=== PATIENT | female | born 1970 | race Caucasian/White ===

== ENCOUNTER → 2017-09-14 13:03 | Outpatient (CLI) | payer OTHER, SELFPAY ==
[2017-09-14 14:13] LABS: Absolute Lymphocyte Count 2.08 X10^3/ul (0.83-4.51); Basophil# 0.02 X10^3/uL; Basophil% 0.3 % (0-1); Eosinophil# 0.11 X10^3/uL; Eosinophils% 1.6 % (0-5); Hematocrit 40.6 % (37-47); Hemoglobin 13.4 g/dl (12.0-15.0); Lymphocyte # 2.08 X10^3/ul (4.0); Lymphocyte % 30.8 % (19-41); Mean Corpuscular Hgb 31.1 pg (27.0-32.0); Mean Corpuscular Volume 94.2 fL (81-99); Mean Platelet Vol. 9.9 fl (6.2-12.0); Monocyte# 0.53 X10^3/uL; Monocyte% 7.8 % (0-10); Neutrophil # 4.01 X10^3/uL (2.7-7.7); Neutrophil % 59.4 % (47-70); Platelet Count 331 K/mm3 (150-450); RBC Distribution Width CV 12.9 % (11.6-14.6); RBC Distribution Width SD 44.6 fl (35.1-43.9); Red Blood Count 4.31 M/mm3 (4.2-5.4); White Blood Count 6.8 K/mm3 (4.4-11.0)
[2017-09-14 14:15] LABS: POSITIVE COUNT NO; POSITIVE DIFFERENTIAL NO; POSITIVE MORPHOLOGY NO
[2017-09-14 14:52] LABS: Thyroid Stim Hormone (TSH) 1.09 uIU/mL (0.358-3.74)
[2017-09-20 08:40] LABS: HPV APTIMA, High Risk Negative (Negative)
== END ==
PROVIDERS: Family Provider Family Medicine; PCP Family Medicine; Visit Provider Obstetrics & Gynecology
DX: Z12.4 Encounter for screening for malignant neoplasm of cervix (principal); N93.9 Abnormal uterine and vaginal bleeding, unspecified
CPT/HCPCS: 36415; 84443; 85025; 88175; G0145

== ENCOUNTER 2019-02-23 11:45 | Emergency (ER) | payer OTHER, SELFPAY ==
[2019-02-23 11:46] VITALS: BP 143/87; PULSE 114; RESP 16; TEMP 36.8; O2SAT 99; BMI 25.7
--- NOTE | 2019-02-23 12:21 | RAD_ITS ---
STUDY: X-RAY - ABDOMEN/PELVIS REASON FOR EXAM: Female, 48 years old. Constipation. TECHNIQUE: Single AP view of the abdomen / pelvis. COMPARISON: None. FINDINGS: Normal visualized lung bases. There is a moderate amount of colonic fecal material. There are nonspecific gaseous bowel loops. There are calcified phleboliths in the pelvis. There is partial sacralization of the last lumbar vertebra on the left side. RAD/Abdomen Single View IMPRESSION: Moderate fecal retention. Electronically Signed: Michi Bowens MD at 12:42 EDT Tel , Service support ,
--- NOTE | 2019-02-23 12:56 | ED.VISSUMM ---
- ER Visit Summary Date of Service: 02/23/19 Chief Complaint: Abdominal discomfort and constipation History of Present Illness: The patient is a 48 F past medical history. Currently on no medications. Patient denies any nausea or vomiting. No diarrhea. No melena. No dysuria. She is never had a bowel obstruction she is never had abdominal surgeries of . Physical Examination: Middle-aged female no acute distress. Vital signs are stable and afebrile. HEENT exam unremarkable. Neck nontender no lymphadenopathy lungs bilateral. Heart regular rhythm no murmur. Abdomen soft. Nondistended normal bowel sounds no peritoneal signs. She says he feels full when I press on her abdomen. There is no localizing tenderness. There is no hernias or masses. No signs of obstruction. Patient is moving all 4 extremities. No edema. Neurologically she is awake and alert with no focal motor deficits. Test Results: KUB 2 view x-ray was obtained and shows increased stool throughout consistent with constipation. There is no signs of bowel obstruction. There are no air-fluid level. Read both by myself and radiologist. Emergency Department Course and Treatment: Cleanse enema was unsuccessful. Nurse had trouble passing it to get about half the enema into the patient. Repeat exam at 1425 patient is doing well. She wants to try magnesium citrate at home. She will be referred for outpatient colonoscopy as needed. Treatment Plan: Magnesium citrate. Follow-up for possible outpatient colonoscopy. Disposition: Discharge Impression: Acute constipation This note was generated with [employer]ango dictation software. It may contain incorrect words, spelling, and punctuation that were not noted in review of the chart prior to signing ED Disposition - Plan for ED Patient: Referrals: Jt Diana MD [Primary Care Provider] -
--- NOTE | 2019-02-23 14:32 | ED.DEP ---
ED Disposition - Plan for ED Patient: Disposition: Home or Assisted Living Instructions: CONSTIPATION (Adult) Referrals: Jt Diana MD [Primary Care Provider] - As Needed Adrienne Roblero MD [STAFF PHYSICIAN] - 1-2 Weeks Additional Instructions: May citrate drink the first bottle and if no bowel movement in 2 hours and drink the second bottle. Today she can plenty of fluids and taking plenty of fiber such as fruits, vegetables and apples with peels on them. Prune-juice also works well also. Call and follow-up with the general surgeon on-call Dr. Preeti Roblero for possible outpatient colonoscopy if needed.
[2019-02-23] MEDS: Magnesium Citrate 300 ML PO (14:49)
== END 2019-02-23 14:45 | disposition home or self-care (01) ==
PROVIDERS: Emergency Provider Emergency Medicine; Family Provider Family Medicine; PCP Family Medicine
DX: K59.00 Constipation, unspecified (principal); Z72.0 Tobacco use
CPT/HCPCS: 74018; 99284

== ENCOUNTER 2019-02-24 23:29 | Observation (INO) | payer OTHER, SELFPAY ==
[2019-02-23 11:46] VITALS: BMI 25.7
[2019-02-24 23:30] VITALS: BP 124/75; PULSE 102; RESP 18; TEMP 36.4; O2SAT 98; BMI 24.5
--- NOTE | 2019-02-25 00:14 | CT_ITS ---
STUDY: CT ABDOMEN AND PELVIS WITHOUT CONTRAST REASON FOR EXAM: Female, 48 years old. Abdominal pain RADIATION DOSAGE (If Supplied By Facility): CTDIvol = ( 7.18 ) mGy, DLP = ( 322.89 ) mGycm TECHNIQUE: Transaxial images were obtained from the dome of the diaphragm to the symphysis pubis without oral contrast, and without intravenous contrast. Sagittal and coronal images were reconstructed. Individualized dose optimization techniques were used for this CT. COMPARISON: None. FINDINGS: The lung bases are clear. The liver is normal. No dilated intrahepatic biliary radicles. The gallbladder is normal with no calcifications within it. There is no pericholecystic fluid collection or streakiness The spleen is normal. The pancreas is normal. Both adrenals are normal. The kidneys are normal with no masses, calculi or hydronephrosis The stomach is normal. There is no intestinal obstruction or acute appendicitis. There is mild sigmoid diverticulitis. Significant thickening of the sigmoid mesocolon No constricting lesions are seen in large bowel. The abdominal wall is intact with no hernias. There is no ascites or any free intraperitoneal air. No indication of epiploic appendagitis The vascular structures in the retroperitoneum are normal. There is no retrocrural, retroperitoneal or mesenteric adenopathy. The bones and joints are normal. The urinary bladder is normal.--The uterus is normal. There is no inguinal or pelvic adenopathy. There is no inguinal hernia. CT/Abdomen/Pel W ORAL Cont Only IMPRESSION: Mild acute sigmoid diverticulitis. No acute appendicitis Electronically Signed: Darwin Spear MD at 2:21 EDT Tel , Service support ,
[2019-02-25 00:41] LABS: Color, Urine Yellow (Yellow); Glucose, Dipstick Normal (Normal); Ketone-Dipstick 5 mg/dl (Negative); Leukocyte Esterase-Dipstick 25 /ul (Negative); Nitrite-Dipstick Negative (Negative); Occult Blood-Urine 250 /ul (Negative); Protein-Dipstick 30 mg/dl (Negative); Specific Gravity, Urine 1.025 (1.002-1.030); Urine Bilirubin Dipstick Negative (Negative); Urine Clarity Sl. Cloudy (Clear); Urine Urobilinogen 4 mg/dl (Normal)
[2019-02-25 00:42] LABS: Absolute Lymphocyte Count 2.05 X10^3/uL (0.83-4.51); Absolute Neutrophil Count 8.6 X10^3/uL (2.0-7.7); Basophil# 0.03 X10^3/uL; Basophil% 0.3 % (0-1); Eosinophil# 0.17 X10^3/uL; Eosinophils% 1.5 % (0-5); Hematocrit 36.5 % (37-47); Hemoglobin 12.5 g/dL (12.0-15.0); Lymphocyte # 2.05 X10^3/ul (4.0); Lymphocyte % 17.6 % (19-41); Mean Corp Hgb Conc 34.2 g/dL (32-36); Mean Corpuscular Hgb 33.6 pg (27.0-32.0); Mean Corpuscular Volume 98.1 fL (81-99); Mean Platelet Vol. 10.5 fl (6.2-12.0); Monocyte# 0.71 X10^3/uL; Monocyte% 6.1 % (0-10); NRBC Flagged by Analyzer 0 % (0-5); Neutrophil # 8.59 X10^3/uL (2.7-7.7); Neutrophil % 73.7 % (47-70); Platelet Count 475 K/mm3 (150-450); RBC Distribution Width CV 12.7 % (11.6-14.6); RBC Distribution Width SD 45.4 fl (35.1-43.9); Red Blood Count 3.72 M/mm3 (4.2-5.4); White Blood Count 11.6 K/mm3 (4.4-11.0)
[2019-02-25 00:47] LABS: Bacteria RARE /hpf (None Seen); Hyaline Cast 0-5 SEEN /lpf (0-5); Mucous, Urine 2+ /hpf (<or=2+); Squamous Epithelial Cells - UA 5-10 SEEN /hpf (5-10); White Blood Cells 0-5 SEEN /hpf (0-5)
[2019-02-25 00:48] LABS: Red Blood Cells-Urine 5-10 SEEN /hpf (0-5)
[2019-02-25 00:58] LABS: Internal QC Validated? YES +Cl - CLEAR BKGD; Pregnancy, Serum, hCG Quali. NEGATIVE Negative
[2019-02-25 01:30] VITALS: BP 121/75; PULSE 101; RESP 17; O2SAT 98
--- NOTE | 2019-02-25 02:22 | ED.RN ---
UNABLE TO DRAW LACTIC OR CHEM PANEL, CALLED LAB THEY TRIED TWICE AND ALSO COULD NOT GET ANYTHING. DR. KELLY AWARE NO FURTHER ORDERS AT THIS TIME.
[2019-02-25] MEDS: 0.9% Normal Saline 1,000 ML 125 ML IV (02:23)
--- NOTE | 2019-02-25 02:50 | ED.VISSUMM ---
- ER Visit Summary Date of Service: 02/25/19 Chief Complaint: [Abdominal pain and constipation] History of Present Illness: The patient is a 48 F [presents to the emergency department with complaint of abdominal pain and constipation. Patient states she has not had a good bowel movement in over a week. Patient was seen in the emergency department yesterday and had a abdominal x-ray and attempted soapsuds enemas x2. Patient was sent home with magnesium citrate and after taking it she passed some water but really does not like she got much relief. Her pain is now worse to the left lower quadrant. She denies any fevers. She is had some nausea. She denies urinary symptoms.] Physical Examination: [HEENT-PERRLA, EOMI. Cranial nerves II through XII grossly intact. TMs clear. Mucous membranes moist. No adenopathy. Cardiovascular-regular rate and rhythm without murmur or ectopy Lungs-clear to auscultation, chest wall stable without crepitus or subcu emphysema Abdomen-normoactive bowel sounds, soft. Patient has tenderness over left lower quadrant with some guarding. There is no rebound, rigidity, cranial signs. Extremities-intact ?4, normal range of motion, normal pulses, atraumatic] Test Results: [CBC with differential obtained from elevated white count of 11.6, hemoglobin 12, hematocrit 36, platelets 475. Chemistries pending. hCG was negative. Urinalysis was unremarkable. CT scan of the abdomen pelvis with IV and p.o. contrast showed acute diverticulitis of the sigmoid colon without any complications.] Emergency Department Course and Treatment: [Patient was started on Cipro and Flagyl IV. Patient was given morphine 4 mg IV.] Treatment Plan: [Patient will be admitted for pain control and IV antibiotics.] Disposition: [Admit] Impression: [Sigmoid diverticulitis Abdominal pain] This note was generated with [employer] dictation software. It may contain incorrect words, spelling, and punctuation that were not noted in review of the chart prior to signing ED Disposition - Plan for ED Patient: Referrals: Jt Diana MD [Primary Care Provider] -
[2019-02-25 03:00] VITALS: BP 122/78; PULSE 76; RESP 17; O2SAT 97
[2019-02-25 03:18] LABS: BUN 10 mg/dL (7-18); BUN/Creat Ratio 15.6 RATIO (10-20); Calcium,Total 8.7 mg/dL (8.5-10.1); Chloride 107 mmol/L (98-107); Creatinine, Serum 0.64 mg/dL (0.55-1.02); EST Glomerular Filtration Rate 105 mL/min (>60); Est Glom Filt Rate - Afr Amer 127 mL/min (>60); Estimated Creatinine Clearance 81.12 ml/min; Glucose 87 mg/dL (74-106); Potassium 3.7 mmol/L (3.5-5.1); Sodium Level 140 mmol/L (136-145)
[2019-02-25 03:19] LABS: Anion Gap 10 (5-15)
[2019-02-25] MEDS: metroNIDAZOLE 500 MG/100 ML BAG 100 MG IV (03:24)
[2019-02-25] MEDS: Morphine 4 MG/ML Syringe IV (03:26)
--- NOTE | 2019-02-25 03:38 | HP.PCM_ITS ---
Problem List (1) Abdominal pain Status: Acute (2) Depression Status: Chronic Qualifiers: Comment: start wellbutrin, encouraged therapy. lorazepam PRN (3) Mixed stress and urge urinary incontinence Status: Chronic Comment: declined medication, no treatment at this time. History of Present Illness Date of Admission: 02/25/19 Chief Complaint: LLQ abdominal Pain The patient is a 48 year old female with a past medical history of urge incontinence and depression presents to the emergency room with chief complaint of abdominal pain. The patient was seen in the emergency room yesterday and had a KUB which showed constipation she states she had not had a bowel movement in over a week. She was given soapsuds enemas and sent home with magnesium citrate which she took and had a watery stool but continued to have pain. Today she complains of more severe pain in the left lower quadrant as well as generalized discomfort throughout the abdomen. The patient denies nausea or vomiting and has a decreased appetite. No chest pain shortness of breath fevers or chills. CBC shows an elevated white count with a left shift. CT scan shows diverticulitis. Emergency room physician started the patient on morphine due to severity of her pain and also ciprofloxacin and Flagyl to treat her diverticular disease. She will be admitted to general medical floor for further treatment. Past Medical History Past Medical History (Chronic Problems): Chronic Problems (Last Reviewed 04/19/18 @ 08:09 by Lissa Ruiz) Depression (Chronic) start wellbutrin, encouraged therapy. 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 discussed hormonal treatment if needed for symptom managment but due to smoking this limits her eligibility. aygestin Mixed stress and urge urinary incontinence (Chronic) declined medication, no treatment at this time. Allergies No Known Allergies Allergy (Verified 02/23/19 11:49) Home Medications: Ambulatory Orders Medication Instructions Recorded lorazepam 0.5 mg tablet 0.5 mg PO QD-BID PRN #14 tab 04/19/18 citalopram 20 mg tablet 20 mg PO DAILY #90 tab 07/18/18 norethindrone acetate 5 mg tablet 5 mg PO .COMPLEX #30 tab 10/07/18 Surgical History: Surgical History (Last Reviewed 04/19/18 @ 08:09 by Lissa Ruiz) H/O section Z98.891 2 Smoking Status: Current every day smoker - *Family History Maternal History Items: No pertinent history Review of Systems Constitutional: Reports: Anorexia. Denies: Chills, Fever, Weight Change HEENT: Denies: Head Aches, Sinus Congestion, Sinus Drainage Cardiovascular: Denies: Chest Pain, Palpitations Respiratory: Denies: Cough, Shortness of breath at rest, Sputum production Gastrointestinal: Reports: Abdominal Pain, Constipation. Denies: Nausea, Vomiting Genitourinary: Denies: Dysuria Musculoskeletal: Denies: Joint Pain, Joint Tenderness Skin: Denies: Rash, Wounds Neurological: Denies: Numbness, Tingling, Focal weakness Psychiatric: Denies: Anxiety, Depression, Homicidal Ideations, Suicidal Ideations Hematologic/ Lymphatic: Denies: Easy Bruising, Easy Bleeding VTE Information - Inpt Only VTE Present on Admission: No VTE Mechan Device Prophylaxis: None VTE Pharm Prophylaxis ordered?: Yes Patient Problems: Active and Suspected Problems (Last Reviewed 04/19/18 @ 08:09 by Lissa Ruiz) Abdominal pain (Acute) - Physical Exam General: Alert, Oriented x3, Cooperative HEENT: Atraumatic, Normocephalic Neck: Supple Lungs: Clear to auscultation, Normal air movement, No rhonchi, No wheeze Cardiovascular: Regular rate, Regular Rhythm, Normal S1, Normal S2, No murmurs Abdomen: Bowel Sounds Present, Soft, Tender Extremities: No edema, Capillary Refill Less than 3 Seconds Skin: No rashes Musculoskeletal: No Tenderness to Palpation of Joints or Extremities Neurological: Neuro grossly intact Psych/Mental Status: Normal Affect, Appropriate Vital Signs Temp Pulse Resp BP Pulse Ox 97.6 F L 76 17 122/78 H 97 02/24/19 23:30 02/25/19 03:00 02/25/19 03:00 02/25/19 03:00 02/25/19 03:00 Oxygen Delivery Method Room Air Weight: 130 lb Body Mass Index (BMI) 24.5 Laboratory Tests Past 24 Hrs 02/25/19 02/25/19 02/25/19 00:27 00:27 00:37 WBC 11.6 H RBC 3.72 L Hgb 12.5 Hct 36.5 L MCV 98.1 MCH 33.6 H MCHC 34.2 RDW Std Deviation 45.4 H RDW Coeff of Miguel 12.7 Plt Count 475 H MPV 10.5 Immature Gran % (Auto) 0.800 Neut % (Auto) 73.7 H Lymph % (Auto) 17.6 L Mclennan % (Auto) 6.1 Eos % (Auto) 1.5 Baso % (Auto) 0.3 Absolute Neuts (auto) 8.6 H Absolute Lymphs (auto) 2.05 Nucleated RBC % 0 Sodium Potassium Chloride Carbon Dioxide Anion Gap BUN Creatinine Estim Creat Clear Calc Est GFR (MDRD) Af Amer Est GFR (MDRD) Non-Af BUN/Creatinine Ratio Glucose Calcium Serum , Qual NEGATIVE Urine Color Yellow Urine Clarity Sl. Cloudy Urine pH 6.0 Ur Specific [place] 1.025 Urine Protein 30 H Urine Glucose (UA) Normal Urine Ketones 5 H Urine Occult Blood 250 H Urine Nitrite Negative Urine Bilirubin Negative Urine Urobilinogen 4 H Ur Leukocyte Esterase 25 H Urine RBC 5-10 SEEN Urine WBC 0-5 SEEN Ur Squamous Epith Cells 5-10 SEEN Urine Bacteria RARE Hyaline Casts 0-5 SEEN Urine Mucus 2+ 02/25/19 03:02 WBC RBC Hgb Hct MCV MCH MCHC RDW Std Deviation RDW Coeff of Miguel Plt Count MPV Immature Gran % (Auto) Neut % (Auto) Lymph % (Auto) Mclennan % (Auto) Eos % (Auto) Baso % (Auto) Absolute Neuts (auto) Absolute Lymphs (auto) Nucleated RBC % Sodium 140 Potassium 3.7 Chloride 107 Carbon Dioxide 23.0 Anion Gap 10 BUN 10 Creatinine 0.64 Estim Creat Clear Calc 81.12 Est GFR (MDRD) Af Amer 127 Est GFR (MDRD) Non-Af 105 BUN/Creatinine Ratio 15.6 Glucose 87 Calcium 8.7 Serum , Qual Urine Color Urine Clarity Urine pH Ur Specific [place] Urine Protein Urine Glucose (UA) Urine Ketones Urine Occult Blood Urine Nitrite Urine Bilirubin Urine Urobilinogen Ur Leukocyte Esterase Urine RBC Urine WBC Ur Squamous Epith Cells Urine Bacteria Hyaline Casts Urine Mucus Assessment/Plan All Active Problems (Last Reviewed 04/19/18 @ 08:09 by Lissa Ruiz) Abdominal pain (Acute) Abnormal uterine bleeding (Acute) Chronic Problems (Last Reviewed 04/19/18 @ 08:09 by Lissa Ruiz) Depression (Chronic) start wellbutrin, encouraged therapy. 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 discussed hormonal treatment if needed for symptom managment but due to smoking this limits her eligibility. aygestin Mixed stress and urge urinary incontinence (Chronic) declined medication, no treatment at this time. Plan 1. Abdominal pain secondary to diverticulitis?we will order as needed morphine for severe pain, maintain patient n.p.o., order ciprofloxacin and Flagyl per routine, IV fluids of normal saline at 100 cc/h, repeat CBC CMP in the morning 2. Depression?stable hold medications for now while n.p.o. 3. DVT prophylaxis?low molecular weight heparin Code Visit Inpatient E&M: 59715 Init Hosp L3
[2019-02-25 03:56] VITALS: BP 144/89; PULSE 94; RESP 16; TEMP 36.8
[2019-02-25 04:01] VITALS: BP 126/78
[2019-02-25] MEDS: Ciprofloxacin 400 MG/200 ML BAG 200 MG IV ×2 (04:36→10:10)
[2019-02-25 04:46] VITALS: BMI 25.4
[2019-02-25 04:54] VITALS: BMI 25.5
[2019-02-25 05:30] LABS: Absolute Lymphocyte Count 2.02 X10^3/uL (0.83-4.51); Basophil# 0.03 X10^3/uL; Basophil% 0.3 % (0-1); Eosinophil# 0.17 X10^3/uL; Eosinophils% 1.7 % (0-5); Hematocrit 30.5 % (37-47); Hemoglobin 10.1 g/dL (12.0-15.0); Lymphocyte # 2.02 X10^3/ul (4.0); Lymphocyte % 20.1 % (19-41); Mean Corp Hgb Conc 33.1 g/dL (32-36); Mean Corpuscular Hgb 32.8 pg (27.0-32.0); Mean Platelet Vol. 9.7 fl (6.2-12.0); Monocyte# 0.79 X10^3/uL; Monocyte% 7.9 % (0-10); NRBC Flagged by Analyzer 0 % (0-5); Neutrophil # 6.97 X10^3/uL (2.7-7.7); Neutrophil % 69.2 % (47-70); Platelet Count 418 K/mm3 (150-450); RBC Distribution Width CV 12.8 % (11.6-14.6); RBC Distribution Width SD 46.5 fl (35.1-43.9); Red Blood Count 3.08 M/mm3 (4.2-5.4); White Blood Count 10.1 K/mm3 (4.4-11.0)
[2019-02-25 05:52] LABS: Lactic Acid 0.7 mmol/L (0.4-2.0)
[2019-02-25 05:54] LABS: ALB/GLOB Ratio 0.6 RATIO (0.9-2.4); AST(SGOT) 35 U/L (15-37); Alanine Aminotransfer ALT/SGPT 45 U/L (13-56); Albumin, Serum 2.6 g/dL (3.2-5.0); Alkaline Phosphatase 65 U/L (45-117); Anion Gap 9 (5-15); BUN 9 mg/dL (7-18); BUN/Creat Ratio 14.2 RATIO (10-20); Calcium,Total 8.2 mg/dL (8.5-10.1); Chloride 107 mmol/L (98-107); Creatinine, Serum 0.63 mg/dL (0.55-1.02); EST Glomerular Filtration Rate 106 mL/min (>60); Est Glom Filt Rate - Afr Amer 128 mL/min (>60); Estimated Creatinine Clearance 82.41 ml/min; Globulin 4.5 g/dL (2.2-4.2); Glucose 110 mg/dL (74-106); Potassium 3.5 mmol/L (3.5-5.1); Protein, Total 7.1 g/dL (6.4-8.2); Sodium Level 139 mmol/L (136-145)
[2019-02-25 08:00] VITALS: BP 112/75; PULSE 90; RESP 16; TEMP 36.6; O2SAT 96
--- NOTE | 2019-02-25 10:01 | DCINST_ITS ---
- Discharge Diagnoses Current Active Problems: Current Active and Chronic Problems (Last Reviewed 04/19/18 @ 08:09 by Lissa Ruiz) Abdominal pain (Acute) You will use the following diet at home:: No restrictions - Advance slowly back to normal diet, avoid spicy, greasy, or acidic foods Your food should be the consistency of: Regular Your liquids should be the consistency of: Regular/Thin Discharge Activity: Return to Normal Activity Allergies/Adverse Reactions: Allergies No Known Allergies Allergy (Verified 02/23/19 11:49) Medications to take at Discharge norethindrone acetate 5 mg tablet 5 mg PO .COMPLEX #30 tab 10/07/18 Ciprofloxacin [Cipro] 500 mg PO BID #13 tab 02/25/19 Metronidazole [Flagyl] 500 mg PO TID #20 tab 02/25/19 Ondansetron [Zofran Odt] 4 mg PO Q6H PRN PRN #20 tab 02/25/19 buPROPion XL [Wellbutrin Xl] 300 mg PO DAILY 02/25/19 The following prescriptions were given: Ciprofloxacin [Cipro] 500 mg PO BID #13 tab Transmission Status: Pending to [id number] Metronidazole [Flagyl] 500 mg PO TID #20 tab Transmission Status: Pending to [id number] Ondansetron [Zofran Odt] 4 mg PO Q6H PRN PRN #20 tab PRN Reason: Nausea Transmission Status: Pending to [id number] Primary Care Physician: Jt Diana MD [Primary Care Provider] - Please follow up with your Primary Care Physician in: 1-2 weeks Test Results: Test results from this visit will be discussed in further detail at your follow- up appointment, if applicable. Proposed Discharge Date: 02/25/19
[2019-02-25] MEDS: Ibuprofen 400 MG Tablet PO (10:11)
--- NOTE | 2019-02-25 10:40 | CASEMGMT ---
KARLI GAYTAN assessment: Face to Face with patient for initial transition planning/care coordination assessment. KARLI GAYTAN introduced self and role at [facility], pt voices understanding and consents to assessment at this time. Pt is sitting up in bed in no distress at this time. Pt is A/Ox4 at this time and answers all questions appropriately at this time. Care providers, pharmacy, and demographics verified at this time. PCP: Jt Diana Specialists: Pt states currently has no specialists. [facility]erred [facility]acy[facility] Insurance: [employer] Prescription Benefit: [employer] Living Will/HPOA: Pt states does not have LW/HPOA and would like info at this time. Advance directive info provided to pt at this time along with SW rack card. LNOK: Ezra Lewis, Living Arrangements: Pt states lives with and 2 children in 2 story home and states no concerns at home at this time. Pt states is independent with ADL's. Transportation: Pt states drives self and states no transportation concerns at this time. DME/HHC: Pt states no current DME or need for any at this time. Pt states no hx of HHC or SNF. Pt states no concerns with going home at time of discharge. 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 Pt states does smoke 6 cigarettes daily and drinks 'at least' a glass of wine daily. Pt states no further concerns/needs at this time. CM to follow for any further discharge planning/needs. Advised pt to ask for CM if any further questions/concerns/needs arise, voices understanding. Pt Goal: Home Plan: [place] KARLI GAYTAN
--- NOTE | 2019-02-25 10:43 | PHA.DC.MC ---
Pharmacy Service has performed discharge medication reconciliation and counseling for this patient. The patient's discharge medication list was reviewed for discrepancies and discrepancies were resolved. The patient was counseled on the following discharge medications and changes in medications for homegoing were reviewed. 1. CIPRO 500MT PO BID 2. FLAGYL: 500MG PO TID 3. ZOFRAN 4MT PO Q6H PRN The Reason for Use, instructions for use, and potential side effects were reviewed for all new medications. The patient's questions regarding all of their medications were answered. The patient was able to verbally demonstrate an understanding of their discharge medications. Home Medications norethindrone acetate 5 mg tablet 5 mg PO .COMPLEX #30 tab 10/07/18 Ciprofloxacin [Cipro] 500 mg PO BID #13 tab 02/25/19 Metronidazole [Flagyl] 500 mg PO TID #20 tab 02/25/19 Ondansetron [Zofran Odt] 4 mg PO Q6H PRN PRN #20 tab 02/25/19 buPROPion XL [Wellbutrin Xl] 300 mg PO DAILY 02/25/19
--- NOTE | 2019-02-25 13:13 | PCM.DC.SUM ---
<Inderjit Srinivasan - Last Filed: 02/25/19 13:13> Discharge Date and Diagnosis Date of Admission: 02/25/19 Date of Discharge: 02/25/19 - Primary Discharge Diagnosis Acute mild sigmoid diverticulitis History of depression - Secondary Discharge Diagnosis Chronic Problems (Last Reviewed 04/19/18 @ 08:09 by Lissa Ruiz) Depression (Chronic) start wellbutrin, encouraged therapy. 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 discussed hormonal treatment if needed for symptom managment but due to smoking this limits her eligibility. aygestin Mixed stress and urge urinary incontinence (Chronic) declined medication, no treatment at this time. Hospital Course and Treatment Imaging Results: Imaging: CT/Abdomen/Pel W ORAL Cont Only IMPRESSION: Mild acute sigmoid diverticulitis. No acute appendicitis Operations: None Procedures: None Summary of Care Provided: Hospital course: The patient is a 48 year old F with past medical history of depression, who presented to the emergency room with complaints of left lower quadrant abdominal pain. She had been to the ER the prior day, had a KUB which showed constipation and she had not had a bowel movement in over a week. She was given soapsuds enemas and sent home. Despite this she continued to have pain. On re-presentation she had an abdominal CT and this did show acute mild sigmoid diverticulitis. She was started on Cipro and Flagyl, and she was admitted to the PCU. She was given supportive care and did very well. She had minimal pain, nausea, vomiting and desired to go home. We are agreeable to changing her to oral Cipro and Flagyl to complete a 7-day course. I have also provided her with a prescription for Zofran and oxycodone for symptomatic control at home. She is otherwise young and healthy. She has no prior history of diverticulitis. I have advised her to follow-up with her PCP in 1 to 2 weeks. She was discharged home in stable condition. This patient was seen by Inderjit Srinivasan PA-C under the supervision of Doctor Chowdhury. [] - Physical Exam General: Alert, Oriented x3, Cooperative HEENT: Atraumatic, PERRLA, EOMI, Normocephalic Neck: Supple, No JVD, Negative Carotid Bruits Lungs: Clear to auscultation, Normal air movement Cardiovascular: Regular rate, No murmurs Abdomen: Bowel Sounds Present, Soft, Non-Distended, Tender - Left lower quadrant tenderness, no guarding or rigidity Extremities: No edema, Capillary Refill Less than 3 Seconds Skin: No rashes, No breakdown Musculoskeletal: No Tenderness to Palpation of Joints or Extremities Neurological: Cranial nerves II-XII grossly intact Psych/Mental Status: Normal Affect, Appropriate, Alert and oriented to time, place, person, mood and affect Vital Signs Temp Pulse Resp BP Pulse Ox 97.9 F 90 16 112/75 96 02/25/19 08:00 02/25/19 08:00 02/25/19 08:00 02/25/19 08:00 02/25/19 08:00 Oxygen Delivery Method Room Air Weight: 134 lb 14.766 oz Body Mass Index (BMI) 25.4 Laboratory Tests Past 24 Hrs 02/25/19 02/25/19 02/25/19 00:27 00:27 00:37 WBC 11.6 H RBC 3.72 L Hgb 12.5 Hct 36.5 L MCV 98.1 MCH 33.6 H MCHC 34.2 RDW Std Deviation 45.4 H RDW Coeff of Miguel 12.7 Plt Count 475 H MPV 10.5 Immature Gran % (Auto) 0.800 Neut % (Auto) 73.7 H Lymph % (Auto) 17.6 L Crosby % (Auto) 6.1 Eos % (Auto) 1.5 Baso % (Auto) 0.3 Absolute Neuts (auto) 8.6 H Absolute Lymphs (auto) 2.05 Nucleated RBC % 0 Sodium Potassium Chloride Carbon Dioxide Anion Gap BUN Creatinine Estim Creat Clear Calc Est GFR (MDRD) Af Amer Est GFR (MDRD) Non-Af BUN/Creatinine Ratio Glucose Lactic Acid Calcium Total Bilirubin AST ALT Alkaline Phosphatase Total Protein Albumin Globulin Albumin/Globulin Ratio Serum , Qual NEGATIVE Urine Color Yellow Urine Clarity Sl. Cloudy Urine pH 6.0 Ur Specific [place] 1.025 Urine Protein 30 H Urine Glucose (UA) Normal Urine Ketones 5 H Urine Occult Blood 250 H Urine Nitrite Negative Urine Bilirubin Negative Urine Urobilinogen 4 H Ur Leukocyte Esterase 25 H Urine RBC 5-10 SEEN Urine WBC 0-5 SEEN Ur Squamous Epith Cells 5-10 SEEN Urine Bacteria RARE Hyaline Casts 0-5 SEEN Urine Mucus 2+ 02/25/19 02/25/19 02/25/19 03:02 05:12 05:12 WBC 10.1 RBC 3.08 L Hgb 10.1 L Hct 30.5 L MCV 99.0 MCH 32.8 H MCHC 33.1 RDW Std Deviation 46.5 H RDW Coeff of Miguel 12.8 Plt Count 418 MPV 9.7 Immature Gran % (Auto) 0.800 Neut % (Auto) 69.2 Lymph % (Auto) 20.1 Crosby % (Auto) 7.9 Eos % (Auto) 1.7 Baso % (Auto) 0.3 Absolute Neuts (auto) 7.0 Absolute Lymphs (auto) 2.02 Nucleated RBC % 0 Sodium 140 Potassium 3.7 Chloride 107 Carbon Dioxide 23.0 Anion Gap 10 BUN 10 Creatinine 0.64 Estim Creat Clear Calc 81.12 Est GFR (MDRD) Af Amer 127 Est GFR (MDRD) Non-Af 105 BUN/Creatinine Ratio 15.6 Glucose 87 Lactic Acid 0.7 Calcium 8.7 Total Bilirubin AST ALT Alkaline Phosphatase Total Protein Albumin Globulin Albumin/Globulin Ratio Serum , Qual Urine Color Urine Clarity Urine pH Ur Specific [place] Urine Protein Urine Glucose (UA) Urine Ketones Urine Occult Blood Urine Nitrite Urine Bilirubin Urine Urobilinogen Ur Leukocyte Esterase Urine RBC Urine WBC Ur Squamous Epith Cells Urine Bacteria Hyaline Casts Urine Mucus 02/25/19 05:12 WBC RBC Hgb Hct MCV MCH MCHC RDW Std Deviation RDW Coeff of Miguel Plt Count MPV Immature Gran % (Auto) Neut % (Auto) Lymph % (Auto) Crosby % (Auto) Eos % (Auto) Baso % (Auto) Absolute Neuts (auto) Absolute Lymphs (auto) Nucleated RBC % Sodium 139 Potassium 3.5 Chloride 107 Carbon Dioxide 23.0 Anion Gap 9 BUN 9 Creatinine 0.63 Estim Creat Clear Calc 82.41 Est GFR (MDRD) Af Amer 128 Est GFR (MDRD) Non-Af 106 BUN/Creatinine Ratio 14.2 Glucose 110 H Lactic Acid Calcium 8.2 L Total Bilirubin 0.30 AST 35 ALT 45 Alkaline Phosphatase 65 Total Protein 7.1 Albumin 2.6 L Globulin 4.5 H Albumin/Globulin Ratio 0.6 L Serum , Qual Urine Color Urine Clarity Urine pH Ur Specific [place] Urine Protein Urine Glucose (UA) Urine Ketones Urine Occult Blood Urine Nitrite Urine Bilirubin Urine Urobilinogen Ur Leukocyte Esterase Urine RBC Urine WBC Ur Squamous Epith Cells Urine Bacteria Hyaline Casts Urine Mucus Discharge Diet: No Restrictions, - - Patient was advised to advance diet carefully as she recovers, I advised her to avoid acidic, spicy, greasy foods initially. Discharge Activity: Return to Normal Activity Home Medications: Medications to take at Discharge norethindrone acetate 5 mg tablet 5 mg PO .COMPLEX #30 tab 10/07/18 Ciprofloxacin [Cipro] 500 mg PO BID #13 tab 02/25/19 Metronidazole [Flagyl] 500 mg PO TID #20 tab 02/25/19 Ondansetron [Zofran Odt] 4 mg PO Q6H PRN PRN #20 tab 02/25/19 Oxycodone [Oxyir] 5 mg PO Q4H PRN PRN 3 Days #18 tab 02/25/19 buPROPion XL [Wellbutrin Xl] 300 mg PO DAILY 02/25/19 Following Prescrptions Were Given to Patient: Ciprofloxacin [Cipro] 500 mg PO BID #13 tab Transmission Status: Received by [id number] Metronidazole [Flagyl] 500 mg PO TID #20 tab Transmission Status: Received by [id number] Oxycodone [Oxyir] 5 mg PO Q4H PRN PRN 3 Days #18 tab PRN Reason: Mod-Severe Pain (4-10) Transmission Status: Received by [id number] Ondansetron [Zofran Odt] 4 mg PO Q6H PRN PRN #20 tab PRN Reason: Nausea Transmission Status: Received by [id number] Primary Care Physician: Jt Diana MD [Primary Care Provider] - Please follow up with your Primary Care Physician in: 1-2 weeks Disposition: Home Minutes spent on discharge:: 35 Patient Condition:: Stable Medical Necessity - Tobacco Use Smoking Status: Current every day smoker Tobacco Use: Cigarettes Meaningful Use Info Meaningful Use Diagnoses (Choose all that apply): None applicable <Yusuf Chowdhury - Last Filed: 02/25/19 15:16> Discharge Date and Diagnosis - Secondary Discharge Diagnosis Chronic Problems (Last Reviewed 04/19/18 @ 08:09 by Lissa Ruiz) Depression (Chronic) start wellbutrin, encouraged therapy. 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 discussed hormonal treatment if needed for symptom managment but due to smoking this limits her eligibility. aygestin Mixed stress and urge urinary incontinence (Chronic) declined medication, no treatment at this time. Hospital Course and Treatment Summary of Care Provided: This patient was seen in conjunction with Inderjit Srinivasan PA-C . I have independently interviewed and examined the patient and reviewed pertinent historical, laboratory, and other data. Please refer to Inderjit Srinivasan PA-C note for details of this patient's presentation, findings, and recommendations. I have reviewed Inderjit Srinivasan PA-C note and concur with documented findings. In brief, patient is a 48-year-old lady with past medical history significant for tobacco dependence, depression with anxiety who presented with abdominal pain CT of the abdomen obtained demonstrated acute sigmoid diverticulitis. Patient was started on ciprofloxacin and Flagyl admitted to regular nursing floor. Patient did experience rather unexpected improvement in her condition. She requested to be discharged home. She was discharged home on Cipro and Flagyl instructed to follow-up with her PCP for subsequent care. She was also instructed to present back to the ED if her symptoms worsen. Hospital course: As documented above by Inderjit Srinivasan PA-C. - Physical Exam Vital Signs Temp Pulse Resp BP Pulse Ox 97.9 F 90 16 112/75 96 02/25/19 08:00 02/25/19 08:00 02/25/19 08:00 02/25/19 08:00 02/25/19 08:00 Oxygen Delivery Method Room Air Weight: 61.2 kg Body Mass Index (BMI) 25.4 Laboratory Tests Past 24 Hrs 02/25/19 02/25/19 02/25/19 00:27 00:27 00:37 WBC 11.6 H RBC 3.72 L Hgb 12.5 Hct 36.5 L MCV 98.1 MCH 33.6 H MCHC 34.2 RDW Std Deviation 45.4 H RDW Coeff of Miguel 12.7 Plt Count 475 H MPV 10.5 Immature Gran % (Auto) 0.800 Neut % (Auto) 73.7 H Lymph % (Auto) 17.6 L Crosby % (Auto) 6.1 Eos % (Auto) 1.5 Baso % (Auto) 0.3 Absolute Neuts (auto) 8.6 H Absolute Lymphs (auto) 2.05 Nucleated RBC % 0 Sodium Potassium Chloride Carbon Dioxide Anion Gap BUN Creatinine Estim Creat Clear Calc Est GFR (MDRD) Af Amer Est GFR (MDRD) Non-Af BUN/Creatinine Ratio Glucose Lactic Acid Calcium Total Bilirubin AST ALT Alkaline Phosphatase Total Protein Albumin Globulin Albumin/Globulin Ratio Serum , Qual NEGATIVE Urine Color Yellow Urine Clarity Sl. Cloudy Urine pH 6.0 Ur Specific [place] 1.025 Urine Protein 30 H Urine Glucose (UA) Normal Urine Ketones 5 H Urine Occult Blood 250 H Urine Nitrite Negative Urine Bilirubin Negative Urine Urobilinogen 4 H Ur Leukocyte Esterase 25 H Urine RBC 5-10 SEEN Urine WBC 0-5 SEEN Ur Squamous Epith Cells 5-10 SEEN Urine Bacteria RARE Hyaline Casts 0-5 SEEN Urine Mucus 2+ 02/25/19 02/25/19 02/25/19 03:02 05:12 05:12 WBC 10.1 RBC 3.08 L Hgb 10.1 L Hct 30.5 L MCV 99.0 MCH 32.8 H MCHC 33.1 RDW Std Deviation 46.5 H RDW Coeff of Miguel 12.8 Plt Count 418 MPV 9.7 Immature Gran % (Auto) 0.800 Neut % (Auto) 69.2 Lymph % (Auto) 20.1 Crosby % (Auto) 7.9 Eos % (Auto) 1.7 Baso % (Auto) 0.3 Absolute Neuts (auto) 7.0 Absolute Lymphs (auto) 2.02 Nucleated RBC % 0 Sodium 140 Potassium 3.7 Chloride 107 Carbon Dioxide 23.0 Anion Gap 10 BUN 10 Creatinine 0.64 Estim Creat Clear Calc 81.12 Est GFR (MDRD) Af Amer 127 Est GFR (MDRD) Non-Af 105 BUN/Creatinine Ratio 15.6 Glucose 87 Lactic Acid 0.7 Calcium 8.7 Total Bilirubin AST ALT Alkaline Phosphatase Total Protein Albumin Globulin Albumin/Globulin Ratio Serum , Qual Urine Color Urine Clarity Urine pH Ur Specific [place] Urine Protein Urine Glucose (UA) Urine Ketones Urine Occult Blood Urine Nitrite Urine Bilirubin Urine Urobilinogen Ur Leukocyte Esterase Urine RBC Urine WBC Ur Squamous Epith Cells Urine Bacteria Hyaline Casts Urine Mucus 02/25/19 05:12 WBC RBC Hgb Hct MCV MCH MCHC RDW Std Deviation RDW Coeff of Miguel Plt Count MPV Immature Gran % (Auto) Neut % (Auto) Lymph % (Auto) Crosby % (Auto) Eos % (Auto) Baso % (Auto) Absolute Neuts (auto) Absolute Lymphs (auto) Nucleated RBC % Sodium 139 Potassium 3.5 Chloride 107 Carbon Dioxide 23.0 Anion Gap 9 BUN 9 Creatinine 0.63 Estim Creat Clear Calc 82.41 Est GFR (MDRD) Af Amer 128 Est GFR (MDRD) Non-Af 106 BUN/Creatinine Ratio 14.2 Glucose 110 H Lactic Acid Calcium 8.2 L Total Bilirubin 0.30 AST 35 ALT 45 Alkaline Phosphatase 65 Total Protein 7.1 Albumin 2.6 L Globulin 4.5 H Albumin/Globulin Ratio 0.6 L Serum , Qual Urine Color Urine Clarity Urine pH Ur Specific [place] Urine Protein Urine Glucose (UA) Urine Ketones Urine Occult Blood Urine Nitrite Urine Bilirubin Urine Urobilinogen Ur Leukocyte Esterase Urine RBC Urine WBC Ur Squamous Epith Cells Urine Bacteria Hyaline Casts Urine Mucus Code Visit OBSV E&M: [id number] Observ/hosp same date L3
== END 2019-02-25 11:46 | disposition home or self-care (01) ==
LOC: ED 02-25 02:24 → PCU 02-25 03:35
PROVIDERS: Admitting Provider Family Medicine; Emergency Provider Emergency Medicine; Family Provider Family Medicine; PCP Family Medicine; Visit Provider Internal Medicine
DX: K57.32 Diverticulitis of large intestine without perforation or abscess without bleeding (principal); F32.9 Major depressive disorder, single episode, unspecified; K59.00 Constipation, unspecified; N39.46 Mixed incontinence; Z79.899 Other long term (current) drug therapy; F17.210 Nicotine dependence, cigarettes, uncomplicated
CPT/HCPCS: 36415; 74176; 80048; 80053; 81001; 83605; 84703; 85025; 96361; 96365; 96366; 96367; 96375; 99218; 99284; J7030; J7050; A4216; G0378; J0744

== ENCOUNTER → 2019-03-04 | Outpatient (CLI) | payer OTHER, SELFPAY ==
[2019-02-25 04:46] VITALS: BMI 25.4
[2019-03-04 18:19] LABS: T4 Total, Thyroxin 11.9 ug/dL (4.8-13.9)
== END | disposition home or self-care (01) ==
LOC: MTLAB 16:42
PROVIDERS: Family Provider Family Medicine; PCP Family Medicine; Referring Provider Internal Medicine Gastroenterology; Visit Provider Internal Medicine Gastroenterology
DX: K59.00 Constipation, unspecified (principal)
CPT/HCPCS: 36415; 84436; 84443

== ENCOUNTER → 2019-03-10 | Outpatient (CLI) | payer OTHER, SELFPAY ==
[2019-02-25 04:46] VITALS: BMI 25.4
--- NOTE | 2019-03-10 12:45 | COLBX_PTH ---
PATIENT: NELIDA DELACRUZ LOC: [facility] U#:[id number] AGE/SX: 48/F ROOM: RE03/10/[address]: Dr. Rufino Bowen MD : [id number] BED: DIS: 03/10/2019 SPEC #: [id number] RECD: 03/10/19 15:19 STATUS: JORGE REJenny #: [id number] DOROTHY: 03/10/19 12:[address]: Rufino Bowen DEPT: SURGICAL PATHOLOGY RECD BY: Dino Pinto ENTERED: 03/11/19 14:17 SP TYPE: COLON BX ELISHA DR: Dr. Jt Diana MD [facility] Tissues: Sigmoid colon biopsy Procedures: Surgery Specimen Level IV HEADER OPERATION: Colonoscopy with biopsy PRE-OP DIAGNOSIS: Constipation and abdominal pain TISSUE SUBMITTED: Sigmoid biopsy, rule out colitis MICROSCOPIC DIAGNOSIS Sigmoid colon, biopsy: Acute colitis. See comment AM:dixie 03/12/19 COMMENT Sections show normal glandular architecture. Lamina propria is expanded focally by acute inflammatory cells. No ulcers, transmural lymphoid aggregates or crypt abscesses are seen. Acute inflammation is also noted in the submucosa. Clinical correlation is suggested. MICROSCOPIC DESCRIPTION Slides are reviewed. GROSS DESCRIPTION Received is one container labeled with the patient name and designated sigmoid biopsy. The specimen consists of two irregular fragments of light pop soft tissue that in aggregate measure 0.5 x 0.3 x 0.1 cm. The specimen is totally submitted in one cassette. /SJ:sp 03/11/19 TC: 2 CPT:69844
== END | disposition home or self-care (01) ==
LOC: LABSPEC 15:26
PROVIDERS: Family Provider Family Medicine; PCP Family Medicine; Referring Provider Internal Medicine Gastroenterology; Visit Provider Internal Medicine Gastroenterology
DX: K52.9 Noninfective gastroenteritis and colitis, unspecified (principal)
CPT/HCPCS: 88305

== ENCOUNTER → 2019-07-23 16:01 | Outpatient (CLI) | payer OTHER, SELFPAY ==
[2019-07-23 15:17] VITALS: BMI 25.4
[2019-07-23 16:17] LABS: Absolute Lymphocyte Count 1.87 X10^3/uL (0.83-4.51); Absolute Neutrophil Count 7.5 X10^3/uL (2.0-7.7); Basophil# 0.03 X10^3/uL; Basophil% 0.3 % (0-1); Eosinophil# 0.22 X10^3/uL; Eosinophils% 2.2 % (0-5); Hemoglobin 12.9 g/dL (12.0-15.0); Lymphocyte # 1.87 X10^3/ul (4.0); Lymphocyte % 18.3 % (19-41); Mean Corp Hgb Conc 32.3 g/dL (32-36); Mean Corpuscular Hgb 29.5 pg (27.0-32.0); Mean Corpuscular Volume 91.3 fL (81-99); Mean Platelet Vol. 9.1 fl (6.2-12.0); Monocyte# 0.55 X10^3/uL; Monocyte% 5.4 % (0-10); NRBC Flagged by Analyzer 0 % (0-5); Neutrophil # 7.51 X10^3/uL (2.7-7.7); Neutrophil % 73.4 % (47-70); Platelet Count 360 K/mm3 (150-450); RBC Distribution Width CV 14.7 % (11.6-14.6); RBC Distribution Width SD 49.5 fl (35.1-43.9); Red Blood Count 4.38 M/mm3 (4.2-5.4); White Blood Count 10.2 K/mm3 (4.4-11.0)
[2019-07-23 16:24] LABS: Erythrocyte Sedimentation Rate 11 mm/hr (0-20)
[2019-07-23 16:52] LABS: ALB/GLOB Ratio 0.9 RATIO (0.9-2.4); AST(SGOT) 23 U/L (15-37); Alanine Aminotransfer ALT/SGPT 32 U/L (13-56); Albumin, Serum 3.9 g/dL (3.2-5.0); Alkaline Phosphatase 127 U/L (45-117); Anion Gap 8 (5-15); BUN 12 mg/dL (7-18); BUN/Creat Ratio 13.5 RATIO (10-20); Calcium,Total 9.2 mg/dL (8.5-10.1); Chloride 103 mmol/L (98-107); Creatinine, Serum 0.89 mg/dL (0.55-1.02); EST Glomerular Filtration Rate 72 mL/min (>60); Est Glom Filt Rate - Afr Amer 87 mL/min (>60); Globulin 4.4 g/dL (2.2-4.2); Glucose 83 mg/dL (74-106); Potassium 3.8 mmol/L (3.5-5.1); Protein, Total 8.3 g/dL (6.4-8.2); Sodium Level 138 mmol/L (136-145)
== END ==
LOC: LAB 16:02
PROVIDERS: Family Provider Family Medicine; PCP Family Medicine; Referring Provider Surgery; Visit Provider Surgery
DX: R10.9 Unspecified abdominal pain (principal); D64.9 Anemia, unspecified
CPT/HCPCS: 36415; 80053; 85025; 85652; 86140

== ENCOUNTER → 2019-07-25 15:40 | Outpatient (CLI) | payer OTHER, SELFPAY ==
[2019-07-23 15:17] VITALS: BMI 25.4
[2019-07-23 16:41] VITALS: BMI 25.4
--- NOTE | 2019-07-25 15:41 | CT_ITS ---
STUDY: CT ABDOMEN AND PELVIS WITH CONTRAST REASON FOR EXAM: Female, 49 years old. ABDOMINAL PAIN-intermittent since 03/2019. Hx of rectal infections. Prior csection x 2 and tummy tuck. Pt had oral, IV and rectal contrast. RADIATION DOSAGE (If Supplied By Facility): CTDIvol = ( 13.12 ) mGy, DLP = ( 601.41 ) mGycm TECHNIQUE: Transaxial images were obtained from the dome of the diaphragm to the symphysis pubis without oral contrast. Oral and amp; IV Readi-CAT and amp; 100mL Isovue-300 was administered. Sagittal and coronal images were reconstructed. Individualized dose optimization techniques were used for this CT. COMPARISON: None. FINDINGS: The visualized lung bases are unremarkable. The visualized portions of the heart are within normal limits. Normal liver. Normal gallbladder and extrahepatic biliary system. Normal spleen. Normal pancreas. Normal bilateral adrenal glands. Normal right kidney. Normal left kidney. Incompletely distended stomach with possible minimal hiatal hernia. Multiple loops of small bowel is mild thickening of the wall, cannot exclude mild enteritis. There is contrast within the colon. There is diverticulosis of the sigmoid with thickening of the wall and surrounding inflammation consistent with diverticulitis. The appendix is visualized and appears normal. Normal abdominal aorta. Normal inferior vena cava. Normal retroperitoneum. Normal urinary bladder. The uterus is anteverted. Mild free fluid in the pelvis seen. Normal abdominal wall. Normal osseous structures. CT/Abdomen/Pelvis WITH Contrast IMPRESSION: Persistent sigmoid diverticulitis. No acute appendicitis or bowel obstruction. Normal abdominal viscera. Electronically Signed: Alysha Leal MD at 3:36 EST , Service support ,
== END ==
LOC: CT 15:41
PROVIDERS: Family Provider Internal Medicine; PCP Internal Medicine; Referring Provider Surgery; Visit Provider Surgery
DX: R10.9 Unspecified abdominal pain (principal)
CPT/HCPCS: 74177; Q9967

== ENCOUNTER 2019-08-20 05:13 | Inpatient (IN) | payer OTHER, SELFPAY ==
[2019-07-23 16:41] VITALS: BMI 25.4
--- NOTE | 2019-08-01 03:50 | HP_ITS ---
Intake Vital Signs 08/01/19 BMI 25.4 Intake Visit Reasons: CT and lab results Chief Complaint: ABD. PAIN FROM CONSTIPATION, ENEMAS AND MAG. CITRATE NOT HELP Allergies venom-honey bee Allergy (Unknown, Verified 07/23/19 15:18) Unknown [facility] Medical History Anemia (Acute) Diverticulitis (Acute) Surgical History H/O colonoscopy (Acute) H/O section (Resolved) Family History Unknown Asthma Social History (Updated 08/01/19 @ 15:55 by Ezra Victor MD) household members: family number of children: 4 current occupational status: employed Smoking Status: Current every day smoker second hand exposure: No alcohol intake: current details: Glass of wine 3x a weeks substance use type: does not use caffeine: Yes what type of physical activity do you participate in: none seatbelt use: always do you feel safe at home: Yes 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 Previously I had seen the patient on July 23, 2019 with my comments following below. In the interim however we also had laboratory obtained and a CT scan the abdomen pelvis. The laboratory CBC with differential and CMP were not remarkable. The CT scan was remarkable as noted. [facility] [address] [place] [address] Abdomen/Pelvis WITH Contrast MR#: [id number] Name: NELIDA DELACRUZ [facility] #:[id number] : 1970F 49 From: Alysha Leal MD PCP:Fatoumata Galeas MD Status:REG CLI Study:Abdomen/Pelvis WITH Contrast Date of Exam:07/25/19 Exam#[id number] Ordering Dr: Ezra Victor MD STUDY: CT ABDOMEN AND PELVIS WITH CONTRAST REASON FOR EXAM: Female, 49 years old. ABDOMINAL PAIN-intermittent since 03/2019. Hx of rectal infections. Prior csection x 2 and tummy tuck. Pt had oral, IV and rectal contrast. RADIATION DOSAGE (If Supplied By Facility): CTDIvol = ( 13.12 ) mGy, DLP = ( 601.41 ) mGycm TECHNIQUE: Transaxial images were obtained from the dome of the diaphragm to the symphysis pubis without oral contrast. Oral and amp; IV Readi-CAT and amp; 100mL Isovue-300 was administered. Sagittal and coronal images were reconstructed. Individualized dose optimization techniques were used for this CT. COMPARISON: None. FINDINGS: The visualized lung bases are unremarkable. The visualized portions of the heart are within normal limits. Normal liver. Normal gallbladder and extrahepatic biliary system. Normal spleen. Normal pancreas. Normal bilateral adrenal glands. Normal right kidney. Normal left kidney. Incompletely distended stomach with possible minimal hiatal hernia. Multiple loops of small bowel is mild thickening of the wall, cannot exclude mild enteritis. There is contrast within the colon. There is diverticulosis of the sigmoid with thickening of the wall and surrounding inflammation consistent with diverticulitis. The appendix is visualized and appears normal. Normal abdominal aorta. Normal inferior vena cava. Normal retroperitoneum. Normal urinary bladder. The uterus is anteverted. Mild free fluid in the pelvis seen. Normal abdominal wall. Normal osseous structures. CT/Abdomen/Pelvis WITH Contrast IMPRESSION: Persistent sigmoid diverticulitis. No acute appendicitis or bowel obstruction. Normal abdominal viscera. Electronically Signed: Alysha Leal MD at 3:36 EST , Service support , Intake Visit Reasons: diverticulitis CONSULT Allergies venom-honey bee Allergy (Unknown, Verified 07/23/19 15:18) Unknown Medications linaclotide 72 mcg capsule 72 mcg PO DAILY 07/23/19 [History Confirmed 07/23/19] [facility] Medical History (Updated 07/23/19 @ 16:35 by Ezra Victor MD) Anemia (Acute) Diverticulitis (Acute) Surgical History (Updated 07/23/19 @ 15:16 by Sandhya Galvin) H/O colonoscopy (Acute) H/O section (Resolved) Family History (Updated 07/23/19 @ 15:17 by Sandhya Galvin) Unknown Asthma Social History (Updated 07/23/19 @ 16:41 by Ezra Victor MD) household members: family number of children: 4 current occupational status: employed Smoking Status: Current every day smoker second hand exposure: No alcohol intake: current details: Glass of wine 3x a weeks substance use type: does not use caffeine: Yes what type of physical activity do you participate in: none seatbelt use: always do you feel safe at home: Yes 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 The patient is referred by family member Rin. March 2019 she had 2 trips to the emergency room with subsequent hospitalization for suspected sigmoid diverticulitis. February [address] scan with oral contrast only performed at the [facility] showed mild sigmoid diverticulitis. Significant thickening of the sigmoid mesocolon with no constricting lesions of the bowel identified. It is of note that on February 25, 2019 her white blood cell count was 10.1 with a hemoglobin of 10.1 hematocrit 30.5 platelet count 4 and 18,000 with a normal differential. The patient states that she was not instructed that she was anemic at that time nor has she ever been anemic. BUN was 9 and creatinine 0.63. Albumin was 2.6. Total protein 7.1. Liver function tests were normal. The patient states that Dr. Bowen performed a colonoscopy on March 10, 2019 because of abdominal pain and constipation. That demonstrated an area of abnormality of the sigmoid colon where biopsy showed acute colitis. There were no ulcers transmural lymphoid aggregates or crypt abscesses. Acute inflammation also noted in the submucosa. Clinical correlation was felt to be indicated. The patient states that she was instructed that the interpretation was made that she had acute diverticulitis. Lifelong the patient has had abdominal pain issues. She has had chronic constipation issues. She had to be placed on Linzess by Dr. Bowen because of her chronic constipation and pain issues. The patient states that her chronic constipation has progressed. She will not move her bowels for 3 or 4 or 5 days. She occasionally notes some blood. She has no fevers. She notes diffuse abdominal pain both the left and the right. She states it is painful to sit. Pertinent previous procedures includes C-sections x2 and a abdominal panniculectomy HPI HPI HPI: NELIDA DELACRUZ, is a 49 F who presents to the office today for ROS General General: Yes weight change and fatigue; no appetite, colon cancer or breast cancer HEENT HEENT: No difficulty swallowing, eye injury, eye surgery, swollen glands or hoarseness Endo Endocrine: No thyroid disease, diabetes mellitus, thyroid cancer, Hair loss, heat intolerance or cold intolerance Skin Skin: No rash or changing moles Breast Breast: No left breast lump, right breast lump, nipple discharge, breast pain, abnormal mammogram, abnormal US or breast enlargement Musc Musculoskeletal: No back problems, arthritis, rheumatoid arthritis, gout or joint pain Cardio Cardiovascular: No murmur, pacemaker, heart disease, atrial fibrillation, high blood pressure, heart attack, heart stent, palpitations, shortness of breat with exertion or chest pain Psych Psychiatric: No depression, anxiety or hearing voices Resp Respiratory: No shortness of breath, No sleep apnea, No cough, No COPD, No asthma, No emphysema, No wheezing Gastro Gastrointestinal: Yes abdominal pain, Yes nausea or vomiting, Yes diarrhea, Yes constipation, No blood in stool, No acid reflux, Yes hemorrhoids, No ulcers, No gallbladder problem, No black,tarry stools Efren Hematologic: No blood thinners, No blood disorders, No bleeding, No anemia, No blood clots Exam Const General: cooperative, healthy appearing, no acute distress Nutritional Appearance: average body habitus Orientation: alert, awake [facility] Head: normal to inspection Chest Breast Palpation: No nipple discharge Resp Effort & Inspection: normal respiratory effort Auscultation: clear to auscultation bilaterally Cardio Rate: regular rate Rhythm: regular rhythm Heart Sounds: no murmurs GI Palpation: soft, no hepatosplenomegaly Auscultation: normal bowel sounds Other: Well-healed panniculectomy incisions. Mild tenderness palpation left lower quadrant. Mild to have mild tenderness palpation right lower quadrant. No mass. Neuro Cognition: normal cognition Extrem General: no calf tenderness bilaterally Psych Affect: anxious affect Assessment & Plan Problems 1. Left lower quadrant abdominal pain R10.32 2. Diverticulitis K57.92 3. Anemia, unspecified type D64.9 Plan 49-year-old female who presents under the anticipation that I would recommend laparoscopic sigmoid colectomy for chronic diverticulitis with stricture and constipation. She was unaware that she was anemic at the time of her hospitalization February 2019. She has a lifelong history of abdominal pain complaints. She has a lifelong history of severe chronic constipation. It is not completely clear to me actually the etiology to her presentation as sigmoid diverticulitis should not cause anemia unless the patient has profuse rectal bleeding which she has not I recommend to her that we obtain repeat laboratory including inflammatory markers. This would include an ESR and CRP. I recommend that we recheck a CBC to assess whether her anemia persists. I recommend a fully contrasted abdominal pelvic CT scan for repeat current inspection. I will then have the patient return to my office to discuss potential treatment options. She might additionally be a candidate for a barium enema. What is not clear to me is whether she has diverticulitis or colitis of other origin CC: Dr Adal Victor M.D., F.A.C.S. ROS General General: Yes weight change and fatigue; no appetite, colon cancer or breast cancer HEENT HEENT: No difficulty swallowing, eye injury, eye surgery, swollen glands or hoarseness Endo Endocrine: No thyroid disease, diabetes mellitus, thyroid cancer, Hair loss, heat intolerance or cold intolerance Skin Skin: No rash or changing moles Breast Breast: No left breast lump, right breast lump, nipple discharge, breast pain, abnormal mammogram, abnormal US or breast enlargement Musc Musculoskeletal: No back problems, arthritis, rheumatoid arthritis, gout or joint pain Cardio Cardiovascular: No murmur, pacemaker, heart disease, atrial fibrillation, high blood pressure, heart attack, heart stent, palpitations, shortness of breat with exertion or chest pain Psych Psychiatric: No depression, anxiety or hearing voices Resp Respiratory: No shortness of breath, No sleep apnea, No cough, No COPD, No asthma, No emphysema, No wheezing Gastro Gastrointestinal: Yes abdominal pain, Yes nausea or vomiting, Yes diarrhea, Yes constipation, No blood in stool, No acid reflux, Yes hemorrhoids, No ulcers, No gallbladder problem, No black,tarry stools Efren Hematologic: No blood thinners, No blood disorders, No bleeding, No anemia, No blood clots Exam Chest Breast Palpation: No nipple discharge Cardio Heart Sounds: no murmurs Assessment & Plan Problems 1. Diverticulitis K57.92 Plan At the patient's initial visit July 23, 2019 there appeared to be an anemia with a hemoglobin of 10. On recheck however her hemoglobin is 12.9 no apparent anemia. The patient notes currently that she is on Linzess to assist with her bowel function. She has not felt well since March 2019. Occasionally she has a low-grade fever. I have personally reviewed the CT scan images with her and her . There appears to be a rather long segment of diseased sigmoid colon. There are diverticula in the area. The presumption is that this represents a chronic sigmoid diverticulitis. In great detail I discussed the planned attempt at a laparoscopic sigmoid colectomy with primary anastomosis. We discussed possible conversion to a hand- assisted or open procedure. We will try to have left ureteral catheter placed pre-intervention. I will initiate the patient on Augmentin 875 mg twice daily for 5 days prior to her bowel prep. We will try to proceed with the rest. She is aware that this is a significant length of bowel that is strictured and will require mobilization of the splenic flexure. She has had a abdominal plasty/tummy tuck. We will need be careful regarding her incision placement. She has had an opportunity to ask and have questions answered. She is very much aware that this will be an increased technically demanding procedure. She is aware that there is risk of complication including but not limited to bleeding and leak. Patient and her have had an opportunity to ask and have questions answered. We will proceed as noted. cc:Dr Adal Victor M.D., F.A.C.S. Coding Level of Care Code Off vis,est,level 3 Diagnoses Diverticulitis K57.92 08/01/19 1555 <Electronically signed by Ezra sandoval MD> Date _ Ezra Victor MD I have re-examined the patient. There are no clinical changes since date of exam.
[2019-08-01 14:52] VITALS: BMI 25.4
[2019-08-15 14:30] VITALS: BP 137/85; PULSE 81; RESP 16; TEMP 37.2; O2SAT 99; BMI 26.6
--- NOTE | 2019-08-15 14:37 | SDCEKG_ITS ---
Test Reason : Blood Pressure : / mmHG Vent. Rate : 069 BPM Atrial Rate : 069 BPM P-R Int : 128 ms QRS Dur : 082 ms QT Int : 402 ms P-R-T Axes : 056 051 030 degrees QTc Int : 430 ms Normal sinus rhythm Possible Left atrial enlargement Borderline ECG Confirmed by NICK OLVERA, JOHAN ([id number]), business editor MICHAEL LONDON ([id number]) on 08/19/2019 8:14:34 AM Referred By: Ezra Victor Confirmed By:JOHAN ROMERO MD
[2019-08-15 15:06] LABS: Hematocrit 38.1 % (37-47); Hemoglobin 12.5 g/dL (12.0-15.0); Mean Corp Hgb Conc 32.8 g/dL (32-36); Mean Corpuscular Hgb 29.8 pg (27.0-32.0); Mean Corpuscular Volume 90.7 fL (81-99); Mean Platelet Vol. 9.6 fl (6.2-12.0); Platelet Count 425 K/mm3 (150-450); RBC Distribution Width CV 14.1 % (11.6-14.6); RBC Distribution Width SD 46.9 fl (35.1-43.9); White Blood Count 9.8 K/mm3 (4.4-11.0)
[2019-08-15 15:29] LABS: Anion Gap 5 (5-15); BUN 10 mg/dL (7-18); BUN/Creat Ratio 15.5 RATIO (10-20); Calcium,Total 9.1 mg/dL (8.5-10.1); Chloride 107 mmol/L (98-107); Creatinine, Serum 0.65 mg/dL (0.55-1.02); EST Glomerular Filtration Rate 104 mL/min (>60); Est Glom Filt Rate - Afr Amer 125 mL/min (>60); Glucose 75 mg/dL (74-106); Potassium 3.8 mmol/L (3.5-5.1); Sodium Level 138 mmol/L (136-145)
[2019-08-20] VITALS (11 sets, daily range): BP systolic 84–143; BP diastolic 56–84; PULSE 59–92; RESP 16–20; TEMP 36.3–36.9; O2SAT 95–100; BMI 26.6
[2019-08-20] MEDS: Gabapentin 600 MG Tablet PO (05:55)
[2019-08-20] MEDS: Acetaminophen 500 MG Tablet 1000 MG PO ×2 (05:55→18:27)
[2019-08-20 05:56] LABS: Bedside Glucose 99 mg/dL (70-110)
[2019-08-20] MEDS: Lactated Ringers 1,000 ML 40 ML IV ×3 (06:02→14:40)
[2019-08-20] MEDS: Magnesium Sulfate 4gm/100mL 4 GM/100 ML IV.SOLN. IV (06:02)
[2019-08-20] MEDS: Lidocaine/D5W 2,000 MG/250 ML IV.SOLN 2000 MG (06:42)
[2019-08-20 06:53] LABS: Internal QC Validated? YES +Cl - CLEAR BKGD; Pregnancy, Urine Negative Negative
--- NOTE | 2019-08-20 07:15 | COL_PTH ---
PATIENT: NELIDA DELACRUZ LOC: MS3 U#:[id number] AGE/SX: 49/F ROOM: MS318 RE08/20/[address]: Dr. Ezra Victor MD : 1970 BED: 1 DIS: 09/02/2019 SPEC #: [id number] RECD: 08/20/19 14:55 STATUS: JORGE REJenny #: [id number] DOROTHY: 08/20/19 07:[address]: Ezra Victor DEPT: SURGICAL PATHOLOGY RECD BY: Dino Pinto ENTERED: 08/21/19 07:56 SP TYPE: COLON OTHR DR: Dr. Fatoumata Galeas MD Tissues: A - Colon, NOS B - Colon, NOS Procedures: Surgery Specimen Level V HEADER OPERATION: ERAS, laparoscopic lysis of adhesions, low anterior resection PRE-OP DIAGNOSIS: Diverticulitis K57.92 TISSUE SUBMITTED: A - Sigmoid colon with additional rectosigmoid segment, B - Mid small bowel associated with abscess MICROSCOPIC DIAGNOSIS A. Sigmoid colon and rectosigmoid colon, segmental colectomy: Diverticular disease. Focal subserosal microabscess. One benign lymph node. Margins of excision (donuts) with no pathologic change. B. Mid small bowel, segmental resection: Fibrosis and acute inflammation serosa. Focal subserosal microabscess. AM:eda 08/22/19 MICROSCOPIC DESCRIPTION Slides are reviewed. GROSS DESCRIPTION A - Received in fixative is one container labeled with the patient's name and designated sigmoid colon. The specimen consists of a larger segment of bowel measuring 25 cm, a smaller segment of bowel measuring 4.5 cm and two mucosal donuts each averaging 1.5 cm in diameter. No gross perforation is identified in any fragment. The larger fragment contains indurated fibrofatty tissue that displays focal fat wrapping. Serial sections reveal a number of diverticula. No mucosal mass lesions are identified. The attached fibrofatty tissue contains several nodules resembling lymph nodes. Physical Science Technician sections are submitted in six cassettes as follows: 1 - posterior margin (one inked in blue), 2 - smaller fragment of bowel free in container, 3-5 - larger segment of bowel, 6 - possible lymph nodes. B - Received in fixative is one container labeled with the patient's name and designated mid small bowel. The specimen consists of a segment of bowel measuring 5 cm in length and 2.5 cm in diameter. The serosal surface in the mid portion is irregular in an area measuring 1 cm. This area is inked in blue ink. Serial sections do not reveal obvious gross perforation. The mucosa is light pop and thrown into normal folds. The attached fibrofatty tissue is grossly unremarkable. Physical Science Technician sections are submitted in three cassettes. / AM:eda 08/21/19 TC:2 CPT: 75284 x2
--- NOTE | 2019-08-20 07:17 | PCM.DC.GS ---
Discharge Diet: Light diet - advance as tolerated - if you have questions about your diet instructions, please talk to you doctor., - - Daily nutritional supplement. You may resume utilizing your daily fiber supplement which may help solidify some of your stool Multiple vitamin daily encouraged Discharge Activity: May Not Drive - for 1-2 weeks May shower in (days): 0 - May shower now Lifting Restrictions: 10 pounds Call your doctor if your incision/area has: Continuous Slow Oozing, Sudden Increased Bleeding, Increased Pain/ Swelling, Increased Redness, Foul Smelling Discharge Call your doctor if you observe: Fever of 101 or Higher Suture Line Care: Avoid Pulling/Pushing, Avoid Pinching/Bending Additional Dressing/Incision Instructions:: You may remove your OpSite dressings now. Leave steri-strips in place for 1 week. Allergies/Adverse Reactions: Allergies venom-honey bee Allergy (Unknown, Verified 08/20/19 05:52) Unknown promethazine [From Phenergan] Allergy (Verified 08/23/19 18:05) Other strawberry Allergy (Verified 08/20/19 15:02) Swelling Medications to take at Discharge Amoxicillin 875 mg PO BID 08/15/19 Norethindrone [Aygestin] 5 mg PO DAILY PRN 08/15/19 ondansetron HCl 4 mg tablet 4 mg PO Q8H #10 tab 08/18/19 Hydrocodone Bitart/Apap 5-325 [[place] 5MG-325MG] 1 tab PO Q6H PRN PRN 3 Days #10 tab 08/22/19 The following prescriptions were given: Hydrocodone Bitart/Apap 5-325 [[place] 5MG-325MG] 1 tab PO Q6H PRN PRN 3 Days #10 tab PRN Reason: Pain Transmission Status: Received by [facility] Primary Care Physician: Fatoumata Galeas MD [Primary Care Provider] - Test Results: Test results from this visit will be discussed in further detail at your follow-up appointment, if applicable. Please Follow Up With: Ezra Victor MD - [phone] When: Call to make an appointment to be seen in about 10 days.
--- NOTE | 2019-08-20 07:40 | OP.PCM_ITS ---
Report of Operation Date of Procedure: 08/20/19 Pre-Operative Diagnosis: Sigmoid diverticulitis Post-Operative Diagnosis: Same Surgery/Procedure Performed:: Cystoscopy and left stent placement ureteral catheter. Description of Surgical Findings:: 49-year-old female's undergo a sigmoid resection for consistent recurrent diverticulitis the general surgeons have requested I place a stent to assist him with the location of the ureter and the procedure. 49-year-old female taken back to the operating room after smooth induction of general anesthesia the urethrovaginal area were prepped and draped in usual sterile fashion within the bladder with a 21 [place] rigid cystourethroscope the entire bladder was normal identified the trigone I then identified the left ureteral orifice and with a Glidewire and a Pollack catheter advanced a wire up into the kidney once the Pollick catheter was in the kidney pulled the wire but a catheter in the bladder irrigation and drainage and the Pollick catheter was left in place and secured with a tape to the glove. The patient was then handed back over to the general surgeon to continue with the procedure. Type of Anesthesia:: General Drains: left u cath
[2019-08-20] MEDS: Lubricating Jelly 60 GM Tube 30 GM TOPICAL ×2 (07:50→10:29)
[2019-08-20] MEDS: BUPIVACAINE LIPOSOME/PF 20 ML VIAL OPERA.SITE (11:20)
[2019-08-20] MEDS: Bupivacaine 0.25% 30 ML Vial (11:20)
[2019-08-20] MEDS: 0.9% Normal Saline (Pres. free 10 ML Vial (11:20)
[2019-08-20] MEDS: Sugammadex Sodium 200 MG/2 ML VIAL IV (12:20)
--- NOTE | 2019-08-20 12:20 | OP.PCM_ITS ---
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 Conversion to hand-assisted low anterior resection of the sigmoid colon. Enterectomy with primary anastomosis of the mid small bowel. Loop ileostomy right lower quadrant. Bilateral tap block Description of Surgical Findings:: Timeout and informed consent was obtained. 49-year-old female taken out from placement table underwent general endotracheal vision esthesia cefotetan 2 g given intravenous preoperatively she was placed in a plane back she was placed in a low lithotomy position. Dr. Franklin placed a left ureteral stent per his note. Then the abdomen and perineum were sterilely prepped draped Ioban draping was used as well I used a 5 mm Visiport technology slightly superior to the right of the umbilicus to gain access cleanly. No concern trocar injuries. 2 more 5 Diana ports were placed in the right lower quadrant. Inspection reveale d that there were 2 loops of small bowel densely adherent to the colon which was removed back on itself and adherent both to itself into the small bowel into the uterus. The left pelvic sidewall tube and ovary also involved. An hour of laparoscopic lysis of adhesions was performed. At the conclusion I was not able to completely free the loop of sigmoid colon. I did identify an interloop abscess between loops of sigmoid colon which was densely adherent to themselves and adherent to the 2 loops of small bowel. I drained this abscess by disrupting it. I did obtain specimen for Gram stain [facility]. So I then made a infraumbilical midline incision 6 cm placed a GelPort and used in hands assist technique to continue to free the sigmoid colon. I was able to achieve mobilization of the sigmoid colon but unfortunately transmural inflammation involved the pelvic sidewall and tissue surrounding the sigmoid and rectosigmoid. Transmural inflammation from that had involved the low sigmoid and there was induration inflammation at the pelvic reflection. I was able to transect the mesentery to the sigmoid colon using Enseal device hemostasis was intact I was able to free the distal sigmoid but there is induration there I did perform rigid sigmoidoscopy and used dilators to assure that I was going to be able to get the stapler to go from below but it was closed. I made sure that the vagina was not involved. Upon gauging at distance I then used a Chalmers to transect the rectosigmoid. Upon then advancing the stapler after I had the anvil in place proximally in the sigmoid with a running looped 2-0 Prolene it was apparent that the distal rectosigmoid tissue was difficult. There was a small serosal tear so I then re-resected more of that tissue using the Chalmers stapler again with a green load of 45 mm stapler. I was now down to the peritoneal reflection. I again inserted the circular anastomotic stapler transanally and was able to get access to the transected portion of recto sigmoid. Despite there is still being induration in the pelvis. I felt that it was critically important to get an anastomosis as it would be highly unlikely that she would be able to be reconnected if repeat surgery was required. Dr. Meadows actually stepped in for just a moment during this part of the procedure and he assisted with the hand assist and lining up of the trans-rectal stapler exiting the trocar seem to be good position connected to the anvil with the 2 were approximated the stapler was fired the donuts were inspected there appeared to be intact. I performed rigid sigmoidoscopy inflated air there did not appear to be any air leak. I inspected the sigmoid colon it appeared to have a nice positional line appeared to be viable. Is of note that when I transected the sigmoid colon there was good bleeding demonstrating viability prior to my putting the anvil in. [place] that that anastomosis was as solid as possible but I did appreciate that the tissue was thickened in that area inflamed from the chronic diverticular disease. So I then elected to do a diverting loop ileostomy to protect it. It is of note that upon dissecting all of the loops of small bowel and large bowel free from the pelvic area it became apparent that there was an abscess between loops of large bowel. That specimen was obtained for Gram stain [facility] and was copiously irrigated and aspirated free that part of the disease however was removed with the colon resection. There was no significant abscess remaining and so I elected not to leave a drain. The pelvis was irrigated and aspirated free. I inspected the small bowel and there was one area that was of questionable viability look like it had a small pinhole area due to the inflammatory changes related to its adjacent to the colon so I elected to resect it. I transected the mesentery in a very small area with the Enseal used a LYNDA stiffness 55 stapler to transect both ends of the small bowel I placed them in a functional end-to-end fashion succ-po-sowf made enterotomies used the LYNDA stapler to create the anastomosis and then to use a TA 60 stapler to close the enterotomies. I oversewed the staple line with a running Lembert style suture of 4-0 silk and closed the mesenteric trap with the clinic same. Widely patent anastomosis was achieved very nicely viable bowel. The second loop of bowel was actually much closer to the ileocecal valve. Although this was potentially can provide a somewhat short distal limb I felt it was pertinent to include this area also so I elevated the terminal ileum within about 8 cm of ileocecal valve used on the port sites and large that stressed the fascia somewhat from the loop bowel I secured it to the skin externally with interrupted 4-0 Vicryl excreted internally with several sutures of interrupted 4-0 silk. Then under laparoscopic incision, I performed bilateral tap block this was done with Exparel diluted with 0.25% Marcaine and saline. Laparoscopically controlled bilateral tap block was performed. Finally I closed the midline wound with a running 0 Prolene. The patient had had a previous abdominal plasty and there was evidence of permanent suture which fragments I removed. All incisions were then closed with interrupted a running septic or 4-0 Monocryl. I matured the loop ileostomy by making a enterotomy in the bowel and then folding the mucosa over and securing it to the dermis. This appeared to be viable. Specimens and submitted included the strictured sigmoid colon. There was an additional portion of the rectosigmoid as a had re-resected and re-stapled that area. There is a small segment of small bowel where the wall was compromised by his adherence to the abscess. Sponge and instrument and needle counts reported the surgeon be correct. Blood loss was 100 cc. She was taken to the recovery area in status condition without apparent complication. Because the patient had an interloop abscess I have elected to continue IV Zosyn in the initial postoperative period of time while I await culture and sensitivity from the purulence that was obtained. This change the case from a anticipated clean contaminated resection to a contaminated/infected resection with the abscess present. I will treat appropriately. The antibiotics will then be hopefully ceased pending the results of culture and sensitivity. I dissipate that the antibiotics will be continued longer than 24 hours as they no longer are prophylactic but therapeutic The left ureteral stent had been palpated throughout the procedure. The left ureter remained nicely intact. At the completion of the procedure the left ureteral stent was removed. The Broussard catheter was left in position overnight Ezra Victor M.D., F.A.C.S. Type of Anesthesia:: General Anesthesiologist: Carlos Daugherty
--- NOTE | 2019-08-20 13:30 | NURSING ---
Was called to PACU to place ostomy appliance. Pt is s/p loop ileostomy due to diverticular stricture. removed the sterile drape from the stoma in the right lower abdomen. stoma is pink and moist. well budded. measures approx 1 1/4. peristomal skin cleansed with warm water. pat dry. applied a 2 piece flat [place] appliance with and Adapt paste ring. Pt still groggy from surgery. will start ostomy teaching with patient tomorrow as this nurse will be out next week. will have script for ostomy supplies ready on the chart as well. will discuss home health care with case management also. home health can then continue ostomy teaching at home until patient and family are comfortable. will discuss all this with patient tomorrow.
[2019-08-20] MEDS: 0.9% Saline Lock 10 ML Syringe IV ×2 (16:38→18:25)
--- NOTE | 2019-08-20 18:13 | PCM.PN.BLA ---
Progress Note Patient presented to the hospital with vertigo which is a constant recurrent problem for her. With ketamine she currently is still somewhat dizzy postoperatively. She has not yet been able to get out of bed. She otherwise is comfortable. No particular nausea. The ileostomy in the right lower quadrant appears pink and healthy With family members present I have thoroughly discussed the technical aspects of the procedure and challenges. She has had an opportunity to ask and have questions answered. We will continue with care as outlined. Ezra Victor M.D., F.A.C.S. STROKE Vital Signs/Narrative: Vital Signs Temp Pulse Resp BP Pulse Ox 08/20/19 15:00 97.6 F L 72 16 143/84 H 100 08/20/19 14:15 98.4 F 66 16 130/82 H 100
[2019-08-20] MEDS: Ketorolac 15 MG/ML Vial IV (18:25)
[2019-08-20] MEDS: HYDROmorphone 0.5 MG/0.5 ML SYRINGE IV (19:47)
[2019-08-20] MEDS: Docusate Sodium 100 MG Capsule PO (22:50)
[2019-08-21] MEDS: Acetaminophen 500 MG Tablet 1000 MG PO ×4 (00:12→18:30)
[2019-08-21] MEDS: Ketorolac 15 MG/ML Vial IV ×4 (00:12→17:04)
[2019-08-21] MEDS: 0.9% Saline Lock 10 ML Syringe IV ×3 (00:13→07:04)
[2019-08-21 01:00] VITALS: BP 99/50; PULSE 79; RESP 16; TEMP 36.6; O2SAT 96
[2019-08-21] MEDS: HYDROmorphone 0.5 MG/0.5 ML SYRINGE IV ×2 (01:10→07:04)
--- NOTE | 2019-08-21 05:55 | PCM.PN.SRG ---
Patient Problems: Active and Suspected Problems (Last Reviewed 08/01/19 @ 14:52 by Fanta Henriquez) Abscess (Acute) Intra-abdominal adhesions (Acute) Subjective: She has been able to walk. Her dizziness improved to resolved. She is starting to have output per her ileostomy. She is quite sore particularly under the ribs. No current nausea. She is pleased with her progress. She is concerned about her ability to urinate when the catheter is out - Physical Exam Vitals/I&O's: Vital Signs Temp Pulse Resp BP Pulse Ox 97.8 F 79 16 99/50 L 96 08/21/19 01:00 08/21/19 01:00 08/21/19 01:00 08/21/19 01:00 08/21/19 01:00 Oxygen Flow Rate (L/min) 6 Oxygen Delivery Method Room Air Weight: 136 lb 10.986 oz Body Mass Index (BMI) 26.6 Intake and Output for Last 24 Hours 08/19/19 08/20/19 08/21/19 23:59 23:59 23:59 Intake Total 2551.60 / 2851.60 870.33 / 870.33 Output Total 1250 / 1375 125 / 125 Balance 1301.60 / 1476.60 745.33 / 745.33 General: Alert, Oriented x3, Cooperative Lungs: Clear to auscultation Abdomen: Bowel Sounds Present, Soft, Tender, - - Stoma is pink and healthy with a greenish liquidy output Microbiology Past 72 Hours 08/20/19 Unknown Aspirate - Abdominal Gram Stain - Final Laboratory Results 08/20/19 05:30: Urine Test Negative 08/20/19 05:48: POC Glucose 99 08/21/19 05:24: Sodium Pending, Potassium Pending, Chloride Pending, Carbon Dioxide Pending, Anion Gap Pending, BUN Pending, Creatinine Pending, Est GFR (MDRD) Af Amer Pending, Est GFR (MDRD) Non-Af Pending, BUN/Creatinine Ratio Pending, Glucose Pending, Calcium Pending 08/21/19 05:24: WBC Pending, RBC Pending, Hgb Pending, Hct Pending, MCV Pending, MCH Pending, MCHC Pending, RDW Std Deviation Pending, RDW Coeff of Miguel Pending, Plt Count Pending Current Medications Acetaminophen (Tylenol) 1,000 mg PO Q6 [facility] Last Admin: 08/21/19 05:35 Dose: 1,000 mg Documented by: Docusate Sodium (Colace) 100 mg PO BID [facility] Last Admin: 08/20/19 22:50 Dose: 100 mg Documented by: Enoxaparin Sodium (Lovenox) 40 mg SC DAILY [facility] Hydromorphone HCl (Dilaudid Inj) 0.5 mg IV Q3H PRN PRN PRN Reason: Pain Score 6-10/10 Last Admin: 08/21/19 01:10 Dose: 0.5 mg Documented by: Piperacillin Sod/Tazobactam (Sod 3.375 gm/ Sodium Chloride) 50 mls @ 12.5 mls/hr IV Q8 [facility] Last Admin: 08/21/19 05:34 Dose: 12.5 mls/hr Documented by: Potassium Chloride/Sodium Chloride () 1,000 mls @ 40 mls/hr IV .Q25H [facility] Last Infusion: 08/21/19 03:05 Dose: 40 mls/hr Documented by: Sodium Chloride () 250 mls @ 15 mls/hr IV .[id number] PRN PRN Reason: Saline Flush Last Infusion: 08/21/19 03:06 Dose: 15 mls/hr Documented by: Sodium Chloride () 250 mls @ 15 mls/hr IV .[id number] PRN PRN Reason: Additional IVPB Infusion Influenza Virus Vaccine Quadrival (Flucelvax /Fluzone ) 0.5 ml IM .ONCE ONE Stop: 08/21/19 10:01 Ketorolac Tromethamine (Toradol (Bkc)) 15 mg IV Q6 [facility] Stop: 08/22/19 00:01 Last Admin: 08/21/19 05:35 Dose: 15 mg Documented by: Magnesium Oxide (Mag-Ox 400) 400 mg PO DAILY PRN PRN PRN Reason: Constipation Nutritional Formula (Lactose Free) (Ensure Enlive) 120 ml PO 4X/DAY [facility] Last Admin: 08/20/19 22:58 Dose: Not Given Documented by: Ondansetron HCl (Zofran Odt) 4 mg PO Q6H PRN PRN PRN Reason: NAUSEA Oxycodone HCl (Oxyir) 5 - 10 mg PO Q4H PRN PRN PRN Reason: Pain Score 4-10/10 Sodium Chloride () 10 - 40 ml IV UD PRN PRN Reason: SALINE FLUSH Last Admin: 08/21/19 01:10 Dose: 10 ml Documented by: Medical Necessity - Tobacco Use Smoking Status: Former smoker Tobacco Use: Non-smoker Assessment/Plan All Active Problems (Last Reviewed 08/01/19 @ 14:52 by Fanta Henriquez) Abscess (Acute) Intra-abdominal adhesions (Acute) Anemia (Acute) Diverticulitis (Acute) Abdominal pain (Acute) Abnormal uterine bleeding (Acute) We will initiate clear liquids Remove Broussard catheter Initiate Flomax Will continue IV fluids at current rate Continue IV antibiotics pending culture and laboratory
[2019-08-21 06:07] LABS: Anion Gap 6 (5-15); BUN 13 mg/dL (7-18); BUN/Creat Ratio 18.3 RATIO (10-20); Calcium,Total 7.7 mg/dL (8.5-10.1); Chloride 111 mmol/L (98-107); Creatinine, Serum 0.71 mg/dL (0.55-1.02); EST Glomerular Filtration Rate 93 mL/min (>60); Est Glom Filt Rate - Afr Amer 113 mL/min (>60); Estimated Creatinine Clearance 68.85 ml/min; Glucose 106 mg/dL (74-106); Sodium Level 138 mmol/L (136-145)
[2019-08-21] MEDS: Tamsulosin HCl 0.4 MG Capsule PO (06:57)
[2019-08-21 07:07] LABS: Hematocrit 30.2 % (37-47); Hemoglobin 9.8 g/dL (12.0-15.0); Mean Corp Hgb Conc 32.5 g/dL (32-36); Mean Corpuscular Hgb 29.3 pg (27.0-32.0); Mean Corpuscular Volume 90.4 fL (81-99); Mean Platelet Vol. 9.8 fl (6.2-12.0); Platelet Count 348 K/mm3 (150-450); RBC Distribution Width CV 14.1 % (11.6-14.6); RBC Distribution Width SD 46.4 fl (35.1-43.9); Red Blood Count 3.34 M/mm3 (4.2-5.4); White Blood Count 13.4 K/mm3 (4.4-11.0)
[2019-08-21 07:25] VITALS: O2SAT 97
[2019-08-21] MEDS: Enoxaparin 40 MG/0.4 ML Syringe SC (09:32)
[2019-08-21] MEDS: Docusate Sodium 100 MG Capsule PO ×2 (09:32→22:38)
[2019-08-21] MEDS: oxyCODONE 5 MG Tablet PO ×3 (09:38→22:52)
[2019-08-21 09:45] VITALS: BP 96/56; PULSE 75; RESP 16; TEMP 36.7; O2SAT 97
--- NOTE | 2019-08-21 10:20 | CASEMGMT ---
RN CM Face to Face with patient for initial transition planning/care coordination assessment. RN CM introduced self and role at [facility]. Patient lying in bed, alert and oriented, at bedside. Patient willing to participate in assessment and is able to answer all questions appropriately. Care providers, pharmacy, and demographics verified. Patient wishes to discharge home, denies need for home health at this time. Patient states she has no further needs or concerns at this time. CM to follow for discharge planning needs that may arise. PCP: Adal Specialists: surgeon Kayleigh Preferred Pharmacy: [facility], want [facility] retail at discharge Insurance: [employer] Prescription Benefit: yes Living Will/HPOA: none LNOK: , daughter Living Arrangements: Patient lives with in 2 story home with bed and bath on first floor. Patient independent at home prior to surgery. Transportation: , self DME/HHC: Patient denies any DME. Patient denies need for HHC, daughter is nurse and can assist with ostomy care. Daughter to come in tomorrow to talk with wound/ostomy nurse. Disposition Plan: Patient to discharge home with family support and follow-up plans in place. Ale NELSON, RN, CM
--- NOTE | 2019-08-21 11:50 | NURSING ---
In to talk with patient and . pt feeling well today. has been up ambulating in the halls. pt does not feel she needs home health since their daughter is an LAST CLEANER and plans to assist patient at home. Have teaching session set up for tomorrow afternoon at 1 pm with patient, , and daughter. supplies will be ordered through [employer] mail order. will call supplies in today. will send appliances home with patient as well so patient will have some on hand. teaching booklet reviewed and a step by step appliance change list given to patient and . no further questions voiced at this time.
--- NOTE | 2019-08-21 14:01 | NURSING ---
Ileostomy supplies ordered through [facility]. [place] flange #[id number], pouch #[id number], and [employer] ring #[id number]. Emptied ostomy appliance with patient and . Pt was able to demonstrate how to clean the Lock n' Roll closure. Pt had approx 50cc's thin green/brown stool. Pt states she did have a small amount of stool from her rectum earlier this am. Assured patient that this was normal. Pt states that she also started her menses today as well. Assisted patient back to bed. pt is ambulating well and making great progress.
[2019-08-21] MEDS: Ensure Clear 120 ML Liquid PO (14:21)
[2019-08-21 14:30] VITALS: BP 99/55; PULSE 81; RESP 16; TEMP 36.6; O2SAT 98
[2019-08-21 22:20] VITALS: BP 99/56; PULSE 95; RESP 18; TEMP 36.9; O2SAT 95
[2019-08-22] MEDS: Acetaminophen 500 MG Tablet 1000 MG PO ×2 (00:37→05:39)
[2019-08-22] MEDS: Ketorolac 15 MG/ML Vial IV (00:37)
[2019-08-22 05:33] VITALS: BP 119/71; PULSE 88; RESP 18; TEMP 36.8; O2SAT 96
--- NOTE | 2019-08-22 06:17 | PN.SURG_ITS ---
Patient Problems: Active and Suspected Problems (Last Reviewed 08/01/19 @ 14:52 by Fanta Henriquez) Abscess (Acute) Intra-abdominal adhesions (Acute) Subjective: Patient is progressing well. She is anxious about possible discharge. No nausea or vomiting or fever. Stool and gas is per ileostomy. - Physical Exam Vitals/I&O's: Vital Signs Temp Pulse Resp BP Pulse Ox 98.3 F 88 18 119/71 96 08/22/19 05:33 08/22/19 05:33 08/22/19 05:33 08/22/19 05:33 08/22/19 05:33 Oxygen Flow Rate (L/min) 6 Oxygen Delivery Method Room Air Weight: 136 lb 10.986 oz Body Mass Index (BMI) 26.6 Intake and Output for Last 24 Hours 08/20/19 08/21/19 08/22/19 23:59 23:59 23:59 Intake Total 2551.60 / 2851.60 2349.75 / 2949.75 1150 / 1150 Output Total 1250 / 1375 225 / 325 250 / 250 Balance 1301.60 / 1476.60 2124.75 / 2624.75 900 / 900 Abdomen: Bowel Sounds Present, Soft, Tender, - - Wounds are very clean Microbiology Past 72 Hours 08/20/19 Unknown Aspirate - Abdominal Gram Stain - Final 08/20/19 Unknown Aspirate - Abdominal Wound Culture - Preliminary No growth-Final to follow Laboratory Results 08/21/19 05:24: WBC 13.4 H, RBC 3.34 L, Hgb 9.8 L, Hct 30.2 L, MCV 90.4, MCH 29.3, MCHC 32.5, RDW Std Deviation 46.4 H, RDW Coeff of Miguel 14.1, Plt Count 348, MPV 9.8 Current Medications Acetaminophen (Tylenol) 1,000 mg PO Q6 [facility] Last Admin: 08/22/19 05:39 Dose: 1,000 mg Documented by: Docusate Sodium (Colace) 100 mg PO BID [facility] Last Admin: 08/21/19 22:38 Dose: 100 mg Documented by: Enoxaparin Sodium (Lovenox) 40 mg SC DAILY [facility] Last Admin: 08/21/19 09:32 Dose: 40 mg Documented by: Hydromorphone HCl (Dilaudid Inj) 0.5 mg IV Q3H PRN PRN PRN Reason: Pain Score 6-10/10 Last Admin: 08/21/19 07:04 Dose: 0.5 mg Documented by: Piperacillin Sod/Tazobactam (Sod 3.375 gm/ Sodium Chloride) 50 mls @ 12.5 mls/hr IV Q8 [facility] Last Admin: 08/22/19 05:37 Dose: 12.5 mls/hr Documented by: Potassium Chloride/Sodium Chloride () 1,000 mls @ 40 mls/hr IV .Q25H [facility] Last Admin: 08/21/19 18:30 Dose: 40 mls/hr Documented by: Sodium Chloride () 250 mls @ 15 mls/hr IV .[id number] PRN PRN Reason: Saline Flush Last Infusion: 08/21/19 22:00 Dose: Infused Documented by: Sodium Chloride () 250 mls @ 15 mls/hr IV .[id number] PRN PRN Reason: Additional IVPB Infusion Magnesium Oxide (Mag-Ox 400) 400 mg PO DAILY PRN PRN PRN Reason: Constipation Norethindrone Acetate (Norethindrone Acetate) 5 mg PO DAILY PRN PRN Reason: BLEEDING Nutritional Formula (Lactose Free) (Ensure Clear) 120 ml PO 4X/DAY [facility] Last Admin: 08/21/19 22:39 Dose: Not Given Documented by: Ondansetron HCl (Zofran Odt) 4 mg PO Q6H PRN PRN PRN Reason: NAUSEA Oxycodone HCl (Oxyir) 5 - 10 mg PO Q4H PRN PRN PRN Reason: Pain Score 4-10/10 Last Admin: 08/21/19 22:52 Dose: 10 mg Documented by: Sodium Chloride () 10 - 40 ml IV UD PRN PRN Reason: SALINE FLUSH Last Admin: 08/21/19 07:04 Dose: 10 ml Documented by: Tamsulosin HCl (Flomax) 0.4 mg PO DAILY@1730 [facility] Last Admin: 08/21/19 06:57 Dose: 0.4 mg Documented by: Medical Necessity - Tobacco Use Smoking Status: Former smoker Tobacco Use: Non-smoker Assessment/Plan All Active Problems (Last Reviewed 08/01/19 @ 14:52 by Fanta Henriquez) Abscess (Acute) Intra-abdominal adhesions (Acute) Anemia (Acute) Diverticulitis (Acute) Abdominal pain (Acute) Abnormal uterine bleeding (Acute) Patient is currently on full liquids. We will continue IV fluids as she thinks she is not urinating fully yet. We will continue to observe. Possible discharge later today. Laboratory still pending. Ezra Victor M.D., F.A.C.S.
[2019-08-22 07:10] LABS: Absolute Lymphocyte Count 1.43 X10^3/uL (0.83-4.51); Absolute Neutrophil Count 8.9 X10^3/uL (2.0-7.7); Basophil# 0.03 X10^3/uL; Basophil% 0.3 % (0-1); Eosinophil# 0.14 X10^3/uL; Eosinophils% 1.3 % (0-5); Hemoglobin 9.7 g/dL (12.0-15.0); Lymphocyte # 1.43 X10^3/ul (4.0); Lymphocyte % 12.9 % (19-41); Mean Corp Hgb Conc 32.3 g/dL (32-36); Mean Corpuscular Hgb 29.8 pg (27.0-32.0); Mean Corpuscular Volume 92.3 fL (81-99); Mean Platelet Vol. 9.7 fl (6.2-12.0); Monocyte# 0.46 X10^3/uL; Monocyte% 4.1 % (0-10); NRBC Flagged by Analyzer 0 % (0-5); Neutrophil # 8.94 X10^3/uL (2.7-7.7); Neutrophil % 80.6 % (47-70); Platelet Count 349 K/mm3 (150-450); RBC Distribution Width CV 14.6 % (11.6-14.6); RBC Distribution Width SD 49.3 fl (35.1-43.9); Red Blood Count 3.25 M/mm3 (4.2-5.4); White Blood Count 11.1 K/mm3 (4.4-11.0)
[2019-08-22] MEDS: Ondansetron ODT 4 MG Tablet PO (08:02)
[2019-08-22 08:05] VITALS: BP 126/73; PULSE 85; RESP 16; TEMP 36.9; O2SAT 95
[2019-08-22] MEDS: Enoxaparin 40 MG/0.4 ML Syringe SC (11:10)
[2019-08-22] MEDS: Docusate Sodium 100 MG Capsule PO (11:10)
[2019-08-22] MEDS: NORETHINDRONE ACETATE 5 MG TABLET PO (11:21)
--- NOTE | 2019-08-22 13:15 | NURSING ---
Ostomy teaching completed with patient's daughter and . pt was tearful and states that she has been nauseated and tired today. Pt did not look at stoma. Daughter is an LOOM TUNER and has had experience with stomas. removed appliance. stoma is well budded. slightly edematous. measures approx 1 1/2. peristomal skin is intact. cleansed peristomal skin with warm water. pat dry. applied a new flat 2 piece [place] appliance with an [employer] ring. Educated family that the stoma size may change in the next 6-8 weeks so the size on the opening in the flange may change. measuring guide given to family. daughter and deny further questions. asked if they felt home health is needed and they both denied at this time. pt aware to call with needs or concerns. patient will be sent home with 3 appliances and supplies should arrive in 3 days from [facility].
[2019-08-22 14:43] VITALS: O2SAT 96
[2019-08-22 15:04] VITALS: BP 120/81; PULSE 82; RESP 16; TEMP 36.6; O2SAT 97
--- NOTE | 2019-08-22 16:02 | PCM.PN.BLA ---
Progress Note Stoma has produced very little today. The patient is taking short breaths because of abdominal distention. Cultures demonstrate rare gram-negative anant from her colonic abscess. Her pathology demonstrates diverticulitis of the sigmoid with multiple microabscesses within the wall of the sigmoid and microabscesses within the wall of the small bowel that was resected. All of this bespeaks to a more advanced bowel disease. The patient does not appear to be comfortable. I will change her to sips and chips and we will place an NG tube to decompress. I have continue to encourage ambulation. We will recheck laboratory in the morning as well. Clearly she has not met clear discharge criteria. Ezra Victor M.D., F.A.C.S. STROKE Vital Signs/Narrative: Vital Signs Temp Pulse Resp BP Pulse Ox 08/22/19 15:04 97.8 F 82 16 120/81 H 97 08/22/19 14:43 96
[2019-08-22 20:30] VITALS: BP 154/86; PULSE 99; RESP 18; TEMP 36.4; O2SAT 97
--- NOTE | 2019-08-22 20:34 | NURSING ---
pt had 300 ml of emesis. Pt states she feels a little better. Encouraged pt to walk in the halls. Pt stated she gets up often to use the bathroom. Encouraged pt to walk in the halls every time she gets up to go to the bathroom. Pt stated she over did it on the icechips. Offered pt green mouth swabs, but pt refused. Encouraged pt to moisten mouth only with swabs. Pt rates her pain 8 out of 10. Educated pt on the effects narcotics can have on the bowels. Pt refusing pain meds at this time. Pt states she knows everyone wants me to have an NG, but she was traumatized from the NG insertion attempt. Pt states she just can't do it again.
[2019-08-22 21:30] VITALS: RESP 20
--- NOTE | 2019-08-22 22:05 | NURSING ---
Pt just vomited 300 ML of dark green liquid. Pt states she feels better. Pt kept stating I can't have that tube put down my nose. Emotional support given.
[2019-08-23 02:09] VITALS: BP 144/86; PULSE 90; RESP 20; TEMP 36.8; O2SAT 100
[2019-08-23 06:48] LABS: Absolute Lymphocyte Count 1.24 X10^3/uL (0.83-4.51); Absolute Neutrophil Count 9.3 X10^3/uL (2.0-7.7); Basophil# 0.02 X10^3/uL; Basophil% 0.2 % (0-1); Eosinophil# 0.04 X10^3/uL; Eosinophils% 0.4 % (0-5); Hematocrit 32.9 % (37-47); Hemoglobin 10.5 g/dL (12.0-15.0); Lymphocyte # 1.24 X10^3/ul (4.0); Lymphocyte % 11.2 % (19-41); Mean Corp Hgb Conc 31.9 g/dL (32-36); Mean Corpuscular Hgb 29.5 pg (27.0-32.0); Mean Corpuscular Volume 92.4 fL (81-99); Mean Platelet Vol. 9.7 fl (6.2-12.0); Monocyte# 0.46 X10^3/uL; Monocyte% 4.1 % (0-10); NRBC Flagged by Analyzer 0 % (0-5); Neutrophil # 9.28 X10^3/uL (2.7-7.7); Neutrophil % 83.5 % (47-70); Platelet Count 384 K/mm3 (150-450); RBC Distribution Width CV 14.6 % (11.6-14.6); RBC Distribution Width SD 49.1 fl (35.1-43.9); Red Blood Count 3.56 M/mm3 (4.2-5.4); White Blood Count 11.1 K/mm3 (4.4-11.0)
--- NOTE | 2019-08-23 07:00 | NURSING ---
Pt walked in the [place] 5 times since midnight. Pt resting in bed. at bedside.
[2019-08-23 07:11] LABS: Anion Gap 8 (5-15); BUN 7 mg/dL (7-18); BUN/Creat Ratio 14.1 RATIO (10-20); Calcium,Total 8.8 mg/dL (8.5-10.1); Chloride 113 mmol/L (98-107); EST Glomerular Filtration Rate 140 mL/min (>60); Est Glom Filt Rate - Afr Amer 169 mL/min (>60); Estimated Creatinine Clearance 97.76 ml/min; Glucose 85 mg/dL (74-106); Potassium 4.2 mmol/L (3.5-5.1); Sodium Level 140 mmol/L (136-145)
--- NOTE | 2019-08-23 07:41 | PN.SURG_ITS ---
Patient Problems: Active and Suspected Problems (Last Reviewed 08/01/19 @ 14:52 by Fanta Henriquez) Abscess (Acute) Intra-abdominal adhesions (Acute) Subjective: Patient has had 3 episodes of emesis. NG tube placement last night failed because of significant discomfort. The patient has absolutely declined further attempts and continues to adamantly not wish to placement. She has been urinating better and her urine is clearing Her ileostomy has started functioning to a larger degree. Pain is not her current concern. She continues to have incessant nausea. - Physical Exam Vitals/I&O's: Vital Signs Temp Pulse Resp BP Pulse Ox 98.3 F 90 20 H 144/86 H 100 08/23/19 02:09 08/23/19 02:09 08/23/19 02:09 08/23/19 02:09 08/23/19 02:09 Oxygen Flow Rate (L/min) 6 Oxygen Delivery Method Room Air Weight: 136 lb 10.986 oz Body Mass Index (BMI) 26.6 Intake and Output for Last 24 Hours 08/21/19 08/22/19 08/23/19 23:59 23:59 23:59 Intake Total 2349.75 / 2949.75 2344.58 / 2344.58 1090.58 / 1090.58 Output Total 225 / 325 1700 / 1700 1200 / 1200 Balance 2124.75 / 2624.75 644.58 / 644.58 -109.42 / -109.42 General: Alert, Oriented x3, Cooperative, - - Very anxious and jittery Lungs: Clear to auscultation, Normal air movement, - - Abrasions have improved deeper in nature less tachypneic Abdomen: Soft, Hypoactive Bowel Sounds, - - Mild distended but not as tight as yesterday afternoon Stoma mildly edematous but copious bilious material within the bag Microbiology Past 72 Hours 08/20/19 Unknown Aspirate - Abdominal Gram Stain - Final 08/20/19 Unknown Aspirate - Abdominal Wound Culture - Final Escherichia coli 08/20/19 Unknown Aspirate - Abdominal Anaerobic Culture - Preliminary Laboratory Results 08/23/19 06:10: WBC 11.1 H, RBC 3.56 L, Hgb 10.5 L, Hct 32.9 L, MCV 92.4, MCH 2 9.5, MCHC 31.9 L, RDW Std Deviation 49.1 H, RDW Coeff of Miguel 14.6, Plt Count 384, MPV 9.7, Immature Gran % (Auto) 0.600, Neut % (Auto) 83.5 H, Lymph % (Auto) 11.2 L, [place] % (Auto) 4.1, Eos % (Auto) 0.4, Baso % (Auto) 0.2, Absolute Neuts (auto) 9.3 H, Absolute Lymphs (auto) 1.24, Nucleated RBC % 0 08/23/19 06:10: Sodium 140, Potassium 4.2, Chloride 113 H, Carbon Dioxide 19.0 L , Anion Gap 8, BUN 7, Creatinine 0.50 L, Estim Creat Clear Calc 97.76, Est GFR (MDRD) Af Amer 169, Est GFR (MDRD) Non-Af 140, BUN/Creatinine Ratio 14.1, Glucose 85, Calcium 8.8 Current Medications Acetaminophen (Tylenol) 1,000 mg PO Q6 [facility] Last Admin: 08/23/19 06:51 Dose: Not Given Documented by: Docusate Sodium (Colace) 100 mg PO BID [facility] Last Admin: 08/22/19 22:36 Dose: Not Given Documented by: Enoxaparin Sodium (Lovenox) 40 mg SC DAILY [facility] Last Admin: 08/22/19 11:10 Dose: 40 mg Documented by: Hydromorphone HCl (Dilaudid Inj) 0.5 mg IV Q3H PRN PRN PRN Reason: Pain Score 6-10/10 Last Admin: 08/21/19 07:04 Dose: 0.5 mg Documented by: Potassium Chloride/Sodium Chloride () 1,000 mls @ 70 mls/hr IV .[id number] [facility] Last Admin: 08/23/19 03:19 Dose: 100 mls/hr Documented by: Sodium Chloride () 250 mls @ 15 mls/hr IV .[id number] PRN PRN Reason: Saline Flush Last Infusion: 08/23/19 06:20 Dose: 0 mls/hr Documented by: Sodium Chloride () 250 mls @ 15 mls/hr IV .[id number] PRN PRN Reason: Additional IVPB Infusion Lorazepam (Ativan) 0.5 mg PO Q6H PRN PRN PRN Reason: ANXIETY Magnesium Oxide (Mag-Ox 400) 400 mg PO DAILY PRN PRN PRN Reason: Constipation Norethindrone Acetate (Norethindrone Acetate) 5 mg PO DAILY PRN PRN Reason: BLEEDING Last Admin: 08/22/19 11:21 Dose: 5 mg Documented by: Nutritional Formula (Lactose Free) (Ensure Clear) 120 ml PO 4X/DAY [facility] Last Admin: 08/22/19 22:36 Dose: Not Given Documented by: Ondansetron HCl (Zofran Odt) 4 mg PO Q6H PRN PRN PRN Reason: NAUSEA Last Admin: 08/22/19 08:02 Dose: 4 mg Documented by: Oxycodone HCl (Oxyir) 5 - 10 mg PO Q4H PRN PRN PRN Reason: Pain Score 4-10/10 Last Admin: 08/21/19 22:52 Dose: 10 mg Documented by: Promethazine HCl (Phenergan) 12.5 mg IV Q6H PRN PRN PRN Reason: NAUSEA/VOMITING Sodium Chloride () 10 - 40 ml IV UD PRN PRN Reason: SALINE FLUSH Last Admin: 08/21/19 07:04 Dose: 10 ml Documented by: Tamsulosin HCl (Flomax) 0.4 mg PO DAILY@1730 [facility] Last Admin: 08/22/19 18:07 Dose: Not Given Documented by: Medical Necessity - Tobacco Use Smoking Status: Former smoker Tobacco Use: Non-smoker Assessment/Plan All Active Problems (Last Reviewed 08/01/19 @ 14:52 by Fanta Henriquez) Abscess (Acute) Intra-abdominal adhesions (Acute) Anemia (Acute) Diverticulitis (Acute) Abdominal pain (Acute) Abnormal uterine bleeding (Acute) We will try Phenergan to assist with the feeling of nausea. We will continue to mobilize the patient and she is doing an excellent job. We will liberalize some of her sips and chips. If she continues to make progress will be able to resume clear liquids. Her cultures show E. coli pansensitive from her abscess. She has had 3 days of antibiotics. Not clear to me that the antibiotics may be contributing to her nausea. Her white blood cell count is stable at 11,000. At this point I will cease the IV antibiotics that she is not demonstrating signs of infections and all of the abscess material and infected large and small bowel was removed at the time of surgery. Ongoing hospitalization still indicated. Ezra Victor M.D., F.A.C.S.
[2019-08-23 07:50] VITALS: O2SAT 98
[2019-08-23] MEDS: proMETHazine 25 MG/ML Syringe 12.5 MG IV (08:09)
[2019-08-23] MEDS: 0.9% Saline Lock 10 ML Syringe IV ×4 (08:09→23:06)
[2019-08-23 08:10] VITALS: BP 125/73; PULSE 79; RESP 16; TEMP 36.6; O2SAT 99
[2019-08-23] MEDS: NORETHINDRONE ACETATE 5 MG TABLET PO (08:31)
--- NOTE | 2019-08-23 08:34 | NURSING ---
IVF decreased down to 70ml at this time.
[2019-08-23] MEDS: LORazepam 0.5 MG Tablet PO (08:37)
--- NOTE | 2019-08-23 09:30 | NURSING ---
Addendum entered by Magda Fitch 08/23/19 09:37: Dr. Victor aware of the below. orders to increase Ativan and d/c phenergan. Original Note: Several minutes after pt had Phenergan, pt started to appear sleepy. Had to get up to void. Got up to void with assistance from this nurse and and since then pt has been increasingly restless. I dont know why I am like this. Pt rates pain 7 out of 10 but will not take pain medication despite encouragement and offering. Pt is now stating that phenergan was not effective and is still is very nauseated but restless on top of it. Could it be the nausea medication that made me like this. ATivan was given po. This nurse will call Dr. Emily Victor to inform.
[2019-08-23] MEDS: Ondansetron ODT 4 MG Tablet PO ×2 (09:54→23:20)
[2019-08-23] MEDS: LORazepam 2 MG/ML Syringe IV ×2 (11:40→15:28)
--- NOTE | 2019-08-23 15:16 | NURSING ---
Pt was sleeping at 1400, pt now is walking in the brambila
[2019-08-23] MEDS: Enoxaparin 40 MG/0.4 ML Syringe SC (15:21)
[2019-08-23 15:32] VITALS: BP 138/78; PULSE 80; RESP 18; TEMP 37.2; O2SAT 98
--- NOTE | 2019-08-23 16:43 | NURSING ---
Dr. Victor called and given an update on pt. Pt and This nurse talked about possiably having a diet. Pt stated, Whatever Dr. Victor suggests I will do. Pt states she really did not want to put anything in her mouth right now as her nausea is tolerable. Dr. Victor gave this nurse an order for clear liquid diet.
[2019-08-23 23:00] VITALS: BP 127/71; PULSE 88; RESP 18; TEMP 36.7; O2SAT 96
[2019-08-23] MEDS: HYDROmorphone 0.5 MG/0.5 ML SYRINGE IV (23:06)
[2019-08-24] MEDS: 0.9% Saline Lock 10 ML Syringe IV ×2 (03:28→22:56)
[2019-08-24] MEDS: LORazepam 2 MG/ML Syringe IV ×3 (03:29→22:56)
[2019-08-24] MEDS: Ondansetron ODT 4 MG Tablet PO (05:41)
[2019-08-24 05:52] VITALS: BP 143/88; PULSE 69; RESP 18; TEMP 36.7; O2SAT 99
[2019-08-24 07:08] VITALS: O2SAT 98
[2019-08-24 08:02] VITALS: BP 145/79; PULSE 78; RESP 18; TEMP 38.2; O2SAT 99
--- NOTE | 2019-08-24 08:04 | NURSING ---
Dr. Meadows here to see pt. He is aware that pt has temp of 100.8.
[2019-08-24 08:28] LABS: Absolute Lymphocyte Count 1.14 X10^3/uL (0.83-4.51); Absolute Neutrophil Count 9.6 X10^3/uL (2.0-7.7); Basophil# 0.03 X10^3/uL; Basophil% 0.3 % (0-1); Eosinophil# 0.04 X10^3/uL; Eosinophils% 0.4 % (0-5); Hematocrit 30.7 % (37-47); Hemoglobin 9.8 g/dL (12.0-15.0); Lymphocyte # 1.14 X10^3/ul (4.0); Mean Corp Hgb Conc 31.9 g/dL (32-36); Mean Corpuscular Volume 90.8 fL (81-99); Mean Platelet Vol. 9.3 fl (6.2-12.0); Monocyte% 4.4 % (0-10); NRBC Flagged by Analyzer 0 % (0-5); Neutrophil % 84.3 % (47-70); Platelet Count 391 K/mm3 (150-450); RBC Distribution Width CV 14.5 % (11.6-14.6); RBC Distribution Width SD 48.7 fl (35.1-43.9); Red Blood Count 3.38 M/mm3 (4.2-5.4); White Blood Count 11.4 K/mm3 (4.4-11.0)
[2019-08-24 08:39] LABS: Anion Gap 12 (5-15); BUN 5 mg/dL (7-18); BUN/Creat Ratio 10.8 RATIO (10-20); Calcium,Total 8.9 mg/dL (8.5-10.1); Chloride 109 mmol/L (98-107); Creatinine, Serum 0.46 mg/dL (0.55-1.02); EST Glomerular Filtration Rate 153 mL/min (>60); Est Glom Filt Rate - Afr Amer 185 mL/min (>60); Estimated Creatinine Clearance 106.26 ml/min; Glucose 82 mg/dL (74-106); Potassium 3.9 mmol/L (3.5-5.1); Sodium Level 140 mmol/L (136-145)
--- NOTE | 2019-08-24 08:40 | RAD_ITS ---
STUDY: X-RAY - ABDOMEN/PELVIS REASON FOR EXAM: Female, 49 years old. NAUSEA, ABDOMINAL DISTENTION S/P SURGERY FOR INTRA-ABDOMINAL ADHESIONS 4 DAYS AGO TECHNIQUE: AP supine and upright views of the abdomen and pelvis. COMPARISON: None. FINDINGS: Normal visualized lung bases. Multiple loops of markedly dilated small bowel with air-fluid levels consistent with a small bowel obstruction. There is no demonstrated free abdominal air. The visualized liver, spleen and kidneys are grossly normal in size and morphology. Normal soft tissue structures. Normal visualized osseous structures. RAD/Abd Inc Decub and/or Erect IMPRESSION: Suspect small bowel obstruction. No pneumoperitoneum. Electronically Signed: Rogerio Glez MD at 9:03 EST Tel , Service support ,
[2019-08-24] MEDS: Tetracaine/Benzocaine/Butamben 1 APPLIC TOPICAL (09:18)
--- NOTE | 2019-08-24 09:25 | RAD_ITS ---
STUDY: X-RAY CHEST REASON FOR EXAM: Female, 49 years old. NG PLACEMENT TECHNIQUE: Single AP portable view of the chest. COMPARISON: None. FINDINGS: Nasogastric tube with the tip of below the diaphragm the left upper quadrant likely in the body the stomach. The lungs are clear and expanded. There is no demonstrated pleural abnormality. Normal size heart. Normal mediastinum and lucy. Normal visualized pulmonary arteries. Normal visualized aortic arch and descending thoracic aorta. Normal visualized thoracic spine. Normal visualized ribs, clavicles, and shoulders. There is no demonstrated abnormality of the visualized soft tissue structures of the upper abdomen. RAD/Abdomen Single View (Portable) IMPRESSION: 1. Nasogastric tube coiled in the left upper quadrant likely in the body the stomach. 2. No active disease. Electronically Signed: Rogerio Glez MD at 9:53 EST Tel , Service support ,
--- NOTE | 2019-08-24 10:15 | PN.SURG_ITS ---
Patient Problems: Active and Suspected Problems (Last Reviewed 08/01/19 @ 14:52 by Fanta Henriquez) Abscess (Acute) Intra-abdominal adhesions (Acute) Subjective: Patient had multiple episodes of vomiting overnight and feels very nauseous. - Physical Exam Vitals/I&O's: Vital Signs Temp Pulse Resp BP Pulse Ox 100.8 F H 78 18 145/79 H 99 08/24/19 08:02 08/24/19 08:02 08/24/19 08:02 08/24/19 08:02 08/24/19 08:02 Oxygen Flow Rate (L/min) 6 Oxygen Delivery Method Room Air Weight: 136 lb 10.986 oz Body Mass Index (BMI) 26.6 Intake and Output for Last 24 Hours 08/22/19 08/23/19 08/24/19 23:59 23:59 23:59 Intake Total 2344.58 / 2344.58 2559.41 / 2709.41 1450 / 1450 Output Total 1700 / 1700 2850 / 4045 1945 / 1945 Balance 644.58 / 644.58 -290.59 / -1335.59 -495 / -495 General: Alert, Oriented x3 Lungs: Normal air movement Abdomen: Soft, Hypoactive Bowel Sounds, Distended, Tender Microbiology Past 72 Hours 08/20/19 Unknown Aspirate - Abdominal Gram Stain - Final 08/20/19 Unknown Aspirate - Abdominal Wound Culture - Final Escherichia coli 08/20/19 Unknown Aspirate - Abdominal Anaerobic Culture - Final No anaerobic bacteria isolated. Laboratory Results 08/24/19 08:18: WBC 11.4 H, RBC 3.38 L, Hgb 9.8 L, Hct 30.7 L, MCV 90.8, MCH 29.0, MCHC 31.9 L, RDW Std Deviation 48.7 H, RDW Coeff of Miguel 14.5, Plt Count 391, MPV 9.3, Immature Gran % (Auto) 0.600, Neut % (Auto) 84.3 H, Lymph % (Auto) 10.0 L, [place] % (Auto) 4.4, Eos % (Auto) 0.4, Baso % (Auto) 0.3, Absolute Neuts (auto) 9.6 H, Absolute Lymphs (auto) 1.14, Nucleated RBC % 0 08/24/19 08:18: Sodium 140, Potassium 3.9, Chloride 109 H, Carbon Dioxide 19.0 L , Anion Gap 12, BUN 5 L, Creatinine 0.46 L, Estim Creat Clear Calc 106.26, Est GFR (MDRD) Af Amer 185, Est GFR (MDRD) Non-Af 153, BUN/Creatinine Ratio 10.8, Glucose 82, Calcium 8.9 Current Medications Acetaminophen (Tylenol) 1,000 mg PO Q6 [facility] Last Admin: 08/24/19 07:43 Dose: Not Given Documented by: Docusate Sodium (Colace) 100 mg PO BID [facility] Last Admin: 08/23/19 23:06 Dose: Not Given Documented by: Enoxaparin Sodium (Lovenox) 40 mg SC DAILY [facility] Last Admin: 08/23/19 15:21 Dose: 40 mg Documented by: Hydromorphone HCl (Dilaudid Inj) 0.5 mg IV Q3H PRN PRN PRN Reason: Pain Score 6-10/10 Last Admin: 08/23/19 23:06 Dose: 0.5 mg Documented by: Potassium Chloride/Sodium Chloride () 1,000 mls @ 70 mls/hr IV .[id number] [facility] Last Admin: 08/24/19 05:42 Dose: 100 mls/hr Documented by: Sodium Chloride () 250 mls @ 15 mls/hr IV .[id number] PRN PRN Reason: Saline Flush Last Infusion: 08/23/19 15:29 Dose: Infused Documented by: Sodium Chloride () 250 mls @ 15 mls/hr IV .[id number] PRN PRN Reason: Additional IVPB Infusion Piperacillin Sod/Tazobactam (Sod 3.375 gm/ Sodium Chloride) 50 mls @ 12.5 mls/hr IV Q8 [facility] Lorazepam (Ativan) 0.5 - 1 mg IV Q4H PRN PRN PRN Reason: ANXIETY Last Admin: 08/24/19 09:09 Dose: 1 mg Documented by: Magnesium Oxide (Mag-Ox 400) 400 mg PO DAILY PRN PRN PRN Reason: Constipation Norethindrone Acetate (Norethindrone Acetate) 5 mg PO DAILY PRN PRN Reason: BLEEDING Last Admin: 08/23/19 08:31 Dose: 5 mg Documented by: Nutritional Formula (Lactose Free) (Ensure Clear) 120 ml PO 4X/DAY [facility] Last Admin: 08/23/19 23:06 Dose: Not Given Documented by: Ondansetron HCl (Zofran Odt) 4 mg PO Q6H PRN PRN PRN Reason: NAUSEA Last Admin: 08/24/19 05:41 Dose: 4 mg Documented by: Oxycodone HCl (Oxyir) 5 - 10 mg PO Q4H PRN PRN PRN Reason: Pain Score 4-10/10 Last Admin: 08/21/19 22:52 Dose: 10 mg Documented by: Sodium Chloride () 10 - 40 ml IV UD PRN PRN Reason: SALINE FLUSH Last Admin: 08/24/19 03:28 Dose: 10 ml Documented by: Tamsulosin HCl (Flomax) 0.4 mg PO DAILY@1730 [facility] Last Admin: 08/23/19 18:40 Dose: Not Given Documented by: Medical Necessity - Tobacco Use Smoking Status: Former smoker Tobacco Use: Non-smoker Assessment/Plan All Active Problems (Last Reviewed 08/01/19 @ 14:52 by Fanta Henriquez) Abscess (Acute) Intra-abdominal adhesions (Acute) Anemia (Acute) Diverticulitis (Acute) Abdominal pain (Acute) Abnormal uterine bleeding (Acute) 49-year-old female status post sigmoid colectomy 1. The patient has had a lot of nausea and vomiting. I ordered a KUB this morning which showed dilated loops of small bowel as well as a dilated stomach. A 14 Latvian NG was placed by me at the bedside. The patient did vomit several times during the procedure but there was semi-bilious contents suctioned through the tubing. NG placement was confirmed with KUB and it shows that the NG is in place and coiled in the stomach. Patient is at low intermittent suction I did offer her ice chips and Cepacol lozenge. I discussed with Dr. Victor. Patient may need contrasted in the morning. Magdiel Meadows MD Pager: [facility] [address] [place] [address], [address] [place] [address] Office:
[2019-08-24] MEDS: Enoxaparin 40 MG/0.4 ML Syringe SC (10:32)
[2019-08-24] MEDS: BENZOCAINE/MENTHOL 1 LOZENGE MUCOUS MEM (11:12)
--- NOTE | 2019-08-24 15:24 | NURSING ---
Dr. Victor given an update. Pt has been very hesitant in getting OOB besides going to the bathroom. Pt does not like moving b/c then the NG moves. Pt has been instructed multiple times today to walk in the brambila. Pt has had to be really encouraged to do so. Pt has walked a total of three times today.
[2019-08-24 15:41] VITALS: BP 144/90; PULSE 72; RESP 18; TEMP 36.5; O2SAT 100
--- NOTE | 2019-08-24 17:25 | NURSING ---
Walking brambila at this time.
--- NOTE | 2019-08-24 19:26 | NURSING ---
Pt has walked a total of 6 times in the last 12 hrs that this nurse has been here. Pt is up walking at this time.
[2019-08-24 22:02] VITALS: BP 155/93; PULSE 90; RESP 16; TEMP 36.6; O2SAT 100
[2019-08-25] VITALS (11 sets, daily range): BP systolic 106–153; BP diastolic 73–97; PULSE 64–109; RESP 14–18; TEMP 36.4–37.7; O2SAT 97–99; BMI 26.6
[2019-08-25] MEDS: HYDROmorphone 0.5 MG/0.5 ML SYRINGE IV ×3 (01:47→16:42)
[2019-08-25] MEDS: 0.9% Saline Lock 10 ML Syringe IV ×4 (01:47→14:56)
--- NOTE | 2019-08-25 06:13 | RAD_ITS ---
STUDY: GASTROGRAFIN SMALL BOWEL EXAMINATION. REASON FOR EXAM: Female, 49 years old. Small bowel obstruction. Recent abdominal surgery. TECHNIQUE: A associate professor computer science film was obtained. Following this, Gastrografin was inserted through the indwelling nasogastric tube. The patient vomited during the examination. COMPARISON: None. FINDINGS: On the associate professor computer science film, a nasogastric tube is seen with the tip coiled in the fundal portion of the stomach. There is gaseous distention of the proximal small bowel loops. A colostomy is seen in the right lower quadrant. Gastrografin was instilled through the nasogastric tube. Contrast is seen in the proximal small bowel were a transition point is seen in the mid jejunum. On the delayed images, contrast is seen within small bowel loops distal to the mid jejunum. RAD/Small Bowel Series Only IMPRESSION: Findings suggestive of a partial small bowel obstruction in the mid jejunal level. Electronically Signed: Royal Ferrera, at 13:57 EST , Service support ,
--- NOTE | 2019-08-25 06:15 | PN.SURG_ITS ---
Patient Problems: Active and Suspected Problems (Last Reviewed 08/01/19 @ 14:52 by Fanta Henriquez) Abscess (Acute) Intra-abdominal adhesions (Acute) Subjective: Pt very sore with ngt, wants out - Physical Exam Vitals/I&O's: Vital Signs Temp Pulse Resp BP Pulse Ox 97.9 F 98 16 149/97 H 97 08/25/19 05:00 08/25/19 05:00 08/25/19 05:00 08/25/19 05:00 08/25/19 05:00 Oxygen Flow Rate (L/min) 6 Oxygen Delivery Method Room Air Weight: 136 lb 10.986 oz Body Mass Index (BMI) 26.6 Intake and Output for Last 24 Hours 08/23/19 08/24/19 08/25/19 23:59 23:59 23:59 Intake Total 2559.41 / 2709.41 3910 / 3910 470 / 470 Output Total 2850 / 4045 6295 / 6295 975 / 975 Balance -290.59 / -1335.59 -2385 / -2385 -505 / -505 Abdomen: Soft, Non Tender, Bowel Sounds Not Present Microbiology Past 72 Hours 08/20/19 Unknown Aspirate - Abdominal Gram Stain - Final 08/20/19 Unknown Aspirate - Abdominal Wound Culture - Final Escherichia coli 08/20/19 Unknown Aspirate - Abdominal Anaerobic Culture - Final No anaerobic bacteria isolated. Laboratory Results 08/24/19 08:18: WBC 11.4 H, RBC 3.38 L, Hgb 9.8 L, Hct 30.7 L, MCV 90.8, MCH 29.0, MCHC 31.9 L, RDW Std Deviation 48.7 H, RDW Coeff of Migule 14.5, Plt Count 391, MPV 9.3, Immature Gran % (Auto) 0.600, Neut % (Auto) 84.3 H, Lymph % (Auto) 10.0 L, [place] % (Auto) 4.4, Eos % (Auto) 0.4, Baso % (Auto) 0.3, Absolute Neuts (auto) 9.6 H, Absolute Lymphs (auto) 1.14, Nucleated RBC % 0 08/24/19 08:18: Sodium 140, Potassium 3.9, Chloride 109 H, Carbon Dioxide 19.0 L , Anion Gap 12, BUN 5 L, Creatinine 0.46 L, Estim Creat Clear Calc 106.26, Est GFR (MDRD) Af Amer 185, Est GFR (MDRD) Non-Af 153, BUN/Creatinine Ratio 10.8, Glucose 82, Calcium 8.9 Current Medications Acetaminophen (Tylenol) 1,000 mg PO Q6 [facility] Last Admin: 08/25/19 05:15 Dose: Not Given Documented by: Docusate Sodium (Colace) 100 mg PO BID [facility] Last Admin: 08/24/19 22:04 Dose: Not Given Documented by: Enoxaparin Sodium (Lovenox) 40 mg SC DAILY [facility] Last Admin: 08/24/19 10:32 Dose: 40 mg Documented by: Hydromorphone HCl (Dilaudid Inj) 0.5 mg IV Q3H PRN PRN PRN Reason: Pain Score 6-1010 Last Admin: 08/25/19 01:47 Dose: 0.5 mg Documented by: Potassium Chloride/Sodium Chloride () 1,000 mls @ 100 mls/hr IV .Q10H [facility] Last Admin: 08/24/19 19:24 Dose: 70 mls/hr Documented by: Sodium Chloride () 250 mls @ 15 mls/hr IV .[id number] PRN PRN Reason: Saline Flush Last Infusion: 08/23/19 15:29 Dose: Infused Documented by: Sodium Chloride () 250 mls @ 15 mls/hr IV .[id number] PRN PRN Reason: Additional IVPB Infusion Piperacillin Sod/Tazobactam (Sod 3.375 gm/ Sodium Chloride) 50 mls @ 12.5 mls/hr IV Q8 [facility] Last Admin: 08/25/19 05:10 Dose: 12.5 mls/hr Documented by: Lorazepam (Ativan) 0.5 - 1 mg IV Q4H PRN PRN PRN Reason: ANXIETY Last Admin: 08/24/19 22:56 Dose: 1 mg Documented by: Magnesium Oxide (Mag-Ox 400) 400 mg PO DAILY PRN PRN PRN Reason: Constipation Norethindrone Acetate (Norethindrone Acetate) 5 mg PO DAILY PRN PRN Reason: BLEEDING Last Admin: 08/23/19 08:31 Dose: 5 mg Documented by: Ondansetron HCl (Zofran Odt) 4 mg PO Q6H PRN PRN PRN Reason: NAUSEA Last Admin: 08/24/19 05:41 Dose: 4 mg Documented by: Oxycodone HCl (Oxyir) 5 - 10 mg PO Q4H PRN PRN PRN Reason: Pain Score 4-10/10 Last Admin: 08/21/19 22:52 Dose: 10 mg Documented by: Sodium Chloride () 10 - 40 ml IV UD PRN PRN Reason: SALINE FLUSH Last Admin: 08/25/19 01:47 Dose: 10 ml Documented by: Tamsulosin HCl (Flomax) 0.4 mg PO DAILY@1730 [facility] Last Admin: 08/24/19 18:06 Dose: Not Given Documented by: Throat Lozenges (Cepacol Sore Throat Lozenge) 1 lozenge MUCOUS MEM Q2H PRN PRN PRN Reason: SORE THROAT Last Admin: 08/24/19 11:12 Dose: 1 lozenge Documented by: Medical Necessity - Tobacco Use Smoking Status: Former smoker Tobacco Use: Non-smoker Assessment/Plan All Active Problems (Last Reviewed 08/01/19 @ 14:52 by Fanta Henriquez) Abscess (Acute) Intra-abdominal adhesions (Acute) Anemia (Acute) Diverticulitis (Acute) Abdominal pain (Acute) Abnormal uterine bleeding (Acute) Abdomen distended and quiet, nontender Will get gastrograffin SBFT May need laparoscopy
[2019-08-25 06:59] LABS: Absolute Lymphocyte Count 1.04 X10^3/uL (0.83-4.51); Absolute Neutrophil Count 8.3 X10^3/uL (2.0-7.7); Basophil# 0.02 X10^3/uL; Basophil% 0.2 % (0-1); Hematocrit 29.3 % (37-47); Hemoglobin 9.5 g/dL (12.0-15.0); Lymphocyte # 1.04 X10^3/ul (4.0); Lymphocyte % 10.2 % (19-41); Mean Corp Hgb Conc 32.4 g/dL (32-36); Mean Corpuscular Hgb 29.1 pg (27.0-32.0); Mean Corpuscular Volume 89.9 fL (81-99); Mean Platelet Vol. 9.1 fl (6.2-12.0); Monocyte# 0.69 X10^3/uL; Monocyte% 6.7 % (0-10); NRBC Flagged by Analyzer 0 % (0-5); Neutrophil # 8.32 X10^3/uL (2.7-7.7); Neutrophil % 81.2 % (47-70); Platelet Count 398 K/mm3 (150-450); RBC Distribution Width CV 14.3 % (11.6-14.6); RBC Distribution Width SD 46.7 fl (35.1-43.9); Red Blood Count 3.26 M/mm3 (4.2-5.4); White Blood Count 10.2 K/mm3 (4.4-11.0)
[2019-08-25 07:15] LABS: BUN 8 mg/dL (7-18); Creatinine, Serum 0.46 mg/dL (0.55-1.02); EST Glomerular Filtration Rate 155 mL/min (>60); Estimated Creatinine Clearance 106.26 ml/min; Glucose 86 mg/dL (74-106)
[2019-08-25 07:16] LABS: Anion Gap 8 (5-15); BUN/Creat Ratio 17.5 RATIO (10-20); Chloride 111 mmol/L (98-107); Est Glom Filt Rate - Afr Amer 187 mL/min (>60); Potassium 3.7 mmol/L (3.5-5.1); Sodium Level 140 mmol/L (136-145)
[2019-08-25] MEDS: LORazepam 2 MG/ML Syringe IV ×3 (07:28→23:24)
--- NOTE | 2019-08-25 13:46 | PCM.PN.BLA ---
Progress Note Patient' s small bowel follow-through is demonstrating little to no advancement of the contrast consistent with an obstruction. Patient will be scheduled for an exploratory laparoscopy with possible conversion to laparotomy later today. STROKE Vital Signs/Narrative: Vital Signs Temp Pulse Resp BP Pulse Ox 08/25/19 11:55 98.1 F 82 14 150/91 H 98
[2019-08-25] MEDS: Lactated Ringers 1,000 ML 100 ML IV ×3 (18:15→21:42)
[2019-08-25] MEDS: Bupivacaine Mpf 0.5% 30 ML VIAL (19:16)
--- NOTE | 2019-08-25 19:19 | OP.PCM_ITS ---
Problem List (1) Diverticulitis Status: Acute (2) Abscess Status: Acute (3) Intra-abdominal adhesions Status: Acute (4) Partial small bowel obstruction Status: Acute Report of Operation Date of Procedure: 08/25/19 Pre-Operative Diagnosis: Partial small bowel obstruction Post-Operative Diagnosis: Partial small bowel obstruction Surgery/Procedure Performed:: Exploratory laparoscopy with lysis of adhesions Description of Surgical Findings:: Timeout and informed consent was obtained. 49-year-old female was taken operating placed upon the table underwent general endotracheal intubation anesthesia. Cricoid pressure was held. NG tube was placed to suction thro ughout. She was on therapeutic Zosyn concern of pelvic abscess. The abdomen was sterilely prepped draped. An orthopedic drape was used to exclude access to the ileostomy cover. Ioban draping was used. 0.5% Marcaine was used as local anesthetic. Local was instilled in the left upper quadrant 5 Diaan trocar inserted and Visiport technology clean access was obtained. The abdomen is insufflated CO2 to pressure 15 mmHg pressure. 2 more 5 mm trochars placed in the epigastric area and one in the left midabdomen. There was some adhesions of small bowel to the anterior midline these were carefully bluntly dissected free. There was adhesions in the right upper quadrant to the anterior abdominal wall and these were bluntly dissected. At the site of the ileostomy the small bowel was inspected. It appeared to be relatively decompressed just prior to the ileostomy it was then wrapped around the posterior aspect of the ileostomy I was able to with non-pressure breast was completely trace the small bowel from that location down around the ileostomy down into the right lower quadrant. There appeared to be a small adhesion to the pelvic area in that location which I was able to release just with elevating the small bowel. Interesting enough the rectosigmoid area at the site of anastomosis was is absolutely clean of any type of debris there was some very minimal amount of serosanguineous fluid that was aspirated free no signs of stool no signs of any untoward problem. The small bowel was then carefully run back to the small bowel small bowel anastomosis. There was clearly air and fluid distal to the anastomosis the anastomosis appeared to be quite patent the bowel was relatively distended distally it was slightly more distended more proximally but not to a significant degree. Very hard to assess possibility of location of obstruction if there was one as there was fluid and air located throughout all parts of the small bowel. At the completion of the exploration the only finding was very mild diameter difference proximal and distal to the anastomosis but there appeared to be air and fluid throughout multiple loops of small bowel distal to the anastomosis. After long decision making due to the edematous nature of the bowel I elected not to perform a re-resection as I was concerned about possible anastomotic leak. I was hopeful that with more time that this would resolve. Also to the patient's abdomen was relatively quiet to auscultation suggesting perhaps a degree of ileus as well. Trochars were removed the wounds were closed with up to 4 Monocryl subdermal stitches. Steri-Strips Telfa and OpSite dressings applied. I then inspected the ileostomy and did a gentle digital exam. It appeared to be widely patent did not appear to be stenotic at that location. The bag was full of bilious fluid. I elected to cease the operation at this time. Patient was taken to recovery in satisfactory edition no apparent complication. Specimens none. Blood loss none. Drains none. Ezra Victor M.D., F.A.C.S. Type of Anesthesia:: General Anesthesiologist: Carlos Daugherty
[2019-08-25] MEDS: BENZOCAINE/MENTHOL 1 LOZENGE MUCOUS MEM (23:24)
--- NOTE | 2019-08-26 | IMM_PTH ---
PATIENT: NELIDA DELACRUZ LOC: MS3 U#:[id number] AGE/SX: 49/F ROOM: MS318 RE08/20/[address]: Dr. Ezra Victor MD : 1970 BED: 1 DIS: 09/02/2019 SPEC #: [id number] RECD: 08/27/19 12:54 STATUS: SOUT REQ #: [id number] DOROTHY: 08/26/19 00:[address]: Ezra Victor DEPT: IMMUNOHISTOCHEMISTRY RECD BY: Alyse Lin ENTERED: 08/27/19 12:55 SP TYPE: IMMUNO OTHR DR: Dr. Fatoumata Galeas MD Tissues: A - Bone marrow of iliac crest Procedures: CD20 (add) CD45 (add) CD5 (add) CD79A (add) CD3 (initial) PHYSICIAN & INSTITUTION [place] [address] SPECIMEN INFORMATION: Tissue Source: A - Bone marrow biopsy, core Clinical Info: DLBC/NHL Specimen Number: [id number] CPT code: 65893, 92196 x4 METHODOLOGY: Deparaffinized sections of prefer/formalin-fixed tissue or PAP/DQ stained slides are incubated with monoclonal/polyclonal antibodies/oligonucleotide probes. Localization is made via biotin free immunoperoxidase method. Appropriate controls are performed and reacted as expected. Results on target cell population are indicated in the following table: RESULTS: ANTIBODY / CLONE RESULT Block A CD3 (PS1) positive CD5 (SP10) positive CD20 (L26) positive CD79a (11E3) positive CD45 (RP2/18) positive These tests were developed and their performance characteristics determined by [facility]. They may not have been cleared or approved by the U.S. Food and Drug Administration. The FDA has determined that such clearance or approval is not necessary. The above immunohistochemical/dualISH markers are ordered and reviewed by the Pathologist. INTERPRETATION: A. Bone marrow biopsy, core: Interstitial infiltrates and small lymphocytes are noted, predominantly Tcell in nature, favor benign. SJ:eda 08/27/19
--- NOTE | 2019-08-26 | IMM_PTH ---
PATIENT: NELIDA DELACRUZ LOC: MS3 U#:[id number] AGE/SX: 49/F ROOM: MS318 RE08/20/[address]: Dr. Ezra Victor MD : 1970 BED: 1 DIS: 09/02/2019 SPEC #: [id number] RECD: 08/27/19 12:54 STATUS: PAT REQ #: [id number] DOROTHY: 08/26/19 00:[address]: Ezra Victor DEPT: IMMUNOHISTOCHEMISTRY RECD BY: Alyse Lin ENTERED: 08/27/19 12:55 SP TYPE: IMMUNO OTHR DR: Dr. Fatoumata Galeas MD Tissues: A - Bone marrow of iliac crest Procedures: No Tissue Found PHYSICIAN & INSTITUTION [place] [address] SPECIMEN INFORMATION: Tissue Source: Clinical Info: Specimen Number: CPT code: METHODOLOGY: Deparaffinized sections of prefer/formalin-fixed tissue or PAP/DQ stained slides are incubated with monoclonal/polyclonal antibodies/oligonucleotide probes. Localization is made via biotin free immunoperoxidase method. Appropriate controls are performed and reacted as expected. Results on target cell population are indicated in the following table: RESULTS: ANTIBODY / CLONE RESULT Block A These tests were developed and their performance characteristics determined by [facility]. They may not have been cleared or approved by the U.S. Food and Drug Administration. The FDA has determined that such clearance or approval is not necessary. The above immunohistochemical/dualISH markers are ordered and reviewed by the Pathologist.
[2019-08-26 01:05] VITALS: BP 128/75; PULSE 78; RESP 16; TEMP 37.2; O2SAT 98
[2019-08-26] MEDS: BENZOCAINE/MENTHOL 1 LOZENGE MUCOUS MEM ×2 (01:35→07:32)
[2019-08-26] MEDS: Lactated Ringers 1,000 ML 100 ML IV (03:26)
[2019-08-26 03:33] VITALS: BP 125/78; PULSE 64; RESP 16; TEMP 36.6; O2SAT 98
[2019-08-26] MEDS: LORazepam 2 MG/ML Syringe IV ×2 (03:35→07:38)
[2019-08-26 05:23] LABS: Absolute Lymphocyte Count 0.88 X10^3/uL (0.83-4.51); Absolute Neutrophil Count 6.5 X10^3/uL (2.0-7.7); Basophil# 0.01 X10^3/uL; Basophil% 0.1 % (0-1); Hematocrit 27.8 % (37-47); Hemoglobin 9.1 g/dL (12.0-15.0); Lymphocyte # 0.88 X10^3/ul (4.0); Lymphocyte % 11.3 % (19-41); Mean Corp Hgb Conc 32.7 g/dL (32-36); Mean Corpuscular Hgb 29.4 pg (27.0-32.0); Mean Corpuscular Volume 89.7 fL (81-99); Mean Platelet Vol. 9.4 fl (6.2-12.0); Monocyte# 0.28 X10^3/uL; Monocyte% 3.6 % (0-10); NRBC Flagged by Analyzer 0 % (0-5); Neutrophil # 6.52 X10^3/uL (2.7-7.7); Neutrophil % 83.8 % (47-70); Platelet Count 393 K/mm3 (150-450); RBC Distribution Width CV 14.2 % (11.6-14.6); RBC Distribution Width SD 45.7 fl (35.1-43.9); White Blood Count 7.8 K/mm3 (4.4-11.0)
[2019-08-26 05:39] LABS: BUN 13 mg/dL (7-18); BUN/Creat Ratio 30.4 RATIO (10-20); Calcium,Total 8.3 mg/dL (8.5-10.1); Chloride 110 mmol/L (98-107); Creatinine, Serum 0.43 mg/dL (0.55-1.02); EST Glomerular Filtration Rate 167 mL/min (>60); Est Glom Filt Rate - Afr Amer 202 mL/min (>60); Estimated Creatinine Clearance 113.68 ml/min; Glucose 109 mg/dL (74-106); Potassium 3.8 mmol/L (3.5-5.1); Sodium Level 139 mmol/L (136-145)
[2019-08-26 05:40] LABS: Anion Gap 6 (5-15)
--- NOTE | 2019-08-26 05:48 | PCM.PN.SRG ---
Patient Problems: Active and Suspected Problems (Last Reviewed 08/01/19 @ 14:52 by Fanta Henriquez) Abscess (Acute) Intra-abdominal adhesions (Acute) Partial small bowel obstruction (Acute) Subjective: Much happier No gagging, not much ngt irritation Some gas in stomal bag - Physical Exam Vitals/I&O's: Vital Signs Temp Pulse Resp BP Pulse Ox 97.9 F 64 16 125/78 H 98 08/26/19 03:33 08/26/19 03:33 08/26/19 03:33 08/26/19 03:33 08/26/19 03:33 Oxygen Flow Rate (L/min) 6 Oxygen Delivery Method Room Air Weight: 136 lb 10.986 oz Body Mass Index (BMI) 26.6 Intake and Output for Last 24 Hours 08/24/19 08/25/19 08/26/19 23:59 23:59 23:59 Intake Total 3910 / 3910 3970.67 / 4200.67 833.33 / 833.33 Output Total 6295 / 6295 1475 / 2875 1400 / 1400 Balance -2385 / -2385 2495.67 / 1325.67 -566.67 / -566.67 General: Alert Lungs: Clear to auscultation Abdomen: Soft, Non Tender, Hypoactive Bowel Sounds, Distended Microbiology Past 72 Hours 08/20/19 Unknown Aspirate - Abdominal Gram Stain - Final 08/20/19 Unknown Aspirate - Abdominal Wound Culture - Final Escherichia coli 08/20/19 Unknown Aspirate - Abdominal Anaerobic Culture - Final No anaerobic bacteria isolated. Laboratory Results 08/25/19 06:42: WBC 10.2, RBC 3.26 L, Hgb 9.5 L, Hct 29.3 L, MCV 89.9, MCH 29.1, MCHC 32.4, RDW Std Deviation 46.7 H, RDW Coeff of Miguel 14.3, Plt Count 398, MPV 9.1, Immature Gran % (Auto) 0.700, Neut % (Auto) 81.2 H, Lymph % (Auto) 10.2 L, [place] % (Auto) 6.7, Eos % (Auto) 1.0, Baso % (Auto) 0.2, Absolute Neuts (auto) 8.3 H, Absolute Lymphs (auto) 1.04, Nucleated RBC % 0 02/10/20 06:42: Sodium 140, Potassium 3.7, Chloride 111 H, Carbon Dioxide 21.0, Anion Gap 8, BUN 8, Creatinine 0.46 L, Estim Creat Clear Calc 106.26, Est GFR (MDRD) Af Amer 187, Est GFR (MDRD) Non-Af 155, BUN/Creatinine Ratio 17.5, Glucose 86, Calcium 9.0 08/26/19 05:04: WBC 7.8, RBC 3.10 L, Hgb 9.1 L, Hct 27.8 L, MCV 89.7, MCH 29.4, MCHC 32.7, RDW Std Deviation 45.7 H, RDW Coeff of Miguel 14.2, Plt Count 393, MPV 9.4, Immature Gran % (Auto) 1.200 H, Neut % (Auto) 83.8 H, Lymph % (Auto) 11.3 L, [place] % (Auto) 3.6, Eos % (Auto) 0.0, Baso % (Auto) 0.1, Absolute Neuts (auto) 6.5, Absolute Lymphs (auto) 0.88, Nucleated RBC % 0 08/26/19 05:04: Sodium 139, Potassium 3.8, Chloride 110 H, Carbon Dioxide 23.0, Anion Gap 6, BUN 13, Creatinine 0.43 L, Estim Creat Clear Calc 113.68, Est GFR (MDRD) Af Amer 202, Est GFR (MDRD) Non-Af 167, BUN/Creatinine Ratio 30.4 H, Glucose 109 H, Calcium 8.3 L Current Medications Acetaminophen (Tylenol) 1,000 mg PO Q6 [facility] Last Admin: 08/26/19 00:03 Dose: Not Given Documented by: Docusate Sodium (Colace) 100 mg PO BID [facility] Last Admin: 08/25/19 23:07 Dose: Not Given Documented by: Enoxaparin Sodium (Lovenox) 40 mg SC DAILY [facility] Last Admin: 08/25/19 14:01 Dose: Not Given Documented by: Hydromorphone HCl (Dilaudid Inj) 0.5 mg IV Q3H PRN PRN PRN Reason: Pain Score 6-04/24 Last Admin: 08/25/19 16:42 Dose: 0.5 mg Documented by: Sodium Chloride () 250 mls @ 15 mls/hr IV .[id number] PRN PRN Reason: Saline Flush Last Infusion: 08/23/19 15:29 Dose: Infused Documented by: Sodium Chloride () 250 mls @ 15 mls/hr IV .[id number] PRN PRN Reason: Additional IVPB Infusion Lactated Ringer's () 1,000 mls @ 100 mls/hr IV .Q10H [facility] Last Admin: 08/26/19 03:26 Dose: 100 mls/hr Documented by: Lorazepam (Ativan) 0.5 - 1 mg IV Q4H PRN PRN PRN Reason: ANXIETY Last Admin: 08/26/19 03:35 Dose: 1 mg Documented by: Magnesium Oxide (Mag-Ox 400) 400 mg PO DAILY PRN PRN PRN Reason: Constipation Norethindrone Acetate (Norethindrone Acetate) 5 mg PO DAILY PRN PRN Reason: BLEEDING Last Admin: 08/23/19 08:31 Dose: 5 mg Documented by: Ondansetron HCl (Zofran Odt) 4 mg PO Q6H PRN PRN PRN Reason: NAUSEA Last Admin: 08/24/19 05:41 Dose: 4 mg Documented by: Oxycodone HCl (Oxyir) 5 - 10 mg PO Q4H PRN PRN PRN Reason: Pain Score 4-10/10 Last Admin: 08/21/19 22:52 Dose: 10 mg Documented by: Sodium Chloride () 10 - 40 ml IV UD PRN PRN Reason: SALINE FLUSH Last Admin: 08/25/19 14:56 Dose: 10 ml Documented by: Tamsulosin HCl (Flomax) 0.4 mg PO DAILY@1730 [facility] Last Admin: 08/25/19 14:50 Dose: Not Given Documented by: Throat Lozenges (Cepacol Sore Throat Lozenge) 1 lozenge MUCOUS MEM Q2H PRN PRN PRN Reason: SORE THROAT Last Admin: 08/26/19 01:35 Dose: 1 lozenge Documented by: Medical Necessity - Tobacco Use Smoking Status: Former smoker Tobacco Use: Non-smoker Assessment/Plan All Active Problems (Last Reviewed 08/01/19 @ 14:52 by Fanta Henriquez) Abscess (Acute) Intra-abdominal adhesions (Acute) Partial small bowel obstruction (Acute) Anemia (Acute) Diverticulitis (Acute) Abdominal pain (Acute) Abnormal uterine bleeding (Acute) Will start intermittent clamping of ngt Hopeful removal later today Labs improved WBC No signs of infection at time of surgery. Zosyn stopped Pelvic anastomosis looks great
[2019-08-26] MEDS: NORETHINDRONE ACETATE 5 MG TABLET PO (05:52)
[2019-08-26 09:30] VITALS: BP 134/72; PULSE 73; RESP 18; TEMP 36.5; O2SAT 96
--- NOTE | 2019-08-26 11:10 | NURSING ---
Addendum entered by Tammie Way 08/26/19 19:00: Second half of shift: 260 oral intake: 30cc flush and output: 150cc void, 150cc greenish liquid stool, and 350cc NG output. Addendum entered by Tammie Way 08/26/19 18:50: NG reconnected to LIWS at 1110 and then locked again at 1240. JEANETH Lovelace called in requesting update at 1411- updated regarding hypo bowel sounds, and regarding output and intake. Notified of pt concerns regarding nausea within 30minutes of clamping NG and notified that pt concerned she is not getting enough hydration with 60cc NS via IV. Pt concerned about removing NG because she states it is causing too much mucous to accumulate in airway. However, voiced concern about removing because she states she will not have it replaced. Shabana states to clamp 3hours and then reattach to LIWS x1hour and have pt drink 120cc water during time clamped. Pt became very upset and defensive and states well you can have them drink it then- I will not be drinking anything with this tube in the way. Pt voiced frustration and states she just wants to be well. Pt educated on importance of following instructions of physicians and P.A. to help us improve her condition. Pt closed eyes and was very frustrated. However, she did attempt to drink water in between clamping from 1240 until 1414 when pt reported too much nausea and was reconnected to LIWS. Dr. Victor rounded around 1700 and pt was then chewing gum. Pt has been walking this shift- 1 lap in the hallway 6 times this shift. Pt much more relaxed and pleasant with LIWS functioning. Original Note: Patient NG was clamped at 0547 until 0757 and then reconnected to LIWS until clamped at 0910, output totaling 50cc. Output continues to be clear with green sediment. Pt sleeping at this time and waking patient up to walk another lap in hallway and then will be reconnected as soon as she returns.
[2019-08-26 15:30] VITALS: BP 137/84; PULSE 91; RESP 16; TEMP 36.8; O2SAT 97
--- NOTE | 2019-08-26 16:54 | PCM.PN.BLA ---
Progress Note Ngt output is clear but pt c/o upper abd pain and nausea Ileostomy output has slowed Will return ngt to suction Will check AXR in a.m.
[2019-08-26] MEDS: Lactated Ringers 1,000 ML 60 ML IV (17:32)
[2019-08-26 20:35] VITALS: BP 141/88; PULSE 88; RESP 18; TEMP 36.7; O2SAT 95
[2019-08-26] MEDS: HYDROmorphone 0.5 MG/0.5 ML SYRINGE IV ×2 (20:37→23:46)
[2019-08-27] VITALS (12 sets, daily range): BP systolic 106–150; BP diastolic 73–88; PULSE 68–96; RESP 16–18; TEMP 36.3–37.7; O2SAT 93–99; BMI 26.6
[2019-08-27] MEDS: LORazepam 2 MG/ML Syringe IV ×3 (04:57→22:41)
[2019-08-27] MEDS: 0.9% Saline Lock 10 ML Syringe IV ×3 (04:58→22:42)
--- NOTE | 2019-08-27 05:00 | RAD_ITS ---
STUDY: X-RAY - ABDOMEN/PELVIS REASON FOR EXAM: Female, 49 years old. SMALL BOWEL OBSTRUCTION -- HX OF PERFORATED SIGMOID DIVERTICULITIS WITH ABSCESS TECHNIQUE: AP supine and upright views of the abdomen and pelvis. COMPARISON: X-ray abdominal series 08/24/2019. X-ray small bowel series 08/25/2019. FINDINGS: Normal visualized lung bases. There is a nasogastric tube with its tip overlying the gastric fundus. There is a colostomy in the right lower quadrant of the abdomen. There is persistent gaseous distention of small bowel loops with air-fluid levels on erect view. Findings are consistent with a persistent partial small bowel obstruction. There is no significant change in gaseous distention from the recent previous studies. There is no demonstrated free abdominal air. The visualized liver, spleen and kidneys are grossly normal in size and morphology. Normal soft tissue structures. Normal visualized osseous structures. RAD/Abd Inc Decub and/or Erect IMPRESSION: Persistent partial small bowel obstruction with no significant change in gaseous distention from recent exams. Nasogastric tube is in adequate position. Colostomy in the right lower quadrant of the abdomen. Electronically Signed: All Pulido MD at 5:10 EST , Service support ,
--- NOTE | 2019-08-27 05:58 | PCM.PN.SRG ---
Patient Problems: Active and Suspected Problems (Last Reviewed 08/01/19 @ 14:52 by Fanta Henriquez) Abscess (Acute) Intra-abdominal adhesions (Acute) Partial small bowel obstruction (Acute) Subjective: Pt c/o chronic back pain, usually doesnt sleep in a bed, otherwise no c/o - Physical Exam Vitals/I&O's: Vital Signs Temp Pulse Resp BP Pulse Ox 98.6 F 85 18 128/78 H 99 08/27/19 04:00 08/27/19 04:00 08/27/19 04:00 08/27/19 04:00 08/27/19 04:00 Oxygen Flow Rate (L/min) 6 Oxygen Delivery Method Room Air Weight: 136 lb 10.986 oz Body Mass Index (BMI) 26.6 Intake and Output for Last 24 Hours 08/25/19 08/26/19 08/27/19 23:59 23:59 23:59 Intake Total 3970.67 / 4200.67 2542.33 / 2542.33 Output Total 1475 / 2875 4900 / 4900 Balance 2495.67 / 1325.67 -2357.67 / -2357.67 Lungs: Clear to auscultation Cardiovascular: - - Bilateral femoral dressings clean and dry, appropriate amount of ecchymosis bilaterally, 3+ bilateral popliteal pulses Abdomen: Soft, Non Tender, Hypoactive Bowel Sounds Current Medications Acetaminophen (Tylenol) 1,000 mg PO Q6 [facility] Last Admin: 08/27/19 05:12 Dose: Not Given Documented by: Docusate Sodium (Colace) 100 mg PO BID [facility] Last Admin: 08/26/19 22:27 Dose: Not Given Documented by: Enoxaparin Sodium (Lovenox) 40 mg SC DAILY [facility] Last Admin: 08/26/19 11:43 Dose: Not Given Documented by: Hydromorphone HCl (Dilaudid Inj) 0.5 mg IV Q3H PRN PRN PRN Reason: Pain Score 6-10/10 Last Admin: 08/26/19 23:46 Dose: 0.5 mg Documented by: Sodium Chloride () 250 mls @ 15 mls/hr IV .[id number] PRN PRN Reason: Saline Flush Last Infusion: 08/23/19 15:29 Dose: Infused Documented by: Sodium Chloride () 250 mls @ 15 mls/hr IV .[id number] PRN PRN Reason: Additional IVPB Infusion Lactated Ringer's () 1,000 mls @ 100 mls/hr IV .Q10H [facility] Last Infusion: 08/26/19 17:33 Dose: Infused Documented by: Lactated Ringer's () 1,000 mls @ 60 mls/hr IV .[id number] [facility] Last Admin: 08/26/19 17:32 Dose: 60 mls/hr Documented by: Lorazepam (Ativan) 0.5 - 1 mg IV Q4H PRN PRN PRN Reason: ANXIETY Last Admin: 08/27/19 04:57 Dose: 1 mg Documented by: Magnesium Oxide (Mag-Ox 400) 400 mg PO DAILY PRN PRN PRN Reason: Constipation Norethindrone Acetate (Norethindrone Acetate) 5 mg PO DAILY PRN PRN Reason: BLEEDING Last Admin: 08/26/19 05:52 Dose: 5 mg Documented by: Ondansetron HCl (Zofran Odt) 4 mg PO Q6H PRN PRN PRN Reason: NAUSEA Last Admin: 08/24/19 05:41 Dose: 4 mg Documented by: Oxycodone HCl (Oxyir) 5 - 10 mg PO Q4H PRN PRN PRN Reason: Pain Score 4-10/10 Last Admin: 08/21/19 22:52 Dose: 10 mg Documented by: Sodium Chloride () 10 - 40 ml IV UD PRN PRN Reason: SALINE FLUSH Last Admin: 08/27/19 04:58 Dose: 20 ml Documented by: Tamsulosin HCl (Flomax) 0.4 mg PO DAILY@1730 [facility] Last Admin: 08/26/19 17:15 Dose: Not Given Documented by: Throat Lozenges (Cepacol Sore Throat Lozenge) 1 lozenge MUCOUS MEM Q2H PRN PRN PRN Reason: SORE THROAT Last Admin: 08/26/19 07:32 Dose: 1 lozenge Documented by: Medical Necessity - Tobacco Use Smoking Status: Former smoker Tobacco Use: Non-smoker Assessment/Plan All Active Problems (Last Reviewed 08/01/19 @ 14:52 by Fanta Henriquez) Abscess (Acute) Intra-abdominal adhesions (Acute) Partial small bowel obstruction (Acute) Anemia (Acute) Diverticulitis (Acute) Abdominal pain (Acute) Abnormal uterine bleeding (Acute) Very good results. We will continue to mobilize the patient. Remove Broussard. Will advance diet. We will then proceed with plans for discharge.
--- NOTE | 2019-08-27 06:20 | PCM.PN.SRG ---
Patient Problems: Active and Suspected Problems (Last Reviewed 08/01/19 @ 14:52 by Fanta Henriquez) Abscess (Acute) Intra-abdominal adhesions (Acute) Partial small bowel obstruction (Acute) Subjective: Patient states that she feels worse this morning than yesterday. She feels like she is deteriorating significantly. She feels painful with a distended abdomen and feels very weak. - Physical Exam Vitals/I&O's: Vital Signs Temp Pulse Resp BP Pulse Ox 98.6 F 85 18 128/78 H 99 08/27/19 04:00 08/27/19 04:00 08/27/19 04:00 08/27/19 04:00 08/27/19 04:00 Oxygen Flow Rate (L/min) 6 Oxygen Delivery Method Room Air Weight: 136 lb 10.986 oz Body Mass Index (BMI) 26.6 Intake and Output for Last 24 Hours 08/25/19 08/26/19 08/27/19 23:59 23:59 23:59 Intake Total 3970.67 / 4200.67 2542.33 / 2542.33 Output Total 1475 / 2875 4900 / 4900 650 / 650 Balance 2495.67 / 1325.67 -2357.67 / -2357.67 -650 / -650 Abdomen: Hypoactive Bowel Sounds, Distended, Tender Current Medications Acetaminophen (Tylenol) 1,000 mg PO Q6 [facility] Last Admin: 08/27/19 05:12 Dose: Not Given Documented by: Docusate Sodium (Colace) 100 mg PO BID [facility] Last Admin: 08/26/19 22:27 Dose: Not Given Documented by: Enoxaparin Sodium (Lovenox) 40 mg SC DAILY [facility] Last Admin: 08/26/19 11:43 Dose: Not Given Documented by: Hydromorphone HCl (Dilaudid Inj) 0.5 mg IV Q3H PRN PRN PRN Reason: Pain Score 6-10 Last Admin: 08/26/19 23:46 Dose: 0.5 mg Documented by: Sodium Chloride () 250 mls @ 15 mls/hr IV .[id number] PRN PRN Reason: Saline Flush Last Infusion: 08/23/19 15:29 Dose: Infused Documented by: Sodium Chloride () 250 mls @ 15 mls/hr IV .[id number] PRN PRN Reason: Additional IVPB Infusion Lactated Ringer's () 1,000 mls @ 100 mls/hr IV .Q10H [facility] Last Infusion: 08/26/19 17:33 Dose: Infused Documented by: Lactated Ringer's () 1,000 mls @ 60 mls/hr IV .[id number] [facility] Last Admin: 08/26/19 17:32 Dose: 60 mls/hr Documented by: Lorazepam (Ativan) 0.5 - 1 mg IV Q4H PRN PRN PRN Reason: ANXIETY Last Admin: 08/27/19 04:57 Dose: 1 mg Documented by: Magnesium Oxide (Mag-Ox 400) 400 mg PO DAILY PRN PRN PRN Reason: Constipation Norethindrone Acetate (Norethindrone Acetate) 5 mg PO DAILY PRN PRN Reason: BLEEDING Last Admin: 08/26/19 05:52 Dose: 5 mg Documented by: Ondansetron HCl (Zofran Odt) 4 mg PO Q6H PRN PRN PRN Reason: NAUSEA Last Admin: 08/24/19 05:41 Dose: 4 mg Documented by: Oxycodone HCl (Oxyir) 5 - 10 mg PO Q4H PRN PRN PRN Reason: Pain Score 4-10/10 Last Admin: 08/21/19 22:52 Dose: 10 mg Documented by: Sodium Chloride () 10 - 40 ml IV UD PRN PRN Reason: SALINE FLUSH Last Admin: 08/27/19 04:58 Dose: 20 ml Documented by: Tamsulosin HCl (Flomax) 0.4 mg PO DAILY@1730 [facility] Last Admin: 08/26/19 17:15 Dose: Not Given Documented by: Throat Lozenges (Cepacol Sore Throat Lozenge) 1 lozenge MUCOUS MEM Q2H PRN PRN PRN Reason: SORE THROAT Last Admin: 08/26/19 07:32 Dose: 1 lozenge Documented by: Medical Necessity - Tobacco Use Smoking Status: Former smoker Tobacco Use: Non-smoker Assessment/Plan All Active Problems (Last Reviewed 08/01/19 @ 14:52 by Fanta Henriquez) Abscess (Acute) Intra-abdominal adhesions (Acute) Partial small bowel obstruction (Acute) Anemia (Acute) Diverticulitis (Acute) Abdominal pain (Acute) Abnormal uterine bleeding (Acute) Abdominal x-rays demonstrate a persistent partial small bowel obstruction. Despite 3 days now of continued NG tube suction the films are not improved since her Gastrografin study of Sunday. Her abdomen is distended. She has a significant amount of pressure in the upper abdomen. Although the NG tube output is not significant she appears to have proximal loops of small bowel that are distended and congested with fluid. Her ileostomy did function for a bit and does have liquidy stool but she is ceased to fill the bag with there. Although at the time of recent laparoscopy on Sunday night I could not justify redoing the anastomosis of the small bowel at that setting it did not appear that it was the prime source now it absolutely must be a component. I suspect that the patient has 2 separate issues. Possibly an anastomotic stricturing in addition to diffuse ileus. Unfortunately she is not demonstrating any signs of improvement and if anything appears to have worsening upper abdominal distention. At this point I believe that there is no choice other than to return to surgery and redo the anastomosis. I also plan on placing a PICC line and initiating TPN. It is unclear how long this small bowel process will continue. The patient and are well aware of the problems at hand. We will try to schedule and expedite their care today. Ezra Victor M.D., F.A.C.S.
--- NOTE | 2019-08-27 06:46 | NURSING ---
[id number] Correia in to pts room and explained she needed to insert morel cath for sx per order. pt states do you have to do it now,they dont know the time of sx yet? pipe cleaner also tried to do chlorhex bath pt also refused this morning.
--- NOTE | 2019-08-27 07:15 | COL_PTH ---
PATIENT: NELIDA DELACRUZ LOC: MS3 U#:[id number] AGE/SX: 49/F ROOM: MS318 RE08/20/[address]: Dr. Ezra Victor MD : 1970 BED: 1 DIS: 09/02/2019 SPEC #: [id number] RECD: 08/27/19 12:37 STATUS: JORGE REJenny #: [id number] DOROTHY: 08/27/19 07:[address]: Ezra Victor DEPT: SURGICAL PATHOLOGY RECD BY: Dino Pinto ENTERED: 08/27/19 13:34 SP TYPE: COLON OTHR DR: Dr. Fatoumata Galeas MD Tissues: Colon, NOS Procedures: Surgery Specimen Level V HEADER OPERATION: Exploratory laparoscopy, lysis of adhesions PRE-OP DIAGNOSIS: Small bowel obstruction, partial TISSUE SUBMITTED: Surgical anastomosis MICROSCOPIC DIAGNOSIS Small bowel, anastomosis, segmental resection: Anastomosis with focal ulceration and associated acute chronic inflammation, granulation and fibrinoid degeneration. Margins of excision with no pathologic change. AM:eda 08/29/19 MICROSCOPIC DESCRIPTION Slides are reviewed. GROSS DESCRIPTION Received in fixative is one container labeled with the patient's name and designated surgical anastomosis. The specimen consists of two segments of bowel with [id number] anastomosis. The specimen as a whole measures 12 cm in length. One segment measures 9.5 cm in length and the other segment of bowel measures 10 cm in length. The anastomotic orifice between the two segments of bowel measures 4.2 cm in diameter. The anastomotic rim on the inner mucosal lining surface is pop-randall and an area measuring 6 cm in length. The serosal aspect of the area of anastomosis is grossly unremarkable. No gross perforations through to the serosa are seen. The nonfunctional stapled end of the bowel segments is grossly unremarkable and so are the functional surgical mucosal margins. [place] Inspector sections are submitted as follows: 1 - functional mucosal margins, 2-4 - area of anastomosis with defect. / AM:eda 08/28/19 TC:2 CPT: 36701
[2019-08-27] MEDS: HYDROmorphone 0.5 MG/0.5 ML SYRINGE IV ×2 (07:34→20:07)
--- NOTE | 2019-08-27 07:42 | NURSING ---
0738 spoke to pt if shes ok to inset morel now, charge nurse cynthia in to help. pt states to wait and she just wanted to be left alone for now. dilaudid given per pt request.
--- NOTE | 2019-08-27 07:53 | NURSING ---
Spoke with Dr. Victor regarding PICC line order. Dr. Victor requesting to have PICC line placement scheduled around the OR today. MD is ok with PICC line being placed after surgery is completed today.
--- NOTE | 2019-08-27 11:04 | NT.THERAPY_ITS ---
Nutrition Therapy Report - History Nutrition Services has been consulted to:: Manage parenteral nutrition Current diet / nutrition support order:: NPO - Anthropometric Measurements Height:: 5 ft Weight:: 62 kg Body Mass Index (BMI):: 26.6 - Relevant Labs Relevant Labs:: WBC 11.4 K/mm3 (4.4-11.0) H 08/24/19 08:18 RBC 3.10 M/mm3 (4.2-5.4) L 08/26/19 05:04 Hgb 9.1 g/dL (12.0-15.0) L 08/26/19 05:04 Hct 27.8 % (37-47) L 08/26/19 05:04 MCHC 31.9 g/dL (32-36) L 08/24/19 08:18 RDW Std Deviation 45.7 fl (35.1-43.9) H 08/26/19 05:04 Immature Gran % (Auto) 1.200 % (0.0-0.9) H 08/26/19 05:04 Neut % (Auto) 83.8 % (47-70) H 08/26/19 05:04 Lymph % (Auto) 11.3 % (19-41) L 08/26/19 05:04 Absolute Neuts (auto) 8.3 X10^3/uL (2.0-7.7) H 08/25/19 06:42 Chloride 110 mmol/L (98-107) H 08/26/19 05:04 Carbon Dioxide 19.0 mmol/L (21.0-32.0) L 08/24/19 08:18 BUN 5 mg/dL (7-18) L 08/24/19 08:18 Creatinine 0.43 mg/dL (0.55-1.02) L 08/26/19 05:04 BUN/Creatinine Ratio 30.4 RATIO (10-20) H 08/26/19 05:04 Glucose 109 mg/dL (74-106) H 08/26/19 05:04 Calcium 8.3 mg/dL (8.5-10.1) L 08/26/19 05:04 - Assessment Food / Nutrition-Related History:: Consulted for TPN. Meets criteria to initiate TPN- 1) Length of NPO status >7 days, pt has not been able to meet >50% of estimated nutrition requirements enterally or orally, 2) evidence of nonfunctioning GI tract per SBFT study and abdominal xrays evaluated by surgical team, 3) No expectation of bowel function to immediately return. Per EMR, PICC to be placed today. No new wt to assess since admission. Suspect acute mal nutrition but unable to confirm at this time. - Nutrition Diagnosis Problem / Etiology / Signs & Symptoms (PES):: Inadequate oral intake related to recent surgeries, bowel obstruction as evidenced by no PO intake for 8 days Evidence of Malnutrition Exists:: No - Nutrition Intervention Nutrition Prescription:: [id number] calories/day, 75-95 g protein/day. - Food / Nutrient Delivery Interventions Summary of nutrition intervention:: Pt currently in surgery; recommend initiation of TPN post-op if pt remains metabolically stable. Spoke w/ Rickie in pharamcy to order TPN as the EMR has not been updated to allow RDN to enter TPN orders. Will order daily wts. For TPN monitoring, will need baseline CMP, lipid profile, liver panel, and phosphorus. Will consider initiation of lipids tomorrow, 08/28 pending results of lipid profile. Nutrition support ordered as / adjusted to:: 2L 4.25% Amino Acid/ 10% Dextrose @ 84mL/hour Nutrition education provided?: No - MNT Monitoring Further MNT monitoring and evaluation required?: Yes - Will monitor TPN as initiated and provide daily recommendations/adjust TPN MNT Follow-up in:: 1-2 days - Daily consult for TPN management is required per TPN policy
[2019-08-27] MEDS: Bupivacaine 0.25% 30 ML Vial (12:30)
[2019-08-27] MEDS: 0.9% Normal Saline (Pres. free 10 ML Vial (12:30)
[2019-08-27] MEDS: BUPIVACAINE LIPOSOME/PF 20 ML VIAL OPERA.SITE (12:30)
--- NOTE | 2019-08-27 12:39 | OP.PCM_ITS ---
Problem List (1) Diverticulitis Status: Acute (2) Abscess Status: Acute (3) Intra-abdominal adhesions Status: Acute (4) Partial small bowel obstruction Status: Acute Report of Operation Date of Procedure: 08/27/19 Pre-Operative Diagnosis: Non-resolving partial small bowel obstruction, possible anastomotic stricture Post-Operative Diagnosis: Same Surgery/Procedure Performed:: Exploratory laparoscopy with subsequent laparotomy and enterectomy of small bowel anastomosis Description of Surgical Findings:: Timeout informed consent was obtained. 49-year-old female was taken to the operating placement table underwent general endotracheal intubation anesthesia. The 14 [place] NG tube was swapped out for a 16 [place] tube. The abdomen sterilely prepped and draped. 20 cc of Exparel mixed with 60 cc of 0.25% Marcaine mixed with 20 cc of saline was used for a tap block. The left upper quadrant the site of previous 500 port access site regained access with the Visiport technology the abdomen is inflated CO2 to pressure 15 instrument her pressure to more 5 Diana trochars were placed at the previous sites in the epigastrium and left midabdomen expiration revealed that adhesions had already formed since the previous operation in areas where one would not expect adhesions to form. Small bowel appeared to be quite similar to the last time with general dilatation more notably proximally though also present distally. I was able to find the anastomotic area and put a noncrushing clamp on that. I reopen the midline remove the bowel at that site transected the mesentery with a harmonic further secured hemostasis with 4-0 silk used a LYNDA-75 stapler to t ransect the anastomotic area proximally and distally approximated the bowel side to side made enterotomies used to 75 mm stapler to create cytocide anastomosis then used a TA 60 stapler to cut off the enterotomies it is of note that the bowel was very fragile and holding suture created a small hole so I repaired that with a [id number] suture of 4-0 silk the staple line in the middle had a small hole secured that with a 4-0 silk [id number] suture and then I carefully meticulously imbricated the entire staple line with simple sutures of 4-0 silk. Attention was taken off of that anastomosis during the entire suturing process so that no suture would feel excess tension. Tediously meticulously was able to imbricate that entire staple line. Milked the bowel back and forth there was no leakage. The mesentery had been closed with a running 2-0 chromic. The bowel was nice and viable and bled readily. It was edematous and fragile. I placed the bowel back within the abdomen carefully. Check the NG tube position sure that it was in the very distal stomach almost out into the duodenum. Trochars were removed. The midline fascia was closed with running #1 PDS. It is of note that prior to converting the open I did perform a bilateral tap block while I have a laparoscopic equipment in. That was performed with a local mixture above and performed this under laparoscopic roll bilaterally. This left we with 30 cc to use locally at the incision site. Sponge and instrument and needle counts were reported to surgically correct. Blood loss was minimal. She tolerated the procedure well and was taken to the recovery room said to condition apparent complication. Specimen is the anastomosis. Drains none. Blood loss minimal. Ezra Victor M.D., F.A.C.S. Type of Anesthesia:: General, Local Anesthesiologist: Phuong Faith
[2019-08-27] MEDS: Lactated Ringers 1,000 ML 60 ML IV (16:35)
--- NOTE | 2019-08-27 18:02 | PCM.PN.BLA ---
Progress Note Pt lethargic from ativan given prior to PIC line placement Will allow resting at night and encouraged ambulation when possible STROKE Vital Signs/Narrative: Vital Signs Temp Pulse Resp BP Pulse Ox 08/27/19 15:15 98.4 F 74 18 132/79 H 96 08/27/19 14:28 99.5 F H 75 16 135/83 H 96 08/27/19 14:15 73 16 128/80 H 94
[2019-08-27] MEDS: Tamsulosin HCl 0.4 MG Capsule PO (18:38)
[2019-08-28 00:16] LABS: Bedside Glucose 205 mg/dL (70-110)
[2019-08-28] MEDS: HYDROmorphone 0.5 MG/0.5 ML SYRINGE IV ×2 (01:10→06:41)
[2019-08-28 03:51] VITALS: BP 129/83; PULSE 90; RESP 16; TEMP 37.3; O2SAT 96
[2019-08-28] MEDS: 0.9% Saline Lock 10 ML Syringe IV (04:11)
[2019-08-28] MEDS: LORazepam 2 MG/ML Syringe IV ×3 (04:11→22:53)
[2019-08-28 05:38] LABS: Absolute Lymphocyte Count 1.35 X10^3/uL (0.83-4.51); Absolute Neutrophil Count 12.2 X10^3/uL (2.0-7.7); Basophil# 0.03 X10^3/uL; Basophil% 0.2 % (0-1); Eosinophil# 0.04 X10^3/uL; Eosinophils% 0.3 % (0-5); Hematocrit 30.2 % (37-47); Hemoglobin 9.8 g/dL (12.0-15.0); Lymphocyte # 1.35 X10^3/ul (4.0); Lymphocyte % 9.1 % (19-41); Mean Corp Hgb Conc 32.5 g/dL (32-36); Mean Corpuscular Hgb 28.6 pg (27.0-32.0); Mean Platelet Vol. 9.3 fl (6.2-12.0); Monocyte# 0.97 X10^3/uL; Monocyte% 6.6 % (0-10); NRBC Flagged by Analyzer 0 % (0-5); Neutrophil # 12.17 X10^3/uL (2.7-7.7); Neutrophil % 82.2 % (47-70); Platelet Count 490 K/mm3 (150-450); RBC Distribution Width CV 13.8 % (11.6-14.6); RBC Distribution Width SD 43.9 fl (35.1-43.9); Red Blood Count 3.43 M/mm3 (4.2-5.4); White Blood Count 14.8 K/mm3 (4.4-11.0)
[2019-08-28 06:05] LABS: Anion Gap 7 (5-15); BUN 10 mg/dL (7-18); BUN/Creat Ratio 14.9 RATIO (10-20); Calcium,Total 7.9 mg/dL (8.5-10.1); Chloride 100 mmol/L (98-107); Creatinine, Serum 0.67 mg/dL (0.55-1.02); EST Glomerular Filtration Rate 99 mL/min (>60); Est Glom Filt Rate - Afr Amer 120 mL/min (>60); Estimated Creatinine Clearance 72.96 ml/min; Glucose 166 mg/dL (74-106); Magnesium 1.7 mg/dL (1.6-2.6); Phosphorus 2.4 mg/dL (2.5-4.9); Potassium 3.2 mmol/L (3.5-5.1); Prealbumin 11.7 mg/dL (20.0-40.0); Sodium Level 135 mmol/L (136-145); Triglycerides 88 mg/dL
[2019-08-28 06:55] LABS: Bedside Glucose 164 mg/dL (70-110)
--- NOTE | 2019-08-28 07:12 | PN.SURG_ITS ---
Patient Problems: Active and Suspected Problems (Last Reviewed 08/01/19 @ 14:52 by Fanta Henriquez) Abscess (Acute) Intra-abdominal adhesions (Acute) Partial small bowel obstruction (Acute) - Physical Exam Vitals/I&O's: Vital Signs Temp Pulse Resp BP Pulse Ox 99.1 F 90 16 129/83 H 96 08/28/19 03:51 08/28/19 03:51 08/28/19 03:51 08/28/19 03:51 08/28/19 03:51 Oxygen Flow Rate (L/min) 6 Oxygen Delivery Method Room Air Weight: 136 lb 10.986 oz Body Mass Index (BMI) 26.6 Intake and Output for Last 24 Hours 08/26/19 08/27/19 08/28/19 23:59 23:59 23:59 Intake Total 2542.33 / 2542.33 1482.75 / 1482.75 80 / 80 Output Total 4900 / 4900 1690 / 2390 1350 / 1350 Balance -2357.67 / -2357.67 -207.25 / -907.25 -1270 / -1270 General: Oriented x3, Lethargic Lungs: Clear to auscultation Abdomen: Bowel Sounds Not Present, Distended Extremities: No Calf Tenderness Laboratory Results 08/28/19 00:05: POC Glucose 205 H 08/28/19 05:15: Sodium 135 L, Potassium 3.2 L, Chloride 100, Carbon Dioxide 28.0, Anion Gap 7, BUN 10, Creatinine 0.67, Estim Creat Clear Calc 72.96, Est GFR (MDRD) Af Amer 120, Est GFR (MDRD) Non-Af 99, BUN/Creatinine Ratio 14.9, Glucose 166 H, Calcium 7.9 L, Phosphorus 2.4 L, Magnesium 1.7, Prealbumin 11.7 L , Triglycerides 88 08/28/19 05:15: WBC 14.8 H, RBC 3.43 L, Hgb 9.8 L, Hct 30.2 L, MCV 88.0, MCH 28.6, MCHC 32.5, RDW Std Deviation 43.9, RDW Coeff of Miguel 13.8, Plt Count 490 H, MPV 9.3, Immature Gran % (Auto) 1.600 H, Neut % (Auto) 82.2 H, Lymph % (Auto) 9.1 L, [place] % (Auto) 6.6, Eos % (Auto) 0.3, Baso % (Auto) 0.2, Absolute Neuts (auto) 12.2 H, Absolute Lymphs (auto) 1.35, Nucleated RBC % 0 08/28/19 06:40: POC Glucose 164 H Current Medications Acetaminophen (Tylenol) 1,000 mg PO Q6 [facility] Last Admin: 08/28/19 05:04 Dose: Not Given Documented by: Docusate Sodium (Colace) 100 mg PO BID [facility] Last Admin: 08/27/19 22:48 Dose: Not Given Documented by: Enoxaparin Sodium (Lovenox) 40 mg SC DAILY [facility] Last Admin: 08/27/19 15:37 Dose: Not Given Documented by: Hydromorphone HCl (Dilaudid Inj) 0.5 mg IV Q3H PRN PRN PRN Reason: Pain Score 6-10/10 Last Admin: 08/28/19 06:41 Dose: 0.5 mg Documented by: Sodium Chloride () 250 mls @ 15 mls/hr IV .[id number] PRN PRN Reason: Saline Flush Last Infusion: 08/23/19 15:29 Dose: Infused Documented by: Sodium Chloride () 250 mls @ 15 mls/hr IV .[id number] PRN PRN Reason: Additional IVPB Infusion Lactated Ringer's () 1,000 mls @ 0 mls/hr IV .[id number] [facility] Last Infusion: 08/27/19 23:11 Dose: 15 mls/hr Documented by: Multivitamins 10 ml/ Chromium/Copper/Manganese/Seleni/Zn 1 ml/ Folic Acid 1 mg/Famotidine 40 mg/ Amino Acids/Electrolytes/Dextrose 2,015.2 mls @ 84 mls/hr IV .Q24H [facility] Stop: 08/28/19 15:48 Last Admin: 08/27/19 18:34 Dose: 84 mls/hr Documented by: Lorazepam (Ativan) 0.5 - 1 mg IV Q4H PRN PRN PRN Reason: ANXIETY Last Admin: 08/28/19 04:11 Dose: 1 mg Documented by: Magnesium Oxide (Mag-Ox 400) 400 mg PO DAILY PRN PRN PRN Reason: Constipation Norethindrone Acetate (Norethindrone Acetate) 5 mg PO DAILY PRN PRN Reason: BLEEDING Last Admin: 08/26/19 05:52 Dose: 5 mg Documented by: Ondansetron HCl (Zofran Odt) 4 mg PO Q6H PRN PRN PRN Reason: NAUSEA Last Admin: 08/24/19 05:41 Dose: 4 mg Documented by: Oxycodone HCl (Oxyir) 5 - 10 mg PO Q4H PRN PRN PRN Reason: Pain Score 4-10/10 Last Admin: 08/21/19 22:52 Dose: 10 mg Documented by: Sodium Chloride () 10 - 40 ml IV UD PRN PRN Reason: SALINE FLUSH Last Admin: 08/28/19 04:11 Dose: 10 ml Documented by: Tamsulosin HCl (Flomax) 0.4 mg PO DAILY@1730 [facility] Last Admin: 08/27/19 18:38 Dose: 0.4 mg Documented by: Throat Lozenges (Cepacol Sore Throat Lozenge) 1 lozenge MUCOUS MEM Q2H PRN PRN PRN Reason: SORE THROAT Last Admin: 08/26/19 07:32 Dose: 1 lozenge Documented by: Medical Necessity - Tobacco Use Smoking Status: Former smoker Tobacco Use: Non-smoker Assessment/Plan All Active Problems (Last Reviewed 08/01/19 @ 14:52 by Fanta Henriquez) Abscess (Acute) Intra-abdominal adhesions (Acute) Partial small bowel obstruction (Acute) Anemia (Acute) Diverticulitis (Acute) Abdominal pain (Acute) Abnormal uterine bleeding (Acute) Anticipated postoperative ileus. We will continue TPN and care.
[2019-08-28 08:25] VITALS: BP 100/57; PULSE 80; RESP 20; TEMP 36.6; O2SAT 95
[2019-08-28] MEDS: Ketorolac 15 MG/ML Vial IV ×3 (08:29→21:26)
[2019-08-28 08:30] VITALS: PULSE 80; RESP 20
[2019-08-28] MEDS: Potassium Chloride 10mEq/100mL 10 MEQ/100 ML IV.SOLN. 100 MEQ IV BOLUS ×4 (08:32→12:32)
[2019-08-28] MEDS: Enoxaparin 40 MG/0.4 ML Syringe SC (10:00)
--- NOTE | 2019-08-28 11:34 | PCM.NTREPORT ---
Nutrition Therapy Report - History Nutrition Services has been consulted to:: Manage parenteral nutrition Current diet / nutrition support order:: for 08/27/19- 2L 4.25% AA/ 10% dextrose solution - Anthropometric Measurements Height:: 5 ft Weight:: 62 kg Body Mass Index (BMI):: 26.6 - Relevant Labs Relevant Labs:: WBC 14.8 K/mm3 (4.4-11.0) H 08/28/19 05:15 RBC 3.43 M/mm3 (4.2-5.4) L 08/28/19 05:15 Hgb 9.8 g/dL (12.0-15.0) L 08/28/19 05:15 Hct 30.2 % (37-47) L 08/28/19 05:15 MCHC 31.9 g/dL (32-36) L 08/24/19 08:18 RDW Std Deviation 45.7 fl (35.1-43.9) H 08/26/19 05:04 Plt Count 490 K/mm3 (150-450) H 08/28/19 05:15 Immature Gran % (Auto) 1.600 % (0.0-0.9) H 08/28/19 05:15 Neut % (Auto) 82.2 % (47-70) H 08/28/19 05:15 Lymph % (Auto) 9.1 % (19-41) L 08/28/19 05:15 Absolute Neuts (auto) 12.2 X10^3/uL (2.0-7.7) H 08/28/19 05:15 Sodium 135 mmol/L (136-145) L 08/28/19 05:15 Potassium 3.2 mmol/L (3.5-5.1) L 08/28/19 05:15 Chloride 110 mmol/L (98-107) H 08/26/19 05:04 Carbon Dioxide 19.0 mmol/L (21.0-32.0) L 08/24/19 08:18 BUN 5 mg/dL (7-18) L 08/24/19 08:18 Creatinine 0.43 mg/dL (0.55-1.02) L 08/26/19 05:04 BUN/Creatinine Ratio 30.4 RATIO (10-20) H 08/26/19 05:04 Glucose 166 mg/dL (74-106) H 08/28/19 05:15 Calcium 7.9 mg/dL (8.5-10.1) L 08/28/19 05:15 Phosphorus 2.4 mg/dL (2.5-4.9) L 08/28/19 05:15 Prealbumin 11.7 mg/dL (20.0-40.0) L 08/28/19 05:15 - Assessment Food / Nutrition-Related History:: Received verbal order from Dr. Victor to continue TPN today. Pt returned to surgery yesterday for laparotomy and enterectomy of small bowl anastomosis. NG in place. No new wt to assess. Daily wts ordered. Noted low potassium this AM- replaced w/ KCl via IV fluids. Trigylcerides WNL. - Nutrition Diagnosis Problem / Etiology / Signs & Symptoms (PES):: Inadequate oral intake related to recent surgeries, bowel obstruction as evidenced by no PO intake for 8 days Evidence of Malnutrition Exists:: No - Nutrition Intervention Nutrition Prescription:: 3461-7129 calories/day, 75-95 g protein/day - Food / Nutrient Delivery Interventions Summary of nutrition intervention:: Called and spoke w/ Camilo in pharmacy to order TPN as the EMR has not been updated to allow RDN to enter TPN orders. Daily wts ordered. Daily monitoring of electrolytes, glucose, BUN, creatinine, and calcium. Nutrition support ordered as / adjusted to:: For day 2 TPN: 2L 4.25% AA/ 10% dextrose solution @84mL/hour to provide 84 g AA, 200 g dextrose. 250mL 20% lipid solution. As ordered, TPN provides 1520 calories, 84 g AA. Nutrition education provided?: No - MNT Monitoring Further MNT monitoring and evaluation required?: Yes MNT Follow-up in:: 1-2 days - Daily consult to dietitian is required for TPN management per TPN policy
[2019-08-28 11:47] VITALS: BMI 26.6
[2019-08-28 12:10] LABS: Bedside Glucose 132 mg/dL (70-110)
--- NOTE | 2019-08-28 14:06 | NURSING ---
late entry: at 0945 received call from David in maintenance about a sysaid that was entered to look at cord of TV that was brought in by pts . per David it is against hospital policy for pts/family members to bring in these appliances.. I informed David will talk with family/pt. Went into room pt eyes closed in bed. spoke with Ezra informed him that per our policy small appliances are not allowed in the hospital. Ezra stated that he was told that it was okay and the cord needed checked. informed Ezra that I just talked with David from Maintenance and that small appliances are not allowed and that the cords that we do check are for medical necessity devices like cpap machines. I restated that he will need to take the TV home. Ezra said ok.
[2019-08-28 14:55] VITALS: BP 113/68; PULSE 89; RESP 16; TEMP 37; O2SAT 96
[2019-08-28] MEDS: Fat Emulsions 20% 250 ML IV (16:27)
[2019-08-28 18:41] LABS: Bedside Glucose 112 mg/dL (70-110)
[2019-08-28 20:16] VITALS: BP 127/59; PULSE 94; RESP 16; TEMP 36.9; O2SAT 97
[2019-08-29 00:31] LABS: Bedside Glucose 103 mg/dL (70-110)
[2019-08-29] MEDS: Lactated Ringers 1,000 ML 15 ML IV (03:03)
[2019-08-29] MEDS: LORazepam 2 MG/ML Syringe IV ×2 (03:03→11:33)
[2019-08-29] MEDS: 0.9% Saline Lock 10 ML Syringe IV ×5 (03:03→22:16)
[2019-08-29 03:12] VITALS: BP 123/66; PULSE 82; RESP 17; TEMP 37.1; O2SAT 96
[2019-08-29 05:13] LABS: Absolute Lymphocyte Count 1.51 X10^3/uL (0.83-4.51); Absolute Neutrophil Count 11.5 X10^3/uL (2.0-7.7); Basophil# 0.03 X10^3/uL; Basophil% 0.2 % (0-1); Eosinophil# 0.18 X10^3/uL; Eosinophils% 1.2 % (0-5); Hematocrit 26.2 % (37-47); Hemoglobin 8.8 g/dL (12.0-15.0); Lymphocyte # 1.51 X10^3/ul (4.0); Lymphocyte % 10.4 % (19-41); Mean Corp Hgb Conc 33.6 g/dL (32-36); Mean Corpuscular Hgb 29.5 pg (27.0-32.0); Mean Corpuscular Volume 87.9 fL (81-99); Mean Platelet Vol. 9.3 fl (6.2-12.0); Monocyte# 0.95 X10^3/uL; Monocyte% 6.6 % (0-10); NRBC Flagged by Analyzer 0 % (0-5); Neutrophil # 11.54 X10^3/uL (2.7-7.7); Neutrophil % 79.7 % (47-70); Platelet Count 423 K/mm3 (150-450); RBC Distribution Width CV 14.1 % (11.6-14.6); RBC Distribution Width SD 45.2 fl (35.1-43.9); Red Blood Count 2.98 M/mm3 (4.2-5.4); White Blood Count 14.5 K/mm3 (4.4-11.0)
[2019-08-29] MEDS: Ketorolac 15 MG/ML Vial IV ×3 (05:25→22:16)
[2019-08-29 05:31] LABS: Anion Gap 4 (5-15); BUN 12 mg/dL (7-18); BUN/Creat Ratio 36.1 RATIO (10-20); Chloride 104 mmol/L (98-107); Creatinine, Serum 0.33 mg/dL (0.55-1.02); EST Glomerular Filtration Rate 223 mL/min (>60); Est Glom Filt Rate - Afr Amer 270 mL/min (>60); Estimated Creatinine Clearance 148.12 ml/min; Glucose 93 mg/dL (74-106); Magnesium 1.9 mg/dL (1.6-2.6); Phosphorus 3.3 mg/dL (2.5-4.9); Potassium 3.5 mmol/L (3.5-5.1); Sodium Level 136 mmol/L (136-145)
--- NOTE | 2019-08-29 05:53 | PCM.PN.SRG ---
Patient Problems: Active and Suspected Problems (Last Reviewed 08/01/19 @ 14:52 by Fanta Henriquez) Abscess (Acute) Intra-abdominal adhesions (Acute) Partial small bowel obstruction (Acute) Subjective: Pt is very sore, no nausea Very little out via ngt Small amount out per stoma - Physical Exam Vitals/I&O's: Vital Signs Temp Pulse Resp BP Pulse Ox 98.7 F 82 17 123/66 H 96 08/29/19 03:12 08/29/19 03:12 08/29/19 03:12 08/29/19 03:12 08/29/19 03:12 Oxygen Flow Rate (L/min) 6 Oxygen Delivery Method Room Air Weight: 130 lb 1.164 oz Body Mass Index (BMI) 26.6 Intake and Output for Last 24 Hours 08/27/19 08/28/19 08/29/19 23:59 23:59 23:59 Intake Total 1482.75 / 1482.75 2622.15 / 2622.15 562.75 / 562.75 Output Total 1690 / 2390 2400 / 2400 700 / 700 Balance -207.25 / -907.25 222.15 / 222.15 -137.25 / -137.25 Lungs: Clear to auscultation Abdomen: Hypoactive Bowel Sounds, Distended, Tender Laboratory Results 08/28/19 05:15: Sodium 135 L, Potassium 3.2 L, Chloride 100, Carbon Dioxide 28.0, Anion Gap 7, BUN 10, Creatinine 0.67, Estim Creat Clear Calc 72.96, Est GFR (MDRD) Af Amer 120, Est GFR (MDRD) Non-Af 99, BUN/Creatinine Ratio 14.9, Glucose 166 H, Calcium 7.9 L, Phosphorus 2.4 L, Magnesium 1.7, Prealbumin 11.7 L, Triglycerides 88 08/28/19 06:40: POC Glucose 164 H 08/28/19 11:32: POC Glucose 132 H 08/28/19 18:29: POC Glucose 112 H 08/29/19 00:22: POC Glucose 103 08/29/19 05:07: WBC 14.5 H, RBC 2.98 L, Hgb 8.8 L, Hct 26.2 L, MCV 87.9, MCH 29.5, MCHC 33.6, RDW Std Deviation 45.2 H, RDW Coeff of Miguel 14.1, Plt Count 423, MPV 9.3, Immature Gran % (Auto) 1.900 H, Neut % (Auto) 79.7 H, Lymph % (Auto) 10.4 L, [place] % (Auto) 6.6, Eos % (Auto) 1.2, Baso % (Auto) 0.2, Absolute Neuts (auto) 11.5 H, Absolute Lymphs (auto) 1.51, Nucleated RBC % 0 08/29/19 05:07: Sodium 136, Potassium 3.5, Chloride 104, Carbon Dioxide 28.0, Anion Gap 4 L, BUN 12, Creatinine 0.33 L, Estim Creat Clear Calc 148.12, Est GFR (MDRD) Af Amer 270, Est GFR (MDRD) Non-Af 223, BUN/Creatinine Ratio 36.1 H, Glucose 93, Calcium 8.0 L, Phosphorus 3.3, Magnesium 1.9 Current Medications Acetaminophen (Tylenol) 1,000 mg PO Q6 [facility] Last Admin: 08/29/19 05:21 Dose: Not Given Documented by: Docusate Sodium (Colace) 100 mg PO BID [facility] Last Admin: 08/28/19 21:27 Dose: Not Given Documented by: Enoxaparin Sodium (Lovenox) 40 mg SC DAILY [facility] Last Admin: 08/28/19 10:00 Dose: 40 mg Documented by: Hydromorphone HCl (Dilaudid Inj) 0.5 mg IV Q3H PRN PRN PRN Reason: Pain Score 6-10/10 Last Admin: 08/28/19 06:41 Dose: 0.5 mg Documented by: Sodium Chloride () 250 mls @ 15 mls/hr IV .[id number] PRN PRN Reason: Saline Flush Last Infusion: 08/23/19 15:29 Dose: Infused Documented by: Sodium Chloride () 250 mls @ 15 mls/hr IV .[id number] PRN PRN Reason: Additional IVPB Infusion Lactated Ringer's () 1,000 mls @ 0 mls/hr IV .[id number] [facility] Last Admin: 08/29/19 03:03 Dose: 15 mls/hr Documented by: Multivitamins 10 ml/ Chromium/Copper/Manganese/Seleni/Zn 1 ml/ Folic Acid 1 mg/Famotidine 40 mg/ Amino Acids/Electrolytes/Dextrose 2,015.2 mls @ 84 mls/hr IV .Q24H [facility] Stop: 08/29/19 15:48 Last Admin: 08/28/19 16:26 Dose: 84 mls/hr Documented by: Ketorolac Tromethamine (Toradol (Bkc)) 15 mg IV Q8 [facility] Stop: 09/02/19 07:21 Last Admin: 08/29/19 05:25 Dose: 15 mg Documented by: Lorazepam (Ativan) 0.5 - 1 mg IV Q4H PRN PRN PRN Reason: ANXIETY Last Admin: 08/29/19 03:03 Dose: 1 mg Documented by: Magnesium Oxide (Mag-Ox 400) 400 mg PO DAILY PRN PRN PRN Reason: Constipation Norethindrone Acetate (Norethindrone Acetate) 5 mg PO DAILY PRN PRN Reason: BLEEDING Last Admin: 08/26/19 05:52 Dose: 5 mg Documented by: Ondansetron HCl (Zofran Odt) 4 mg PO Q6H PRN PRN PRN Reason: NAUSEA Last Admin: 08/24/19 05:41 Dose: 4 mg Documented by: Oxycodone HCl (Oxyir) 5 - 10 mg PO Q4H PRN PRN PRN Reason: Pain Score 4-10/10 Last Admin: 08/21/19 22:52 Dose: 10 mg Documented by: Sodium Chloride () 10 - 40 ml IV UD PRN PRN Reason: SALINE FLUSH Last Admin: 08/29/19 05:25 Dose: 20 ml Documented by: Tamsulosin HCl (Flomax) 0.4 mg PO DAILY@1730 [facility] Last Admin: 08/27/19 18:38 Dose: 0.4 mg Documented by: Throat Lozenges (Cepacol Sore Throat Lozenge) 1 lozenge MUCOUS MEM Q2H PRN PRN PRN Reason: SORE THROAT Last Admin: 08/26/19 07:32 Dose: 1 lozenge Documented by: Medical Necessity - Tobacco Use Smoking Status: Former smoker Tobacco Use: Non-smoker Assessment/Plan All Active Problems (Last Reviewed 08/01/19 @ 14:52 by Fanta Henriquez) Abscess (Acute) Intra-abdominal adhesions (Acute) Partial small bowel obstruction (Acute) Anemia (Acute) Diverticulitis (Acute) Abdominal pain (Acute) Abnormal uterine bleeding (Acute) Leukocytosis remains from yesterday if not slightly improved. Will check abdominal x-ray Continue TPN and replace hypokalemia and magnesium
--- NOTE | 2019-08-29 06:25 | RAD_ITS ---
STUDY: X-RAY - ABDOMEN/PELVIS REASON FOR EXAM: Female, 49 years old. SBO -- PERFORATED SIGMOID DIVERTICULITIS WITH ABCESS TECHNIQUE: AP supine and upright views of the abdomen and pelvis. COMPARISON: Comparison is made with prior examination dated August 27, 2019. FINDINGS: Nasogastric tube is seen. The tip is in the second portion of the duodenum. There are dilated loops of the small intestine with a non-distended colon consistent with a small bowel obstruction. There has been mild improvement as compared to prior study. There is no demonstrated free abdominal air. The visualized liver, spleen and kidneys are grossly normal in size and morphology. There are calcified phleboliths in the pelvis. An ostomy is seen in the right lower quadrant. Surgical anastomosis seen in the left mid abdomen. There are degenerative changes of the visualized lumbar spine. RAD/Abd Inc Decub and/or Erect IMPRESSION: Findings in keeping with persistent small bowel obstruction. There''s been mild improvement as compared to prior study. Electronically Signed: Royal Ferrera, at 8:31 EST , Service support ,
[2019-08-29 07:06] LABS: Bedside Glucose 103 mg/dL (70-110)
[2019-08-29] MEDS: Potassium Chloride 10mEq/100mL 10 MEQ/100 ML IV.SOLN. 100 MEQ IV BOLUS ×3 (07:49→10:16)
[2019-08-29 09:10] VITALS: BP 104/61; PULSE 93; RESP 18; TEMP 37.2; O2SAT 97
[2019-08-29] MEDS: Enoxaparin 40 MG/0.4 ML Syringe SC (10:21)
--- NOTE | 2019-08-29 10:43 | PCM.NTREPORT ---
Nutrition Therapy Report - History Nutrition Services has been consulted to:: Manage parenteral nutrition Current diet / nutrition support order:: for 08/28- 2L 4.25% AA/ 10% dextrose solution, 250mL 20% lipid solution to provide 1520 calories, 84 g AA, 200 g dextrose. - Anthropometric Measurements Height:: 5 ft Weight:: 59 kg Body Mass Index (BMI):: 25.4 - Relevant Labs Relevant Labs:: WBC 14.5 K/mm3 (4.4-11.0) H 08/29/19 05:07 RBC 2.98 M/mm3 (4.2-5.4) L 08/29/19 05:07 Hgb 8.8 g/dL (12.0-15.0) L 08/29/19 05:07 Hct 26.2 % (37-47) L 08/29/19 05:07 MCHC 31.9 g/dL (32-36) L 08/24/19 08:18 RDW Std Deviation 45.2 fl (35.1-43.9) H 08/29/19 05:07 Plt Count 490 K/mm3 (150-450) H 08/28/19 05:15 Immature Gran % (Auto) 1.900 % (0.0-0.9) H 08/29/19 05:07 Neut % (Auto) 79.7 % (47-70) H 08/29/19 05:07 Lymph % (Auto) 10.4 % (19-41) L 08/29/19 05:07 Absolute Neuts (auto) 11.5 X10^3/uL (2.0-7.7) H 08/29/19 05:07 Sodium 135 mmol/L (136-145) L 08/28/19 05:15 Potassium 3.2 mmol/L (3.5-5.1) L 08/28/19 05:15 Chloride 110 mmol/L (98-107) H 08/26/19 05:04 Carbon Dioxide 19.0 mmol/L (21.0-32.0) L 08/24/19 08:18 Anion Gap 4 (5-15) L 08/29/19 05:07 BUN 5 mg/dL (7-18) L 08/24/19 08:18 Creatinine 0.33 mg/dL (0.55-1.02) L 08/29/19 05:07 BUN/Creatinine Ratio 36.1 RATIO (10-20) H 08/29/19 05:07 Glucose 166 mg/dL (74-106) H 08/28/19 05:15 Calcium 8.0 mg/dL (8.5-10.1) L 08/29/19 05:07 Phosphorus 2.4 mg/dL (2.5-4.9) L 08/28/19 05:15 Prealbumin 11.7 mg/dL (20.0-40.0) L 08/28/19 05:15 - Assessment Food / Nutrition-Related History:: Pt to continue w/ TPN today per Dr. Victor's orders. Blood glucose appears adequately controlled. Potassium and magnesium replaced via IV. NG in place, flushed w/ 30cc q 4 hours per nursing documentation. Pt sleeping at time of assessment. states pt is hungry at this time. New wt recorded, suggesting a 3kg/4.8% wt loss since admission (9 days). This is significant for severe, acute malnutrition. - Nutrition Diagnosis Problem / Etiology / Signs & Symptoms (PES):: Malnutrition related to poor intake secondary to bowel obstruction as evidenced by no PO intake for 8 days and a 4.8% wt loss over 9 days. Evidence of Malnutrition Exists:: Yes Severe PCM:: Acute Illness - Nutrition Intervention Nutrition Prescription:: [id number] calories/day, 75-95 g protein/day - Food / Nutrient Delivery Interventions Summary of nutrition intervention:: Called and spoke w/ Camilo in pharmacy to order TPN as the EMR has not been updated to allow RDN to enter TPN orders. Daily wts ordered. Daily monitoring of electrolytes, glucose, BUN, creatinine, and calcium. Nutrition support ordered as / adjusted to:: 2 L 5% AA/ 20% dextrose solution to provide 1760 calories, 100 g AA, 400 g dextrose. Nutrition education provided?: No - MNT Monitoring Further MNT monitoring and evaluation required?: Yes MNT Follow-up in:: 1-2 days - Daily consult to dietitian is required for TPN management per TPN policy
[2019-08-29 10:52] VITALS: BMI 25.4
--- NOTE | 2019-08-29 11:03 | NURSING ---
PT RECEIVING TPN FOR NOURISHMENT
[2019-08-29 12:41] LABS: Bedside Glucose 120 mg/dL (70-110)
--- NOTE | 2019-08-29 13:10 | NURSING ---
Pt had inadvertently pulled on NGT while up in [place]. Tube out approx 5-6in. Dr Victor notified by credit charge authorizer. ordered to reinsert NGT to tape line & obtain KUB. Tube advanced per this RN. Pt tolerated well.
--- NOTE | 2019-08-29 13:20 | RAD_ITS ---
STUDY: X-RAY - ABDOMEN/PELVIS REASON FOR EXAM: Female, 49 years old. NG PLACEMENT TECHNIQUE: Single AP view of the abdomen / pelvis. COMPARISON: Comparison is made with prior examination done earlier today. FINDINGS: The fifth of the nasogastric tube is in the first portion of the duodenum. Once again, there is a dilatation of small bowel loops. An ostomy is seen in the right lower quadrant. RAD/Abdomen Single View (Portable) IMPRESSION: The tip of a nasogastric tube is in the first portion of the duodenum. Small bowel dilatation. This is unchanged. Electronically Signed: Royal Ferrera, at 14:15 EST , Service support ,
[2019-08-29 15:00] VITALS: BP 116/76; PULSE 100; RESP 18; TEMP 36.9; O2SAT 96
[2019-08-29] MEDS: Acetaminophen 650 MG/20 ML UDC 1000 MG NG (18:25)
[2019-08-29 18:41] LABS: Bedside Glucose 139 mg/dL (70-110)
[2019-08-29 22:15] VITALS: BP 107/64; PULSE 90; RESP 16; TEMP 36.6; O2SAT 97
[2019-08-30] MEDS: Acetaminophen 650 MG/20 ML UDC 1000 MG NG ×4 (00:08→23:37)
[2019-08-30] MEDS: LORazepam 2 MG/ML Syringe IV (00:12)
[2019-08-30] MEDS: 0.9% Saline Lock 10 ML Syringe IV ×9 (00:12→23:40)
[2019-08-30 00:21] LABS: Bedside Glucose 119 mg/dL (70-110)
[2019-08-30] MEDS: HYDROmorphone 0.5 MG/0.5 ML SYRINGE IV ×2 (01:16→23:38)
[2019-08-30 06:00] VITALS: BP 111/65; PULSE 90; RESP 16; TEMP 36.8; O2SAT 96
--- NOTE | 2019-08-30 06:14 | PN.SURG_ITS ---
Patient Problems: Active and Suspected Problems (Last Reviewed 08/01/19 @ 14:52 by Fanta Henriquez) Abscess (Acute) Intra-abdominal adhesions (Acute) Partial small bowel obstruction (Acute) Subjective: Alert, more comfortable - Physical Exam Vitals/I&O's: Vital Signs Temp Pulse Resp BP Pulse Ox 97.9 F 90 16 107/64 97 08/29/19 22:15 08/29/19 22:15 08/29/19 22:15 08/29/19 22:15 08/29/19 22:15 Oxygen Flow Rate (L/min) 6 Oxygen Delivery Method Room Air Weight: 130 lb 1.164 oz Body Mass Index (BMI) 25.4 Intake and Output for Last 24 Hours 08/28/19 08/29/19 08/30/19 23:59 23:59 23:59 Intake Total 2622.15 / 2622.15 3191.95 / 3371.95 180 / 180 Output Total 2400 / 2400 3250 / 4950 1700 / 1700 Balance 222.15 / 222.15 -58.05 / -1578.05 -1520 / -1520 Lungs: Clear to auscultation Abdomen: Bowel Sounds Present, Soft, Tender - less distended Laboratory Results 08/29/19 06:59: POC Glucose 103 08/29/19 12:28: POC Glucose 120 H 08/29/19 18:35: POC Glucose 139 H 08/30/19 00:07: POC Glucose 119 H Current Medications Acetaminophen (Tylenol Liquid) 1,000 mg NG Q6 [facility] Last Admin: 08/30/19 00:08 Dose: 1,000 mg Documented by: Docusate Sodium (Colace) 100 mg PO BID [facility] Last Admin: 08/29/19 22:32 Dose: Not Given Documented by: Enoxaparin Sodium (Lovenox) 40 mg SC DAILY [facility] Last Admin: 08/29/19 10:21 Dose: 40 mg Documented by: Hydromorphone HCl (Dilaudid Inj) 0.5 mg IV Q3H PRN PRN PRN Reason: Pain Score 6-10/10 Last Admin: 08/30/19 01:16 Dose: 0.5 mg Documented by: Sodium Chloride () 250 mls @ 15 mls/hr IV .[id number] PRN PRN Reason: Saline Flush Last Infusion: 08/23/19 15:29 Dose: Infused Documented by: Sodium Chloride () 250 mls @ 15 mls/hr IV .[id number] PRN PRN Reason: Additional IVPB Infusion Lactated Ringer's () 1,000 mls @ 0 mls/hr IV .[id number] [facility] Last Admin: 08/29/19 03:03 Dose: 15 mls/hr Documented by: Multivitamins 10 ml/ Chromium/Copper/Manganese/Seleni/Zn 1 ml/ Folic Acid 1 mg/Famotidine 40 mg/ Amino Acids/Electrolytes 2,015.2 mls @ 84 mls/hr IV .Q24H [facility] Stop: 08/30/19 15:48 Last Admin: 08/29/19 15:24 Dose: 84 mls/hr Documented by: Ketorolac Tromethamine (Toradol (Bkc)) 15 mg IV Q8 [facility] Stop: 09/02/19 07:21 Last Admin: 08/29/19 22:16 Dose: 15 mg Documented by: Lorazepam (Ativan) 0.5 - 1 mg IV Q4H PRN PRN PRN Reason: ANXIETY Last Admin: 08/30/19 00:12 Dose: 1 mg Documented by: Magnesium Oxide (Mag-Ox 400) 400 mg PO DAILY PRN PRN PRN Reason: Constipation Norethindrone Acetate (Norethindrone Acetate) 5 mg PO DAILY PRN PRN Reason: BLEEDING Last Admin: 08/26/19 05:52 Dose: 5 mg Documented by: Ondansetron HCl (Zofran Odt) 4 mg PO Q6H PRN PRN PRN Reason: NAUSEA Last Admin: 08/24/19 05:41 Dose: 4 mg Documented by: Oxycodone HCl (Oxyir) 5 - 10 mg PO Q4H PRN PRN PRN Reason: Pain Score 4-10/10 Last Admin: 08/21/19 22:52 Dose: 10 mg Documented by: Sodium Chloride () 10 - 40 ml IV UD PRN PRN Reason: SALINE FLUSH Last Admin: 08/30/19 01:15 Dose: 10 ml Documented by: Tamsulosin HCl (Flomax) 0.4 mg PO DAILY@1730 [facility] Last Admin: 08/29/19 18:25 Dose: Not Given Documented by: Throat Lozenges (Cepacol Sore Throat Lozenge) 1 lozenge MUCOUS MEM Q2H PRN PRN PRN Reason: SORE THROAT Last Admin: 08/26/19 07:32 Dose: 1 lozenge Documented by: Medical Necessity - Tobacco Use Smoking Status: Former smoker Tobacco Use: Non-smoker Assessment/Plan All Active Problems (Last Reviewed 08/01/19 @ 14:52 by Fanta Henriquez) Abscess (Acute) Intra-abdominal adhesions (Acute) Partial small bowel obstruction (Acute) Anemia (Acute) Diverticulitis (Acute) Abdominal pain (Acute) Abnormal uterine bleeding (Acute) Stoma now has flatus and stool. The degree of flatus more than ever previously. Patient clearly is more comfortable. Will initiate NG tube alternating clamping. Hopefully will be able to remove NG tube later today. Ezra Victor M.D., F.A.C.S.
[2019-08-30] MEDS: Ketorolac 15 MG/ML Vial IV ×3 (06:38→21:09)
[2019-08-30 07:10] LABS: Bedside Glucose 118 mg/dL (70-110)
[2019-08-30 07:25] LABS: Absolute Lymphocyte Count 1.22 X10^3/uL (0.83-4.51); Absolute Neutrophil Count 8.6 X10^3/uL (2.0-7.7); Basophil# 0.03 X10^3/uL; Basophil% 0.3 % (0-1); Eosinophil# 0.21 X10^3/uL; Eosinophils% 1.9 % (0-5); Hematocrit 28.8 % (37-47); Hemoglobin 9.1 g/dL (12.0-15.0); Lymphocyte # 1.22 X10^3/ul (4.0); Lymphocyte % 10.8 % (19-41); Mean Corp Hgb Conc 31.6 g/dL (32-36); Mean Corpuscular Hgb 28.5 pg (27.0-32.0); Mean Corpuscular Volume 90.3 fL (81-99); Mean Platelet Vol. 9.9 fl (6.2-12.0); Monocyte# 0.95 X10^3/uL; Monocyte% 8.4 % (0-10); NRBC Flagged by Analyzer 0 % (0-5); Neutrophil # 8.61 X10^3/uL (2.7-7.7); Platelet Count 512 K/mm3 (150-450); RBC Distribution Width CV 14.3 % (11.6-14.6); RBC Distribution Width SD 47.2 fl (35.1-43.9); Red Blood Count 3.19 M/mm3 (4.2-5.4); White Blood Count 11.3 K/mm3 (4.4-11.0)
[2019-08-30 08:19] LABS: Anion Gap 6 (5-15); BUN 16 mg/dL (7-18); BUN/Creat Ratio 31.2 RATIO (10-20); Calcium,Total 8.5 mg/dL (8.5-10.1); Chloride 103 mmol/L (98-107); Creatinine, Serum 0.51 mg/dL (0.55-1.02); EST Glomerular Filtration Rate 135 mL/min (>60); Est Glom Filt Rate - Afr Amer 164 mL/min (>60); Estimated Creatinine Clearance 95.84 ml/min; Glucose 94 mg/dL (74-106); Magnesium 2.2 mg/dL (1.6-2.6); Phosphorus 3.9 mg/dL (2.5-4.9); Potassium 3.7 mmol/L (3.5-5.1); Sodium Level 136 mmol/L (136-145)
--- NOTE | 2019-08-30 10:28 | PCM.NTREPORT ---
Nutrition Therapy Report - History Nutrition Services has been consulted to:: Manage parenteral nutrition Current diet / nutrition support order:: TPN yesterday, day 3, 08/29/19- 2L 5% AA/ 20% dextrose solution @84mL/hour to provide 1760 calories, 100 g AA, 400 g dextrose. - Anthropometric Measurements Height:: 5 ft Weight:: 56.4 kg Body Mass Index (BMI):: 24.3 - Relevant Labs Relevant Labs:: WBC 11.3 K/mm3 (4.4-11.0) H 08/30/19 06:30 RBC 3.19 M/mm3 (4.2-5.4) L 08/30/19 06:30 Hgb 9.1 g/dL (12.0-15.0) L 08/30/19 06:30 Hct 28.8 % (37-47) L 08/30/19 06:30 MCHC 31.6 g/dL (32-36) L 08/30/19 06:30 RDW Std Deviation 47.2 fl (35.1-43.9) H 08/30/19 06:30 Plt Count 512 K/mm3 (150-450) H 08/30/19 06:30 Immature Gran % (Auto) 2.600 % (0.0-0.9) H 08/30/19 06:30 Neut % (Auto) 76.0 % (47-70) H 08/30/19 06:30 Lymph % (Auto) 10.8 % (19-41) L 08/30/19 06:30 Absolute Neuts (auto) 8.6 X10^3/uL (2.0-7.7) H 08/30/19 06:30 Sodium 135 mmol/L (136-145) L 08/28/19 05:15 Potassium 3.2 mmol/L (3.5-5.1) L 08/28/19 05:15 Chloride 110 mmol/L (98-107) H 08/26/19 05:04 Carbon Dioxide 19.0 mmol/L (21.0-32.0) L 08/24/19 08:18 Anion Gap 4 (5-15) L 08/29/19 05:07 BUN 5 mg/dL (7-18) L 08/24/19 08:18 Creatinine 0.51 mg/dL (0.55-1.02) L 08/30/19 06:30 BUN/Creatinine Ratio 31.2 RATIO (10-20) H 08/30/19 06:30 Glucose 166 mg/dL (74-106) H 08/28/19 05:15 Calcium 8.0 mg/dL (8.5-10.1) L 08/29/19 05:07 Phosphorus 2.4 mg/dL (2.5-4.9) L 08/28/19 05:15 Prealbumin 11.7 mg/dL (20.0-40.0) L 08/28/19 05:15 - Assessment Food / Nutrition-Related History:: Pt to continue w/ TPN today, received verbal order from Dr. Victor to continue TPN today. TPN yesterday, day 3- 2L 5% AA/ 20% dextrose solution @84mL/hour to provide 1760 calories, 100 g AA, 400 g dextrose. Blood glucose appears adequately controlled. Potassium and magnesium replaced via IV yesterday- labs in normal range this day. NG remains in place at this time flushed w/ 30cc q 4 hours, disconnected at 0600 and reconnected to suction at 0800 per nursing documentation - per MD note stoma w/ flatus and stool, plans to intiate NG tube alternating clamping w/ hope to remove NG tube today. Pt states very hungry at this time and with questions reguarding when she will be able to eat-RDN discussed still to remain NPO on TPN at this time, once time NG able to be removed pt will be progressed per MD order slowly to clear liquid. New wt recorded of 56.4 kg suggesting 5.6kg/9% wt loss since admission (10 days)- significant for severe, acute malnutrition. - Nutrition Intervention Nutrition Prescription:: Estimated nutritional needs: 8707-7226 calories/day, 75-95 g protein/day. - Food / Nutrient Delivery Interventions Summary of nutrition intervention:: Called and spoke w/ Oniel in pharmacy to order TPN as the EMR has not been updated to allow RDN to enter TPN orders. Daily wts ordered. Daily monitoring of electrolytes, glucose, BUN, creatinine, and calcium. Nutrition support ordered as / adjusted to:: For day 4 TPN: 2 L 4.25% AA/10% dextrose solution, 250mL 20% lipid solution to provide 1520 calories, 200 g dextrose, 84 g protein. Continue daily wts. Daily monitoring of electrolytes, glucose, BUN, creatinine, and calcium. [ End ] Nutrition education provided?: No - MNT Monitoring Further MNT monitoring and evaluation required?: Yes MNT Follow-up in:: 1-2 days - Daily consult to dietitian is required for TPN management per TPN policy.
[2019-08-30 10:44] VITALS: BMI 24.3
[2019-08-30] MEDS: Enoxaparin 40 MG/0.4 ML Syringe SC (11:45)
[2019-08-30 11:58] VITALS: BP 112/65; PULSE 86; RESP 16; TEMP 36.8; O2SAT 99
[2019-08-30 12:31] LABS: Bedside Glucose 122 mg/dL (70-110)
[2019-08-30 14:42] VITALS: BP 112/67; PULSE 93; RESP 16; TEMP 36.7; O2SAT 99
[2019-08-30] MEDS: Fat Emulsions 20% 250 ML IV (16:27)
[2019-08-30 17:06] LABS: Bedside Glucose 97 mg/dL (70-110)
[2019-08-30 20:50] VITALS: BP 121/73; PULSE 85; RESP 16; TEMP 36.9; O2SAT 99
[2019-08-30 21:00] VITALS: PULSE 85; RESP 16; O2SAT 99
[2019-08-31 00:11] LABS: Bedside Glucose 113 mg/dL (70-110)
[2019-08-31 02:51] VITALS: BP 97/83; PULSE 85; RESP 16; TEMP 36.6; O2SAT 98
[2019-08-31] MEDS: 0.9% Saline Lock 10 ML Syringe IV ×3 (04:27→23:45)
[2019-08-31] MEDS: LORazepam 2 MG/ML Syringe IV (04:27)
[2019-08-31] MEDS: Lactated Ringers 1,000 ML 15 ML IV (04:30)
[2019-08-31] MEDS: Ondansetron ODT 4 MG Tablet PO (04:35)
[2019-08-31] MEDS: Ketorolac 15 MG/ML Vial IV ×3 (05:55→20:47)
[2019-08-31 06:11] LABS: Bedside Glucose 116 mg/dL (70-110)
--- NOTE | 2019-08-31 08:38 | PN.SURG_ITS ---
Patient Problems: Active and Suspected Problems (Last Reviewed 08/01/19 @ 14:52 by Fanta Henriquez) Abscess (Acute) Intra-abdominal adhesions (Acute) Partial small bowel obstruction (Acute) Subjective: Patient does complain of some nausea this morning however patient states that she usually has a little nausea in the morning sleeps well in the later morning and feels better. Patient has only had minimal p.o. intake but has been having some gas and brown liquid in her ileostomy - Physical Exam Vitals/I&O's: Vital Signs Temp Pulse Resp BP Pulse Ox 98 F 85 16 97/83 H 98 08/31/19 02:51 08/31/19 02:51 08/31/19 02:51 08/31/19 02:51 08/31/19 02:51 Oxygen Flow Rate (L/min) 6 Oxygen Delivery Method Room Air Weight: 123 lb Body Mass Index (BMI) 24.3 Intake and Output for Last 24 Hours 08/29/19 08/30/19 08/31/19 23:59 23:59 23:59 Intake Total 3191.95 / 3371.95 3455.2 / 3575.2 389.55 / 389.55 Output Total 3250 / 4950 3775 / 5375 2850 / 2850 Balance -58.05 / -1578.05 -319.8 / -1799.8 -2460.45 / -2460.45 General: Alert, Oriented x3, Cooperative, No apparent distress Lungs: Normal air movement Cardiovascular: Regular rate Abdomen: Soft, Distended - Mild to moderate, Tender - Near incisions clean dry and intact, ileostomy pink, gas and liquid brown stool in bag Laboratory Results 08/30/19 11:57: POC Glucose 122 H 08/30/19 16:58: POC Glucose 97 08/30/19 23:59: POC Glucose 113 H 08/31/19 06:03: POC Glucose 116 H Current Medications Acetaminophen (Tylenol Liquid) 1,000 mg NG Q6 [facility] Last Admin: 08/31/19 05:55 Dose: Not Given Documented by: Amino Acids/Electrolytes (Clinimix E 5%-20% Solution 2000 Ml) 84 ml IV Q24H [facility] Stop: 09/01/19 15:48 Docusate Sodium (Colace) 100 mg PO BID [facility] Last Admin: 08/30/19 20:57 Dose: Not Given Documented by: Enoxaparin Sodium (Lovenox) 40 mg SC DAILY [facility] Last Admin: 08/30/19 11:45 Dose: 40 mg Documented by: Hydromorphone HCl (Dilaudid Inj) 0.5 mg IV Q3H PRN PRN PRN Reason: Pain Score 6-10/10 Last Admin: 08/30/19 23:38 Dose: 0.5 mg Documented by: Sodium Chloride () 250 mls @ 15 mls/hr IV .[id number] PRN PRN Reason: Saline Flush Last Infusion: 08/23/19 15:29 Dose: Infused Documented by: Sodium Chloride () 250 mls @ 15 mls/hr IV .[id number] PRN PRN Reason: Additional IVPB Infusion Lactated Ringer's () 1,000 mls @ 0 mls/hr IV .[id number] [facility] Last Admin: 08/31/19 04:30 Dose: 15 mls/hr Documented by: Multivitamins 10 ml/ Chromium/Copper/Manganese/Seleni/Zn 1 ml/ Folic Acid 1 mg/Famotidine 40 mg/ Amino Acids/Electrolytes/Dextrose 2,015.2 mls @ 84 mls/hr IV .Q24H [facility] Stop: 08/31/19 15:48 Last Admin: 08/30/19 16:28 Dose: 84 mls/hr Documented by: Ketorolac Tromethamine (Toradol (Bkc)) 15 mg IV Q8 [facility] Stop: 09/02/19 07:21 Last Admin: 08/31/19 05:55 Dose: 15 mg Documented by: Lorazepam (Ativan) 0.5 - 1 mg IV Q4H PRN PRN PRN Reason: ANXIETY Last Admin: 08/31/19 04:27 Dose: 1 mg Documented by: Magnesium Oxide (Mag-Ox 400) 400 mg PO DAILY PRN PRN PRN Reason: Constipation Norethindrone Acetate (Norethindrone Acetate) 5 mg PO DAILY PRN PRN Reason: BLEEDING Last Admin: 08/26/19 05:52 Dose: 5 mg Documented by: Ondansetron HCl (Zofran Odt) 4 mg PO Q6H PRN PRN PRN Reason: NAUSEA Last Admin: 08/31/19 04:35 Dose: 4 mg Documented by: Oxycodone HCl (Oxyir) 5 - 10 mg PO Q4H PRN PRN PRN Reason: Pain Score 4-10/10 Last Admin: 08/21/19 22:52 Dose: 10 mg Documented by: Simethicone (Mylicon) 80 mg PO Q4H PRN PRN Reason: Gas Last Admin: 08/31/19 03:03 Dose: 80 mg Documented by: Sodium Chloride () 10 - 40 ml IV UD PRN PRN Reason: SALINE FLUSH Last Admin: 08/31/19 04:27 Dose: 10 ml Documented by: Tamsulosin HCl (Flomax) 0.4 mg PO DAILY@1730 [facility] Last Admin: 08/30/19 16:47 Dose: Not Given Documented by: Throat Lozenges (Cepacol Sore Throat Lozenge) 1 lozenge MUCOUS MEM Q2H PRN PRN PRN Reason: SORE THROAT Last Admin: 08/26/19 07:32 Dose: 1 lozenge Documented by: Medical Necessity - Tobacco Use Smoking Status: Former smoker Tobacco Use: Non-smoker Assessment/Plan All Active Problems (Last Reviewed 08/01/19 @ 14:52 by Fanta Henriquez) Abscess (Acute) Intra-abdominal adhesions (Acute) Partial small bowel obstruction (Acute) Anemia (Acute) Diverticulitis (Acute) Abdominal pain (Acute) Abnormal uterine bleeding (Acute) Continue patient on TPN, full's as tolerated however patient is not taking much. Adrienne Roblero M.D. Pager: [phone] [facility] [address] [place] [address], [facility], [address] [place] [address] Office: [phone]
[2019-08-31 10:04] VITALS: BP 103/67; PULSE 81; RESP 18; TEMP 36.3; O2SAT 96
[2019-08-31] MEDS: Docusate Sodium 100 MG Capsule PO (10:09)
[2019-08-31] MEDS: Enoxaparin 40 MG/0.4 ML Syringe SC (10:09)
[2019-08-31 11:20] LABS: Absolute Lymphocyte Count 1.16 X10^3/uL (0.83-4.51); Absolute Neutrophil Count 9.6 X10^3/uL (2.0-7.7); Basophil# 0.05 X10^3/uL; Basophil% 0.4 % (0-1); Eosinophil# 0.12 X10^3/uL; Hematocrit 29.9 % (37-47); Hemoglobin 9.7 g/dL (12.0-15.0); Lymphocyte # 1.16 X10^3/ul (4.0); Lymphocyte % 9.8 % (19-41); Mean Corp Hgb Conc 32.4 g/dL (32-36); Mean Corpuscular Hgb 29.2 pg (27.0-32.0); Mean Corpuscular Volume 90.1 fL (81-99); Mean Platelet Vol. 9.5 fl (6.2-12.0); Monocyte# 0.66 X10^3/uL; Monocyte% 5.6 % (0-10); NRBC Flagged by Analyzer 0 % (0-5); Neutrophil # 9.56 X10^3/uL (2.7-7.7); Neutrophil % 81.2 % (47-70); Platelet Count 559 K/mm3 (150-450); RBC Distribution Width SD 46.4 fl (35.1-43.9); Red Blood Count 3.32 M/mm3 (4.2-5.4); White Blood Count 11.8 K/mm3 (4.4-11.0)
[2019-08-31] MEDS: Acetaminophen 650 MG/20 ML UDC 1000 MG NG (11:33)
[2019-08-31 11:42] LABS: Magnesium 2.1 mg/dL (1.6-2.6); Phosphorus 4.3 mg/dL (2.5-4.9); Prealbumin 9.8 mg/dL (20.0-40.0); Triglycerides 93 mg/dL
[2019-08-31 11:56] LABS: Bedside Glucose 110 mg/dL (70-110)
--- NOTE | 2019-08-31 12:00 | PCM.NTREPORT ---
Nutrition Therapy Report - History Nutrition Services has been consulted to:: Manage parenteral nutrition Current diet / nutrition support order:: 2 L 4.25% AA/10% dextrose solution, 250mL 20% lipid solution to provide 1520 calories, 200 g dextrose, 84 g protein. Diet Order: Full Liquids. - Anthropometric Measurements Height:: 5 ft Weight:: 55.792 kg Body Mass Index (BMI):: 24.0 - Relevant Labs Relevant Labs:: WBC 11.8 K/mm3 (4.4-11.0) H 08/31/19 11:15 RBC 3.32 M/mm3 (4.2-5.4) L 08/31/19 11:15 Hgb 9.7 g/dL (12.0-15.0) L 08/31/19 11:15 Hct 29.9 % (37-47) L 08/31/19 11:15 MCHC 31.6 g/dL (32-36) L 08/30/19 06:30 RDW Std Deviation 46.4 fl (35.1-43.9) H 08/31/19 11:15 Plt Count 559 K/mm3 (150-450) H 08/31/19 11:15 Immature Gran % (Auto) 2.000 % (0.0-0.9) H 08/31/19 11:15 Neut % (Auto) 81.2 % (47-70) H 08/31/19 11:15 Lymph % (Auto) 9.8 % (19-41) L 08/31/19 11:15 Absolute Neuts (auto) 9.6 X10^3/uL (2.0-7.7) H 08/31/19 11:15 Sodium 135 mmol/L (136-145) L 08/28/19 05:15 Potassium 3.2 mmol/L (3.5-5.1) L 08/28/19 05:15 Chloride 110 mmol/L (98-107) H 08/26/19 05:04 Carbon Dioxide 19.0 mmol/L (21.0-32.0) L 08/24/19 08:18 Anion Gap 4 (5-15) L 08/29/19 05:07 BUN 5 mg/dL (7-18) L 08/24/19 08:18 Creatinine 0.51 mg/dL (0.55-1.02) L 08/30/19 06:30 BUN/Creatinine Ratio 31.2 RATIO (10-20) H 08/30/19 06:30 Glucose 166 mg/dL (74-106) H 08/28/19 05:15 Calcium 8.0 mg/dL (8.5-10.1) L 08/29/19 05:07 Phosphorus 2.4 mg/dL (2.5-4.9) L 08/28/19 05:15 Prealbumin 9.8 mg/dL (20.0-40.0) L 08/31/19 11:15 - Assessment Food / Nutrition-Related History:: Pt to continue w/ TPN today, received verbal order from Dr. Roblero to continue TPN today. TPN yesterday 2 L 4.25% AA/10% dextrose solution, 250mL 20% lipid solution to provide 1520 calories, 200 g dextrose, 84 g protein. Per EMR NG discontinued yesterday 08/30, pt progressed to full liquid diet last night w/ minimal intake at this time. Plans to continue TPN per MD w/ full liquids as tolerated. RDN spoke w/ pt who reports experiencing nausea. Pt states passing flatus. Per RN note pt w/ liquid green ileostomy output. Pt labs in normal range: Phos:4.3; M.1; Triglycerides:93. New wt recorded 55.792 kg, pt w/ wt decrease of 0.6 kg since previous review 08/30. - Nutrition Diagnosis Problem / Etiology / Signs & Symptoms (PES):: Inadequate oral intake related to recent surgeries, bowel obstruction as evidenced by no PO intake for 9 day with minimal PO intake today 08/31. - Nutrition Intervention Nutrition Prescription:: Estimated nutritional needs: 9754-4933 calories/day, 75-95 g protein/day. - Food / Nutrient Delivery Interventions Summary of nutrition intervention:: Called and spoke w/ Oniel in pharmacy to order TPN as the EMR has not been updated to allow RDN to enter TPN orders. Daily wts ordered. Daily monitoring of electrolytes, glucose, BUN, creatinine, and calcium. Nutrition support ordered as / adjusted to:: 2 L 5% AA/ 20% dextrose solution to provide 1760 calories, 100 g AA, 400 g dextrose. Nutrition education provided?: No - MNT Monitoring Further MNT monitoring and evaluation required?: Yes MNT Follow-up in:: 1-2 days - Daily consult to dietitian is required for TPN management per TPN policy.
[2019-08-31 12:14] VITALS: BMI 24.0
[2019-08-31 14:07] VITALS: BP 106/68; PULSE 84; RESP 18; TEMP 37.2; O2SAT 98
[2019-08-31] MEDS: oxyCODONE 5 MG Tablet PO (17:50)
[2019-08-31 20:42] VITALS: BP 98/55; PULSE 87; RESP 16; TEMP 36.8; O2SAT 99
[2019-08-31] MEDS: HYDROmorphone 0.5 MG/0.5 ML SYRINGE IV (23:45)
[2019-09-01 00:46] LABS: Bedside Glucose 138 mg/dL (70-110)
[2019-09-01 03:52] VITALS: BP 101/59; PULSE 96; RESP 16; TEMP 37.3; O2SAT 99
[2019-09-01] MEDS: oxyCODONE 5 MG Tablet PO ×4 (04:06→21:35)
[2019-09-01] MEDS: 0.9% Saline Lock 10 ML Syringe IV (05:15)
[2019-09-01] MEDS: Ketorolac 15 MG/ML Vial IV (05:15)
[2019-09-01] MEDS: Acetaminophen 650 MG/20 ML UDC 1000 MG NG (05:16)
[2019-09-01 05:31] LABS: Bedside Glucose 139 mg/dL (70-110)
--- NOTE | 2019-09-01 06:00 | PCM.PN.SRG ---
Patient Problems: Active and Suspected Problems (Last Reviewed 08/01/19 @ 14:52 by Fanta Henriquez) Abscess (Acute) Intra-abdominal adhesions (Acute) Partial small bowel obstruction (Acute) Subjective: Steady progress. Patient still not taking much in orally. Stool and liquid per ileostomy. Patient states that she is feeling better. Still walking stooped over. Still with easy fatigability. - Physical Exam Vitals/I&O's: Vital Signs Temp Pulse Resp BP Pulse Ox 99.2 F H 96 16 101/59 L 99 09/01/19 03:52 09/01/19 03:52 09/01/19 03:52 09/01/19 03:52 09/01/19 03:52 Oxygen Flow Rate (L/min) 6 Oxygen Delivery Method Room Air Weight: 123 lb 0.005 oz Body Mass Index (BMI) 24.0 Intake and Output for Last 24 Hours 08/30/19 08/31/19 09/01/19 23:59 23:59 23:59 Intake Total 3455.2 / 3575.2 2744.35 / 3044.35 350 / 350 Output Total 3775 / 5375 4140 / 5265 2375 / 2375 Balance -319.8 / -1799.8 -1395.65 / -2220.65 -2025 / -2024 Lungs: Clear to auscultation Abdomen: Bowel Sounds Present, Soft, Distended, - - Much less tender Laboratory Results 08/31/19 06:03: POC Glucose 116 H 08/31/19 11:15: WBC 11.8 H, RBC 3.32 L, Hgb 9.7 L, Hct 29.9 L, MCV 90.1, MCH 29.2, MCHC 32.4, RDW Std Deviation 46.4 H, RDW Coeff of Miguel 14.0, Plt Count 559 H, MPV 9.5, Immature Gran % (Auto) 2.000 H, Neut % (Auto) 81.2 H, Lymph % (Auto) 9.8 L, [place] % (Auto) 5.6, Eos % (Auto) 1.0, Baso % (Auto) 0.4, Absolute Neuts (auto) 9.6 H, Absolute Lymphs (auto) 1.16, Nucleated RBC % 0 08/31/19 11:15: Phosphorus 4.3, Magnesium 2.1, Prealbumin 9.8 L, Triglycerides 93 08/31/19 11:32: POC Glucose 110 09/01/19 00:42: POC Glucose 138 H 09/01/19 05:24: POC Glucose 139 H Current Medications Docusate Sodium (Colace) 100 mg PO BID [facility] Last Admin: 08/31/19 20:46 Dose: Not Given Documented by: Enoxaparin Sodium (Lovenox) 40 mg SC DAILY [facility] Last Admin: 08/31/19 10:09 Dose: 40 mg Documented by: Hydromorphone HCl (Dilaudid Inj) 0.5 mg IV Q3H PRN PRN PRN Reason: Pain Score 6-10/10 Last Admin: 08/31/19 23:45 Dose: 0.5 mg Documented by: Sodium Chloride () 250 mls @ 15 mls/hr IV .[id number] PRN PRN Reason: Saline Flush Last Infusion: 08/23/19 15:29 Dose: Infused Documented by: Sodium Chloride () 250 mls @ 15 mls/hr IV .[id number] PRN PRN Reason: Additional IVPB Infusion Multivitamins 10 ml/ Chromium/Copper/Manganese/Seleni/Zn 1 ml/ Folic Acid 1 mg/Famotidine 40 mg/ Amino Acids/Electrolytes 2,015.2 mls @ 84 mls/hr IV .Q24H [facility] Stop: 09/01/19 15:48 Last Admin: 08/31/19 15:56 Dose: 84 mls/hr Documented by: Lorazepam (Ativan) 0.5 - 1 mg IV Q4H PRN PRN PRN Reason: ANXIETY Last Admin: 08/31/19 04:27 Dose: 1 mg Documented by: Magnesium Oxide (Mag-Ox 400) 400 mg PO DAILY PRN PRN PRN Reason: Constipation Norethindrone Acetate (Norethindrone Acetate) 5 mg PO DAILY PRN PRN Reason: BLEEDING Last Admin: 08/26/19 05:52 Dose: 5 mg Documented by: Ondansetron HCl (Zofran Odt) 4 mg PO Q6H PRN PRN PRN Reason: NAUSEA Last Admin: 08/31/19 04:35 Dose: 4 mg Documented by: Oxycodone HCl (Oxyir) 5 - 10 mg PO Q4H PRN PRN PRN Reason: Pain Score 4-10/10 Last Admin: 09/01/19 04:06 Dose: 5 mg Documented by: Simethicone (Mylicon) 80 mg PO Q4H PRN PRN Reason: Gas Last Admin: 09/01/19 04:11 Dose: 80 mg Documented by: Sodium Chloride () 10 - 40 ml IV UD PRN PRN Reason: SALINE FLUSH Last Admin: 09/01/19 05:15 Dose: 20 ml Documented by: Tamsulosin HCl (Flomax) 0.4 mg PO DAILY@1730 [facility] Last Admin: 08/31/19 18:02 Dose: Not Given Documented by: Throat Lozenges (Cepacol Sore Throat Lozenge) 1 lozenge MUCOUS MEM Q2H PRN PRN PRN Reason: SORE THROAT Last Admin: 08/26/19 07:32 Dose: 1 lozenge Documented by: Medical Necessity - Tobacco Use Smoking Status: Former smoker Tobacco Use: Non-smoker Assessment/Plan All Active Problems (Last Reviewed 08/01/19 @ 14:52 by Fanta Henriquez) Abscess (Acute) Intra-abdominal adhesions (Acute) Partial small bowel obstruction (Acute) Anemia (Acute) Diverticulitis (Acute) Abdominal pain (Acute) Abnormal uterine bleeding (Acute) We will continue TPN for another 24 hours. We will advance to a regular diet with the patient be allowed to pick and choose. Hopefully can continue to stabilize to allow for discharge tomorrow
[2019-09-01 09:07] VITALS: BP 93/48; PULSE 74; RESP 16; TEMP 36.6; O2SAT 96
--- NOTE | 2019-09-01 09:45 | PCM.NTREPORT ---
Nutrition Therapy Report - History Nutrition Services has been consulted to:: Manage parenteral nutrition - Anthropometric Measurements Height:: 5 ft Weight:: 56.4 kg Body Mass Index (BMI):: 24.3 - Relevant Labs Relevant Labs:: WBC 11.8 K/mm3 (4.4-11.0) H 08/31/19 11:15 RBC 3.32 M/mm3 (4.2-5.4) L 08/31/19 11:15 Hgb 9.7 g/dL (12.0-15.0) L 08/31/19 11:15 Hct 29.9 % (37-47) L 08/31/19 11:15 MCHC 31.6 g/dL (32-36) L 08/30/19 06:30 RDW Std Deviation 46.4 fl (35.1-43.9) H 08/31/19 11:15 Plt Count 559 K/mm3 (150-450) H 08/31/19 11:15 Immature Gran % (Auto) 2.000 % (0.0-0.9) H 08/31/19 11:15 Neut % (Auto) 81.2 % (47-70) H 08/31/19 11:15 Lymph % (Auto) 9.8 % (19-41) L 08/31/19 11:15 Absolute Neuts (auto) 9.6 X10^3/uL (2.0-7.7) H 08/31/19 11:15 Sodium 135 mmol/L (136-145) L 08/28/19 05:15 Potassium 3.2 mmol/L (3.5-5.1) L 08/28/19 05:15 Chloride 110 mmol/L (98-107) H 08/26/19 05:04 Carbon Dioxide 19.0 mmol/L (21.0-32.0) L 08/24/19 08:18 Anion Gap 4 (5-15) L 08/29/19 05:07 BUN 5 mg/dL (7-18) L 08/24/19 08:18 Creatinine 0.51 mg/dL (0.55-1.02) L 08/30/19 06:30 BUN/Creatinine Ratio 31.2 RATIO (10-20) H 08/30/19 06:30 Glucose 166 mg/dL (74-106) H 08/28/19 05:15 Calcium 8.0 mg/dL (8.5-10.1) L 08/29/19 05:07 Phosphorus 2.4 mg/dL (2.5-4.9) L 08/28/19 05:15 Prealbumin 9.8 mg/dL (20.0-40.0) L 08/31/19 11:15 - Assessment Food / Nutrition-Related History:: Pt to continue w/ TPN today, per Dr. Victor progress note to continue TPN x 24 hrs more. TPN yesterday 2 L 5% AA/20% dextrose solution, with no lipids to provide 1760 calories, 400 g dextrose, 100 g protein. Pt ordered Regular diet today so that she can pick and choose her meals with hopes of improving pt po intake. Reports appetite still not good this morning - agreeable to ensure enlive at [facility] - chocolate or vanilla only. 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 - Nutrition Diagnosis Problem / Etiology / Signs & Symptoms (PES):: : Inadequate oral intake related to recent surgeries, bowel obstruction as evidenced by no PO intake for 9 day with minimal PO intake today 09/01. Evidence of Malnutrition Exists:: Yes Severe PCM:: Acute Illness - Nutrition Intervention Nutrition Prescription:: [id number] mono / 75-95 gm pro / day - Food / Nutrient Delivery Interventions Summary of nutrition intervention:: For day 6 TPN: 2L 4.25% AA/ 10% dextrose solution with 250 cc 20% lipids @84mL/hour to provide 1520 calories, 84 g AA, 200 g dextrose. Rec wean TPN on last day to help prevent issues with hyperglycemia and electrolyte imbalances. Continue daily wts. Daily monitoring of electrolytes, glucose, BUN, creatinine, and calcium. Spoke with Oniel in pharmacy to order TPN as system not yet set up for RDN to order TPN. Will order ensure enlive at [facility] for increased nutrition if consumed. [ End ] Nutrition support ordered as / adjusted to:: 2L 5%AA/20%Dextrose with 250 cc 20%Lipids to provide ~ 2260 mono / 400 gm CHO / 100 gm pro / day Nutrition education provided?: No - MNT Monitoring Further MNT monitoring and evaluation required?: Yes - MNT Follow-up in:: 1-2 days - Daily consult to dietitian is required for TPN management per TPN policy
[2019-09-01 09:46] VITALS: BMI 24.3
[2019-09-01 11:21] LABS: Bedside Glucose 107 mg/dL (70-110)
[2019-09-01 14:40] VITALS: BP 105/65; PULSE 90; RESP 16; TEMP 36.8; O2SAT 98
[2019-09-01] MEDS: Ondansetron ODT 4 MG Tablet PO (15:29)
--- NOTE | 2019-09-01 15:53 | NURSING ---
Had been in to see patient this am. states she is finally starting to feel better, but still will not look at stoma and and daughter have been emptying the appliance. highly encouraged patient to start emptying the appliance on her own because there will be times when no one is at home with her and she will need to know how to do it. patient states she will try. daughter in to change ostomy appliance. stoma is beefy red. peristomal skin is intact. daughter states she feels very comfortable changing the appliance at home. will continue to encourage patient to do more self care with ostomy. discussed this with the daughter as well.
[2019-09-01] MEDS: Fat Emulsions 20% 250 ML IV (16:13)
[2019-09-01 18:21] LABS: Bedside Glucose 121 mg/dL (70-110)
[2019-09-01 21:45] VITALS: BP 112/61; PULSE 103; RESP 18; TEMP 36.8; O2SAT 99
[2019-09-02 01:16] VITALS: BP 110/60; PULSE 91; RESP 18; TEMP 36.9; O2SAT 98
[2019-09-02 01:51] LABS: Bedside Glucose 123 mg/dL (70-110)
[2019-09-02 04:41] VITALS: BP 100/53; PULSE 71; RESP 18; TEMP 37.1; O2SAT 100
--- NOTE | 2019-09-02 04:54 | NURSING ---
09/01/191999 Patient ambulated two laps around unit with at side. Tolerated well. 2199 Patient ambulated two laps around unit with at side. Tolerated well.
--- NOTE | 2019-09-02 05:43 | PN.SURG_ITS ---
Patient Problems: Active and Suspected Problems (Last Reviewed 08/01/19 @ 14:52 by Fanta Henriquez) Abscess (Acute) Intra-abdominal adhesions (Acute) Partial small bowel obstruction (Acute) Subjective: Patient feels much improved. She is energized and is looking forward to going home today. Nausea has resolved. Abdominal pain much improved - Physical Exam Vitals/I&O's: Vital Signs Temp Pulse Resp BP Pulse Ox 98.7 F 71 18 100/53 L 100 09/02/19 04:41 09/02/19 04:41 09/02/19 04:41 09/02/19 04:41 09/02/19 04:41 Oxygen Flow Rate (L/min) 6 Oxygen Delivery Method Room Air Weight: 124 lb 5.451 oz Body Mass Index (BMI) 24.3 Intake and Output for Last 24 Hours 08/31/19 09/01/19 09/02/19 23:59 23:59 23:59 Intake Total 2744.35 / 3044.35 2785.2 / 2885.2 350 / 350 Output Total 4140 / 5265 3425 / 3425 Balance -1395.65 / -2220.65 -639.8 / -539.8 350 / 350 General: Alert, Oriented x3, Cooperative, No apparent distress Abdomen: Bowel Sounds Present, Soft, Non Tender, - - Mildly distended Stoma functioning with liquid brown stool Laboratory Results 09/01/19 11:15: POC Glucose 107 09/01/19 18:13: POC Glucose 121 H 09/02/19 01:05: POC Glucose 123 H Current Medications Acetaminophen (Tylenol) 650 mg PO Q6H PRN PRN PRN Reason: Pain Score 1-10/10 Docusate Sodium (Colace) 100 mg PO BID [facility] Last Admin: 09/01/19 21:38 Dose: Not Given Documented by: Enoxaparin Sodium (Lovenox) 40 mg SC DAILY [facility] Last Admin: 09/01/19 09:09 Dose: Not Given Documented by: Hydromorphone HCl (Dilaudid Inj) 0.5 mg IV Q3H PRN PRN PRN Reason: Pain Score 6-10/10 Last Admin: 08/31/19 23:45 Dose: 0.5 mg Documented by: Sodium Chloride () 250 mls @ 15 mls/hr IV .[id number] PRN PRN Reason: Saline Flush Last Infusion: 08/23/19 15:29 Dose: Infused Documented by: Sodium Chloride () 250 mls @ 15 mls/hr IV .[id number] PRN PRN Reason: Additional IVPB Infusion Multivitamins 10 ml/ Chromium/Copper/Manganese/Seleni/Zn 1 ml/ Folic Acid 1 mg/Famotidine 40 mg/ Amino Acids/Electrolytes/Dextrose 2,015.2 mls @ 84 mls/hr IV .Q24H [facility] Stop: 09/02/19 15:48 Last Admin: 09/01/19 16:12 Dose: 84 mls/hr Documented by: Ibuprofen (Motrin) 600 mg PO Q8H PRN PRN PRN Reason: Pain Score 1-10/10 Lorazepam (Ativan) 0.5 - 1 mg IV Q4H PRN PRN PRN Reason: ANXIETY Last Admin: 08/31/19 04:27 Dose: 1 mg Documented by: Magnesium Oxide (Mag-Ox 400) 400 mg PO DAILY PRN PRN PRN Reason: Constipation Norethindrone Acetate (Norethindrone Acetate) 5 mg PO DAILY PRN PRN Reason: BLEEDING Last Admin: 08/26/19 05:52 Dose: 5 mg Documented by: Nutritional Formula (Lactose Free) (Ensure Enlive) 120 ml PO 4X/DAY [facility] Last Admin: 09/01/19 21:38 Dose: Not Given Documented by: Ondansetron HCl (Zofran Odt) 4 mg PO Q6H PRN PRN PRN Reason: NAUSEA Last Admin: 09/01/19 15:29 Dose: 4 mg Documented by: Oxycodone HCl (Oxyir) 5 - 10 mg PO Q4H PRN PRN PRN Reason: Pain Score 4-10/10 Last Admin: 09/01/19 21:35 Dose: 10 mg Documented by: Simethicone (Mylicon) 80 mg PO Q4H PRN PRN Reason: Gas Last Admin: 09/01/19 15:35 Dose: 80 mg Documented by: Sodium Chloride () 10 - 40 ml IV UD PRN PRN Reason: SALINE FLUSH Last Admin: 09/01/19 05:15 Dose: 20 ml Documented by: Tamsulosin HCl (Flomax) 0.4 mg PO DAILY@1730 [facility] Last Admin: 09/01/19 15:36 Dose: Not Given Documented by: Throat Lozenges (Cepacol Sore Throat Lozenge) 1 lozenge MUCOUS MEM Q2H PRN PRN PRN Reason: SORE THROAT Last Admin: 08/26/19 07:32 Dose: 1 lozenge Documented by: Medical Necessity - Tobacco Use Smoking Status: Former smoker Tobacco Use: Non-smoker Assessment/Plan All Active Problems (Last Reviewed 08/01/19 @ 14:52 by Fanta Henriquez) Abscess (Acute) Intra-abdominal adhesions (Acute) Partial small bowel obstruction (Acute) Anemia (Acute) Diverticulitis (Acute) Abdominal pain (Acute) Abnormal uterine bleeding (Acute) Ready for discharge. We will remove left antecubital PICC line prior to discharge Anticipate office follow-up in 7 to 10 days No new additional home-going medications at this time
[2019-09-02 05:53] LABS: Absolute Lymphocyte Count 1.76 X10^3/uL (0.83-4.51); Absolute Neutrophil Count 13.3 X10^3/uL (2.0-7.7); Basophil# 0.08 X10^3/uL; Basophil% 0.5 % (0-1); Eosinophil# 0.19 X10^3/uL; Eosinophils% 1.1 % (0-5); Hematocrit 29.8 % (37-47); Hemoglobin 9.4 g/dL (12.0-15.0); Lymphocyte # 1.76 X10^3/ul (4.0); Lymphocyte % 10.2 % (19-41); Mean Corp Hgb Conc 31.5 g/dL (32-36); Mean Corpuscular Hgb 28.6 pg (27.0-32.0); Mean Corpuscular Volume 90.6 fL (81-99); Mean Platelet Vol. 9.9 fl (6.2-12.0); Monocyte# 1.51 X10^3/uL; Monocyte% 8.7 % (0-10); NRBC Flagged by Analyzer 0 % (0-5); Neutrophil # 13.33 X10^3/uL (2.7-7.7); Neutrophil % 76.8 % (47-70); POSITIVE DIFFERENTIAL YES; Platelet Count 543 K/mm3 (150-450); RBC Distribution Width CV 14.1 % (11.6-14.6); RBC Distribution Width SD 46.7 fl (35.1-43.9); Red Blood Count 3.29 M/mm3 (4.2-5.4); White Blood Count 17.3 K/mm3 (4.4-11.0)
[2019-09-02 05:55] LABS: Differential Indicated SCAN CRITERIA MET
[2019-09-02 06:07] LABS: Anion Gap 9 (5-15); BUN 15 mg/dL (7-18); BUN/Creat Ratio 26.8 RATIO (10-20); Calcium,Total 8.8 mg/dL (8.5-10.1); Chloride 98 mmol/L (98-107); Creatinine, Serum 0.56 mg/dL (0.55-1.02); EST Glomerular Filtration Rate 122 mL/min (>60); Est Glom Filt Rate - Afr Amer 148 mL/min (>60); Estimated Creatinine Clearance 87.29 ml/min; Glucose 115 mg/dL (74-106); Potassium 4.4 mmol/L (3.5-5.1); Sodium Level 130 mmol/L (136-145)
[2019-09-02 06:12] LABS: Differential Comment SCANNED
--- NOTE | 2019-09-02 07:11 | RAD_ITS ---
STUDY: X-RAY - ABDOMEN/PELVIS REASON FOR EXAM: Female, 49 years old. Small bowel obstruction follow up TECHNIQUE: AP supine and upright views of the abdomen and pelvis. COMPARISON: Comparison is made with prior study of August 29, 2019. FINDINGS: The nasogastric tube has been removed. There are dilated loops of the small intestine with a non-distended colon consistent with a small bowel obstruction. This has progressed as compared to prior study. There is no demonstrated free abdominal air. An ostomy is seen in the right lower quadrant. There are calcified phleboliths in the pelvis. Normal visualized osseous structures. RAD/Abd Inc Decub and/or Erect IMPRESSION: Small bowel obstruction. This has progressed as compared to prior study. Electronically Signed: Royal Ferrera, at 12:03 EST , Service support ,
[2019-09-02 07:45] LABS: Bedside Glucose 115 mg/dL (70-110)
[2019-09-02] MEDS: oxyCODONE 5 MG Tablet PO (08:27)
[2019-09-02] MEDS: Ibuprofen 600 MG Tablet PO (08:28)
[2019-09-02 09:51] VITALS: BP 102/54; PULSE 87; RESP 16; TEMP 36.6; O2SAT 96
--- NOTE | 2019-09-02 11:50 | NURSING ---
Pt is being discharged home today. extra ostomy supplies sent home with patient. still awaiting order from [employer]. pt did get samples from [employer] though. will call [employer] to get an estimate of when supplies will arrive. pt denies further needs at this time. daughter present in room and also denies questions.
[2019-09-02 14:47] LABS: Pathologist Review Reviewed
--- NOTE | 2019-09-09 11:01 | PCM.DC.SUM ---
Discharge Date and Diagnosis Date of Admission: 08/20/19 Date of Discharge: 08/27/19 - Primary Discharge Diagnosis Recurrent diverticulitis with abscess - Secondary Discharge Diagnosis Chronic Problems (Last Reviewed 08/01/19 @ 14:52 by Fanta Henriquez) Depression (Chronic) start wellbutrin, encouraged therapy. 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 discussed hormonal treatment if needed for symptom managment but due to smoking this limits her eligibility. aygestin Mixed stress and urge urinary incontinence (Chronic) declined medication, no treatment at this time. Hospital Course and Treatment Consultations 08/20/19 14:37 Consult: Onc/Wound/make up operator helper Routine Comment: Operations: colectomy - laparoscopic lysis of adhesions, resection lower anterior sigmoid colectomy and loop ileostomy creation, - - 08/25- exploratory laparotomy with lysis of adhesions 08/27- exploratory laparoscopy with laparotomy and enterectomy small bowel anastomosis Procedures: PICC line placement Summary of Care Provided: The patient is a 49 year old F who presented for an elective colectomy due to recurrent diverticulitis with abscess. Dr. Victor performed a laparoscopic lysis of adhesions, resection low anterior sigmoid colectomy and loop ileostomy creation on 08/20/19. Patient tolerated the procedure well. POD # 2, she developed nausea and vomiting and severe amount of upper abdominal pain. NG tube was placed on 08/23. Patient continued to have abdominal pain and minimal amount of air or stool in her ostomy. Patient had a small bowel follow-through on 08/25 which demonstrated a partial small bowel obstruction. Dr. Victor returned the patient back to the operating room on 08/25 for an exploratory laparotomy with lysis of adhesions. Patient tolerated the well. She felt much improved following the procedure and the following day. On 08/27, patient felt much worse with abdominal pain, nausea again. Patient had a KUB that morning which demonstrated no improvement. Dr. Victor decided to take the patient back to the operating room. He performed an exploratory laparoscopy with laparotomy and enterectomy with re-do of small bowel anastomosis. She was also started on TPN on 08/27. Patient continued to show slow improvement of symptoms. on 08/30, patient had the NG tube removed. She was noted to have significant amount of air in her ostomy. Upon discharge, she felt much improved, energized and excited to be discharged. She denies nausea. Abdominal pain much improved. PICC line was removed. She had flatus and stool within her bag. - Physical Exam Vitals/I&O's: Vital Signs Temp Pulse Resp BP Pulse Ox 97.9 F 87 16 102/54 L 96 09/02/19 09:51 09/02/19 09:51 09/02/19 09:51 09/02/19 09:51 09/02/19 09:51 Oxygen Flow Rate (L/min) 6 Oxygen Delivery Method Room Air Weight: 124 lb 8.979 oz Body Mass Index (BMI) 24.3 General: Alert, Oriented x3, Cooperative Lungs: Clear to auscultation, Normal air movement Cardiovascular: Regular rate, No murmurs Abdomen: Bowel Sounds Present, Distended - slightly, Tender - slight generalized discomfort Discharge Diet: Light diet - advance as tolerated - if you have questions about your diet instructions, please talk to you doctor., - - Daily nutritional supplement. You may resume utilizing your daily fiber supplement which may help solidify some of your stool Multiple vitamin daily encouraged Discharge Activity: May Not Drive - for 1-2 weeks May shower in (days): 0 - May shower now Call your doctor if your incision/area has: Continuous Slow Oozing, Sudden Increased Bleeding, Increased Pain/ Swelling, Increased Redness, Foul Smelling Discharge Call your doctor if you observe: Fever of 101 or Higher Suture Line Care: Avoid Pulling/Pushing, Avoid Pinching/Bending Additional Dressing/Incision Instructions:: You may remove your OpSite dressings now. Leave steri-strips in place for 1 week. Home Medications: Medications to take at Discharge Amoxicillin 875 mg PO BID 08/15/19 Norethindrone [Aygestin] 5 mg PO DAILY PRN 08/15/19 ondansetron HCl 4 mg tablet 4 mg PO Q8H #10 tab 08/18/19 ondansetron HCl 4 mg tablet 4 mg PO Q6H PRN #20 tab 09/03/19 Primary Care Physician: Fatoumata Galeas MD [Primary Care Provider] - Please Follow Up With: Ezra Victor MD - [phone] When: Call to make an appointment to be seen in about 10 days. Disposition: Home Minutes spent on discharge:: 25 Patient Condition:: Stable Medical Necessity - Tobacco Use Smoking Status: Former smoker Tobacco Use: Non-smoker Meaningful Use Info Meaningful Use Diagnoses (Choose all that apply): None applicable Code Visit Inpatient E&M: 09556 Disch Hosp - No charge
== END 2019-09-02 12:20 | disposition home or self-care (01) | DRG 330 ==
LOC: ACINP 05:14 → MS3 12:44
PROVIDERS: Anesthesiology; Surgery; Urology; Admitting Provider Surgery; PCP Internal Medicine; Referring Provider Surgery; Visit Provider Surgery
PROC: 0DTN0ZZ Resection of Sigmoid Colon, Open Approach (ICD-10-PCS; CPT 44204; principal; 2019-08-20 06:50)
PROC: 0T778DZ Dilation of Left Ureter with Intraluminal Device, Via Natural or Artificial Opening Endoscopic (ICD-10-PCS; 2019-08-20 06:50)
PROC: 0DN84ZZ Release Small Intestine, Percutaneous Endoscopic Approach (ICD-10-PCS; CPT 49320; principal; 2019-08-25 09:15)
PROC: 0DT80ZZ Resection of Small Intestine, Open Approach (ICD-10-PCS; CPT 49320; principal; 2019-08-27 07:15)
DX: K57.20 Diverticulitis of large intestine with perforation and abscess without bleeding (principal); K91.89 Other postprocedural complications and disorders of digestive system; K56.690 Other partial intestinal obstruction; K56.600 Partial intestinal obstruction, unspecified as to cause; K66.0 Peritoneal adhesions (postprocedural) (postinfection); Z53.31 Laparoscopic surgical procedure converted to open procedure; Z23 Encounter for immunization; Z87.891 Personal history of nicotine dependence; B96.20 Unspecified Escherichia coli [E. coli] as the cause of diseases classified elsewhere; E87.6 Hypokalemia; Y83.2 Surgical operation with anastomosis, bypass or graft as the cause of abnormal reaction of the patient, or of later complication, without mention of misadventure at the time of the procedure; F32.9 Major depressive disorder, single episode, unspecified; N39.46 Mixed incontinence
CPT/HCPCS: 36415; 36569; 74018; 74019; 74250; 80048; 81025; 82962; 83735; 84100; 84134; 84478; 85025; 85027; 87070; 87075; 87077; 87186; 87205; 88307; 88341; 88342; 93005; 97802; 97803; 99251; 99406; J7040; J7050; J7120; 90686; A4216; C1760; C1769; G0463; J2405; J3490

== ENCOUNTER → 2019-09-08 13:46 | Outpatient (CLI) | payer OTHER, SELFPAY ==
[2019-09-01 09:46] VITALS: BMI 24.3
[2019-09-08 14:04] LABS: Absolute Neutrophil Count 6.9 X10^3/uL (2.0-7.7); Basophil# 0.04 X10^3/uL; Basophil% 0.4 % (0-1); Eosinophil# 0.08 X10^3/uL; Eosinophils% 0.8 % (0-5); Hematocrit 34.4 % (37-47); Hemoglobin 11.1 g/dL (12.0-15.0); Lymphocyte % 19.7 % (19-41); Mean Corp Hgb Conc 32.3 g/dL (32-36); Mean Corpuscular Hgb 28.6 pg (27.0-32.0); Mean Corpuscular Volume 88.7 fL (81-99); Mean Platelet Vol. 9.1 fl (6.2-12.0); Monocyte# 0.51 X10^3/uL; Monocyte% 5.3 % (0-10); NRBC Flagged by Analyzer 0 % (0-5); Neutrophil # 6.92 X10^3/uL (2.7-7.7); Neutrophil % 71.8 % (47-70); POSITIVE COUNT YES; Platelet Count 876 K/mm3 (150-450); RBC Distribution Width CV 13.2 % (11.6-14.6); RBC Distribution Width SD 43.3 fl (35.1-43.9); Red Blood Count 3.88 M/mm3 (4.2-5.4); White Blood Count 9.6 K/mm3 (4.4-11.0)
[2019-09-08 14:14] LABS: Differential Indicated SCAN CRITERIA MET
[2019-09-08 14:37] LABS: Differential Comment SCANNED
[2019-09-09 14:39] LABS: Pathologist Review Reviewed
== END ==
PROVIDERS: PCP Internal Medicine; Referring Provider Surgery; Visit Provider Surgery
DX: D72.829 Elevated white blood cell count, unspecified (principal)
CPT/HCPCS: 36415; 85025

== ENCOUNTER → 2019-09-22 12:44 | Outpatient (CLI) | payer OTHER, SELFPAY ==
[2019-09-01 09:46] VITALS: BMI 24.3
--- NOTE | 2019-09-22 12:44 | CT_ITS ---
STUDY: CT ABDOMEN AND PELVIS WITH CONTRAST REASON FOR EXAM: Female, 49 years old. POST OP ABD PAIN -- SURG-COLOSTOMY RADIATION DOSAGE (If Supplied By Facility): CTDIvol = ( 10.93 ) mGy, DLP = ( 416.50 ) mGycm TECHNIQUE: Transaxial images were obtained from the dome of the diaphragm to the symphysis pubis with oral contrast. Oral and amp; IV Readi-CAT and amp; 100mL Isovue-300 was administered. Sagittal and coronal images were reconstructed. Individualized dose optimization techniques were used for this CT. COMPARISON: Comparison is made with prior study dated July 25, 2019. FINDINGS: The visualized lung bases are unremarkable. The visualized portions of the heart are within normal limits. Normal liver. Normal gallbladder and extrahepatic biliary system. Normal spleen. Normal pancreas. Normal bilateral adrenal glands. Normal right kidney. Normal left kidney. Normal visualized stomach. Normal small intestine. A colostomy is seen in the right lower quadrant. The colon is decompressed. Persistent pericolonic inflammatory changes are seen throughout the entire colon. Persistent narrowing of the rectosigmoid colon. Surgical clips are seen at the sigmoid rectal junction. The appendix is visualized and appears normal. Normal abdominal aorta. Normal inferior vena cava. Normal retroperitoneum. Normal urinary bladder. Normal abdominal wall. Normal osseous structures. CT/Abdomen/Pelvis WITH Contrast IMPRESSION: Status post colostomy in the right lower quadrant with persistent inflammatory changes seen throughout the entire colon. Electronically Signed: Royal Ferrera, at 14:10 EDT , Service support ,
[2019-09-22 12:58] LABS: Absolute Lymphocyte Count 2.72 X10^3/uL (0.83-4.51); Absolute Neutrophil Count 6.3 X10^3/uL (2.0-7.7); Basophil# 0.03 X10^3/uL; Basophil% 0.3 % (0-1); Eosinophil# 0.12 X10^3/uL; Eosinophils% 1.2 % (0-5); Hematocrit 32.5 % (37-47); Hemoglobin 10.3 g/dL (12.0-15.0); Lymphocyte # 2.72 X10^3/ul (4.0); Lymphocyte % 27.6 % (19-41); Mean Corp Hgb Conc 31.7 g/dL (32-36); Mean Corpuscular Volume 88.3 fL (81-99); Mean Platelet Vol. 9.1 fl (6.2-12.0); Monocyte# 0.63 X10^3/uL; Monocyte% 6.4 % (0-10); NRBC Flagged by Analyzer 0 % (0-5); Neutrophil # 6.31 X10^3/uL (2.7-7.7); Neutrophil % 64.2 % (47-70); Platelet Count 489 K/mm3 (150-450); RBC Distribution Width CV 13.9 % (11.6-14.6); RBC Distribution Width SD 44.8 fl (35.1-43.9); Red Blood Count 3.68 M/mm3 (4.2-5.4); White Blood Count 9.8 K/mm3 (4.4-11.0)
[2019-09-22 13:24] LABS: Anion Gap 5 (5-15); BUN 11 mg/dL (7-18); BUN/Creat Ratio 15.7 RATIO (10-20); Chloride 101 mmol/L (98-107); EST Glomerular Filtration Rate 95 mL/min (>60); Est Glom Filt Rate - Afr Amer 114 mL/min (>60); Glucose 90 mg/dL (74-106); Potassium 3.7 mmol/L (3.5-5.1); Sodium Level 135 mmol/L (136-145)
== END ==
PROVIDERS: Physician Assistant; PCP Internal Medicine; Referring Provider Surgery; Visit Provider Surgery
DX: R10.9 Unspecified abdominal pain (principal); G89.18 Other acute postprocedural pain
CPT/HCPCS: 36415; 74177; 80048; 85025; Q9967

== ENCOUNTER → 2020-01-05 09:32 | Outpatient (CLI) | payer OTHER, SELFPAY ==
--- NOTE | 2020-01-05 09:35 | RAD_ITS ---
STUDY: SINGLE CONTRAST BARIUM ENEMA REASON FOR EXAM: Female, 49 years old. PATENCY OF LOW ANASTOMOSIS, PART OF SMALL BOWEL AND LARGE INTESTINE REMOVED X5 MONTHS AGO -- 80 FLUORO SEC, 6 FLUORO IMAGES, 31.48mGy FLUOROSCOPY TIME (if supplied): ( 1 minute 20 seconds ) TECHNIQUE: Single contrast with 50/50 mixture of Gastrografin and normal saline COMPARISON: None. FINDINGS: Candy Separator Enrobing film demonstrates an unremarkable bowel gas pattern, specifically, there is no retained stool. There are a few scattered lucent centered phleboliths within the pelvis and surgical cristiana project over the sacrum. The rectum distends normally without a discrete lesion. There are multiple diverticula noted in the distal descending and sigmoid colon without evidence of acute inflammation. Specifically, there is no extravasation of contrast and no caliber change of the sigmoid or distal descending colon. The remainder of the colon distends normally with a few scattered diverticula here and there. There is no obstruction, mass lesion, caliber change or extravasation of contrast outside the lumen of the colon. RAD/Barium Enema No Air Cont IMPRESSION: There is significant diverticular disease noted in the distal descending and sigmoid colon without acute inflammatory changes Scattered diverticula noted in the transverse and proximal descending colon No extravasation of contrast, no caliber change or obstructive lesion noted. Electronically Signed: Rommel Georges MD at 10:39 EDT , Service support ,
== END ==
PROVIDERS: PCP Internal Medicine; Referring Provider Physician Assistant; Visit Provider Physician Assistant
DX: K63.89 Other specified diseases of intestine (principal)
CPT/HCPCS: 74270

== ENCOUNTER → 2020-01-12 13:31 | Outpatient (CLI) | payer OTHER, SELFPAY ==
[2020-01-12 12:53] VITALS: BMI 24.3
[2020-01-12 13:45] LABS: Hematocrit 41.4 % (37-47); Hemoglobin 13.2 g/dL (12.0-15.0); Mean Corp Hgb Conc 31.9 g/dL (32-36); Mean Corpuscular Hgb 29.7 pg (27.0-32.0); Mean Corpuscular Volume 93.2 fL (81-99); Mean Platelet Vol. 9.5 fl (6.2-12.0); Platelet Count 300 K/mm3 (150-450); RBC Distribution Width CV 14.9 % (11.6-14.6); RBC Distribution Width SD 51.7 fl (35.1-43.9); Red Blood Count 4.44 M/mm3 (4.2-5.4); White Blood Count 6.5 K/mm3 (4.4-11.0)
[2020-01-12 13:58] LABS: Anion Gap 5 (5-15); BUN 11 mg/dL (7-18); BUN/Creat Ratio 14.8 RATIO (10-20); Chloride 106 mmol/L (98-107); Creatinine, Serum 0.74 mg/dL (0.55-1.02); EST Glomerular Filtration Rate 88 mL/min (>60); Est Glom Filt Rate - Afr Amer 107 mL/min (>60); Glucose 100 mg/dL (74-106); Potassium 4.1 mmol/L (3.5-5.1); Sodium Level 139 mmol/L (136-145)
[2020-01-13 16:08] LABS: Endomysial Antibody IgA Negative (Negative)
[2020-01-14 09:39] LABS: Immunoglobulin A 197 mg/dL (87-352); t-Transglutaminase IgA <2 U/mL (0-3)
== END ==
PROVIDERS: PCP Internal Medicine; Referring Provider Surgery; Visit Provider Surgery
DX: Z01.812 Encounter for preprocedural laboratory examination (principal)
CPT/HCPCS: 36415; 80048; 82784; 83516; 85027; 86255

== ENCOUNTER 2020-01-19 05:16 | Inpatient (IN) | payer OTHER, SELFPAY ==
[2020-01-12 12:53] VITALS: BMI 24.3
[2020-01-19] VITALS (12 sets, daily range): BP systolic 88–131; BP diastolic 57–85; PULSE 49–78; RESP 12–18; TEMP 36.2–36.9; O2SAT 97–100; BMI 25.1
[2020-01-19 06:15] LABS: Internal QC Validated? YES +Cl - CLEAR BKGD; Pregnancy, Urine Negative Negative
--- NOTE | 2020-01-19 06:18 | PCM.HP.BLA ---
Problem List (1) Ileostomy present Status: Acute History and Physical Date of Admission: 01/19/20 Intake Visit Reasons: Update H&P discuss results Chief Complaint: update H&P, discuss surgery Pt Skilled Required: No Is patient in pain?: No Allergies venom-honey bee Allergy (Unknown, Verified 01/12/20 12:36) Unknown promethazine [From Phenergan] Allergy (Verified 01/12/20 12:36) Other strawberry Allergy (Verified 01/12/20 12:36) Swelling Medications metronidazole 500 mg tablet 500 mg PO .COMPLEX #6 tab 01/12/20 [Rx Confirmed 01/12/20] neomycin 500 mg tablet 500 mg PO .COMPLEX #6 tab 01/12/20 [Rx Confirmed 01/12/20] Is last menstrual period known: No Post menopausal: Yes Patient : No PFSH Medical History Anemia (Acute) Diverticulitis (Acute) History of small bowel obstruction (Acute ~08/2019) Surgical History H/O colonoscopy (Acute) History of colectomy (Acute ~08/2019) H/O section (Resolved) Family History Unknown Asthma Social History (Updated 01/12/20 @ 13:[address] 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 This is a very pleasant 49-year-old female. She had a complicated postoperative course. She had a very difficult sigmoid colectomy because of a high-grade diverticular stricture stricture and high-grade colonic obstruction. On August 20, 2019 she underwent a laparoscopic lysis of adhesions for an hour then conversion to a hand-assisted low anterior resection of the sigmoid colon. There was a enterectomy with a primary anastomosis of the mid small bowel and then a loop ileostomy in the right lower quadrant with a bilateral tap block. Postoperatively she required a laparoscopy because of pain and suspected partial small bowel obstruction and lysis of adhesion was performed. Unfortunate did not resolve the issue so she had yet a third operation where her previous small bowel resection was re-done and re-stapled and this finally resolved her postoperative small bowel issues. On today's visit she states that she continues to have nonspecific mid abdominal cramping and bloating pain. Similar to her very original operation. She is not sure whether she is gluten intolerant would like to have that checked. In an attempt to check her low anterior anastomosis as it was done at a site of significant formation on January 05, 2020 at the [facility] a barium enema was obtained. There were diverticula noted in the descending and sigmoid colon. There is no extravasation of contrast nor caliber change of the sigmoid or descending colon. The anastomosis appears to be widely patent. The patient has otherwise been feeling well. No fever chills or cough. HPI HPI HPI: NELIDA DELACRUZ, is a 49 F who presents to the office today for ROS General General: Yes weight change and fatigue; no appetite, colon cancer or breast cancer HEENT HEENT: No difficulty swallowing, eye injury, eye surgery, swollen glands or hoarseness Endo Endocrine: No thyroid disease, diabetes mellitus, thyroid cancer, Hair loss, heat intolerance or cold intolerance Skin Skin: No rash or changing moles Breast Breast: No left breast lump, right breast lump, nipple discharge, breast pain, abnormal mammogram, abnormal US or breast enlargement Musc Musculoskeletal: No back problems, arthritis, rheumatoid arthritis, gout or joint pain Cardio Cardiovascular: No murmur, pacemaker, heart disease, atrial fibrillation, high blood pressure, heart attack, heart stent, palpitations, shortness of breat with exertion or chest pain Psych Psychiatric: No depression, anxiety or hearing voices Resp Respiratory: No shortness of breath, No sleep apnea, No cough, No COPD, No asthma, No emphysema, No wheezing Gastro Gastrointestinal: Yes abdominal pain, Yes nausea or vomiting, Yes diarrhea, Yes constipation, No blood in stool, No acid reflux, Yes hemorrhoids, No ulcers, No gallbladder problem, No black,tarry stools Efren Hematologic: No blood thinners, No blood disorders, No bleeding, No anemia, No blood clots Exam Const General: cooperative, healthy appearing, comfortable Nutritional Appearance: average body habitus Orientation: alert, awake HENRI Head: normal to inspection Eyes General: appearance normal, both eyes and all related structures Chest Breast Palpation: No nipple discharge Resp Effort & Inspection: normal respiratory effort Auscultation: clear to auscultation bilaterally Cardio Rate: regular rate Rhythm: regular rhythm Heart Sounds: no murmurs GI Palpation: soft, no hepatosplenomegaly Auscultation: normal bowel sounds Other: Loop ileostomy right lower quadrant viable intact Musc Cervical Spine: normal cervical lordosis Neuro Cognition: normal cognition Extrem General: no calf tenderness Psych Affect: normal affect, anxious affect Assessment & Plan Problems 1. Ileostomy present Z93.2 Plan I recommended the patient a takedown of her ileostomy. This was actually created rather close to her ileocecal valve because it was performed at the site of inflammation and adherence to her pelvic abscess as part of her diverticular stricture. It is hoped that a minimal ileostomy takedown will all that is required. Need be I will perform a hand sutured anastomosis. Anticipated very minimal resection. The patient presents with her today. We have discussed technique benefit risk complications alternatives. She is aware that the previous procedures were quite complicated. I am hoping and anticipating that this will be more straightforward for her. We will schedule procedure discretion. I will utilize an ERAS type bowel regimen. CC: Dr Adal Victor M.D., F.A.C.S. Medications New: neomycin Take two (2) 500 mg tablets PO at 1300, 1500, 2300 6 tabs 0RF pre-op antibiotics metronidazole 500 mg PO Take 2 (two) tablets at 1300, 1500, 2300 6 tabs 0RF Coding Level of Care Code Off vis,est,level 2 Diagnoses Ileostomy present Z93.2 I have re-examined the patient. There are no clinical changes since date of exam. Procedure Criteria Procedure Type: Elective COVID Risk Discussion: The surgeon/proceduralist and patient have discussed in detail the risk of exposure to and/or potential harm posed by the COVID-19 virus with having a surgery/procedure at this time versus the risk of delaying the surgery/procedure. It is not possible to know either the risk of delaying the surgery or procedure or chance of getting an infection with perfect accuracy, but a joint decision was made between the patient and the surgeon/proceduralist to proceed at this time with the scheduled surgery/procedure as indicated on the consent form.
[2020-01-19 06:35] LABS: Bedside Glucose 108 mg/dL (70-110)
[2020-01-19] MEDS: Gabapentin 600 MG Tablet PO (06:36)
[2020-01-19] MEDS: Acetaminophen 500 MG Tablet 1000 MG PO ×2 (06:36→17:00)
[2020-01-19] MEDS: Lactated Ringers 1,000 ML 40 ML IV ×2 (06:37→10:04)
--- NOTE | 2020-01-19 06:50 | PCM.DC.GS ---
<Ezra Victor - Last Filed: 01/19/20 06:50> Discharge Diet: Light diet - advance as tolerated - if you have questions about your diet instructions, please talk to you doctor. Discharge Activity: May Not Drive - for 3-5 days or while using narcotic pain medicine. May shower in (days): 1 Lifting Restrictions: 10 pounds Call your doctor if your incision/area has: Continuous Slow Oozing, Sudden Increased Bleeding, Increased Pain/ Swelling, Increased Redness, Foul Smelling Discharge Call your doctor if you observe: Fever of 101 or Higher Suture Line Care: Avoid Pulling/Pushing, Avoid Pinching/Bending Additional Dressing/Incision Instructions:: You may shower after the drain is removed Allergies/Adverse Reactions: Allergies venom-honey bee Allergy (Unknown, Verified 01/12/20 12:36) Unknown promethazine [From Phenergan] Allergy (Verified 01/12/20 12:36) Other strawberry Allergy (Verified 01/12/20 12:36) Swelling Medications to take at Discharge metronidazole 500 mg tablet 500 mg PO .COMPLEX #6 tab 01/12/20 neomycin 500 mg tablet 500 mg PO .COMPLEX #6 tab 01/12/20 Oxycodone [Oxyir] 5 mg PO Q4H PRN PRN 3 Days #12 tablet 01/20/20 The following prescriptions were given: Oxycodone [Oxyir] 5 mg PO Q4H PRN PRN 3 Days #12 tablet PRN Reason: Pain Score 4-10/10 Transmission Status: Received by [facility]/pharmacy #[id number] Primary Care Physician: Fatoumata Galeas MD [Primary Care Provider] - Test Results: Test results from this visit will be discussed in further detail at your follow-up appointment, if applicable. Please Follow Up With: Ezra Victor MD - [phone] When: Call to make an appointment to be seen in about 10 days. <Shabana Acosta - Last Filed: 01/20/20 14:25> Test Results: Test results from this visit will be discussed in further detail at your follow-up appointment, if applicable. Please Follow Up With: Shabana Acosta PA-C When: Appointment tomorrow 01/21/20 at 1:15 pm Proposed Discharge Date: 01/20/20
--- NOTE | 2020-01-19 07:30 | STOMA_PTH ---
PATIENT: NELIDA DELACRUZ LOC: MS3 U#:[id number] AGE/SX: 49/F ROOM: MS314 RE01/19/[address]: Dr. Ezra Victor MD : 1970 BED: 1 DIS: 01/20/2020 SPEC #: [id number] RECD: 01/19/20 09:49 STATUS: JORGE REQ #: [id number] DOROTHY: 01/19/20 07:[address]: Ezra Victor DEPT: SURGICAL PATHOLOGY RECD BY: Trev Cardoza ENTERED: 01/19/20 10:50 SP TYPE: STOMA OTHR DR: Dr. Fatoumata Galeas MD Tissues: Colon, NOS Procedures: Surgery Specimen Level III HEADER OPERATION: ERAS, ileostomy take down PRE-OP DIAGNOSIS: Ileostomy TISSUE SUBMITTED: Ileostomy stoma MICROSCOPIC DIAGNOSIS Ileostomy stoma: Consistent with ileostomy stoma with focal superficial ulceration, congestion, hemorrhage, chronic inflammation and foreign body giant cell reaction. ARIEL:eda 01/20/20 MICROSCOPIC DESCRIPTION Slides are reviewed. GROSS DESCRIPTION Received in fixative is one container labeled with the patient's name and designated ileostomy stoma. The specimen consists of a donut-shaped piece of tissue consistent with stoma measuring 3 x 2.5 x 1.5 cm. Also present in the container is a detached piece of soft tissue measuring 4 x 1 x 0.5 cm. No mass lesion is identified. This piece of tissue shows multiple cristiana. Back Up Scan Coordinator sections are submitted in one cassette. / ARIEL:eda 01/19/20 TC:5 CPT: 42149
[2020-01-19] MEDS: Lidocaine/D5W 2,000 MG/250 ML IV.SOLN 2000 MG (07:40)
[2020-01-19] MEDS: Bupivacaine 0.25% 30 ML Vial (07:41)
--- NOTE | 2020-01-19 08:48 | PCM.OPRPT ---
Problem List (1) Ileostomy present Status: Acute Report of Operation Date of Procedure: 01/19/20 Pre-Operative Diagnosis: Presence of right lower quadrant loop ileostomy Post-Operative Diagnosis: Same Surgery/Procedure Performed:: Takedown ileostomy with small segment enterectomy and repair Description of Surgical Findings:: Timeout and informed consent was obtained. 49-year-old female was taken to the operating room placed upon the table underwent general endotracheal intubation and anesthesia. The abdomen was sterilely prepped and draped. 0.5% Marcaine was used as a local anesthetic. Throughout the procedure total 30 cc was used. A circular excision was used to excise the right lower quadrant ileostomy stoma. Then very careful tedious sharp and blunt dissection was used to carefully preserved the bowel is dissected colon down to the fascia. There were 2 silk sutures that needed to be released which were carefully released with no bowel injury. This allowed with lysis of adhesions and mobilized the terminal ileum. Bowel was very viable. At the loop site used a hemostat to transect the omentum and secured that with a 3-0 Vicryl suture. I then placed [place] clamps and transected the bowel on each side so I had wide open ends of bowel. I placed a holding suture of 4-0 silk. Then placed a 75 mm LYNDA stapler and performed a functional end-to-end anastomosis by placing it side to side. The stapler was fired. Hemostasis nicely intact. I then placed Allis clamps and use the same LYNDA stapler to close off the enterotomies. I repaired the mesenteric trap and imbricated the staple line with a running 4-0 silk. Excellent luminal diameter was achieved very viable bowel. Placed the bowel back within the abdomen. The abdomen was closed by closing the transversalis fascia with a running 0 Vicryl. The external oblique was then approximated with a running 0 PDS. Prior to the closure while still visualizing I performed a nerve block to the best I could lateral to the incision. I then used several 3-0 Vicryl sutures to close the space. Used interrupted 4-0 Monocryl to approximate the lateral edges of the stoma. Through the center of the stoma I placed 1/4 inch Heidi drain. I used the safety pin and 4-0 silk sutures to help hold that in place. Sponge and instrument and needle counts were reported to the surgeon to be correct. Specimen is ileostomy stoma and stapled tissue. Drains quarter-inch [place]. Blood loss 100 cc. The patient was taken to the recovery room in satisfactory condition without apparent complication Type of Anesthesia:: General Anesthesiologist: Carlos Rasheed
[2020-01-19] MEDS: Ketorolac 15 MG/ML Vial IV ×2 (10:59→17:00)
[2020-01-19] MEDS: oxyCODONE 5 MG Tablet PO ×2 (21:01→21:29)
[2020-01-19] MEDS: Docusate Sodium 100 MG Capsule PO (21:02)
[2020-01-20] MEDS: Ketorolac 15 MG/ML Vial IV ×3 (00:06→11:43)
[2020-01-20] MEDS: oxyCODONE 5 MG Tablet PO ×3 (01:35→15:13)
[2020-01-20 02:15] VITALS: BP 95/64; PULSE 68; RESP 16; TEMP 36.6; O2SAT 100
[2020-01-20] MEDS: Acetaminophen 500 MG Tablet 1000 MG PO ×2 (05:23→11:43)
--- NOTE | 2020-01-20 06:22 | PCM.PN.SRG ---
Subjective: Patient is noting significant right lower quadrant incisional pain. She has been burping no flatus. A small amount of mucus per rectum. She has been up and about and walking. She is voiding well. - Physical Exam Vitals/I&O's: Vital Signs Temp Pulse Resp BP Pulse Ox 97.9 F 69 18 98/66 100 01/19/20 20:27 01/19/20 20:27 01/19/20 20:27 01/19/20 20:27 01/19/20 20:27 Oxygen Flow Rate (L/min) 6 Oxygen Delivery Method Room Air Weight: 128 lb 8.472 oz Body Mass Index (BMI) 25.1 Intake and Output for Last 24 Hours 01/18/20 01/19/20 01/20/20 23:59 23:59 23:59 Intake Total 1721.60 / 1721.60 480 / 480 Output Total 500 / 500 350 / 350 Balance 1221.60 / 1221.60 130 / 130 General: Alert, Oriented x3, Cooperative, No apparent distress Oral: Moist Mucosa Lungs: Clear to auscultation Abdomen: Soft, Hypoactive Bowel Sounds, Tender, - - Right lower quadrant stoma site clean dry with minimal serosanguineous drainage Laboratory Results 01/19/20 06:15: POC Glucose 108 Current Medications Acetaminophen (Tylenol) 1,000 mg PO Q6 [facility] Last Admin: 01/20/20 05:23 Dose: 1,000 mg Documented by: Docusate Sodium (Colace) 100 mg PO BID [facility] Last Admin: 01/19/20 21:02 Dose: 100 mg Documented by: Enoxaparin Sodium (Lovenox) 40 mg SC DAILY [facility] Hydromorphone HCl (Dilaudid Inj) 0.5 mg IV Q3H PRN PRN PRN Reason: Pain Score 6-10/10 Lactated Ringer's () 1,000 mls @ 40 mls/hr IV .Q25H [facility] Last Admin: 01/19/20 10:04 Dose: 40 mls/hr Documented by: Sodium Chloride () 250 mls @ 15 mls/hr IV .[id number] PRN PRN Reason: Saline Flush Sodium Chloride () 250 mls @ 15 mls/hr IV .[id number] PRN PRN Reason: Additional IVPB Infusion Insulin Human Lispro (Humalog Kwikpen ([facility])) 0 unit SC Q4H PRN PRN; Protocol PRN Reason: BG >/= 180, SEE PROTOCOL Ketorolac Tromethamine (Toradol ([facility])) 15 mg IV Q6 [facility] Stop: 01/20/20 18:01 Last Admin: 01/20/20 05:23 Dose: 15 mg Documented by: Magnesium Oxide (Mag-Ox 400) 400 mg PO DAILY PRN PRN PRN Reason: Constipation Nutritional Formula (Lactose Free) (Ensure Enlive) 120 ml PO 4X/DAY [facility] Last Admin: 01/19/20 21:04 Dose: Not Given Documented by: Ondansetron HCl (Zofran Odt) 4 mg PO Q6H PRN PRN PRN Reason: NAUSEA Oxycodone HCl (Oxyir) 5 - 10 mg PO Q4H PRN PRN PRN Reason: Pain Score 4-10/10 Last Admin: 01/20/20 01:35 Dose: 10 mg Documented by: Sodium Chloride () 10 - 40 ml IV UD PRN PRN Reason: SALINE FLUSH Medical Necessity - Tobacco Use Smoking Status: Former smoker Tobacco Use: Cigarettes Assessment/Plan All Active Problems (Last Reviewed 01/12/20 @ 12:35 by Emmie Arteaga) Ileostomy present (Acute) Abscess (Acute) Intra-abdominal adhesions (Acute) Partial small bowel obstruction (Acute) Anemia (Acute) Diverticulitis (Acute) Abdominal pain (Acute) Abnormal uterine bleeding (Acute) NASIR drain dressing change and Heidi was advanced and resecured. No signs of overt infection. I will increase her to full liquid diet. We will continue her IV for the moment. She has been encouraged to continue to mobilize. Will reassess later today for ongoing progress. Ezra Victor M.D., F.A.C.S.
[2020-01-20 07:08] VITALS: O2SAT 96
[2020-01-20 08:15] VITALS: BP 95/59; PULSE 81; RESP 16; TEMP 36.6; O2SAT 100
[2020-01-20] MEDS: Docusate Sodium 100 MG Capsule PO (09:10)
[2020-01-20] MEDS: Enoxaparin 40 MG/0.4 ML Syringe SC (09:12)
--- NOTE | 2020-01-20 11:05 | CASEMGMT ---
RN LUCILA Face to Face with patient for initial transition planning/care coordination assessment. RN CM introduced self and role at [facility]. Patient lying in bed, alert and oriented, . Patient willing to participate in assessment and is able to answer all questions appropriately. Care providers, pharmacy, and demographics verified. Patient wishes to discharge home, denies need for home health at this time. Patient states he has no further needs or concerns at this time. CM to follow for discharge planning needs that may arise. PCP: Adal Specialists: Kayleigh Victor Pharmacy: [facility] Insurance: [employer] Prescription Benefit: yes Living Will/HPOA: none LNOK: Living Arrangements: patient lives with in 2 story home. Patient is independent at home. Transportation: self/ DME/HHC: Patient denies DME or HHC. Disposition Plan: Patient to discharge home with family support and follow-up plans in place. Ale NELSON, RN, CM
[2020-01-20] MEDS: Lactated Ringers 1,000 ML 40 ML IV (11:44)
[2020-01-20] MEDS: 0.9% Saline Lock 10 ML Syringe IV (11:45)
[2020-01-20 14:00] VITALS: BP 92/52; PULSE 85; RESP 18; TEMP 36.7; O2SAT 98
--- NOTE | 2020-01-20 14:26 | DS.PCM_ITS ---
Discharge Date and Diagnosis Date of Admission: 01/19/20 Date of Discharge: 01/20/20 - Primary Discharge Diagnosis Acute Problems: Takedown ileostomy with small segment enterectomy and repair - Secondary Discharge Diagnosis Chronic Problems: Chronic Problems (Last Reviewed 01/12/20 @ 12:35 by Emmie Arteaga) Depression (Chronic) start wellbutrin, encouraged therapy. 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 discussed hormonal treatment if needed for symptom managment but due to smoking this limits her eligibility. aygestin Mixed stress and urge urinary incontinence (Chronic) declined medication, no treatment at this time. Hospital Course and Treatment Operations: None, - - Takedown ileostomy with small segment enterectomy and repair Summary of Care Provided: The patient is a 49 year old F who presented for an ileostomy takedown. Dr. Victor performed a Takedown ileostomy with small segment enterectomy and repair on 01/19/20. Patient tolerated the procedure well. She had an uncomplicated hospitalization. Upon discharge, patient was having soft solid stools, positive flatus. Negative nausea, vomiting, fever. Tolerating full liquid diet. Pain is well controlled. Urinating well. She has been ambulating in the hallway well. - Physical Exam Vitals/I&O's: Vital Signs Temp Pulse Resp BP Pulse Ox 98.1 F 85 18 92/52 L 98 01/20/20 14:00 01/20/20 14:00 01/20/20 14:00 01/20/20 14:00 01/20/20 14:00 Oxygen Flow Rate (L/min) 6 Oxygen Delivery Method Room Air Weight: 128 lb 8.472 oz Body Mass Index (BMI) 25.1 Intake and Output for Last 24 Hours 01/18/20 01/19/20 01/20/20 23:59 23:59 23:59 Intake Total 1721.60 / 1721.60 1480 / 1480 Output Total 500 / 500 350 / 350 Balance 1221.60 / 1221.60 1130 / 1130 Current Medications Acetaminophen (Tylenol) 1,000 mg PO Q6 [facility] Last Admin: 01/20/20 11:43 Dose: 1,000 mg Documented by: Docusate Sodium (Colace) 100 mg PO BID [facility] Last Admin: 01/20/20 09:10 Dose: 100 mg Documented by: Enoxaparin Sodium (Lovenox) 40 mg SC DAILY [facility] Last Admin: 01/20/20 09:12 Dose: 40 mg Documented by: Hydromorphone HCl (Dilaudid Inj) 0.5 mg IV Q3H PRN PRN PRN Reason: Pain Score 6-10/10 Lactated Ringer's () 1,000 mls @ 40 mls/hr IV .Q25H [facility] Last Admin: 01/20/20 11:44 Dose: 40 mls/hr Documented by: Sodium Chloride () 250 mls @ 15 mls/hr IV .[id number] PRN PRN Reason: Saline Flush Sodium Chloride () 250 mls @ 15 mls/hr IV .[id number] PRN PRN Reason: Additional IVPB Infusion Insulin Human Lispro (Humalog Kwikpen ([facility])) 0 unit SC Q4H PRN PRN; Protocol PRN Reason: BG >/= 180, SEE PROTOCOL Ketorolac Tromethamine (Toradol ([facility])) 15 mg IV Q6 [facility] Stop: 01/20/20 18:01 Last Admin: 01/20/20 11:43 Dose: 15 mg Documented by: Magnesium Oxide (Mag-Ox 400) 400 mg PO DAILY PRN PRN PRN Reason: Constipation Nutritional Formula (Lactose Free) (Ensure Enlive) 120 ml PO 4X/DAY [facility] Last Admin: 01/20/20 13:59 Dose: Not Given Documented by: Ondansetron HCl (Zofran Odt) 4 mg PO Q6H PRN PRN PRN Reason: NAUSEA Oxycodone HCl (Oxyir) 5 - 10 mg PO Q4H PRN PRN PRN Reason: Pain Score 4-10/10 Last Admin: 01/20/20 06:31 Dose: 10 mg Documented by: Sodium Chloride () 10 - 40 ml IV UD PRN PRN Reason: SALINE FLUSH Last Admin: 01/20/20 11:45 Dose: 10 ml Documented by: Discharge Diet: Light diet - advance as tolerated - if you have questions about your diet instructions, please talk to you doctor. Discharge Activity: May Not Drive - for 3-5 days or while using narcotic pain medicine. May shower in (days): 1 Call your doctor if your incision/area has: Continuous Slow Oozing, Sudden Increased Bleeding, Increased Pain/ Swelling, Increased Redness, Foul Smelling Discharge Call your doctor if you observe: Fever of 101 or Higher Suture Line Care: Avoid Pulling/Pushing, Avoid Pinching/Bending Additional Dressing/Incision Instructions:: You may shower after the drain is removed Home Medications: Medications to take at Discharge metronidazole 500 mg tablet 500 mg PO .COMPLEX #6 tab 01/12/20 neomycin 500 mg tablet 500 mg PO .COMPLEX #6 tab 01/12/20 Oxycodone [Oxyir] 5 mg PO Q4H PRN PRN 3 Days #12 tablet 01/20/20 Following Prescrptions Were Given to Patient: Oxycodone [Oxyir] 5 mg PO Q4H PRN PRN 3 Days #12 tablet PRN Reason: Pain Score 4-10/10 Transmission Status: Received by [facility]/pharmacy #[id number] Primary Care Physician: Fatoumata Galeas MD [Primary Care Provider] - Please Follow Up With: Shabana Acosta PA-C When: Appointment tomorrow 01/21/20 at 1:15 pm Disposition: Home Minutes spent on discharge:: 20 Patient Condition:: Stable Medical Necessity - Tobacco Use Smoking Status: Former smoker Tobacco Use: Cigarettes Meaningful Use Info Meaningful Use Diagnoses (Choose all that apply): None applicable Inpatient E&M: 41807 Disch Hosp - No charge
--- NOTE | 2020-01-20 15:33 | NURSING ---
Dressing reinforced per pt request. Notified of f/u appointment for dressing change tomorrow at 1:15 with JEANETH Lovelace
== END 2020-01-20 15:37 | disposition home or self-care (01) | DRG 331 ==
LOC: ACINP 05:17 → MS3 11:00
PROVIDERS: Anesthesiology; Admitting Provider Surgery; PCP Internal Medicine; Referring Provider Surgery; Visit Provider Surgery
PROC: 0DBE0ZZ Excision of Large Intestine, Open Approach (ICD-10-PCS; CPT 44620; principal; 2020-01-19 07:15)
DX: Z43.2 Encounter for attention to ileostomy (principal); K57.30 Diverticulosis of large intestine without perforation or abscess without bleeding; Z11.59 Encounter for screening for other viral diseases; F32.9 Major depressive disorder, single episode, unspecified; Z78.0 Asymptomatic menopausal state; Z87.19 Personal history of other diseases of the digestive system; Z86.2 Personal history of diseases of the blood and blood-forming organs and certain disorders involving the immune mechanism; Z87.891 Personal history of nicotine dependence; Z90.49 Acquired absence of other specified parts of digestive tract
CPT/HCPCS: 81025; 82962; 87635; 88304; 99251; 99406; G2023; J7050; J7120; A4216; G0463; J2405; U0003

== ENCOUNTER → 2020-07-21 09:59 | Outpatient (CLI) | payer OTHER, SELFPAY ==
[2020-07-21 08:53] VITALS: BMI 26.7
[2020-07-21 12:54] LABS: Absolute Lymphocyte Count 1.75 X10^3/uL (0.83-4.51); Absolute Neutrophil Count 3.7 X10^3/uL (2.0-7.7); Basophil# 0.04 X10^3/uL; Basophil% 0.7 % (0-1); Eosinophils% 1.7 % (0-5); Hematocrit 41.8 % (37-47); Hemoglobin 13.4 g/dL (12.0-15.0); Lymphocyte # 1.75 X10^3/ul (4.0); Lymphocyte % 29.3 % (19-41); Mean Corp Hgb Conc 32.1 g/dL (32-36); Mean Corpuscular Hgb 30.3 pg (27.0-32.0); Mean Corpuscular Volume 94.6 fL (81-99); Mean Platelet Vol. 10.3 fl (6.2-12.0); Monocyte# 0.34 X10^3/uL; Monocyte% 5.7 % (0-10); NRBC Flagged by Analyzer 0 % (0-5); Neutrophil # 3.73 X10^3/uL (2.7-7.7); Neutrophil % 62.4 % (47-70); Platelet Count 346 K/mm3 (150-450); RBC Distribution Width CV 12.8 % (11.6-14.6); RBC Distribution Width SD 44.9 fl (35.1-43.9); Red Blood Count 4.42 M/mm3 (4.2-5.4)
[2020-07-21 12:59] LABS: AST(SGOT) 24 U/L (15-37); Alanine Aminotransfer ALT/SGPT 39 U/L (13-56); Albumin, Serum 4.2 g/dL (3.2-5.0); Alkaline Phosphatase 104 U/L (45-117); Anion Gap 5 (5-15); BUN 19 mg/dL (7-18); BUN/Creat Ratio 25.9 RATIO (10-20); Calcium,Total 9.5 mg/dL (8.5-10.1); Chloride 108 mmol/L (98-107); Creatinine, Serum 0.73 mg/dL (0.55-1.02); EST Glomerular Filtration Rate 89 mL/min (>60); Est Glom Filt Rate - Afr Amer 108 mL/min (>60); Globulin 4.1 g/dL (2.2-4.2); Glucose 104 mg/dL (74-106); Potassium 3.8 mmol/L (3.5-5.1); Protein, Total 8.3 g/dL (6.4-8.2); Sodium Level 139 mmol/L (136-145); T4 Free Direct 0.94 ng/dL (0.76-1.46); Thyroid Stim Hormone (TSH) 0.81 uIU/mL (0.358-3.74)
[2020-07-22 14:26] LABS: Cholesterol 304 mg/dL (200); High Density Lipoprotein 88 mg/dL; Triglycerides 81 mg/dL; Very Low Density Lipoprotein 16 mg/dL (5-40)
== END ==
LOC: BIMLAB 10:00
PROVIDERS: PCP Internal Medicine; Referring Provider Internal Medicine; Visit Provider Internal Medicine
DX: R03.0 Elevated blood-pressure reading, without diagnosis of hypertension (principal); F32.9 Major depressive disorder, single episode, unspecified; F41.9 Anxiety disorder, unspecified
CPT/HCPCS: 36415; 80053; 80061; 84439; 84443; 85025

== ENCOUNTER → 2021-05-02 14:45 | Outpatient (CLI) | payer OTHER, SELFPAY ==
[2021-05-02 18:31] LABS: AST(SGOT) 30 U/L (15-37); Alanine Aminotransfer ALT/SGPT 33 U/L (13-56); Alkaline Phosphatase 114 U/L (45-117); Anion Gap 12 (5-15); BUN 14 mg/dL (7-18); BUN/Creat Ratio 19.4 RATIO (10-20); Calcium,Total 9.3 mg/dL (8.5-10.1); Chloride 103 mmol/L (98-107); Cholesterol 247 mg/dL (200); Creatinine, Serum 0.72 mg/dL (0.55-1.02); EST Glomerular Filtration Rate 91 mL/min (>60); Est Glom Filt Rate - Afr Amer 110 mL/min (>60); Globulin 4.1 g/dL (2.2-4.2); Glucose 83 mg/dL (74-106); High Density Lipoprotein 73 mg/dL; Potassium 3.5 mmol/L (3.5-5.1); Protein, Total 8.1 g/dL (6.4-8.2); Sodium Level 138 mmol/L (136-145); Triglycerides 160 mg/dL; Very Low Density Lipoprotein 32 mg/dL (5-40)
[2021-05-07 17:07] LABS: Testosterone, Free 2.92 ng/dL (0.10-0.85); Testosterone, Total 84 ng/dL (4-50)
[2021-05-07 18:08] LABS: Testosterone, % Free 3.48 % (0.50-2.80)
== END ==
PROVIDERS: PCP Internal Medicine; Referring Provider Obstetrics & Gynecology; Visit Provider Obstetrics & Gynecology
DX: N95.1 Menopausal and female climacteric states (principal)
CPT/HCPCS: 36415; 80053; 80061; 84402; 84403

== ENCOUNTER 2021-07-20 16:00 | Outpatient (CLI) | payer OTHER, SELFPAY ==
--- NOTE | 2021-07-20 16:05 | RAD_ITS ---
STUDY: X-RAY CHEST REASON FOR EXAM: Female, 51 years old. COUGH TECHNIQUE: Frontal and lateral views of the chest. COMPARISON: None. FINDINGS: The lungs are clear and expanded. There is no demonstrated pleural abnormality. Normal size heart. Normal mediastinum and lucy. Normal visualized pulmonary arteries. Normal visualized aortic arch and descending thoracic aorta. Normal visualized thoracic spine. Normal visualized ribs, clavicles, and shoulders. There is no demonstrated abnormality of the visualized soft tissue structures of the upper abdomen. RAD/Chest PA and Lateral IMPRESSION: Normal x-ray examination of the chest. Electronically Signed: Trent Fung MD at 0:20 EST Tel , Service support ,
== END 2021-07-20 23:59 | disposition short-term general hospital (02) ==
LOC: MTRAD 16:02
PROVIDERS: PCP Internal Medicine; Referring Provider Internal Medicine; Visit Provider Internal Medicine
DX: R05.9 Cough, unspecified (principal)
CPT/HCPCS: 71046

== ENCOUNTER 2022-04-04 06:54 | Day surgery (SDC) | payer OTHER, SELFPAY ==
[2022-04-04] VITALS (7 sets, daily range): BP systolic 85–119; BP diastolic 63–78; PULSE 66–79; RESP 16; TEMP 36.6–36.7; O2SAT 98–100; BMI 24.0
[2022-04-04] MEDS: Lactated Ringers 1,000 ML 15 ML IV (07:42)
--- NOTE | 2022-04-04 07:46 | HP.PCM_ITS ---
[facility] - General General Date of Service: 04/04/22 Chief Complaint: Screening for intestinal cancer [facility] Narrative NELIDA DELACRUZ, is a 51 F who presents for screening colonoscopy. She has had a very complex history of severe diverticular disease stricturing. She never did complete a colonoscopy. I saw her September 22, 2020 and recommended a colonoscopy and she now presents at this time. She is presenting via open access. She states that her bowel habits are markedly improve prior to her sigmoid colectomy and small bowel enterectomy for severe diverticular disease. She still has days that are better than some. No current abdominal pain. She is somewhat gassy. No bright red blood per rectum or melena. [facility] Medical History (Updated 04/03/22 @ 09:49 by Asia Acosta) Alcohol use Anemia Anxiety Depressive disorder, not elsewhere classified Diverticulitis Former smoker History of diverticulitis History of small bowel obstruction (~08/2019) Hives Ileostomy present Leg cramps PONV (postoperative nausea and vomiting) Post-menopausal Screening for malignant neoplasm of intestine Home Medications epinephrine 0.3 mg/0.3 mL injection, auto-injector (EpiPen) 0.3 mg (0.3 mL) IM Q5-15M PRN hypersensitivity reaction #2 ea 07/21/20 [Rx Last Taken Unknown] multivitamin 1 tab PO DAILY 04/03/22 [History Last Taken Unknown] Allergy/AdvReac Type Severity Reaction Status Date / Time bee pollen Allergy Swelling Verified 04/04/22 07:38 promethazine [From Phenergan] Allergy Other Verified 04/04/22 07:38 Family History Unknown Asthma Mother Cancer Asthma Heart disease COPD (chronic obstructive pulmonary disease) Surgical History (Updated 02/03/22 @ 16:59 by Sierra Dubon) H/O section H/O colonoscopy History of colectomy (~08/2019) history of ostomy reversal (~01/2020) Social History (Updated 09/22/20 @ 14:[address] 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 Constitutional Constitutional: Reports systems reviewed and no addt'l complaints, except as documented Cardiovascular Cardiovascular: Denies chest pain Respiratory/Chest Respiratory/Chest: Denies shortness of breath at rest Gastrointestinal Gastrointestinal: Denies abdominal pain, change in bowel habits, hematochezia or melena Vital Signs Vital Signs Vital Signs: 04/04/22 07:36 04/04/22 07:36 Temperature 97.9 F Temperature Source Temporal Pulse Rate 79 Respiratory Rate 16 Respiratory Pattern Normal Blood Pressure 119/78 Blood Pressure Mean 91 Blood Pressure Source Monitor Blood Pressure Position Semi-Fowlers Blood Pressure Location Left Arm Pulse Ox 100 Oxygen Delivery Method Room Air Weight Weight: 127 lb 3.307 oz Body Mass Index (BMI) 24.0 Physical Exam Const alert, oriented x3 and no apparent distress General Appearance: cooperative and comfortable Eyes General Eye: normal appearance of both eyes Neck General: normal visual inspection Chest inspection of chest normal Resp Effort and Inspection: able to speak in complete sentences and symmetric chest movement Auscultation: clear to auscultation bilaterally Cardio regular rate and regular rhythm GI soft to palpation, non-tender and non-distended Extremity no calf tenderness Neuro oriented x3 Psych thought process normal Assessment & Plan Assessment/Plan (1) Encounter for screening for malignant neoplasm of intestinal tract, unspecified: PLAN: I recommend to the patient a screening colonoscopy with possible biopsy or polypectomy or dilatation if indicated. She presents via open access. She has had an opportunity to ask and have questions answered. We will proceed as noted. Ezra Victor M.D., F.A.C.S.
--- NOTE | 2022-04-04 08:00 | COLBX_PTH ---
PATIENT: NELIDA DELACRUZ LOC: EN U#:[id number] AGE/SX: 51/F ROOM: RE04/04/[address]: Dr. Ezra Victor MD : 1970 BED: DIS: 04/04/2022 SPEC #: [id number] RECD: 04/04/22 11:05 STATUS: JORGE CHHAYA #: [id number] DOROTHY: 04/04/22 08:[address]: Ezra Victor DEPT: SURGICAL PATHOLOGY RECD BY: Trev Cardoza ENTERED: 04/04/22 12:05 SP TYPE: COLON BX OTHR DR: Dr. April Davalos, DO Tissues: Rectum, NOS Procedures: Surgery Specimen Level IV HEADER OPERATION: Colonoscopy (MAC) with polypectomy PRE-OP DIAGNOSIS: Screening TISSUE SUBMITTED: Proximal rectum polyp MICROSCOPIC DIAGNOSIS Proximal rectum polyp, polypectomy: Tubular adenoma. ARIEL:eda 04/05/2022 MICROSCOPIC DESCRIPTION Slides are reviewed. GROSS DESCRIPTION Received in fixative is one container labeled with the patient's name and designated proximal rectum polyp. The specimen consists of a pop-pink polyp measuring 0.5 x 0.5 x 0.3 cm. The specimen is totally submitted in one cassette. / SJ:rg 04/04/2022 TC:1 CPT: 46939
--- NOTE | 2022-04-04 08:52 | OP.COLON_ITS ---
Patient Name: Geovanna Lewis Procedure Date: 04/04/2022 8:24 AM Date of : 1970 Age: 51 Procedure: Colonoscopy Indications: Screening for colorectal malignant neoplasm Providers: Ezra Victor MD Medicines: See the Anesthesia note for documentation of the administered medications Patient Profile: Last Colonoscopy: none. The patient's first colonoscopy is today. Complications: No immediate complications. Procedure: Pre-Anesthesia Assessment: - Prior to the procedure, a History and Physical was performed, and patient medications and allergies were reviewed. The patient's tolerance of previous anesthesia was also reviewed. The risks and benefits of the procedure and the sedation options and risks were discussed with the patient. All questions were answered, and informed consent was obtained. Prior Anticoagulants: The patient has taken no previous anticoagulant or antiplatelet agents. ASA Grade Assessment: II - A patient with mild systemic disease. After reviewing the risks and benefits, the patient was deemed in satisfactory condition to undergo the procedure. After I obtained informed consent, the scope was passed under direct vision. Throughout the procedure, the patient's blood pressure, pulse, and oxygen saturations were monitored continuously. The pediatric colonoscope was introduced through the anus and advanced to the cecum, identified by appendiceal orifice and ileocecal valve. The colonoscopy was performed without difficulty. The patient tolerated the procedure well. The quality of the bowel preparation was adequate to identify polyps. Scope In: 8:31:50 AM Scope Withdrawal Time 0 hours 10 minutes 0 seconds Scope Out: 8:47:31 AM Total Procedure Duration Time 0 hours 15 minutes 41 seconds Findings: Hemorrhoids were found on perianal exam. A 6 mm polyp was found in the rectum. The polyp was sessile. The polyp was removed with a hot snare. Resection and retrieval were complete. There was evidence of a prior end-to-end colo-colonic anastomosis in the distal sigmoid colon. This was patent and was characterized by healthy appearing mucosa. The anastomosis was traversed. Scattered diverticula were found in the mid sigmoid colon. The exam was otherwise without abnormality. Impression: - Hemorrhoids found on perianal exam. - One 6 mm polyp in the rectum, removed with a hot snare. Resected and retrieved. - Patent end-to-end colo-colonic anastomosis, characterized by healthy appearing mucosa. - Diverticulosis in the mid sigmoid colon. - The examination was otherwise normal. Recommendation: - Discharge patient to home. - Resume previous diet. - Continue present medications. - Repeat colonoscopy in 5 years for surveillance based on pathology results. - Telephone my office for pathology results in 1 week. Procedure Code(s): --- Professional --- 94322, Colonoscopy, flexible; with removal of tumor(s), polyp(s), or other lesion(s) by snare technique Diagnosis Code(s): --- Professional --- Z12.11, Encounter for screening for malignant neoplasm of colon K64.9, Unspecified hemorrhoids K62.1, Rectal polyp Z98.0, Intestinal bypass and anastomosis status K57.30, Diverticulosis of large intestine without perforation or abscess without bleeding CPT copyright 2017 [employer]. All rights reserved. The codes documented in this report are preliminary and upon tax specialist review may be revised to meet current compliance requirements. Ezra Victor MD 04/04/2022 8:52:21 AM This report has been signed electronically. Number of Addenda: 0 Note Initiated On: 04/04/2022 8:24 AM
--- NOTE | 2022-04-04 08:53 | OP.CCLET_ITS ---
04/04/2022 April Davalos Re : Colonoscopy procedure for Geovanna Davalos This procedure was performed on Monday, April 04, 2022. My impressions and recommendations are as follows: Impressions : - Hemorrhoids found on perianal exam. - One 6 mm polyp in the rectum, removed with a hot snare. Resected and retrieved. - Patent end-to-end colo-colonic anastomosis, characterized by healthy appearing mucosa. - Diverticulosis in the mid sigmoid colon. - The examination was otherwise normal. Recommendations : - Discharge patient to home. - Resume previous diet. - Continue present medications. - Repeat colonoscopy in 5 years for surveillance based on pathology results. - Telephone my office for pathology results in 1 week. My findings are described in the full procedure note, which is enclosed. If I can be of further assistance, please feel free to contact me at Doctor phone number(s): Work: . Sincerely, Ezra Victor MD 04/04/2022 8:52:21 AM This report has been signed electronically.
== END 2022-04-04 09:37 | disposition home or self-care (01) ==
LOC: EN 06:56 → AC 06:56
PROVIDERS: PCP Internal Medicine; Referring Provider Internal Medicine; Visit Provider Surgery
PROC: 0DJD8ZZ Inspection of Lower Intestinal Tract, Via Natural or Artificial Opening Endoscopic (ICD-10-PCS; CPT 45378; principal; 2022-04-04 07:55)
DX: Z12.11 Encounter for screening for malignant neoplasm of colon (principal); D12.8 Benign neoplasm of rectum; K57.30 Diverticulosis of large intestine without perforation or abscess without bleeding; K64.9 Unspecified hemorrhoids; F32.A Depression, unspecified; F41.9 Anxiety disorder, unspecified; Z78.0 Asymptomatic menopausal state; Z87.891 Personal history of nicotine dependence
CPT/HCPCS: 45385; 88305; J7120; J2405

== ENCOUNTER 2023-07-12 21:13 | Inpatient (IN) | payer OTHER, SELFPAY ==
[2023-07-12 21:15] VITALS: BP 171/96; PULSE 97; RESP 16; TEMP 36.4; O2SAT 99; BMI 25.4
[2023-07-12 22:20] VITALS: RESP 16
[2023-07-12 22:33] LABS: Absolute Lymphocyte Count 1.19 X10^3/uL (0.83-4.51); Absolute Neutrophil Count 12.9 X10^3/uL (2.0-7.7); Basophil# 0.05 X10^3/uL; Basophil% 0.3 % (0-1); Eosinophil# 0.01 X10^3/uL; Eosinophils% 0.1 % (0-5); Hematocrit 52.6 % (37-47); Hemoglobin 17.4 g/dL (12.0-15.0); Lymphocyte # 1.19 X10^3/ul (0.83-4.51); Lymphocyte % 8.1 % (19-41); Mean Corp Hgb Conc 33.1 g/dL (32-36); Mean Corpuscular Hgb 31.3 pg (27.0-32.0); Mean Corpuscular Volume 94.6 fL (81-99); Mean Platelet Vol. 9.5 fl (6.2-12.0); Monocyte# 0.44 X10^3/uL; NRBC Flagged by Analyzer 0 % (0-5); Neutrophil % 88.2 % (47-70); Platelet Count 357 K/mm3 (150-450); RBC Distribution Width CV 12.9 % (11.6-14.6); RBC Distribution Width SD 45.2 fl (35.1-43.9); Red Blood Count 5.56 M/mm3 (4.2-5.4); White Blood Count 14.6 K/mm3 (4.4-11.0)
--- NOTE | 2023-07-12 22:36 | EDS_ITS ---
HPI HPI - GI History of Present Illness Chief Complaint: Abd Pain Narrative Narrative: 53-year-old female present with abdominal pain which has been ongoing for about a month. She states that she has a history of bowel resection and colostomy with reversal. She also has history of x 2. She states that initially she had some pain which has been ongoing for a long time and she came to the emergency room and was treated as constipation. The next day she states she came back and had lab work and imaging. She cannot recall she was admitted or sent home at that point but she followed up with Dr. Victor as an outpatient about a month later and had surgery. She states initially was post to be a simple resection however it became something more. She had multiple surgeries. She does not know why she had to have a resection. Currently she states she has not had any fevers. She has nausea. She is constipated and is not sure when she had a last normal bowel movement. States not passing flatus. PFSH [facility] Medical History Alcohol use Anemia Anxiety Depressive disorder, not elsewhere classified Diverticulitis Former smoker History of diverticulitis History of small bowel obstruction (~08/2019) Hives Ileostomy present Leg cramps PONV (postoperative nausea and vomiting) Post-menopausal Screening for malignant neoplasm of intestine Home Medications epinephrine 0.3 mg/0.3 mL injection, auto-injector (EpiPen) 0.3 mg (0.3 mL) IM Q5-15M PRN hypersensitivity reaction #2 ea 07/21/20 [Rx Last Taken Unknown] multivitamin 1 tab PO DAILY 04/03/22 [History Last Taken Unknown] dextroamphetamine-amphetamine 20 mg tablet 20 mg PO 1200 07/13/23 [History Last Taken Unknown] dextroamphetamine-amphetamine ER 20 mg 24hr capsule,extend release 20 mg PO 0500 07/13/23 [History Last Taken Unknown] Allergy/AdvReac Type Severity Reaction Status Date / Time bee pollen Allergy Swelling Verified 07/12/23 21:14 promethazine [From Phenergan] Allergy Other Verified 07/12/23 21:14 Family History Unknown Asthma Mother Cancer Asthma Heart disease COPD (chronic obstructive pulmonary disease) Surgical History H/O section H/O colonoscopy History of colectomy (~08/2019) history of ostomy reversal (~01/2020) Social History household members: family number of children: 4 current occupational status: employed Smoking Status: Current every day smoker tobacco type: cigarettes second hand exposure: No alcohol intake: current details: Glass of wine 3x a weeks substance use type: does not use caffeine: Yes what type of physical activity do you participate in: none seatbelt use: always do you feel safe at home: Yes 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 ROS ROS ED Constitutional Constitutional ED: Denies chills or fever(s) ENT ENT ED: Denies rhinorrhea or sore throat Cardiovascular Cardiovascular: Denies chest pain or palpitations Respiratory/Chest Respiratory/Chest: Denies cough or dyspnea Gastrointestinal Gastrointestinal: Reports abdominal pain, constipation and nausea Genitourinary Genitourinary ED: Denies dysuria or hematuria Musculoskeletal Musculoskeletal: Denies arthralgias Integumentary Denies abscess or Abrasions Neurologic Neurologic: Denies headache(s) or paresthesias Psychiatric Psychiatric: Denies anxiety or depression Endocrine Endocrinology: Denies polydipsia or polyphagia EXAM Physical Exam Const Vital Signs: 07/12/23 21:15 07/12/23 22:20 07/13/23 00:48 Temperature 97.6 F L Temperature Source Temporal Pulse Rate 97 Respiratory Rate 16 16 Blood Pressure 171/96 H 133/90 H Blood Pressure Mean 121 104 Pulse Ox 99 Oxygen Delivery Method Room Air 07/13/23 01:00 Temperature Temperature Source Pulse Rate Respiratory Rate 16 Blood Pressure Blood Pressure Mean Pulse Ox Oxygen Delivery Method Positive well nourished General Appearance ED: NAD; Negative for pallor HEENT Reports moist mucous membranes normocephalic and atraumatic Eyes PERRL and EOMs intact bilaterally Resp normal respiratory effort and clear to auscultation bilaterally Auscultation: Negative for rales, rhonchi or wheezes Cardio regular rate and regular rhythm GI Auscultation: high-pitched bowel sounds Palpation: tender periumbilical Percussion: tympanic to percussion; Negative for dullness to percussion Neuro CN's II-XII intact bilaterally Sensorium / Orientation: alert Motor Exam: strength 5/5 throughout Psych mental status grossly normal and thought process normal Skin General Skin Exam: Negative for jaundice or pallor MDM MDM MDM Narrative Medical decision making narrative: 53-year-old female presenting with abdominal pain. Differential includes gastritis, pancreatitis, cholecystitis, colitis, diverticulitis, small bowel obstruction, UTI, pyelonephritis. Patient medicated with morphine, Zofran. Patient given a liter normal saline. CBC was obtained to assess white blood cell count, hemoglobin, platelets. CMP to assess liver function, renal function, electrolytes, glucose. Lipase to assess for pancreatitis. Urinalysis to assess for UTI. Based on her abdominal exam I do suspect she likely has a small bowel obstruction as a cause of her symptoms. CBC shows slight leukocytosis at 14.6. Hemoglobin was 17.4 although hemoconcentrated. Platelet count 357. Lactic acid normal at 1.5. Renal function and electrolytes within normal limits. LFTs are normal. Lipase negative, hCG negative. CT of the abdomen pelvis was ordered with IV contrast however inadvertently this was done without contrast. This does identify a small bowel obstruction. Discussed with the general surgery on-call Dr. Roblero. She recommended NG tube placement which was performed. She recommended admission to the hospitalist. Patient given a second dose of morphine and Zofran to control her symptoms. She tolerated G-tube well. Post NG tube placement a KUB was performed which on my interpretation shows good placement. We did obtain some gastric contents as well. Patient admitted in stable condition. Impression: 1. Small bowel obstruction 2. Leukocytosis 3. Nausea/vomiting Lab Data Labs: Laboratory Results - last 24 hr 07/12/23 07/12/23 22:25 22:54 WBC 14.6 H RBC 5.56 H Hgb 17.4 H Hct 52.6 H MCV 94.6 MCH 31.3 MCHC 33.1 RDW Std Deviation 45.2 H RDW Coeff of Miguel 12.9 Plt Count 357 MPV 9.5 Immature Gran % (Auto) 0.300 Neut % (Auto) 88.2 H Lymph % (Auto) 8.1 L [place] % (Auto) 3.0 Eos % (Auto) 0.1 Baso % (Auto) 0.3 Absolute Neuts (auto) 12.9 H Absolute Lymphs (auto) 1.19 Nucleated RBC % 0 Sodium 135 L Potassium 4.2 Chloride 99 Carbon Dioxide 29.0 Anion Gap 7 BUN 12 Creatinine 0.90 Estim Creat Clear Calc 54.55 Est GFR (MDRD) Af Amer 85 Est GFR (MDRD) Non-Af 70 BUN/Creatinine Ratio 13.4 Glucose 119 H Lactic Acid 1.5 Calcium 10.4 H Total Bilirubin 0.40 AST 28 ALT 34 Alkaline Phosphatase 96 Total Protein 8.6 H Albumin 4.6 Globulin 4.0 Albumin/Globulin Ratio 1.2 Lipase 15 Serum , Qual NEGATIVE Radiography Diagnostic Testing: Clinical Impression(s) from Imaging Studies Abdomen/Pelvis CT 07/12/23 23:06 IMPRESSION: Multiple loops of the small bowel at the mid abdomen level show dilatation compatible with moderate to high-grade small bowelri obstruction. This is potentially related to adhesions given evidence of prior bowel surgery. Electronically Signed: Gurjit Benavides MD at 0:17 EST , Discharge Plan Triage Chief Complaint: Abd Pain ED Provider: Jean Salgado Dx/Rx/DC Orders Prescriptions: No Action epinephrine [EpiPen] 0.3 mg/0.3 mL auto-injector 0.3 mg IM Q5-15M PRN (Reason: hypersensitivity reaction) Qty: 2 3RF Rx Instructions: do not exceed 3 doses per episode multivitamin Tablet 1 tab PO DAILY dextroamphetamine-amphetamine 20 mg capsule,extended release 24hr 20 mg PO 0500 Patient Comments: TAKE 1 CAPSULE BY MOUTH EVERY DAY AT 5AM dextroamphetamine-amphetamine 20 mg tablet 20 mg PO 1200 Patient Comments: TAKE 1 TABLET BY MOUTH EVERY DAY AT NOON Primary Care Provider: April Davalos Referrals: April Davalos DO [Primary Care Provider] -
--- OUTSIDE RECORDS SUMMARY | 2023-07-12 22:39 | XMS RPT_ITS | CCD ---
Author Name Unknown Address [address] [place] [address] Organization [facility] Care Team Providers Care Scientist/Engineer Name Role Phone Radha Jerome Unavailable Ike Hyatt Unavailable Unavailable Theresa Das Unavailable Unavailable Fast DO, April A Unavailable SHANNON Adrian LPN Unavailable Unavailable Joyce Olvera MD Unavailable Manchak SUPERVISOR SAMPLE PREPARATION, Nadira Unavailable Unavailable Unavailable Unavailable Unavailable Unavailable Rosamaria Benton Unavailable Fast DO, April A Unavailable Friend, Dr. Padgett Unavailable Joyce Olvera MD Unavailable Ivelisse Alejo LPN Unavailable Unavailable Fast DO, April A Attending Unavailable Fast DO, April A Referring Unavailable Fast DO, April A Consulting Unavailable Preeti mAador Unavailable Shauna Rosenberg LPN Unavailable Unavailable Medications Completed/Discontinued Medications Medication Drug Class(es) Dates Sig (Normalized) Sig (Original) amoxicillin 875 mg / clavulanate 125 mg oral tablet (11 sources) Penicillin-class Antibacterial Start: 01-01-2023 End: 01-22-2023 take 1 tablet by mouth twice daily amoxicillin-pot clavulanate 875-125 mg oral tablet 1 (one) tablet bid for 0 days Quantity: 20 {Tablet} Refills: 0 Ordered: 22-Jan-2023 Ivelisse Alejo LPN Start : 01-Jan-2023 End : 22-Jan-2023 Inactive 24 hr amphetamine aspartate 5 mg / amphetamine sulfate 5 mg / dextroamphetamine saccharate 5 mg / dextroamphetamine sulfate 5 mg extended release oral capsule (20 sources) Central Nervous System Stimulant Start: 04-30-2023 take 1 tablet by mouth once daily dextroamphetamin e-amphetamine 20 mg oral tablet 1 (one) Tablet qd at noon for 0 days Quantity: 30 {Tablet} Refills: 0 Ordered: 30-Apr-2023 Joyce Olvera MD Start : 30-Apr-2023 Active Comments: Disp: Thirty Dx: R41.840fill for 06-30-23 Problems Active Problems Problem Classification Problem Date Documented Da te Episodic/Chronic Abdominal pain (20 sources) Epigastric pain; Translations: [Epigastric pain] 04-17-2022 Episodic Anxiety disorders (20 sources) Anxiety; Translations: [Anxiety] 07-18-2021 Chronic Past or Other Problems Problem Classification Problem Date Documented Da te Episodic/Chronic Conditions associated with dizziness or vertigo (1 source) Conditions associated with dizziness or vertigo Syncope (20 sources) Syncope Unclassified (20 sources) 09-11-2018 Results Test Name Value Interpretation Reference Range Facil ity Vital Signs Date Time Vital Sign Value Performing Clinician Faci lity 04-30-2023 09:54-0400 Body height 152.4 cm Joyce Olvera MD Work Phone: [facility] Work Phone: Encounters Encounter Date Encounter Type Care Provider Facility Start: 04-30-2023 End: 04-30-2023 Office outpatient visit 10 minutes April Fast DO Work Phone: [facility] Start: 03-12-2023 End: 03-12-2023 Prescription Refill April Fast DO Work Phone: [facility] Start: 01-22-2023 End: 01-22-2023 Office outpatient visit 10 minutes April Fast DO Work Phone: [facility] Start: 01-05-2023 End: 01-17-2023 Office outpatient visit 15 minutes April Fast DO Work Phone: [facility] Start: 01-05-2023 Review April Fast DO Work Phone: [facility] Start: 01-01-2023 End: 01-01-2023 Patient encounter procedure April Fast DO Work Phone: [facility] Start: 01-01-2023 Review April Fast DO Work Phone: [facility] Start: 10-23-2022 End: 10-23-2022 Prescription Refill April Fast DO Work Phone: [facility] Start: 09-04-2022 End: 09-04-2022 Annotation/Addendum April Fast DO Work Phone: [facility] Start: 08-14-2022 End: 08-14-2022 Prescription Refill April Fast DO Work Phone: [facility] Start: 07-24-2022 ambulatory April A Fast DO [facility] Start: 07-24-2022 End: 07-24-2022 Office outpatient visit 10 minutes April Fast DO Work Phone: [facility] Start: 05-08-2022 End: 05-08-2022 Prescription Refill April Fast DO Work Phone: [facility] Start: 04-17-2022 End: 04-18-2022 Office outpatient visit 15 minutes April Fast DO Work Phone: [facility] Start: 04-17-2022 Review April Fast DO Work Phone: [facility] Start: 03-27-2022 End: 03-27-2022 Office outpatient visit 5 minutes April Fast DO Work Phone: [facility] Start: 02-27-2022 End: 02-27-2022 Phone Encounter April Fast DO Work Phone: [facility] Start: 01-23-2022 End: 01-23-2022 Office outpatient visit 25 minutes April Fast DO Work Phone: [facility] Start: 12-16-2021 End: 06-14-2022 Patient encounter procedure April Fast DO Work Phone: [facility] Start: 12-16-2021 Review April Fast DO Work Phone: [facility] Start: 10-03-2021 End: 11-11-2021 Phone Encounter April Fast DO Work Phone: [facility] Start: 09-19-2021 End: 09-19-2021 Office outpatient visit 5 minutes April Fast DO Work Phone: [facility] Start: 09-16-2021 End: 09-16-2021 Phone Encounter April Fast DO Work Phone: [facility] Start: 08-12-2021 End: 12-27-2021 Office outpatient visit 15 minutes April Fast DO Work Phone: [facility] Start: 08-12-2021 Review April Fast DO Work Phone: [facility] Start: 08-01-2021 End: 08-01-2021 Office outpatient visit 15 minutes April Fast DO Work Phone: [facility] Start: 07-20-2021 End: 07-20-2021 Phone Encounter April Fast DO Work Phone: [facility] Start: 07-18-2021 End: 07-18-2021 Office outpatient visit 25 minutes April Fast DO Work Phone: [facility] Start: 07-14-2021 End: 07-14-2021 Lab Order April Fast DO Work Phone: [facility] Start: 07-12-2021 Review April Fast DO Work Phone: [facility] Start: 07-11-2021 End: 07-13-2021 Office outpatient visit 5 minutes April Fast DO Work Phone: [facility] Start: 07-04-2021 End: 07-05-2021 Office outpatient visit 15 minutes April Fast DO Work Phone: [facility] Start: 06-24-2021 End: 06-26-2021 Office outpatient visit 25 minutes April Fast DO Work Phone: [facility] Start: 09-11-2018 End: 09-11-2018 Office outpatient new 45 minutes Radha Jerome [facility] Internal Medicine Procedures Date Procedure Procedure Detail Performing Clinician Start: 04-04-2022 End: 04-04-2022 Colonoscopy Report Procedure Note: See Note; NOTES: [facility] Medical Records Department [address] [place] [address] Colonoscopy Report MR#: [id number] Acct: [id number] Name: GEOVANNA LEWIS Rep #: [id number] : 1970 51 From: Ezra Victor MD PCP: Dr. April Davalos, DO Status:REG SDC Patient Name: Geovanna Lewis Procedure Date: 04/04/2022 8:24 AM Date of : 1970 Age: 51 Procedure: Colonoscopy Indications: Screening for colorectal malignant neoplasm Providers: Ezra Victor MD Medicines: See the Anesthesia note for documentation of the administered medications Patient Profile: Last Colonoscopy: none. The patient's first colonoscopy is today. Complications: No immediate complications. Procedure: Pre-Anesthesia Assessment: - Prior to the procedure, a History and Physical was performed, and patient medications and allergies were reviewed. The patient's tolerance of previous anesthesia was also reviewed. The risks and benefits of the procedure and the sedation options and risks were discussed with the patient. All questions were answered, and informed consent was obtained. Prior Anticoagulants: The patient has taken no previous anticoagulant or antiplatelet agents. ASA Grade Assessment: II - A patient with mild systemic disease. After reviewing the risks and benefits, the patient was deemed in satisfactory condition to undergo the procedure. After I obtained informed consent, the scope was passed under direct vision. Throughout the procedure, the patient's blood pressure, pulse, and oxygen saturations were monitored continuously. The pediatric colonoscope was introduced through the anus and advanced to the cecum, identified by appendiceal orifice and ileocecal valve. The colonoscopy was performed without difficulty. The patient tolerated the procedure well. The quality of the bowel preparation was adequate to identify polyps. Scope In: 8:31:50 AM Scope Withdrawal Time 0 hours 10 minutes 0 seconds Scope Out: 8:47:31 AM Total Procedure Duration Time 0 hours 15 minutes 41 seconds Findings: Hemorrhoids were found on perianal exam. A 6 mm polyp was found in the rectum. The polyp was sessile. The polyp was removed with a hot snare. Resection and retrieval were complete. There was evidence of a prior end-to-end colo-colonic anastomosis in the distal sigmoid colon. This was patent and was characterized by healthy appearing mucosa. The anastomosis was traversed. Scattered diverticula were found in the mid sigmoid colon. The exam was otherwise without abnormality. Impression: - Hemorrhoids found on perianal exam. - One 6 mm polyp in the rectum, removed with a hot snare. Resected and retrieved. - Patent end-to-end colo-colonic anastomosis, characterized by healthy appearing mucosa. - Diverticulosis in the mid sigmoid colon. - The examination was otherwise normal. Recommendation: - Discharge patient to home. - Resume previous diet. - Continue present medications. - Repeat colonoscopy in 5 years for surveillance based on pathology results. - Telephone my office for pathology results in 1 week. Procedure Code(s): --- Professional --- 47353, Colonoscopy, flexible; with removal of tumor(s), polyp(s), or other lesion(s) by snare technique Diagnosis Code(s): --- Professional --- Z12.11, Encounter for screening for malignant neoplasm of colon K64.9, Unspecified hemorrhoids K62.1, Rectal polyp Z98.0, Intestinal bypass and anastomosis status K57.30, Diverticulosis of large intestine without perforation or abscess without bleeding CPT copyright 2017 [employer]. All rights reserved. The codes documented in this report are preliminary and upon [employer] review may be revised to meet current compliance requirements. Ezra Victor MD 04/04/2022 8:52:21 AM This report has been signed electronically. Number of Addenda: 0 Note Initiated On: 04/04/2022 8:24 AM 04/04/22 0852 Date Ezra Victor MD Cosigner Signature: Date (if indicated) CC: Dr. April Davalos DO; Dr. Ezra Victor MD Date Dictated: 04/04/22823 Date Transcribed: Cashier Parking Lot: JOSE Signed April Davalos DO Work Phone: Start: 04-04-2022 End: 04-04-2022 History and Physical Exam Procedure Note: See Note; NOTES: [facility] Medical Records Department [address] [place] [address] History Physical Exam 04/04/22 0746 MR#: [id number] Acct: [id number] Name: GEOVANNA LEWIS Rep #: [id number] : 1970 51 From: Ezra Victor MD PCP: Dr. April Davalos DO Status:[facility] Location: [place] [address] HPI - General General Date of Service: 04/04/22 Chief Complaint: Screening for intestinal cancer HPI Narrative GEOVANNA LEWIS, is a 51 F who presents for screening colonoscopy. She has had a very complex history of severe diverticular disease stricturing. She never did complete a colonoscopy. I saw her September 22, 2020 and recommended a colonoscopy and she now presents at this time. She is presenting via open access. She states that her bowel habits are markedly improve prior to her sigmoid colectomy and small bowel enterectomy for severe diverticular disease. She still has days that are better than some. No current abdominal pain. She is somewhat gassy. No bright red blood per rectum or melena. [facility] Medical History (Updated 04/03/22 @ 09:49 by Asia Acosta) Alcohol use Anemia Anxiety Depressive disorder, not elsewhere classified Diverticulitis Former smoker History of diverticulitis History of small bowel obstruction ( 08/2019) Hives Ileostomy present Leg cramps PONV (postoperative nausea and vomiting) Post-menopausal Screening for malignant neoplasm of intestine Home Medications epinephrine 0.3 mg/0.3 mL injection, auto-injector (EpiPen) 0.3 mg (0.3 mL) IM Q5-15M PRN hypersensitivity reaction #2 ea 07/21/20 [Rx Last Taken Unknown] multivitamin 1 tab PO DAILY 04/03/22 [History Last Taken Unknown] Allergy/AdvReac Type Severity Reaction Status Date / Time bee pollen Allergy Swelling Verified 04/04/22 07:38 promethazine [From Phenergan] Allergy Other Verified 04/04/22 07:38 Family History Unknown Asthma Mother Cancer Asthma Heart disease COPD (chronic obstructive pulmonary disease) Surgical History (Updated 02/03/22 @ 16:59 by Sierra Dubon) H/O section H/O colonoscopy History of colectomy ( 08/2019) history of ostomy reversal ( 01/2020) Social History (Updated 09/22/20 @ 14:[address] 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 [employer] ROS Constitutional Constitutional: Reports systems reviewed and no addt'l complaints, except as documented Cardiovascular Cardiovascular: Denies chest pain Respiratory/Chest Respiratory/Chest: Denies shortness of breath at rest Gastrointestinal Gastrointestinal: Denies abdominal pain, change in bowel habits, hematochezia or melena Vital Signs Vital Signs Vital Signs: 04/04/22 07:36 04/04/22 07:36 Temperature 97.9 F Temperature Source Temporal Pulse Rate 79 Respiratory Rate 16 Respiratory Pattern Normal Blood Pressure 119/78 Blood Pressure Mean 91 Blood Pressure Source Monitor Blood Pressure Position Semi-Fowlers Blood Pressure Location Left Arm Pulse Ox 100 Oxygen Delivery Method Room Air Weight Weight: 127 lb 3.307 oz Body Mass Index (BMI) 24.0 Physical Exam Const alert, oriented x3 and no apparent distress General Appearance: cooperative and comfortable Eyes General Eye: normal appearance of both eyes Neck General: normal visual inspection Chest inspection of chest normal Resp Effort and Inspection: able to speak in complete sentences and symmetric chest movement Auscultation: clear to auscultation bilaterally Cardio regular rate and regular rhythm GI soft to palpation, non-tender and non-distended Extremity no calf tenderness Neuro oriented x3 Psych thought process normal Assessment Plan Assessment/Plan (1) Encounter for screening for malignant neoplasm of intestinal tract, unspecified: PLAN: I recommend to the patient a screening colonoscopy with possible biopsy or polypectomy or dilatation if indicated. She presents via open access. She has had an opportunity to ask and have questions answered. We will proceed as noted. Ezra Victor M.D., F.A.C.S. 04/04/22 0748 <Electronically signed by zEra Victor MD> Cosigner Signature (if applicable): CC: Dr. April Davalos DO; Dr. Ezra Victor MD Signed April Davalos DO Work Phone: Start: 07-20-2021 End: 07-21-2021 Chest PA and Lateral Comments: See Note; NOTES: [facility] Imaging Services [address] [place] [address] Chest PA and Lateral MR#: [id number] Acct: [id number] Name: GEOVANNA LEWIS Rep #: [id number] : 1970 F 51 From: Trent Tanner PCP: Dr. Fatoumata Galeas MD Status: REG CLI Study: Chest PA and Lateral Date of Exam: 07/20/21 Exam# [id number] Ordering Dr: April Daavlos DO STUDY: X-RAY CHEST REASON FOR EXAM: Female, 51 years old. COUGH TECHNIQUE: Frontal and lateral views of the chest. COMPARISON: None. FINDINGS: The lungs are clear and expanded. There is no demonstrated pleural abnormality. Normal size heart. Normal mediastinum and lucy. Normal visualized pulmonary arteries. Normal visualized aortic arch and descending thoracic aorta. Normal visualized thoracic spine. Normal visualized ribs, clavicles, and shoulders. There is no demonstrated abnormality of the visualized soft tissue structures of the upper abdomen. RAD/Chest PA and Lateral IMPRESSION: Normal x-ray examination of the chest. Electronically Signed: Trent Fung MD at 0:20 EST Tel , Service support , CC: Dr. April Davalos DO; Dr. Fatoumata Galeas MD Cashier Parking Lot: Signed April Davalos DO Work Phone: BOWEL OBSTRUCTION/SC AR TISSUE BOWEL TWISTED- COLOSTOMY- 2019- cebul April Barry Fast DO Work Phone: BOWEL OBSTRUCTION/SC AR TISSUE BOWEL TWISTED- COLOSTOMY- 2019- cebul Nadira Manchak SUPERVISOR SAMPLE PREPARATION BOWEL OBSTRUCTION/SC AR TISSUE BOWEL TWISTED- COLOSTOMY- 2020- cebul Nadira Manchak SUPERVISOR SAMPLE PREPARATION BOWEL OBSTRUCTION/SC AR TISSUE BOWEL TWISTED- COLOSTOMY- 2020- cebul Joyce Olvera MD Work Phone: BOWEL OBSTRUCTION/SC AR TISSUE BOWEL TWISTED- COLOSTOMY- 2019- cebul Nadira Manchak SUPERVISOR SAMPLE PREPARATION BOWEL OBSTRUCTION/SC AR TISSUE BOWEL TWISTED- COLOSTOMY- 2019- cebul Ivelisse Alejo VISION CARE ASSOCIATE BOWEL OBSTRUCTION/SC AR TISSUE BOWEL TWISTED- COLOSTOMY- 2020- cebul Shauna Rosenberg VISION CARE ASSOCIATE Plan of Treatment Date Care Activity Detail Author Start: 04-30-2023 Procedure Education Eprescribed prescriptions (G8553) [facility] Work Phone: Start: 01-22-2023 Procedure Education Eprescribed prescriptions (G8553) [facility]; [facility] Work Phone: Start: 01-05-2023 Procedure Education Eprescribed prescriptions (G8553) [facility]; [facility] Work Phone: Start: 01-05-2023 Blood count complete auto&auto difrntl wbc CBC W/AUTO DIFF WBC (43393) [facility]; [facility] Work Phone: Start: 01-05-2023 Comprehensive metabolic panel METABOLIC PANEL, COMPREHENSIVE (90021) [facility]; [facility] Work Phone: Start: 09-04-2022 Culture bct isol&prsmptv id isolate ea urine URINE RADHA CULTURE-IDENTIFICATN (93071) [facility]; [facility] Work Phone: Start: 04-17-2022 Procedure Education Eprescribed prescriptions (G8553) [facility]; [facility] Work Phone: Start: 02-27-2022 Culture bct isol&prsmptv id isolate ea urine URINE RADHA CULTURE-IDENTIFICATN (76875) [facility]; [facility] Work Phone: Start: 01-23-2022 Procedure Education Eprescribed prescriptions (G8553) [facility]; [facility] Work Phone: Start: 12-16-2021 Procedure Education Eprescribed prescriptions (G8553) [facility]; [facility] Work Phone: Start: 12-16-2021 Comprehensive metabolic panel METABOLIC PANEL, COMPREHENSIVE (29431) [facility]; [facility] Work Phone: Start: 12-16-2021 Lipid panel LIPID PANEL (79786) [facility]; [facility] Work Phone: Start: 09-19-2021 Culture bacterial quanttative colony count urine URINE RADHA CULTURE (BEAR COL COUNT) (98497) [facility]; [facility] Work Phone: Start: 08-12-2021 Procedure Education Eprescribed prescriptions (G8553) [facility]; [facility] Work Phone: Start: 07-11-2021 Procedure Education Eprescribed prescriptions (G8553) [facility]; [facility] Work Phone: Start: 07-11-2021 COVID 19 (ONLY) RAPID (16391) COVID 19 (ONLY) RAPID (05853) [facility]; [facility] Work Phone: Start: 07-04-2021 Procedure Education Eprescribed prescriptions (G8553) [facility]; [facility] Work Phone: Start: 06-24-2021 Procedure Education Eprescribed prescriptions (G8553) [facility]; [facility] Work Phone: Start: 09-11-2018 Procedure Education Eprescribed prescriptions (G8553) [facility]; [facility] Work Phone: Start: 09-11-2018 Provider Instructions for Treatment *fatigue education [facility]; [facility] Work Phone: Start: 09-11-2018 Lipid panel LIPID PANEL (30160) [facility] Work Phone: Start: 09-11-2018 25 hydroxy includes fractions if performed CALCIFIDIOL (86460) VIT D 25 [facility] Work Phone: Start: 09-11-2018 Assay of folic acid serum Folate (45329) [facility] Work Phone: Start: 09-11-2018 Cobalamin (Vitamin B12) [Mass/Vol] VITAMIN B-12 (CYANOCOBALAMIN) (91033) [facility] Work Phone: Start: 09-11-2018 Cyanocobalamin vitamin b-12 VITAMIN B-12 (CYANOCOBALAMIN) (26885) [facility]; [facility] Work Phone: Start: 09-11-2018 Assay of thyroid stimulating hormone tsh TSH (58500) [facility]; [facility] Work Phone: Start: 09-11-2018 TSH Qn TSH (69937) [facility] Work Phone: Start: 09-11-2018 Sedimentation rate rbc non-automated SED RATE ERYTHROCYTE (66592) [facility] Work Phone: Start: 09-11-2018 Comprehensive metabolic panel METABOLIC PANEL, COMPREHENSIVE (65614) [facility] Work Phone: Start: 09-11-2018 C-reactive protein C-REACTIVE PROTEIN (64814) [facility]; [facility] Work Phone: Start: 09-11-2018 CRP [Mass/Vol] C-REACTIVE PROTEIN (54623) [facility] Work Phone: Start: 09-11-2018 Blood count complete automated CBC (AUTO) (40443) [facility] Work Phone: Start: 09-11-2018 Antinuclear antibodies candace CANDACE (ANTINUCLEAR ANTIBODY) (62899) [facility]; [facility] Work Phone: Start: 09-11-2018 Nuclear Ab IF (S) [Titer] CANDACE (ANTINUCLEAR ANTIBODY) (11493) [facility] Work Phone: [facility] Work Phone: Fatigue, unspeci fied type : *fatigue education [facility] Work Phone: Smoker : Eprescr ibed prescriptions (G8553) [facility] Work Phone: [facility] Work Phone: [facility]; [facility] Work Phone: [facility] Work Phone: [facility]; [facility] Work Phone: [facility]; [facility] Work Phone: [facility]; [facility] Work Phone: Payers Date Payer Category Payer Private Health Insurance [id number] 1970 Unknown [id number] Unknown [employer] Insurance Social History Date Type Detail Facility Alcohol Use Alcohol Use [facility] Work Phone: Clinical Notes Note Date & Type Note Facility [facility]; [facility] Work Phone: Instructions* Name Dates Details Patient Instructions Indication:ADHD (attention deficit hyperactivity disorder) evaluation Start:18-Jul-2021 Instruction Type:Provider Instructions for Treatment How to Access Health Informa tion Online using Patient Portal and 3rd [employer] Apps Indication:ADHD (attention deficit hyperactivity disorder) evaluation Start:18-Jul-2021 Instruction Type:Patient Education Patient Instructions Indication:Body aches Start:11-Jul-2021 Instruction Type:Provider Instructions for Treatment How to Access Health Informa tion Online using Patient Portal and 3rd [employer] Apps Indication:Body aches Start:11-Jul-2021 Instruction Type:Patient Education Patient Instructions Indication:Sleep disorder Start:05-Jul-2021 Instruction Type:Provider Instructions for Treatment Patient Instructions Indication:Sleep disorder Start:24-Jun-2021 Instruction Type:Provider Instructions for Treatment How to Access Health Informa tion Online using Patient Portal and [employer]rd [employer] Apps Indication:Sleep disorder Start:24-Jun-2021 Instruction Type:Patient Education How to access health informa tion online Indication:Smoker Start:11-Sep-2018 Instruction Type:Patient Education How to access health informa tion online - Detail Indication:Smoker Start:11-Sep-2018 Instruction Type:Patient Education Patient Instructions Indication:Smoker Start:11-Sep-2018 Instruction Type:Provider Instructions for Treatment [facility]; [facility] Work Phone: instructions* Name Dates Details Patient Instructions Indication:ADHD (attention deficit hyperactivity disorder) evaluation Start:18-Jul-2021 Instruction Type:Provider Instructions for Treatment How to Access Health Informa tion Online using Patient Portal and [employer]rd [employer] Apps Indication:ADHD (attention deficit hyperactivity disorder) evaluation Start:18-Jul-2021 Instruction Type:Patient Education Patient Instructions Indication:Body aches Start:11-Jul-2021 Instruction Type:Provider Instructions for Treatment How to Access Health Informa tion Online using Patient Portal and [employer]rd [employer] Apps Indication:Body aches Start:11-Jul-2021 Instruction Type:Patient Education Patient Instructions Indication:Sleep disorder Start:05-Jul-2021 Instruction Type:Provider Instructions for Treatment Patient Instructions Indication:Sleep disorder Start:24-Jun-2021 Instruction Type:Provider Instructions for Treatment How to Access Health Informa tion Online using Patient Portal and [employer]rd [employer] Apps Indication:Sleep disorder Start:24-Jun-2021 Instruction Type:Patient Education How to access health informa tion online Indication:Smoker Start:11-Sep-2018 Instruction Type:Patient Education How to access health informa tion online - Detail Indication:Smoker Start:11-Sep-2018 Instruction Type:Patient Education Patient Instructions Indication:Smoker Start:11-Sep-2018 Instruction Type:Provider Instructions for Treatment [facility]; [facility] Work Phone: instructions* Name Dates Details Patient Instructions Indication:ADHD (attention deficit hyperactivity disorder) evaluation Start:01-Aug-2021 Instruction Type:Provider Instructions for Treatment How to Access Health Informa tion Online using Patient Portal and [employer]rd [employer] Apps Indication:ADHD (attention deficit hyperactivity disorder) evaluation Start:01-Aug-2021 Instruction Type:Patient Education Patient Instructions Indication:ADHD (attention deficit hyperactivity disorder) evaluation Start:18-Jul-2021 Instruction Type:Provider Instructions for Treatment How to Access Health Informa tion Online using Patient Portal and [employer]rd [employer] Apps Indication:ADHD (attention deficit hyperactivity disorder) evaluation Start:18-Jul-2021 Instruction Type:Patient Education Patient Instructions Indication:Body aches Start:11-Jul-2021 Instruction Type:Provider Instructions for Treatment How to Access Health Informa tion Online using Patient Portal and [employer]rd [employer] Apps Indication:Body aches Start:11-Jul-2021 Instruction Type:Patient Education Patient Instructions Indication:Sleep disorder Start:05-Jul-2021 Instruction Type:Provider Instructions for Treatment Patient Instructions Indication:Sleep disorder Start:24-Jun-2021 Instruction Type:Provider Instructions for Treatment How to Access Health Informa tion Online using Patient Portal and [employer] Apps Indication:Sleep disorder Start:24-Jun-2021 Instruction Type:Patient Education How to access health informa tion online Indication:Smoker Start:11-Sep-2018 Instruction Type:Patient Education How to access health informa tion online - Detail Indication:Smoker Start:11-Sep-2018 Instruction Type:Patient Education Patient Instructions Indication:Smoker Start:11-Sep-2018 Instruction Type:Provider Instructions for Treatment [facility]; [facility] Work Phone: Instructions* Name Dates Details Patient Instructions Indication:ADHD (attention deficit hyperactivity disorder) evaluation Start:12-Aug-2021 Instruction Type:Provider Instructions for Treatment How to Access Health Informa tion Online using Patient Portal and [employer] Apps Indication:ADHD (attention deficit hyperactivity disorder) evaluation Start:12-Aug-2021 Instruction Type:Patient Education Patient Instructions Indication:ADHD (attention deficit hyperactivity disorder) evaluation Start:01-Aug-2021 Instruction Type:Provider Instructions for Treatment How to Access Health Informa tion Online using Patient Portal and [employer] Apps Indication:ADHD (attention deficit hyperactivity disorder) evaluation Start:01-Aug-2021 Instruction Type:Patient Education Patient Instructions Indication:ADHD (attention deficit hyperactivity disorder) evaluation Start:18-Jul-2021 Instruction Type:Provider Instructions for Treatment How to Access Health Informa tion Online using Patient Portal and [employer] Apps Indication:ADHD (attention deficit hyperactivity disorder) evaluation Start:18-Jul-2021 Instruction Type:Patient Education Patient Instructions Indication:Body aches Start:11-Jul-2021 Instruction Type:Provider Instructions for Treatment How to Access Health Informa tion Online using Patient Portal and [employer]rd [employer] Apps Indication:Body aches Start:11-Jul-2021 Instruction Type:Patient Education Patient Instructions Indication:Sleep disorder Start:05-Jul-2021 Instruction Type:Provider Instructions for Treatment Patient Instructions Indication:Sleep disorder Start:24-Jun-2021 Instruction Type:Provider Instructions for Treatment How to Access Health Informa tion Online using Patient Portal and [employer] Apps Indication:Sleep disorder Start:24-Jun-2021 Instruction Type:Patient Education How to access health informa tion online Indication:Smoker Start:11-Sep-2018 Instruction Type:Patient Education How to access health informa tion online - Detail Indication:Smoker Start:11-Sep-2018 Instruction Type:Patient Education Patient Instructions Indication:Smoker Start:11-Sep-2018 Instruction Type:Provider Instructions for Treatment [facility]; [facility] Work Phone: Instructions* Name Dates Details Patient Instructions Indication:ADHD (attention deficit hyperactivity disorder) evaluation Start:12-Aug-2021 Instruction Type:Provider Instructions for Treatment How to Access Health Informa tion Online using Patient Portal and [employer] Apps Indication:ADHD (attention deficit hyperactivity disorder) evaluation Start:12-Aug-2021 Instruction Type:Patient Education Patient Instructions Indication:ADHD (attention deficit hyperactivity disorder) evaluation Start:01-Aug-2021 Instruction Type:Provider Instructions for Treatment How to Access Health Informa tion Online using Patient Portal and [employer] Apps Indication:ADHD (attention deficit hyperactivity disorder) evaluation Start:01-Aug-2021 Instruction Type:Patient Education Patient Instructions Indication:ADHD (attention deficit hyperactivity disorder) evaluation Start:18-Jul-2021 Instruction Type:Provider Instructions for Treatment How to Access Health Informa tion Online using Patient Portal and [employer] Apps Indication:ADHD (attention deficit hyperactivity disorder) evaluation Start:18-Jul-2021 Instruction Type:Patient Education Patient Instructions Indication:Body aches Start:11-Jul-2021 Instruction Type:Provider Instructions for Treatment How to Access Health Informa tion Online using Patient Portal and [employer] Apps Indication:Body aches Start:11-Jul-2021 Instruction Type:Patient Education Patient Instructions Indication:Sleep disorder Start:05-Jul-2021 Instruction Type:Provider Instructions for Treatment Patient Instructions Indication:Sleep disorder Start:24-Jun-2021 Instruction Type:Provider Instructions for Treatment How to Access Health Informa tion Online using Patient Portal and [employer] Apps Indication:Sleep disorder Start:24-Jun-2021 Instruction Type:Patient Education How to access health informa tion online Indication:Smoker Start:11-Sep-2018 Instruction Type:Patient Education How to access health informa tion online - Detail Indication:Smoker Start:11-Sep-2018 Instruction Type:Patient Education Patient Instructions Indication:Smoker Start:11-Sep-2018 Instruction Type:Provider Instructions for Treatment [facility]; [facility] Work Phone: Instructions* Name Dates Details Patient Instructions Indication:Attention deficit Start:12-Aug-2021 Instruction Type:Provider Instructions for Treatment How to Access Health Informa tion Online using Patient Portal and [employer] Apps Indication:Attention deficit Start:12-Aug-2021 Instruction Type:Patient Education Patient Instructions Indication:Attention deficit Start:01-Aug-2021 Instruction Type:Provider Instructions for Treatment How to Access Health Informa tion Online using Patient Portal and [employer] Apps Indication:Attention deficit Start:01-Aug-2021 Instruction Type:Patient Education Patient Instructions Indication:Attention deficit Start:18-Jul-2021 Instruction Type:Provider Instructions for Treatment How to Access Health Informa tion Online using Patient Portal and [employer] Apps Indication:Attention deficit Start:18-Jul-2021 Instruction Type:Patient Education Patient Instructions Indication:Body aches Start:11-Jul-2021 Instruction Type:Provider Instructions for Treatment How to Access Health Informa tion Online using Patient Portal and [employer] Apps Indication:Body aches Start:11-Jul-2021 Instruction Type:Patient Education Patient Instructions Indication:Sleep disorder Start:05-Jul-2021 Instruction Type:Provider Instructions for Treatment Patient Instructions Indication:Sleep disorder Start:24-Jun-2021 Instruction Type:Provider Instructions for Treatment How to Access Health Informa tion Online using Patient Portal and [employer] Apps Indication:Sleep disorder Start:24-Jun-2021 Instruction Type:Patient Education How to access health informa tion online Indication:Smoker Start:11-Sep-2018 Instruction Type:Patient Education How to access health informa tion online - Detail Indication:Smoker Start:11-Sep-2018 Instruction Type:Patient Education Patient Instructions Indication:Smoker Start:11-Sep-2018 Instruction Type:Provider Instructions for Treatment [facility]; [facility] Work Phone: Instructions* Name Dates Details Patient Instructions Indication:Attention deficit Start:12-Aug-2021 Instruction Type:Provider Instructions for Treatment How to Access Health Informa tion Online using Patient Portal and [employer] Apps Indication:Attention deficit Start:12-Aug-2021 Instruction Type:Patient Education Patient Instructions Indication:Attention deficit Start:01-Aug-2021 Instruction Type:Provider Instructions for Treatment How to Access Health Informa tion Online using Patient Portal and [employer] Apps Indication:Attention deficit Start:01-Aug-2021 Instruction Type:Patient Education Patient Instructions Indication:Attention deficit Start:18-Jul-2021 Instruction Type:Provider Instructions for Treatment How to Access Health Informa tion Online using Patient Portal and [employer] Apps Indication:Attention deficit Start:18-Jul-2021 Instruction Type:Patient Education Patient Instructions Indication:Body aches Start:11-Jul-2021 Instruction Type:Provider Instructions for Treatment How to Access Health Informa tion Online using Patient Portal and [employer] Apps Indication:Body aches Start:11-Jul-2021 Instruction Type:Patient Education Patient Instructions Indication:Sleep disorder Start:05-Jul-2021 Instruction Type:Provider Instructions for Treatment Patient Instructions Indication:Sleep disorder Start:24-Jun-2021 Instruction Type:Provider Instructions for Treatment How to Access Health Informa tion Online using Patient Portal and [employer] Apps Indication:Sleep disorder Start:24-Jun-2021 Instruction Type:Patient Education How to access health informa tion online Indication:Smoker Start:11-Sep-2018 Instruction Type:Patient Education How to access health informa tion online - Detail Indication:Smoker Start:11-Sep-2018 Instruction Type:Patient Education Patient Instructions Indication:Smoker Start:11-Sep-2018 Instruction Type:Provider Instructions for Treatment [facility]; [facility] Work Phone: Instructions* Name Dates Details Patient Instructions Indication:Attention deficit Start:12-Aug-2021 Instruction Type:Provider Instructions for Treatment How to Access Health Informa tion Online using Patient Portal and [employer] Apps Indication:Attention deficit Start:12-Aug-2021 Instruction Type:Patient Education Patient Instructions Indication:Attention deficit Start:01-Aug-2021 Instruction Type:Provider Instructions for Treatment How to Access Health Informa tion Online using Patient Portal and [employer] Apps Indication:Attention deficit Start:01-Aug-2021 Instruction Type:Patient Education Patient Instructions Indication:Attention deficit Start:18-Jul-2021 Instruction Type:Provider Instructions for Treatment How to Access Health Informa tion Online using Patient Portal and [employer] Apps Indication:Attention deficit Start:18-Jul-2021 Instruction Type:Patient Education Patient Instructions Indication:Body aches Start:11-Jul-2021 Instruction Type:Provider Instructions for Treatment How to Access Health Informa tion Online using Patient Portal and [employer] Apps Indication:Body aches Start:11-Jul-2021 Instruction Type:Patient Education Patient Instructions Indication:Sleep disorder Start:05-Jul-2021 Instruction Type:Provider Instructions for Treatment Patient Instructions Indication:Sleep disorder Start:24-Jun-2021 Instruction Type:Provider Instructions for Treatment How to Access Health Informa tion Online using Patient Portal and [employer] Apps Indication:Sleep disorder Start:24-Jun-2021 Instruction Type:Patient Education How to access health informa tion online Indication:Smoker Start:11-Sep-2018 Instruction Type:Patient Education How to access health informa tion online - Detail Indication:Smoker Start:11-Sep-2018 Instruction Type:Patient Education Patient Instructions Indication:Smoker Start:11-Sep-2018 Instruction Type:Provider Instructions for Treatment [facility]; [facility] Work Phone: Instructions* Name Dates Details Patient Instructions Indication:[facility]LL[facility] EXAM Start:16-Dec-2021 Instruction Type:Provider Instructions for Treatment How to Access Health Informa tion Online using Patient Portal and [employer] Apps Indication:[facility] EXAM Start:16-Dec-2021 Instruction Type:Patient Education Patient Instructions Indication:Attention deficit Start:12-Aug-2021 Instruction Type:Provider Instructions for Treatment How to Access Health Informa tion Online using Patient Portal and [employer] Apps Indication:Attention deficit Start:12-Aug-2021 Instruction Type:Patient Education Patient Instructions Indication:Attention deficit Start:01-Aug-2021 Instruction Type:Provider Instructions for Treatment How to Access Health Informa tion Online using Patient Portal and [employer] Apps Indication:Attention deficit Start:01-Aug-2021 Instruction Type:Patient Education Patient Instructions Indication:Attention deficit Start:18-Jul-2021 Instruction Type:Provider Instructions for Treatment How to Access Health Informa tion Online using Patient Portal and [employer] Apps Indication:Attention deficit Start:18-Jul-2021 Instruction Type:Patient Education Patient Instructions Indication:Body aches Start:11-Jul-2021 Instruction Type:Provider Instructions for Treatment How to Access Health Informa tion Online using Patient Portal and [employer] Apps Indication:Body aches Start:11-Jul-2021 Instruction Type:Patient Education Patient Instructions Indication:Sleep disorder Start:05-Jul-2021 Instruction Type:Provider Instructions for Treatment Patient Instructions Indication:Sleep disorder Start:24-Jun-2021 Instruction Type:Provider Instructions for Treatment How to Access Health Informa tion Online using Patient Portal and [employer] Apps Indication:Sleep disorder Start:24-Jun-2021 Instruction Type:Patient Education How to access health informa tion online Indication:Smoker Start:11-Sep-2018 Instruction Type:Patient Education How to access health informa tion online - Detail Indication:Smoker Start:11-Sep-2018 Instruction Type:Patient Education Patient Instructions Indication:Smoker Start:11-Sep-2018 Instruction Type:Provider Instructions for Treatment [facility]; [facility] Work Phone: Instructions* Name Dates Details Patient Instructions Indication:[facility] EX[facility] Start:16-Dec-2021 Instruction Type:Provider Instructions for Treatment How to Access Health Informa tion Online using Patient Portal and [employer] Apps Indication:[facility] EX[facility] Start:16-Dec-2021 Instruction Type:Patient Education Patient Instructions Indication:Attention deficit Start:12-Aug-2021 Instruction Type:Provider Instructions for Treatment How to Access Health Informa tion Online using Patient Portal and [employer] Apps Indication:Attention deficit Start:12-Aug-2021 Instruction Type:Patient Education Patient Instructions Indication:Attention deficit Start:01-Aug-2021 Instruction Type:Provider Instructions for Treatment How to Access Health Informa tion Online using Patient Portal and [employer] Apps Indication:Attention deficit Start:01-Aug-2021 Instruction Type:Patient Education Patient Instructions Indication:Attention deficit Start:18-Jul-2021 Instruction Type:Provider Instructions for Treatment How to Access Health Informa tion Online using Patient Portal and [employer] Apps Indication:Attention deficit Start:18-Jul-2021 Instruction Type:Patient Education Patient Instructions Indication:Body aches Start:11-Jul-2021 Instruction Type:Provider Instructions for Treatment How to Access Health Informa tion Online using Patient Portal and [employer] Apps Indication:Body aches Start:11-Jul-2021 Instruction Type:Patient Education Patient Instructions Indication:Sleep disorder Start:05-Jul-2021 Instruction Type:Provider Instructions for Treatment Patient Instructions Indication:Sleep disorder Start:24-Jun-2021 Instruction Type:Provider Instructions for Treatment How to Access Health Informa tion Online using Patient Portal and [employer] Apps Indication:Sleep disorder Start:24-Jun-2021 Instruction Type:Patient Education How to access health informa tion online Indication:Smoker Start:11-Sep-2018 Instruction Type:Patient Education How to access health informa tion online - Detail Indication:Smoker Start:11-Sep-2018 Instruction Type:Patient Education Patient Instructions Indication:Smoker Start:11-Sep-2018 Instruction Type:Provider Instructions for Treatment [facility]; [facility] Work Phone: Instructions* Name Dates Details Patient Instructions Indication:ADD (attention deficit disorder) Start:23-Jan-2022 Instruction Type:Provider Instructions for Treatment How to Access Health Informa tion Online using Patient Portal and [employer] Apps Indication:ADD (attention deficit disorder) Start:23-Jan-2022 Instruction Type:Patient Education Patient Instructions Indication:[facility] EX[facility] Start:16-Dec-2021 Instruction Type:Provider Instructions for Treatment How to Access Health Informa tion Online using Patient Portal and [employer] Apps Indication:[facility] EX[facility] Start:16-Dec-2021 Instruction Type:Patient Education Patient Instructions Indication:ADD (attention deficit disorder) Start:12-Aug-2021 Instruction Type:Provider Instructions for Treatment How to Access Health Informa tion Online using Patient Portal and [employer] Apps Indication:ADD (attention deficit disorder) Start:12-Aug-2021 Instruction Type:Patient Education Patient Instructions Indication:ADD (attention deficit disorder) Start:01-Aug-2021 Instruction Type:Provider Instructions for Treatment How to Access Health Informa tion Online using Patient Portal and [employer] Apps Indication:ADD (attention deficit disorder) Start:01-Aug-2021 Instruction Type:Patient Education Patient Instructions Indication:ADD (attention deficit disorder) Start:18-Jul-2021 Instruction Type:Provider Instructions for Treatment How to Access Health Informa tion Online using Patient Portal and [employer] Apps Indication:ADD (attention deficit disorder) Start:18-Jul-2021 Instruction Type:Patient Education Patient Instructions Indication:Body aches Start:11-Jul-2021 Instruction Type:Provider Instructions for Treatment How to Access Health Informa tion Online using Patient Portal and [employer] Apps Indication:Body aches Start:11-Jul-2021 Instruction Type:Patient Education Patient Instructions Indication:Sleep disorder Start:05-Jul-2021 Instruction Type:Provider Instructions for Treatment Patient Instructions Indication:Sleep disorder Start:24-Jun-2021 Instruction Type:Provider Instructions for Treatment How to Access Health Informa tion Online using Patient Portal and [employer] Apps Indication:Sleep disorder Start:24-Jun-2021 Instruction Type:Patient Education How to access health informa tion online Indication:Smoker Start:11-Sep-2018 Instruction Type:Patient Education How to access health informa tion online - Detail Indication:Smoker Start:11-Sep-2018 Instruction Type:Patient Education Patient Instructions Indication:Smoker Start:11-Sep-2018 Instruction Type:Provider Instructions for Treatment [facility]; [facility] Work Phone: Instructions* Name Dates Details Patient Instructions Indication:ADD (attention deficit disorder) Start:23-Jan-2022 Instruction Type:Provider Instructions for Treatment How to Access Health Informa tion Online using Patient Portal and [employer] Apps Indication:ADD (attention deficit disorder) Start:23-Jan-2022 Instruction Type:Patient Education Patient Instructions Indication:[facility] EX[facility] Start:16-Dec-2021 Instruction Type:Provider Instructions for Treatment How to Access Health Informa tion Online using Patient Portal and [employer] Apps Indication:[facility] EX[facility] Start:16-Dec-2021 Instruction Type:Patient Education Patient Instructions Indication:ADD (attention deficit disorder) Start:12-Aug-2021 Instruction Type:Provider Instructions for Treatment How to Access Health Informa tion Online using Patient Portal and [employer] Apps Indication:ADD (attention deficit disorder) Start:12-Aug-2021 Instruction Type:Patient Education Patient Instructions Indication:ADD (attention deficit disorder) Start:01-Aug-2021 Instruction Type:Provider Instructions for Treatment How to Access Health Informa tion Online using Patient Portal and [employer] Apps Indication:ADD (attention deficit disorder) Start:01-Aug-2021 Instruction Type:Patient Education Patient Instructions Indication:ADD (attention deficit disorder) Start:18-Jul-2021 Instruction Type:Provider Instructions for Treatment How to Access Health Informa tion Online using Patient Portal and [employer] Apps Indication:ADD (attention deficit disorder) Start:18-Jul-2021 Instruction Type:Patient Education Patient Instructions Indication:Body aches Start:11-Jul-2021 Instruction Type:Provider Instructions for Treatment How to Access Health Informa tion Online using Patient Portal and [employer] Apps Indication:Body aches Start:11-Jul-2021 Instruction Type:Patient Education Patient Instructions Indication:Sleep disorder Start:05-Jul-2021 Instruction Type:Provider Instructions for Treatment Patient Instructions Indication:Sleep disorder Start:24-Jun-2021 Instruction Type:Provider Instructions for Treatment How to Access Health Informa tion Online using Patient Portal and [employer]rd [employer] Apps Indication:Sleep disorder Start:24-Jun-2021 Instruction Type:Patient Education How to access health informa tion online Indication:Smoker Start:11-Sep-2018 Instruction Type:Patient Education How to access health informa tion online - Detail Indication:Smoker Start:11-Sep-2018 Instruction Type:Patient Education Patient Instructions Indication:Smoker Start:11-Sep-2018 Instruction Type:Provider Instructions for Treatment [facility]; [facility] Work Phone: Instructions* Name Dates Details Patient Instructions Indication:ADD (attention deficit disorder) Start:23-Jan-2022 Instruction Type:Provider Instructions for Treatment How to Access Health Informa tion Online using Patient Portal and [employer] Apps Indication:ADD (attention deficit disorder) Start:23-Jan-2022 Instruction Type:Patient Education Patient Instructions Indication:[facility] Start:16-Dec-2021 Instruction Type:Provider Instructions for Treatment How to Access Health Informa tion Online using Patient Portal and [employer] Apps Indication:[facility] Start:16-Dec-2021 Instruction Type:Patient Education Patient Instructions Indication:ADD (attention deficit disorder) Start:12-Aug-2021 Instruction Type:Provider Instructions for Treatment How to Access Health Informa tion Online using Patient Portal and [employer] Apps Indication:ADD (attention deficit disorder) Start:12-Aug-2021 Instruction Type:Patient Education Patient Instructions Indication:ADD (attention deficit disorder) Start:01-Aug-2021 Instruction Type:Provider Instructions for Treatment How to Access Health Informa tion Online using Patient Portal and [employer] Apps Indication:ADD (attention deficit disorder) Start:01-Aug-2021 Instruction Type:Patient Education Patient Instructions Indication:ADD (attention deficit disorder) Start:18-Jul-2021 Instruction Type:Provider Instructions for Treatment How to Access Health Informa tion Online using Patient Portal and [employer] Apps Indication:ADD (attention deficit disorder) Start:18-Jul-2021 Instruction Type:Patient Education Patient Instructions Indication:Body aches Start:11-Jul-2021 Instruction Type:Provider Instructions for Treatment How to Access Health Informa tion Online using Patient Portal and [employer] Apps Indication:Body aches Start:11-Jul-2021 Instruction Type:Patient Education Patient Instructions Indication:Sleep disorder Start:05-Jul-2021 Instruction Type:Provider Instructions for Treatment Patient Instructions Indication:Sleep disorder Start:24-Jun-2021 Instruction Type:Provider Instructions for Treatment How to Access Health Informa tion Online using Patient Portal and [employer] Apps Indication:Sleep disorder Start:24-Jun-2021 Instruction Type:Patient Education How to access health informa tion online Indication:Smoker Start:11-Sep-2018 Instruction Type:Patient Education How to access health informa tion online - Detail Indication:Smoker Start:11-Sep-2018 Instruction Type:Patient Education Patient Instructions Indication:Smoker Start:11-Sep-2018 Instruction Type:Provider Instructions for Treatment [facility]; [facility] Work Phone: Instructions* Name Dates Details Patient Instructions Indication:ADD (attention deficit disorder) Start:23-Jan-2022 Instruction Type:Provider Instructions for Treatment How to Access Health Informa tion Online using Patient Portal and [employer] Apps Indication:ADD (attention deficit disorder) Start:23-Jan-2022 Instruction Type:Patient Education Patient Instructions Indication:[facility] Start:16-Dec-2021 Instruction Type:Provider Instructions for Treatment How to Access Health Informa tion Online using Patient Portal and [employer] Apps Indication:[facility] Start:16-Dec-2021 Instruction Type:Patient Education Patient Instructions Indication:ADD (attention deficit disorder) Start:12-Aug-2021 Instruction Type:Provider Instructions for Treatment How to Access Health Informa tion Online using Patient Portal and [employer] Apps Indication:ADD (attention deficit disorder) Start:12-Aug-2021 Instruction Type:Patient Education Patient Instructions Indication:ADD (attention deficit disorder) Start:01-Aug-2021 Instruction Type:Provider Instructions for Treatment How to Access Health Informa tion Online using Patient Portal and [employer] Apps Indication:ADD (attention deficit disorder) Start:01-Aug-2021 Instruction Type:Patient Education Patient Instructions Indication:ADD (attention deficit disorder) Start:18-Jul-2021 Instruction Type:Provider Instructions for Treatment How to Access Health Informa tion Online using Patient Portal and [employer] Apps Indication:ADD (attention deficit disorder) Start:18-Jul-2021 Instruction Type:Patient Education Patient Instructions Indication:Body aches Start:11-Jul-2021 Instruction Type:Provider Instructions for Treatment How to Access Health Informa tion Online using Patient Portal and [employer] Apps Indication:Body aches Start:11-Jul-2021 Instruction Type:Patient Education Patient Instructions Indication:Sleep disorder Start:05-Jul-2021 Instruction Type:Provider Instructions for Treatment Patient Instructions Indication:Sleep disorder Start:24-Jun-2021 Instruction Type:Provider Instructions for Treatment How to Access Health Informa tion Online using Patient Portal and [employer] Apps Indication:Sleep disorder Start:24-Jun-2021 Instruction Type:Patient Education How to access health informa tion online Indication:Smoker Start:11-Sep-2018 Instruction Type:Patient Education How to access health informa tion online - Detail Indication:Smoker Start:11-Sep-2018 Instruction Type:Patient Education Patient Instructions Indication:Smoker Start:11-Sep-2018 Instruction Type:Provider Instructions for Treatment [facility]; [facility] Work Phone: Instructions* Name Dates Details Patient Instructions Indication:ADD (attention deficit disorder) Start:23-Jan-2022 Instruction Type:Provider Instructions for Treatment How to Access Health Informa tion Online using Patient Portal and [employer] Apps Indication:ADD (attention deficit disorder) Start:23-Jan-2022 Instruction Type:Patient Education Patient Instructions Indication:[facility] Start:16-Dec-2021 Instruction Type:Provider Instructions for Treatment How to Access Health Informa tion Online using Patient Portal and [employer] Apps Indication:[facility] Start:16-Dec-2021 Instruction Type:Patient Education Patient Instructions Indication:ADD (attention deficit disorder) Start:12-Aug-2021 Instruction Type:Provider Instructions for Treatment How to Access Health Informa tion Online using Patient Portal and [employer] Apps Indication:ADD (attention deficit disorder) Start:12-Aug-2021 Instruction Type:Patient Education Patient Instructions Indication:ADD (attention deficit disorder) Start:01-Aug-2021 Instruction Type:Provider Instructions for Treatment How to Access Health Informa tion Online using Patient Portal and [employer] Apps Indication:ADD (attention deficit disorder) Start:01-Aug-2021 Instruction Type:Patient Education Patient Instructions Indication:ADD (attention deficit disorder) Start:18-Jul-2021 Instruction Type:Provider Instructions for Treatment How to Access Health Informa tion Online using Patient Portal and [employer] Apps Indication:ADD (attention deficit disorder) Start:18-Jul-2021 Instruction Type:Patient Education Patient Instructions Indication:Body aches Start:11-Jul-2021 Instruction Type:Provider Instructions for Treatment How to Access Health Informa tion Online using Patient Portal and [employer] Apps Indication:Body aches Start:11-Jul-2021 Instruction Type:Patient Education Patient Instructions Indication:Sleep disorder Start:05-Jul-2021 Instruction Type:Provider Instructions for Treatment Patient Instructions Indication:Sleep disorder Start:24-Jun-2021 Instruction Type:Provider Instructions for Treatment How to Access Health Informa tion Online using Patient Portal and [employer] Apps Indication:Sleep disorder Start:24-Jun-2021 Instruction Type:Patient Education How to access health informa tion online Indication:Smoker Start:11-Sep-2018 Instruction Type:Patient Education How to access health informa tion online - Detail Indication:Smoker Start:11-Sep-2018 Instruction Type:Patient Education Patient Instructions Indication:Smoker Start:11-Sep-2018 Instruction Type:Provider Instructions for Treatment [facility]; [facility] Work Phone: Instructions* Name Dates Details Patient Instructions Indication:Epigastric pain Start:17-Apr-2022 Instruction Type:Provider Instructions for Treatment How to Access Health Informa tion Online using Patient Portal and [employer] Apps Indication:Epigastric pain Start:17-Apr-2022 Instruction Type:Patient Education Patient Instructions Indication:ADD (attention deficit disorder) Start:23-Jan-2022 Instruction Type:Provider Instructions for Treatment How to Access Health Informa tion Online using Patient Portal and [employer] Apps Indication:ADD (attention deficit disorder) Start:23-Jan-2022 Instruction Type:Patient Education Patient Instructions Indication:[facility] Start:16-Dec-2021 Instruction Type:Provider Instructions for Treatment How to Access Health Informa tion Online using Patient Portal and [employer] Apps Indication:[facility] Start:16-Dec-2021 Instruction Type:Patient Education Patient Instructions Indication:ADD (attention deficit disorder) Start:12-Aug-2021 Instruction Type:Provider Instructions for Treatment How to Access Health Informa tion Online using Patient Portal and [employer] Apps Indication:ADD (attention deficit disorder) Start:12-Aug-2021 Instruction Type:Patient Education Patient Instructions Indication:ADD (attention deficit disorder) Start:01-Aug-2021 Instruction Type:Provider Instructions for Treatment How to Access Health Informa tion Online using Patient Portal and [employer] Apps Indication:ADD (attention deficit disorder) Start:01-Aug-2021 Instruction Type:Patient Education Patient Instructions Indication:ADD (attention deficit disorder) Start:18-Jul-2021 Instruction Type:Provider Instructions for Treatment How to Access Health Informa tion Online using Patient Portal and [employer] Apps Indication:ADD (attention deficit disorder) Start:18-Jul-2021 Instruction Type:Patient Education Patient Instructions Indication:Body aches Start:11-Jul-2021 Instruction Type:Provider Instructions for Treatment How to Access Health Informa tion Online using Patient Portal and [employer] Apps Indication:Body aches Start:11-Jul-2021 Instruction Type:Patient Education Patient Instructions Indication:Sleep disorder Start:05-Jul-2021 Instruction Type:Provider Instructions for Treatment Patient Instructions Indication:Sleep disorder Start:24-Jun-2021 Instruction Type:Provider Instructions for Treatment How to Access Health Informa tion Online using Patient Portal and [employer] Apps Indication:Sleep disorder Start:24-Jun-2021 Instruction Type:Patient Education How to access health informa tion online Indication:Smoker Start:11-Sep-2018 Instruction Type:Patient Education How to access health informa tion online - Detail Indication:Smoker Start:11-Sep-2018 Instruction Type:Patient Education Patient Instructions Indication:Smoker Start:11-Sep-2018 Instruction Type:Provider Instructions for Treatment [facility]; [facility] Work Phone: Instructions* Name Dates Details Patient Instructions Indication:Epigastric pain Start:17-Apr-2022 Instruction Type:Provider Instructions for Treatment How to Access Health Informa tion Online using Patient Portal and [employer] Apps Indication:Epigastric pain Start:17-Apr-2022 Instruction Type:Patient Education Patient Instructions Indication:ADD (attention deficit disorder) Start:23-Jan-2022 Instruction Type:Provider Instructions for Treatment How to Access Health Informa tion Online using Patient Portal and [employer] Apps Indication:ADD (attention deficit disorder) Start:23-Jan-2022 Instruction Type:Patient Education Patient Instructions Indication:[facility] Start:16-Dec-2021 Instruction Type:Provider Instructions for Treatment How to Access Health Informa tion Online using Patient Portal and [employer] Apps Indication:[facility] Start:16-Dec-2021 Instruction Type:Patient Education Patient Instructions Indication:ADD (attention deficit disorder) Start:12-Aug-2021 Instruction Type:Provider Instructions for Treatment How to Access Health Informa tion Online using Patient Portal and [employer] Apps Indication:ADD (attention deficit disorder) Start:12-Aug-2021 Instruction Type:Patient Education Patient Instructions Indication:ADD (attention deficit disorder) Start:01-Aug-2021 Instruction Type:Provider Instructions for Treatment How to Access Health Informa tion Online using Patient Portal and [employer] Apps Indication:ADD (attention deficit disorder) Start:01-Aug-2021 Instruction Type:Patient Education Patient Instructions Indication:ADD (attention deficit disorder) Start:18-Jul-2021 Instruction Type:Provider Instructions for Treatment How to Access Health Informa tion Online using Patient Portal and [employer] Apps Indication:ADD (attention deficit disorder) Start:18-Jul-2021 Instruction Type:Patient Education Patient Instructions Indication:Body aches Start:11-Jul-2021 Instruction Type:Provider Instructions for Treatment How to Access Health Informa tion Online using Patient Portal and [employer] Apps Indication:Body aches Start:11-Jul-2021 Instruction Type:Patient Education Patient Instructions Indication:Sleep disorder Start:05-Jul-2021 Instruction Type:Provider Instructions for Treatment Patient Instructions Indication:Sleep disorder Start:24-Jun-2021 Instruction Type:Provider Instructions for Treatment How to Access Health Informa tion Online using Patient Portal and [employer] Apps Indication:Sleep disorder Start:10-Dec-2021 Instruction Type:Patient Education How to access health informa tion online Indication:Smoker Start:11-Sep-2018 Instruction Type:Patient Education How to access health informa tion online - Detail Indication:Smoker Start:11-Sep-2018 Instruction Type:Patient Education Patient Instructions Indication:Smoker Start:11-Sep-2018 Instruction Type:Provider Instructions for Treatment [facility]; [facility] Work Phone: Instructions* Name Dates Details Patient Instructions Indication:Epigastric pain Start:17-Apr-2022 Instruction Type:Provider Instructions for Treatment How to Access Health Informa tion Online using Patient Portal and [employer] Apps Indication:Epigastric pain Start:17-Apr-2022 Instruction Type:Patient Education Patient Instructions Indication:ADD (attention deficit disorder) Start:23-Jan-2022 Instruction Type:Provider Instructions for Treatment How to Access Health Informa tion Online using Patient Portal and [employer] Apps Indication:ADD (attention deficit disorder) Start:23-Jan-2022 Instruction Type:Patient Education Patient Instructions Indication:[facility] Start:16-Dec-2021 Instruction Type:Provider Instructions for Treatment How to Access Health Informa tion Online using Patient Portal and [employer] Apps Indication:[facility] Start:16-Dec-2021 Instruction Type:Patient Education Patient Instructions Indication:ADD (attention deficit disorder) Start:12-Aug-2021 Instruction Type:Provider Instructions for Treatment How to Access Health Informa tion Online using Patient Portal and [employer] Apps Indication:ADD (attention deficit disorder) Start:12-Aug-2021 Instruction Type:Patient Education Patient Instructions Indication:ADD (attention deficit disorder) Start:01-Aug-2021 Instruction Type:Provider Instructions for Treatment How to Access Health Informa tion Online using Patient Portal and [employer] Apps Indication:ADD (attention deficit disorder) Start:01-Aug-2021 Instruction Type:Patient Education Patient Instructions Indication:ADD (attention deficit disorder) Start:18-Jul-2021 Instruction Type:Provider Instructions for Treatment How to Access Health Informa tion Online using Patient Portal and [employer] Apps Indication:ADD (attention deficit disorder) Start:18-Jul-2021 Instruction Type:Patient Education Patient Instructions Indication:Body aches Start:11-Jul-2021 Instruction Type:Provider Instructions for Treatment How to Access Health Informa tion Online using Patient Portal and [employer] Apps Indication:Body aches Start:11-Jul-2021 Instruction Type:Patient Education Patient Instructions Indication:Sleep disorder Start:05-Jul-2021 Instruction Type:Provider Instructions for Treatment Patient Instructions Indication:Sleep disorder Start:24-Jun-2021 Instruction Type:Provider Instructions for Treatment How to Access Health Informa tion Online using Patient Portal and [employer] Apps Indication:Sleep disorder Start:24-Jun-2021 Instruction Type:Patient Education How to access health informa tion online Indication:Smoker Start:11-Sep-2018 Instruction Type:Patient Education How to access health informa tion online - Detail Indication:Smoker Start:11-Sep-2018 Instruction Type:Patient Education Patient Instructions Indication:Smoker Start:11-Sep-2018 Instruction Type:Provider Instructions for Treatment [facility]; [facility] Work Phone: Instructions* Name Dates Details Patient Instructions Indication:Epigastric pain Start:17-Apr-2022 Instruction Type:Provider Instructions for Treatment How to Access Health Informa tion Online using Patient Portal and [employer] Apps Indication:Epigastric pain Start:17-Apr-2022 Instruction Type:Patient Education Patient Instructions Indication:ADD (attention deficit disorder) Start:23-Jan-2022 Instruction Type:Provider Instructions for Treatment How to Access Health Informa tion Online using Patient Portal and [employer] Apps Indication:ADD (attention deficit disorder) Start:23-Jan-2022 Instruction Type:Patient Education Patient Instructions Indication:[facility] Start:16-Dec-2021 Instruction Type:Provider Instructions for Treatment How to Access Health Informa tion Online using Patient Portal and [employer] Apps Indication:[facility] Start:16-Dec-2021 Instruction Type:Patient Education Patient Instructions Indication:ADD (attention deficit disorder) Start:12-Aug-2021 Instruction Type:Provider Instructions for Treatment How to Access Health Informa tion Online using Patient Portal and [employer] Apps Indication:ADD (attention deficit disorder) Start:12-Aug-2021 Instruction Type:Patient Education Patient Instructions Indication:ADD (attention deficit disorder) Start:01-Aug-2021 Instruction Type:Provider Instructions for Treatment How to Access Health Informa tion Online using Patient Portal and [employer] Apps Indication:ADD (attention deficit disorder) Start:01-Aug-2021 Instruction Type:Patient Education Patient Instructions Indication:ADD (attention deficit disorder) Start:18-Jul-2021 Instruction Type:Provider Instructions for Treatment How to Access Health Informa tion Online using Patient Portal and [employer] Apps Indication:ADD (attention deficit disorder) Start:18-Jul-2021 Instruction Type:Patient Education Patient Instructions Indication:Body aches Start:11-Jul-2021 Instruction Type:Provider Instructions for Treatment How to Access Health Informa tion Online using Patient Portal and [employer] Apps Indication:Body aches Start:11-Jul-2021 Instruction Type:Patient Education Patient Instructions Indication:Sleep disorder Start:05-Jul-2021 Instruction Type:Provider Instructions for Treatment Patient Instructions Indication:Sleep disorder Start:24-Jun-2021 Instruction Type:Provider Instructions for Treatment How to Access Health Informa tion Online using Patient Portal and [employer] Apps Indication:Sleep disorder Start:24-Jun-2021 Instruction Type:Patient Education How to access health informa tion online Indication:Smoker Start:11-Sep-2018 Instruction Type:Patient Education How to access health informa tion online - Detail Indication:Smoker Start:11-Sep-2018 Instruction Type:Patient Education Patient Instructions Indication:Smoker Start:11-Sep-2018 Instruction Type:Provider Instructions for Treatment [facility]; [facility] Work Phone: Instructions* Name Dates Details Patient Instructions Indication:ADD (attention deficit disorder) Start:24-Jul-2022 Instruction Type:Provider Instructions for Treatment Patient Instructions Indication:Epigastric pain Start:17-Apr-2022 Instruction Type:Provider Instructions for Treatment How to Access Health Informa tion Online using Patient Portal and [employer] Apps Indication:Epigastric pain Start:17-Apr-2022 Instruction Type:Patient Education Patient Instructions Indication:ADD (attention deficit disorder) Start:23-Jan-2022 Instruction Type:Provider Instructions for Treatment How to Access Health Informa tion Online using Patient Portal and [employer] Apps Indication:ADD (attention deficit disorder) Start:23-Jan-2022 Instruction Type:Patient Education Patient Instructions Indication:[facility] Start:16-Dec-2021 Instruction Type:Provider Instructions for Treatment How to Access Health Informa tion Online using Patient Portal and [employer] Apps Indication:[facility] Start:16-Dec-2021 Instruction Type:Patient Education Patient Instructions Indication:ADD (attention deficit disorder) Start:12-Aug-2021 Instruction Type:Provider Instructions for Treatment How to Access Health Informa tion Online using Patient Portal and [employer] Apps Indication:ADD (attention deficit disorder) Start:12-Aug-2021 Instruction Type:Patient Education Patient Instructions Indication:ADD (attention deficit disorder) Start:01-Aug-2021 Instruction Type:Provider Instructions for Treatment How to Access Health Informa tion Online using Patient Portal and [employer] Apps Indication:ADD (attention deficit disorder) Start:01-Aug-2021 Instruction Type:Patient Education Patient Instructions Indication:ADD (attention deficit disorder) Start:18-Jul-2021 Instruction Type:Provider Instructions for Treatment How to Access Health Informa tion Online using Patient Portal and [employer] Apps Indication:ADD (attention deficit disorder) Start:18-Jul-2021 Instruction Type:Patient Education Patient Instructions Indication:Body aches Start:11-Jul-2021 Instruction Type:Provider Instructions for Treatment How to Access Health Informa tion Online using Patient Portal and [employer] Apps Indication:Body aches Start:11-Jul-2021 Instruction Type:Patient Education Patient Instructions Indication:Sleep disorder Start:05-Jul-2021 Instruction Type:Provider Instructions for Treatment Patient Instructions Indication:Sleep disorder Start:24-Jun-2021 Instruction Type:Provider Instructions for Treatment How to Access Health Informa tion Online using Patient Portal and [employer] Apps Indication:Sleep disorder Start:24-Jun-2021 Instruction Type:Patient Education How to access health informa tion online Indication:Smoker Start:11-Sep-2018 Instruction Type:Patient Education How to access health informa tion online - Detail Indication:Smoker Start:11-Sep-2018 Instruction Type:Patient Education Patient Instructions Indication:Smoker Start:11-Sep-2018 Instruction Type:Provider Instructions for Treatment [facility]; [facility] Work Phone: Instructions* Name Dates Details Patient Instructions Indication:ADD (attention deficit disorder) Start:24-Jul-2022 Instruction Type:Provider Instructions for Treatment Patient Instructions Indication:Epigastric pain Start:17-Apr-2022 Instruction Type:Provider Instructions for Treatment How to Access Health Informa tion Online using Patient Portal and [employer]rd [employer] Apps Indication:Epigastric pain Start:17-Apr-2022 Instruction Type:Patient Education Patient Instructions Indication:ADD (attention deficit disorder) Start:23-Jan-2022 Instruction Type:Provider Instructions for Treatment How to Access Health Informa tion Online using Patient Portal and [employer]rd [employer] Apps Indication:ADD (attention deficit disorder) Start:23-Jan-2022 Instruction Type:Patient Education Patient Instructions Indication:[facility] Start:16-Dec-2021 Instruction Type:Provider Instructions for Treatment How to Access Health Informa tion Online using Patient Portal and [employer]rd [employer] Apps Indication:[facility] Start:16-Dec-2021 Instruction Type:Patient Education Patient Instructions Indication:ADD (attention deficit disorder) Start:12-Aug-2021 Instruction Type:Provider Instructions for Treatment How to Access Health Informa tion Online using Patient Portal and [employer] Apps Indication:ADD (attention deficit disorder) Start:12-Aug-2021 Instruction Type:Patient Education Patient Instructions Indication:ADD (attention deficit disorder) Start:01-Aug-2021 Instruction Type:Provider Instructions for Treatment How to Access Health Informa tion Online using Patient Portal and [employer]rd [employer] Apps Indication:ADD (attention deficit disorder) Start:01-Aug-2021 Instruction Type:Patient Education Patient Instructions Indication:ADD (attention deficit disorder) Start:18-Jul-2021 Instruction Type:Provider Instructions for Treatment How to Access Health Informa tion Online using Patient Portal and [employer] Apps Indication:ADD (attention deficit disorder) Start:18-Jul-2021 Instruction Type:Patient Education Patient Instructions Indication:Body aches Start:11-Jul-2021 Instruction Type:Provider Instructions for Treatment How to Access Health Informa tion Online using Patient Portal and [employer] Apps Indication:Body aches Start:11-Jul-2021 Instruction Type:Patient Education Patient Instructions Indication:Sleep disorder Start:05-Jul-2021 Instruction Type:Provider Instructions for Treatment Patient Instructions Indication:Sleep disorder Start:24-Jun-2021 Instruction Type:Provider Instructions for Treatment How to Access Health Informa tion Online using Patient Portal and [employer] Apps Indication:Sleep disorder Start:24-Jun-2021 Instruction Type:Patient Education How to access health informa tion online Indication:Smoker Start:11-Sep-2018 Instruction Type:Patient Education How to access health informa tion online - Detail Indication:Smoker Start:11-Sep-2018 Instruction Type:Patient Education Patient Instructions Indication:Smoker Start:11-Sep-2018 Instruction Type:Provider Instructions for Treatment [facility]; [facility] Work Phone: Instructions* Name Dates Details Patient Instructions Indication:ADD (attention deficit disorder) Start:24-Jul-2022 Instruction Type:Provider Instructions for Treatment Patient Instructions Indication:Epigastric pain Start:17-Apr-2022 Instruction Type:Provider Instructions for Treatment How to Access Health Informa tion Online using Patient Portal and [employer] Apps Indication:Epigastric pain Start:17-Apr-2022 Instruction Type:Patient Education Patient Instructions Indication:ADD (attention deficit disorder) Start:23-Jan-2022 Instruction Type:Provider Instructions for Treatment How to Access Health Informa tion Online using Patient Portal and [employer] Apps Indication:ADD (attention deficit disorder) Start:23-Jan-2022 Instruction Type:Patient Education Patient Instructions Indication:[facility] Start:16-Dec-2021 Instruction Type:Provider Instructions for Treatment How to Access Health Informa tion Online using Patient Portal and [employer] Apps Indication:[facility] Start:16-Dec-2021 Instruction Type:Patient Education Patient Instructions Indication:ADD (attention deficit disorder) Start:12-Aug-2021 Instruction Type:Provider Instructions for Treatment How to Access Health Informa tion Online using Patient Portal and [employer] Apps Indication:ADD (attention deficit disorder) Start:12-Aug-2021 Instruction Type:Patient Education Patient Instructions Indication:ADD (attention deficit disorder) Start:01-Aug-2021 Instruction Type:Provider Instructions for Treatment How to Access Health Informa tion Online using Patient Portal and [employer] Apps Indication:ADD (attention deficit disorder) Start:01-Aug-2021 Instruction Type:Patient Education Patient Instructions Indication:ADD (attention deficit disorder) Start:18-Jul-2021 Instruction Type:Provider Instructions for Treatment How to Access Health Informa tion Online using Patient Portal and [employer] Apps Indication:ADD (attention deficit disorder) Start:18-Jul-2021 Instruction Type:Patient Education Patient Instructions Indication:Body aches Start:11-Jul-2021 Instruction Type:Provider Instructions for Treatment How to Access Health Informa tion Online using Patient Portal and [employer]rd [employer] Apps Indication:Body aches Start:11-Jul-2021 Instruction Type:Patient Education Patient Instructions Indication:Sleep disorder Start:05-Jul-2021 Instruction Type:Provider Instructions for Treatment Patient Instructions Indication:Sleep disorder Start:10-Dec-2021 Instruction Type:Provider Instructions for Treatment How to Access Health Informa tion Online using Patient Portal and [employer] Apps Indication:Sleep disorder Start:24-Jun-2021 Instruction Type:Patient Education How to access health informa tion online Indication:Smoker Start:11-Sep-2018 Instruction Type:Patient Education How to access health informa tion online - Detail Indication:Smoker Start:11-Sep-2018 Instruction Type:Patient Education Patient Instructions Indication:Smoker Start:11-Sep-2018 Instruction Type:Provider Instructions for Treatment [facility]; [facility] Work Phone: Instructions* Name Dates Details Patient Instructions Indication:ADD (attention deficit disorder) Start:24-Jul-2022 Instruction Type:Provider Instructions for Treatment Patient Instructions Indication:Epigastric pain Start:17-Apr-2022 Instruction Type:Provider Instructions for Treatment How to Access Health Informa tion Online using Patient Portal and [employer]rd [employer] Apps Indication:Epigastric pain Start:17-Apr-2022 Instruction Type:Patient Education Patient Instructions Indication:ADD (attention deficit disorder) Start:23-Jan-2022 Instruction Type:Provider Instructions for Treatment How to Access Health Informa tion Online using Patient Portal and [employer] Apps Indication:ADD (attention deficit disorder) Start:23-Jan-2022 Instruction Type:Patient Education Patient Instructions Indication:[facility] Start:16-Dec-2021 Instruction Type:Provider Instructions for Treatment How to Access Health Informa tion Online using Patient Portal and [employer] Apps Indication:[facility] Start:16-Dec-2021 Instruction Type:Patient Education Patient Instructions Indication:ADD (attention deficit disorder) Start:12-Aug-2021 Instruction Type:Provider Instructions for Treatment How to Access Health Informa tion Online using Patient Portal and [employer] Apps Indication:ADD (attention deficit disorder) Start:12-Aug-2021 Instruction Type:Patient Education Patient Instructions Indication:ADD (attention deficit disorder) Start:01-Aug-2021 Instruction Type:Provider Instructions for Treatment How to Access Health Informa tion Online using Patient Portal and [employer] Apps Indication:ADD (attention deficit disorder) Start:01-Aug-2021 Instruction Type:Patient Education Patient Instructions Indication:ADD (attention deficit disorder) Start:18-Jul-2021 Instruction Type:Provider Instructions for Treatment How to Access Health Informa tion Online using Patient Portal and [employer] Apps Indication:ADD (attention deficit disorder) Start:18-Jul-2021 Instruction Type:Patient Education Patient Instructions Indication:Body aches Start:11-Jul-2021 Instruction Type:Provider Instructions for Treatment How to Access Health Informa tion Online using Patient Portal and [employer] Apps Indication:Body aches Start:11-Jul-2021 Instruction Type:Patient Education Patient Instructions Indication:Sleep disorder Start:05-Jul-2021 Instruction Type:Provider Instructions for Treatment Patient Instructions Indication:Sleep disorder Start:24-Jun-2021 Instruction Type:Provider Instructions for Treatment How to Access Health Informa tion Online using Patient Portal and [employer] Apps Indication:Sleep disorder Start:24-Jun-2021 Instruction Type:Patient Education How to access health informa tion online Indication:Smoker Start:11-Sep-2018 Instruction Type:Patient Education How to access health informa tion online - Detail Indication:Smoker Start:11-Sep-2018 Instruction Type:Patient Education Patient Instructions Indication:Smoker Start:11-Sep-2018 Instruction Type:Provider Instructions for Treatment [facility]; [facility] Work Phone: Instructions* Name Dates Details Patient Instructions Indication:ADD (attention deficit disorder) Start:24-Jul-2022 Instruction Type:Provider Instructions for Treatment Patient Instructions Indication:Epigastric pain Start:17-Apr-2022 Instruction Type:Provider Instructions for Treatment How to Access Health Informa tion Online using Patient Portal and [employer]rd [employer] Apps Indication:Epigastric pain Start:17-Apr-2022 Instruction Type:Patient Education Patient Instructions Indication:ADD (attention deficit disorder) Start:23-Jan-2022 Instruction Type:Provider Instructions for Treatment How to Access Health Informa tion Online using Patient Portal and [employer]rd [employer] Apps Indication:ADD (attention deficit disorder) Start:23-Jan-2022 Instruction Type:Patient Education Patient Instructions Indication:[facility] Start:16-Dec-2021 Instruction Type:Provider Instructions for Treatment How to Access Health Informa tion Online using Patient Portal and [employer] Apps Indication:[facility] Start:16-Dec-2021 Instruction Type:Patient Education Patient Instructions Indication:ADD (attention deficit disorder) Start:12-Aug-2021 Instruction Type:Provider Instructions for Treatment How to Access Health Informa tion Online using Patient Portal and [employer] Apps Indication:ADD (attention deficit disorder) Start:12-Aug-2021 Instruction Type:Patient Education Patient Instructions Indication:ADD (attention deficit disorder) Start:01-Aug-2021 Instruction Type:Provider Instructions for Treatment How to Access Health Informa tion Online using Patient Portal and [employer] Apps Indication:ADD (attention deficit disorder) Start:01-Aug-2021 Instruction Type:Patient Education Patient Instructions Indication:ADD (attention deficit disorder) Start:18-Jul-2021 Instruction Type:Provider Instructions for Treatment How to Access Health Informa tion Online using Patient Portal and [employer]rd [employer] Apps Indication:ADD (attention deficit disorder) Start:18-Jul-2021 Instruction Type:Patient Education Patient Instructions Indication:Body aches Start:11-Jul-2021 Instruction Type:Provider Instructions for Treatment How to Access Health Informa tion Online using Patient Portal and [employer] Apps Indication:Body aches Start:11-Jul-2021 Instruction Type:Patient Education Patient Instructions Indication:Sleep disorder Start:05-Jul-2021 Instruction Type:Provider Instructions for Treatment Patient Instructions Indication:Sleep disorder Start:24-Jun-2021 Instruction Type:Provider Instructions for Treatment How to Access Health Informa tion Online using Patient Portal and [employer] Apps Indication:Sleep disorder Start:24-Jun-2021 Instruction Type:Patient Education How to access health informa tion online Indication:Smoker Start:11-Sep-2018 Instruction Type:Patient Education How to access health informa tion online - Detail Indication:Smoker Start:11-Sep-2018 Instruction Type:Patient Education Patient Instructions Indication:Smoker Start:11-Sep-2018 Instruction Type:Provider Instructions for Treatment [facility]; [facility] Work Phone: Instructions* Name Dates Details Patient Instructions Indication:ADD (attention deficit disorder) Start:24-Jul-2022 Instruction Type:Provider Instructions for Treatment Patient Instructions Indication:Epigastric pain Start:17-Apr-2022 Instruction Type:Provider Instructions for Treatment How to Access Health Informa tion Online using Patient Portal and [employer] Apps Indication:Epigastric pain Start:17-Apr-2022 Instruction Type:Patient Education Patient Instructions Indication:ADD (attention deficit disorder) Start:23-Jan-2022 Instruction Type:Provider Instructions for Treatment How to Access Health Informa tion Online using Patient Portal and [employer] Apps Indication:ADD (attention deficit disorder) Start:23-Jan-2022 Instruction Type:Patient Education Patient Instructions Indication:[facility] Start:16-Dec-2021 Instruction Type:Provider Instructions for Treatment How to Access Health Informa tion Online using Patient Portal and [employer] Apps Indication:[facility] Start:16-Dec-2021 Instruction Type:Patient Education Patient Instructions Indication:ADD (attention deficit disorder) Start:12-Aug-2021 Instruction Type:Provider Instructions for Treatment How to Access Health Informa tion Online using Patient Portal and [employer] Apps Indication:ADD (attention deficit disorder) Start:12-Aug-2021 Instruction Type:Patient Education Patient Instructions Indication:ADD (attention deficit disorder) Start:01-Aug-2021 Instruction Type:Provider Instructions for Treatment How to Access Health Informa tion Online using Patient Portal and [employer] Apps Indication:ADD (attention deficit disorder) Start:01-Aug-2021 Instruction Type:Patient Education Patient Instructions Indication:ADD (attention deficit disorder) Start:18-Jul-2021 Instruction Type:Provider Instructions for Treatment How to Access Health Informa tion Online using Patient Portal and [employer] Apps Indication:ADD (attention deficit disorder) Start:18-Jul-2021 Instruction Type:Patient Education Patient Instructions Indication:Body aches Start:11-Jul-2021 Instruction Type:Provider Instructions for Treatment How to Access Health Informa tion Online using Patient Portal and [employer]rd [employer] Apps Indication:Body aches Start:11-Jul-2021 Instruction Type:Patient Education Patient Instructions Indication:Sleep disorder Start:05-Jul-2021 Instruction Type:Provider Instructions for Treatment Patient Instructions Indication:Sleep disorder Start:24-Jun-2021 Instruction Type:Provider Instructions for Treatment How to Access Health Informa tion Online using Patient Portal and [employer] Apps Indication:Sleep disorder Start:24-Jun-2021 Instruction Type:Patient Education How to access health informa tion online Indication:Smoker Start:11-Sep-2018 Instruction Type:Patient Education How to access health informa tion online - Detail Indication:Smoker Start:11-Sep-2018 Instruction Type:Patient Education Patient Instructions Indication:Smoker Start:11-Sep-2018 Instruction Type:Provider Instructions for Treatment [facility]; [facility] Work Phone: Instructions* Name Dates Details Patient Instructions Indication:ADD (attention deficit disorder) Start:24-Jul-2022 Instruction Type:Provider Instructions for Treatment Patient Instructions Indication:Epigastric pain Start:17-Apr-2022 Instruction Type:Provider Instructions for Treatment How to Access Health Informa tion Online using Patient Portal and [employer] Apps Indication:Epigastric pain Start:17-Apr-2022 Instruction Type:Patient Education Patient Instructions Indication:ADD (attention deficit disorder) Start:23-Jan-2022 Instruction Type:Provider Instructions for Treatment How to Access Health Informa tion Online using Patient Portal and [employer] Apps Indication:ADD (attention deficit disorder) Start:23-Jan-2022 Instruction Type:Patient Education Patient Instructions Indication:[facility] Start:16-Dec-2021 Instruction Type:Provider Instructions for Treatment How to Access Health Informa tion Online using Patient Portal and [employer]rd [employer] Apps Indication:[facility] Start:16-Dec-2021 Instruction Type:Patient Education Patient Instructions Indication:ADD (attention deficit disorder) Start:12-Aug-2021 Instruction Type:Provider Instructions for Treatment How to Access Health Informa tion Online using Patient Portal and [employer] Apps Indication:ADD (attention deficit disorder) Start:12-Aug-2021 Instruction Type:Patient Education Patient Instructions Indication:ADD (attention deficit disorder) Start:01-Aug-2021 Instruction Type:Provider Instructions for Treatment How to Access Health Informa tion Online using Patient Portal and [employer] Apps Indication:ADD (attention deficit disorder) Start:01-Aug-2021 Instruction Type:Patient Education Patient Instructions Indication:ADD (attention deficit disorder) Start:18-Jul-2021 Instruction Type:Provider Instructions for Treatment How to Access Health Informa tion Online using Patient Portal and [employer] Apps Indication:ADD (attention deficit disorder) Start:18-Jul-2021 Instruction Type:Patient Education Patient Instructions Indication:Body aches Start:11-Jul-2021 Instruction Type:Provider Instructions for Treatment How to Access Health Informa tion Online using Patient Portal and [employer] Apps Indication:Body aches Start:11-Jul-2021 Instruction Type:Patient Education Patient Instructions Indication:Sleep disorder Start:05-Jul-2021 Instruction Type:Provider Instructions for Treatment Patient Instructions Indication:Sleep disorder Start:24-Jun-2021 Instruction Type:Provider Instructions for Treatment How to Access Health Informa tion Online using Patient Portal and [employer] Apps Indication:Sleep disorder Start:24-Jun-2021 Instruction Type:Patient Education How to access health informa tion online Indication:Smoker Start:11-Sep-2018 Instruction Type:Patient Education How to access health informa tion online - Detail Indication:Smoker Start:11-Sep-2018 Instruction Type:Patient Education Patient Instructions Indication:Smoker Start:11-Sep-2018 Instruction Type:Provider Instructions for Treatment [facility]; [facility] Work Phone: Instructions* Name Dates Details Patient Instructions Indication:Unspecified Diagnosis Start:05-Jan-2023 Instruction Type:Provider Instructions for Treatment How to Access Health Informa tion Online using Patient Portal and [employer] Apps Indication:Unspecified Diagnosis Start:05-Jan-2023 Instruction Type:Patient Education Patient Instructions Indication:ADD (attention deficit disorder) Start:24-Jul-2022 Instruction Type:Provider Instructions for Treatment Patient Instructions Indication:Epigastric pain Start:17-Apr-2022 Instruction Type:Provider Instructions for Treatment How to Access Health Informa tion Online using Patient Portal and [employer] Apps Indication:Epigastric pain Start:17-Apr-2022 Instruction Type:Patient Education Patient Instructions Indication:ADD (attention deficit disorder) Start:23-Jan-2022 Instruction Type:Provider Instructions for Treatment How to Access Health Informa tion Online using Patient Portal and [employer] Apps Indication:ADD (attention deficit disorder) Start:23-Jan-2022 Instruction Type:Patient Education Patient Instructions Indication:[facility] Start:16-Dec-2021 Instruction Type:Provider Instructions for Treatment How to Access Health Informa tion Online using Patient Portal and [employer] Apps Indication:[facility] Start:16-Dec-2021 Instruction Type:Patient Education Patient Instructions Indication:ADD (attention deficit disorder) Start:12-Aug-2021 Instruction Type:Provider Instructions for Treatment How to Access Health Informa tion Online using Patient Portal and [employer] Apps Indication:ADD (attention deficit disorder) Start:12-Aug-2021 Instruction Type:Patient Education Patient Instructions Indication:ADD (attention deficit disorder) Start:01-Aug-2021 Instruction Type:Provider Instructions for Treatment How to Access Health Informa tion Online using Patient Portal and [employer] Apps Indication:ADD (attention deficit disorder) Start:01-Aug-2021 Instruction Type:Patient Education Patient Instructions Indication:ADD (attention deficit disorder) Start:18-Jul-2021 Instruction Type:Provider Instructions for Treatment How to Access Health Informa tion Online using Patient Portal and [employer] Apps Indication:ADD (attention deficit disorder) Start:18-Jul-2021 Instruction Type:Patient Education Patient Instructions Indication:Body aches Start:11-Jul-2021 Instruction Type:Provider Instructions for Treatment How to Access Health Informa tion Online using Patient Portal and [employer] Apps Indication:Body aches Start:11-Jul-2021 Instruction Type:Patient Education Patient Instructions Indication:Sleep disorder Start:05-Jul-2021 Instruction Type:Provider Instructions for Treatment Patient Instructions Indication:Sleep disorder Start:24-Jun-2021 Instruction Type:Provider Instructions for Treatment How to Access Health Informa tion Online using Patient Portal and [employer] Apps Indication:Sleep disorder Start:24-Jun-2021 Instruction Type:Patient Education How to access health informa tion online Indication:Smoker Start:11-Sep-2018 Instruction Type:Patient Education How to access health informa tion online - Detail Indication:Smoker Start:11-Sep-2018 Instruction Type:Patient Education Patient Instructions Indication:Smoker Start:11-Sep-2018 Instruction Type:Provider Instructions for Treatment [facility]; [facility] Work Phone: Instructions* Name Dates Details Patient Instructions Indication:Constipation Start:05-Jan-2023 Instruction Type:Provider Instructions for Treatment How to Access Health Informa tion Online using Patient Portal and [employer] Apps Indication:Constipation Start:05-Jan-2023 Instruction Type:Patient Education Patient Instructions Indication:ADD (attention deficit disorder) Start:24-Jul-2022 Instruction Type:Provider Instructions for Treatment Patient Instructions Indication:Epigastric pain Start:17-Apr-2022 Instruction Type:Provider Instructions for Treatment How to Access Health Informa tion Online using Patient Portal and [employer] Apps Indication:Epigastric pain Start:17-Apr-2022 Instruction Type:Patient Education Patient Instructions Indication:ADD (attention deficit disorder) Start:23-Jan-2022 Instruction Type:Provider Instructions for Treatment How to Access Health Informa tion Online using Patient Portal and [employer] Apps Indication:ADD (attention deficit disorder) Start:23-Jan-2022 Instruction Type:Patient Education Patient Instructions Indication:[facility] Start:16-Dec-2021 Instruction Type:Provider Instructions for Treatment How to Access Health Informa tion Online using Patient Portal and [employer] Indication:[facility] EXAM Start:16-Dec-2021 Instruction Type:Patient Education Patient Instructions Indication:ADD (attention deficit disorder) Start:12-Aug-2021 Instruction Type:Provider Instructions for Treatment How to Access Health Informa tion Online using Patient Portal and [employer] Apps Indication:ADD (attention deficit disorder) Start:12-Aug-2021 Instruction Type:Patient Education Patient Instructions Indication:ADD (attention deficit disorder) Start:01-Aug-2021 Instruction Type:Provider Instructions for Treatment How to Access Health Informa tion Online using Patient Portal and [employer] Apps Indication:ADD (attention deficit disorder) Start:01-Aug-2021 Instruction Type:Patient Education Patient Instructions Indication:ADD (attention deficit disorder) Start:18-Jul-2021 Instruction Type:Provider Instructions for Treatment How to Access Health Informa tion Online using Patient Portal and [employer] Apps Indication:ADD (attention deficit disorder) Start:18-Jul-2021 Instruction Type:Patient Education Patient Instructions Indication:Body aches Start:11-Jul-2021 Instruction Type:Provider Instructions for Treatment How to Access Health Informa tion Online using Patient Portal and [employer] Apps Indication:Body aches Start:11-Jul-2021 Instruction Type:Patient Education Patient Instructions Indication:Sleep disorder Start:05-Jul-2021 Instruction Type:Provider Instructions for Treatment Patient Instructions Indication:Sleep disorder Start:24-Jun-2021 Instruction Type:Provider Instructions for Treatment How to Access Health Informa tion Online using Patient Portal and [employer] Apps Indication:Sleep disorder Start:24-Jun-2021 Instruction Type:Patient Education How to access health informa tion online Indication:Smoker Start:11-Sep-2018 Instruction Type:Patient Education How to access health informa tion online - Detail Indication:Smoker Start:11-Sep-2018 Instruction Type:Patient Education Patient Instructions Indication:Smoker Start:11-Sep-2018 Instruction Type:Provider Instructions for Treatment [facility]; [facility] Work Phone: Instructions* Name Dates Details How to Access Health Informa tion Online using Patient Portal and [employer] Apps Indication:ADD (attention deficit disorder) Start:22-Jan-2023 Instruction Type:Patient Education Patient Instructions Indication:ADD (attention deficit disorder) Start:22-Jan-2023 Instruction Type:Provider Instructions for Treatment Patient Instructions Indication:Constipation Start:05-Jan-2023 Instruction Type:Provider Instructions for Treatment How to Access Health Informa tion Online using Patient Portal and [employer] Apps Indication:Constipation Start:05-Jan-2023 Instruction Type:Patient Education Patient Instructions Indication:ADD (attention deficit disorder) Start:24-Jul-2022 Instruction Type:Provider Instructions for Treatment Patient Instructions Indication:Epigastric pain Start:17-Apr-2022 Instruction Type:Provider Instructions for Treatment How to Access Health Informa tion Online using Patient Portal and [employer] Apps Indication:Epigastric pain Start:17-Apr-2022 Instruction Type:Patient Education Patient Instructions Indication:ADD (attention deficit disorder) Start:23-Jan-2022 Instruction Type:Provider Instructions for Treatment How to Access Health Informa tion Online using Patient Portal and [employer] Indication:ADD (attention deficit disorder) Start:23-Jan-2022 Instruction Type:Patient Education Patient Instructions Indication:[facility] EX[facility] Start:16-Dec-2021 Instruction Type:Provider Instructions for Treatment How to Access Health Informa tion Online using Patient Portal and [employer] Indication:[facility] EX[facility] Start:16-Dec-2021 Instruction Type:Patient Education Patient Instructions Indication:ADD (attention deficit disorder) Start:12-Aug-2021 Instruction Type:Provider Instructions for Treatment How to Access Health Informa tion Online using Patient Portal and [employer] Indication:ADD (attention deficit disorder) Start:12-Aug-2021 Instruction Type:Patient Education Patient Instructions Indication:ADD (attention deficit disorder) Start:01-Aug-2021 Instruction Type:Provider Instructions for Treatment How to Access Health Informa tion Online using Patient Portal and [employer] Indication:ADD (attention deficit disorder) Start:01-Aug-2021 Instruction Type:Patient Education Patient Instructions Indication:ADD (attention deficit disorder) Start:18-Jul-2021 Instruction Type:Provider Instructions for Treatment How to Access Health Informa tion Online using Patient Portal and [employer] Apps Indication:ADD (attention deficit disorder) Start:18-Jul-2021 Instruction Type:Patient Education Patient Instructions Indication:Body aches Start:11-Jul-2021 Instruction Type:Provider Instructions for Treatment How to Access Health Informa tion Online using Patient Portal and [employer] Apps Indication:Body aches Start:11-Jul-2021 Instruction Type:Patient Education Patient Instructions Indication:Sleep disorder Start:05-Jul-2021 Instruction Type:Provider Instructions for Treatment Patient Instructions Indication:Sleep disorder Start:24-Jun-2021 Instruction Type:Provider Instructions for Treatment How to Access Health Informa tion Online using Patient Portal and [employer] Apps Indication:Sleep disorder Start:24-Jun-2021 Instruction Type:Patient Education How to access health informa tion online Indication:Smoker Start:11-Sep-2018 Instruction Type:Patient Education How to access health informa tion online - Detail Indication:Smoker Start:11-Sep-2018 Instruction Type:Patient Education Patient Instructions Indication:Smoker Start:11-Sep-2018 Instruction Type:Provider Instructions for Treatment [facility]; [facility] Work Phone: Instructions* Name Dates Details How to Access Health Informa tion Online using Patient Portal and [employer] Apps Indication:ADD (attention deficit disorder) Start:22-Jan-2023 Instruction Type:Patient Education Patient Instructions Indication:ADD (attention deficit disorder) Start:22-Jan-2023 Instruction Type:Provider Instructions for Treatment Patient Instructions Indication:Constipation Start:05-Jan-2023 Instruction Type:Provider Instructions for Treatment How to Access Health Informa tion Online using Patient Portal and [employer] Apps Indication:Constipation Start:05-Jan-2023 Instruction Type:Patient Education Patient Instructions Indication:ADD (attention deficit disorder) Start:24-Jul-2022 Instruction Type:Provider Instructions for Treatment Patient Instructions Indication:Epigastric pain Start:17-Apr-2022 Instruction Type:Provider Instructions for Treatment How to Access Health Informa tion Online using Patient Portal and [employer] Apps Indication:Epigastric pain Start:17-Apr-2022 Instruction Type:Patient Education Patient Instructions Indication:ADD (attention deficit disorder) Start:23-Jan-2022 Instruction Type:Provider Instructions for Treatment How to Access Health Informa tion Online using Patient Portal and [employer] Indication:ADD (attention deficit disorder) Start:23-Jan-2022 Instruction Type:Patient Education Patient Instructions Indication:[facility] EX[facility] Start:16-Dec-2021 Instruction Type:Provider Instructions for Treatment How to Access Health Informa tion Online using Patient Portal and [employer] Apps Indication:[facility] EX[facility] Start:16-Dec-2021 Instruction Type:Patient Education Patient Instructions Indication:ADD (attention deficit disorder) Start:12-Aug-2021 Instruction Type:Provider Instructions for Treatment How to Access Health Informa tion Online using Patient Portal and [employer] Apps Indication:ADD (attention deficit disorder) Start:12-Aug-2021 Instruction Type:Patient Education Patient Instructions Indication:ADD (attention deficit disorder) Start:01-Aug-2021 Instruction Type:Provider Instructions for Treatment How to Access Health Informa tion Online using Patient Portal and [employer] Apps Indication:ADD (attention deficit disorder) Start:01-Aug-2021 Instruction Type:Patient Education Patient Instructions Indication:ADD (attention deficit disorder) Start:18-Jul-2021 Instruction Type:Provider Instructions for Treatment How to Access Health Informa tion Online using Patient Portal and [employer] Apps Indication:ADD (attention deficit disorder) Start:18-Jul-2021 Instruction Type:Patient Education Patient Instructions Indication:Body aches Start:11-Jul-2021 Instruction Type:Provider Instructions for Treatment How to Access Health Informa tion Online using Patient Portal and [employer] Apps Indication:Body aches Start:11-Jul-2021 Instruction Type:Patient Education Patient Instructions Indication:Sleep disorder Start:05-Jul-2021 Instruction Type:Provider Instructions for Treatment Patient Instructions Indication:Sleep disorder Start:24-Jun-2021 Instruction Type:Provider Instructions for Treatment How to Access Health Informa tion Online using Patient Portal and [employer] Indication:Sleep disorder Start:24-Jun-2021 Instruction Type:Patient Education How to access health informa tion online Indication:Smoker Start:11-Sep-2018 Instruction Type:Patient Education How to access health informa tion online - Detail Indication:Smoker Start:11-Sep-2018 Instruction Type:Patient Education Patient Instructions Indication:Smoker Start:11-Sep-2018 Instruction Type:Provider Instructions for Treatment [facility]; [facility] Work Phone: Instructions* Name Dates Details How to Access Health Informa tion Online using Patient Portal and [employer] Indication:ADD (attention deficit disorder) Start:22-Jan-2023 Instruction Type:Patient Education Patient Instructions Indication:ADD (attention deficit disorder) Start:22-Jan-2023 Instruction Type:Provider Instructions for Treatment Patient Instructions Indication:Constipation Start:05-Jan-2023 Instruction Type:Provider Instructions for Treatment How to Access Health Informa tion Online using Patient Portal and [employer] Apps Indication:Constipation Start:05-Jan-2023 Instruction Type:Patient Education Patient Instructions Indication:ADD (attention deficit disorder) Start:24-Jul-2022 Instruction Type:Provider Instructions for Treatment Patient Instructions Indication:Epigastric pain Start:17-Apr-2022 Instruction Type:Provider Instructions for Treatment How to Access Health Informa tion Online using Patient Portal and [employer] Apps Indication:Epigastric pain Start:17-Apr-2022 Instruction Type:Patient Education Patient Instructions Indication:ADD (attention deficit disorder) Start:23-Jan-2022 Instruction Type:Provider Instructions for Treatment How to Access Health Informa tion Online using Patient Portal and [employer] Apps Indication:ADD (attention deficit disorder) Start:23-Jan-2022 Instruction Type:Patient Education Patient Instructions Indication:[facility] EX[facility] Start:16-Dec-2021 Instruction Type:Provider Instructions for Treatment How to Access Health Informa tion Online using Patient Portal and [employer] Apps Indication:[facility] EXAM Start:16-Dec-2021 Instruction Type:Patient Education Patient Instructions Indication:ADD (attention deficit disorder) Start:12-Aug-2021 Instruction Type:Provider Instructions for Treatment How to Access Health Informa tion Online using Patient Portal and [employer] Apps Indication:ADD (attention deficit disorder) Start:12-Aug-2021 Instruction Type:Patient Education Patient Instructions Indication:ADD (attention deficit disorder) Start:01-Aug-2021 Instruction Type:Provider Instructions for Treatment How to Access Health Informa tion Online using Patient Portal and [employer] Indication:ADD (attention deficit disorder) Start:01-Aug-2021 Instruction Type:Patient Education Patient Instructions Indication:ADD (attention deficit disorder) Start:18-Jul-2021 Instruction Type:Provider Instructions for Treatment How to Access Health Informa tion Online using Patient Portal and [employer] Apps Indication:ADD (attention deficit disorder) Start:18-Jul-2021 Instruction Type:Patient Education Patient Instructions Indication:Body aches Start:11-Jul-2021 Instruction Type:Provider Instructions for Treatment How to Access Health Informa tion Online using Patient Portal and [employer] Apps Indication:Body aches Start:11-Jul-2021 Instruction Type:Patient Education Patient Instructions Indication:Sleep disorder Start:05-Jul-2021 Instruction Type:Provider Instructions for Treatment Patient Instructions Indication:Sleep disorder Start:24-Jun-2021 Instruction Type:Provider Instructions for Treatment How to Access Health Informa tion Online using Patient Portal and [employer] Apps Indication:Sleep disorder Start:24-Jun-2021 Instruction Type:Patient Education How to access health informa tion online Indication:Smoker Start:11-Sep-2018 Instruction Type:Patient Education How to access health informa tion online - Detail Indication:Smoker Start:11-Sep-2018 Instruction Type:Patient Education Patient Instructions Indication:Smoker Start:11-Sep-2018 Instruction Type:Provider Instructions for Treatment [facility]; [facility] Work Phone: Instructions* Name Dates Details Patient Instructions Indication:Smoker Start:30-Apr-2023 Instruction Type:Provider Instructions for Treatment How to Access Health Informa tion Online using Patient Portal and [employer] Apps Indication:Smoker Start:30-Apr-2023 Instruction Type:Patient Education How to Access Health Informa tion Online using Patient Portal and [employer] Apps Indication:ADD (attention deficit disorder) Start:22-Jan-2023 Instruction Type:Patient Education Patient Instructions Indication:ADD (attention deficit disorder) Start:22-Jan-2023 Instruction Type:Provider Instructions for Treatment Patient Instructions Indication:Constipation Start:05-Jan-2023 Instruction Type:Provider Instructions for Treatment How to Access Health Informa tion Online using Patient Portal and [employer] Apps Indication:Constipation Start:05-Jan-2023 Instruction Type:Patient Education Patient Instructions Indication:ADD (attention deficit disorder) Start:24-Jul-2022 Instruction Type:Provider Instructions for Treatment Patient Instructions Indication:Epigastric pain Start:17-Apr-2022 Instruction Type:Provider Instructions for Treatment How to Access Health Informa tion Online using Patient Portal and [employer] Apps Indication:Epigastric pain Start:17-Apr-2022 Instruction Type:Patient Education Patient Instructions Indication:ADD (attention deficit disorder) Start:23-Jan-2022 Instruction Type:Provider Instructions for Treatment How to Access Health Informa tion Online using Patient Portal and [employer] Apps Indication:ADD (attention deficit disorder) Start:23-Jan-2022 Instruction Type:Patient Education Patient Instructions Indication:[facility] EX[facility] Start:16-Dec-2021 Instruction Type:Provider Instructions for Treatment How to Access Health Informa tion Online using Patient Portal and [employer] Apps Indication:[facility] EXAM Start:16-Dec-2021 Instruction Type:Patient Education Patient Instructions Indication:ADD (attention deficit disorder) Start:12-Aug-2021 Instruction Type:Provider Instructions for Treatment How to Access Health Informa tion Online using Patient Portal and [employer] Apps Indication:ADD (attention deficit disorder) Start:12-Aug-2021 Instruction Type:Patient Education Patient Instructions Indication:ADD (attention deficit disorder) Start:01-Aug-2021 Instruction Type:Provider Instructions for Treatment How to Access Health Informa tion Online using Patient Portal and [employer] Apps Indication:ADD (attention deficit disorder) Start:01-Aug-2021 Instruction Type:Patient Education Patient Instructions Indication:ADD (attention deficit disorder) Start:18-Jul-2021 Instruction Type:Provider Instructions for Treatment How to Access Health Informa tion Online using Patient Portal and [employer] Apps Indication:ADD (attention deficit disorder) Start:18-Jul-2021 Instruction Type:Patient Education Patient Instructions Indication:Body aches Start:11-Jul-2021 Instruction Type:Provider Instructions for Treatment How to Access Health Informa tion Online using Patient Portal and [employer] Indication:Body aches Start:11-Jul-2021 Instruction Type:Patient Education Patient Instructions Indication:Sleep disorder Start:05-Jul-2021 Instruction Type:Provider Instructions for Treatment Patient Instructions Indication:Sleep disorder Start:24-Jun-2021 Instruction Type:Provider Instructions for Treatment How to Access Health Informa tion Online using Patient Portal and [employer] Indication:Sleep disorder Start:24-Jun-2021 Instruction Type:Patient Education How to access health informa tion online Indication:Smoker Start:11-Sep-2018 Instruction Type:Patient Education How to access health informa tion online - Detail Indication:Smoker Start:11-Sep-2018 Instruction Type:Patient Education Patient Instructions Indication:Smoker Start:11-Sep-2018 Instruction Type:Provider Instructions for Treatment [facility]; [facility] Work Phone: Instructions Name Dates Details Smoker : How to access healt h information online Indication:Smoker Smoker : How to access healt h information online - Detail Indication:Smoker Smoker : Patient Instruction s Indication:Smoker Summary Purpose Family History No Family History Records Found Advance Directives No Advanced Directives Records Found Additional Source Comments INFORMATION SOURCE (unrecogn ized section and content) FOR RECORDS PERTAINING TO PATIENTS WHO ARE OR HAVE BEEN ENROLLED IN A CHEMICAL DEPENDENCY/SUBSTANCEABUSE PROGRAM, SOME INFORMATION MAY BE OMITTED. This clinical summary was aggregated from multiple sources. Caution should be exercised in using it in the provision of clinical care. This summary normalizes information from multiple sources, and as a consequence, information in this document may materially change the coding, format and clinical context of patient data. In addition, data may be omitted in some cases. CLINICAL DECISIONS SHOULD BE BASED ON THE PRIMARY CLINICAL RECORDS. [facility] [employer] [facility]. provides no warranty or guarantee of the accuracy or completeness of information in this document.
[2023-07-12] MEDS: 0.9% Normal Saline (1000mL) 1,000 ML 999 ML IV (22:47)
[2023-07-12] MEDS: Ondansetron 4 MG/2 ML Vial IV (22:47)
[2023-07-12] MEDS: Morphine 4 MG/ML Syringe IV (22:47)
[2023-07-12 22:50] LABS: Internal QC Validated? YES +Cl - CLEAR BKGD; Pregnancy, Serum, hCG Quali. NEGATIVE Negative
[2023-07-12 22:53] LABS: ALB/GLOB Ratio 1.2 RATIO (0.9-2.4); AST(SGOT) 28 U/L (15-37); Alanine Aminotransfer ALT/SGPT 34 U/L (13-56); Albumin, Serum 4.6 g/dL (3.2-5.0); Alkaline Phosphatase 96 U/L (45-117); Anion Gap 7 (5-15); BUN 12 mg/dL (7-18); BUN/Creat Ratio 13.4 RATIO (10-20); Calcium,Total 10.4 mg/dL (8.5-10.1); Chloride 99 mmol/L (98-107); EST Glomerular Filtration Rate 70 mL/min (>60); Est Glom Filt Rate - Afr Amer 85 mL/min (>60); Estimated Creatinine Clearance 54.55 ml/min; Glucose 119 mg/dL (74-106); Lipase 15 U/L (13-75); Potassium 4.2 mmol/L (3.5-5.1); Protein, Total 8.6 g/dL (6.4-8.2); Sodium Level 135 mmol/L (136-145)
--- NOTE | 2023-07-12 23:06 | CT_ITS ---
EXAM: CT ABDOMEN AND PELVIS WITHOUT INTRAVENOUS CONTRAST CLINICAL INDICATION: abdomimal pain TECHNIQUE: Helically acquired images were obtained of the abdomen and pelvis without intravenous contrast. CTDIvol = ( 6.57 ) mGy, DLP = ( 326.73 ) mGycm This CT exam was performed using one or more of the following dose reduction techniques: automated exposure control, adjustment of the mA and/or kV according to patient size, and/or use of iterative reconstruction technique. COMPARISON: September 22, 2019 FINDINGS: LOWER THORAX: Unremarkable. Lung bases are clear. No cardiomegaly. No significant pericardial effusion. ABDOMEN: LIVER: Unremarkable. Homogeneous. GALLBLADDER AND BILE DUCTS: Unremarkable. No calcified gallstones. No gallbladder distention or wall edema. No intra- or extrahepatic biliary ductal dilation. PANCREAS: Unremarkable. No focal cystic mass. SPLEEN: Unremarkable. Normal size without focal cystic or solid mass. ADRENALS: Unremarkable. No nodules. KIDNEYS AND URETERS: Unremarkable. Normal renal size and position. No hydronephrosis. STOMACH AND BOWEL: Multiple loops of the small bowel at the mid abdomen level show dilatation compatible with moderate to high-grade small bowel obstruction. Surgical artifact involving the small bowel in the left lower quadrant, bowel in the right lower quadrant, and the distal sigmoid colon. No wall thickening to suggest enteritis. PELVIS: APPENDIX: No evidence of acute appendicitis. BLADDER: Unremarkable. REPRODUCTIVE: Unremarkable as visualized. No mass. ABDOMEN and PELVIS: INTRAPERITONEAL SPACE: Unremarkable. No ascites or other fluid collection. No free air to suggest perforation. BONES/JOINTS: Unremarkable. No suspicious lytic or blastic abnormality. SOFT TISSUES: Unremarkable. No discrete abdominal or pelvic wall hernia. VASCULATURE: Unremarkable. Abdominal aorta is non-dilated. LYMPH NODES: Unremarkable. No enlarged lymph nodes. CT/Abdomen/Pelvis without Cont IMPRESSION: Multiple loops of the small bowel at the mid abdomen level show dilatation compatible with moderate to high-grade small bowelri obstruction. This is potentially related to adhesions given evidence of prior bowel surgery. Electronically Signed: Gurjit Benavides MD at 0:17 EST ,
[2023-07-12 23:50] LABS: Lactic Acid 1.5 mmol/L (0.4-1.9)
--- NOTE | 2023-07-13 00:38 | PCM.HP.STD ---
HPI - General General Date of Admission: 07/13/23 Date of Service: 07/13/23 Chief Complaint: Worsening abdominal pain and nausea HPI Narrative NELIDA DELACRUZ, is a 53 F who presented to [facility] ED on 07/13/2023 with worsening abdominal pain and nausea. Patient has history of sigmoid colectomy and ileostomy placement in 08/[address] Victor for high-grade diverticular stricture with high-grade colonic obstruction. Dr. Victor noted in his office note from 01/2020 that patient had a complicated postoperative course requiring 2 procedures including having small bowel resection re-done and re-stapled with resolution of her symptoms. In 01/2020 patient was doing well, and her ileostomy was taken down at that time. Patient had no further issues from an abdominal standpoint after the procedure. She notably did have an outpatient screening colonoscopy done in 03/2022 that showed diverticulosis in mid sigmoid colon, 1 small polyp, otherwise was benign. Patient seen at bedside in the ED, and daughter present. Patient states that she has had intermittent abdominal pain over the last month, which is now worsened significantly over the last day or so. She has had worsening nausea over the past day and states she is not passing any flatus. Has not had any episodes of vomiting. CT abdomen pelvis in ED showed multiple dilated small bowel loops in mid abdomen consistent with a small bowel obstruction. ED physician spoke with general surgery, recommended placement of NG tube and admission to medicine. I saw patient at bedside shortly before NG tube was placed. At that time she was laying fairly comfortably in bed, conversing normally, no acute distress. Stated that the pain medication, nausea medication and IV fluids have been quite helpful for her. She denied any fevers or chills. Denies any chest pain or shortness of breath. No other acute concerns this time. REPLACED BY [facility] Medical History Alcohol use Anemia Anxiety Depressive disorder, not elsewhere classified Diverticulitis Former smoker History of diverticulitis History of small bowel obstruction (~08/2019) Hives Ileostomy present Leg cramps PONV (postoperative nausea and vomiting) Post-menopausal Screening for malignant neoplasm of intestine Home Medications epinephrine 0.3 mg/0.3 mL injection, auto-injector (EpiPen) 0.3 mg (0.3 mL) IM Q5-15M PRN hypersensitivity reaction #2 ea 07/21/20 [Rx Last Taken Unknown] multivitamin 1 tab PO DAILY vitamin 04/03/22 [History Last Taken Unknown] dextroamphetamine-amphetamine 20 mg tablet 20 mg PO 1200 adhd 07/13/23 [History Last Taken Unknown] dextroamphetamine-amphetamine ER 20 mg 24hr capsule,extend release 20 mg PO 0500 adhd 07/13/23 [History Last Taken Unknown] Allergy/AdvReac Type Severity Reaction Status Date / Time bee pollen Allergy Swelling Verified 07/12/23 21:14 promethazine [From Phenergan] Allergy Other Verified 07/12/23 21:14 Family History Unknown Asthma Mother Cancer Asthma Heart disease COPD (chronic obstructive pulmonary disease) Surgical History H/O section H/O colonoscopy History of colectomy (~08/2019) history of ostomy reversal (~01/2020) Social History household members: family number of children: 4 current occupational status: employed Smoking Status: Current every day smoker tobacco type: cigarettes second hand exposure: No alcohol intake: current details: Glass of wine 3x a weeks substance use type: does not use caffeine: Yes what type of physical activity do you participate in: none seatbelt use: always do you feel safe at home: Yes 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 Constitutional Constitutional: Denies chills, fatigue, fever(s) or weakness Eyes Eyes: Denies change in vision Cardiovascular Cardiovascular: Denies chest pain Respiratory/Chest Respiratory/Chest: Denies cough Gastrointestinal Gastrointestinal: Reports abdominal pain, constipation and nausea; Denies diarrhea or vomiting Genitourinary Genitourinary: Denies dysuria Musculoskeletal Musculoskeletal: Denies back pain Neurologic Neurologic: Denies dizziness, focal weakness or headache(s) Psychiatric Psychiatric: Reports anxiety Vital Signs Vital Signs Vital Signs: 07/12/23 21:15 07/12/23 22:20 Temperature 97.6 F L Temperature Source Temporal Pulse Rate 97 Respiratory Rate 16 16 Blood Pressure 171/96 H Blood Pressure Mean 121 Pulse Ox 99 Oxygen Delivery Method Room Air Weight Weight: 61 kg Body Mass Index (BMI) 25.4 Physical Exam Const alert, oriented x3, no apparent distress and average body habitus Constitutional Narrative: Pleasant middle-aged female, laying comfortably in bed, conversing normally, no acute distress. General Appearance: cooperative and comfortable HEENT normocephalic, head/scalp atraumatic, hearing grossly normal bilaterally and nasal mucous membranes and turbinates normal HEENT Narrative: Dry mucous membranes. Eyes PERRL, EOMs intact bilaterally and conjunctivae normal Neck full ROM, no lymphadenopathy and supple Lymph Lymphatic: no lymphadenopathy noted Chest inspection of chest normal Resp normal respiratory effort, normal air movement, no use of accessory muscles and clear to auscultation bilaterally Cardio regular rate, regular rhythm, no murmurs and peripheral pulses 2+ throughout GI GI Narrative: Mild tenderness to palpation in umbilical area. Hyperactive bowel sounds noted. Otherwise soft and nondistended. No guarding or rebound tenderness noted. Back/Spine normal ROM Extremity normal to inspection, full ROM and no pedal edema Skin no rashes or lesions noted Neuro moves all extremities and no focal motor deficits Speech: speech normal Psych mental status grossly normal Mood & Affect: anxious Results Lab / Micro Data 07/12/23 22:25 07/12/23 22:25 Labs: Laboratory Results - last 24 hr 07/12/23 22:25: WBC 14.6 H, RBC 5.56 H, Hgb 17.4 H, Hct 52.6 H, MCV 94.6, MCH 31.3, MCHC 33.1, RDW Std Deviation 45.2 H, RDW Coeff of Miguel 12.9, Plt Count 357, MPV 9.5, Immature Gran % (Auto) 0.300, Neut % (Auto) 88.2 H, Lymph % (Auto) 8.1 L, Pettis % (Auto) 3.0, Eos % (Auto) 0.1, Baso % (Auto) 0.3, Absolute Neuts (auto) 12.9 H, Absolute Lymphs (auto) 1.19, Nucleated RBC % 0, Sodium 135 L, Potassium 4.2, Chloride 99, Carbon Dioxide 29.0, Anion Gap 7, BUN 12, Creatinine 0.90, Estim Creat Clear Calc 54.55, Est GFR (MDRD) Af Amer 85, Est GFR (MDRD) Non-Af 70, BUN/Creatinine Ratio 13.4, Glucose 119 H, Calcium 10.4 H, Total Bilirubin 0.40, AST 28, ALT 34, Alkaline Phosphatase 96, Total Protein 8.6 H, Albumin 4.6, Globulin 4.0, Albumin/Globulin Ratio 1.2, Lipase 15, Serum , Qual NEGATIVE 07/12/23 22:54: Lactic Acid 1.5 Imagaing Radiology Impression Abdomen/Pelvis CT 07/12/23 23:06 IMPRESSION: Multiple loops of the small bowel at the mid abdomen level show dilatation compatible with moderate to high-grade small bowelri obstruction. This is potentially related to adhesions given evidence of prior bowel surgery. Electronically Signed: Gurjit Benavides MD at 0:17 EST , Assessment & Plan Assessment/Plan (1) Small bowel obstruction: PLAN: Plan Patient is a 53-year-old female who presented to [facility] ED on 07/13/2023 with worsening abdominal pain and nausea. 1. Small bowel obstruction CT abdomen pelvis showed multiple loops of small bowel at the mid abdominal level showing dilatation compatible with moderate to high-grade small bowel obstruction. Presumed secondary to adhesions from previous abdominal surgeries in 2019. ? Admit under inpatient status to [facility] [place]. General surgery consulted. Surgery discussed with ED, NG tube placed in ED, will place to low intermittent wall suction for decompression. N.p.o. Maintenance IV fluids. Zofran, compazine and low-dose Dilaudid as needed for symptom control. 2. Leukocytosis ? WBC count 14.6 K on admit. Suspect secondary to hemoconcentration from hypovolemia, as hemoglobin is also quite elevated from baseline. Patient afebrile, normotensive, no other signs of active infection noted. IV fluids as noted above. Follow-up a.m. CBC. Chronic medical conditions: ? History of sigmoid colectomy and ileostomy placement in 08/2019, with ileostomy takedown in 01/2020 ? ADHD, anxiety/depression: Holding home Adderall. DVT prophylaxis: Lovenox CODE STATUS: Full code, verified Expected disposition: Home, TBD Total clinical time spent by myself addressing the patient's medical issues, reviewing all the data, and collaborating with patient's care team: 40 minutes. Charges/Coding Visit Charges Inpatient E&M: 76386 Init Hosp L1
[2023-07-13 00:48] VITALS: BP 133/90
[2023-07-13 01:00] VITALS: RESP 16
[2023-07-13] MEDS: Ondansetron 4 MG/2 ML Vial IV (01:00)
--- NOTE | 2023-07-13 01:00 | RAD_ITS ---
EXAM: XR ABDOMEN, 1 VIEW CLINICAL INDICATION: ng tube -- KUB with both diaphragms for NG/OG Verification TECHNIQUE: Frontal supine view of the abdomen/pelvis. COMPARISON: No relevant prior studies available. FINDINGS: LOWER THORAX: Transesophageal catheter side port is located below the GE junction with tip projecting over the distal stomach. Lungs are clear. GASTROINTESTINAL TRACT: Unremarkable. Non-obstructive. No bowel or stomach distention. Normal bowel gas pattern. ORGANS: Unremarkable as visualized. No organomegaly. No abnormal calcifications. BONES/JOINTS: Bones are normal for age. SOFT TISSUES: No acute pathology. RAD/Abdomen Single View (Portable) IMPRESSION: Transesophageal catheter side port is located below the GE junction with tip projecting over the distal stomach. Electronically Signed: Gurjit Benavides MD at 2:11 EST ,
[2023-07-13] MEDS: Morphine 4 MG/ML Syringe IV (01:01)
[2023-07-13] MEDS: Oxymetazoline 0.05% 1 SPRAY SPRAY.BTL 2 SPRAY NASAL (01:02)
--- OUTSIDE RECORDS SUMMARY | 2023-07-13 01:49 | XMS RPT_ITS | CCD ---
Author Name Unknown Address [address] [place] [address] Organization [facility] Care Team Providers Care Associate Veterinarian Name Role Phone Radha Jerome Unavailable kIe Hyatt Unavailable Unavailable Theresa Das Unavailable Unavailable Fast DO, April A Unavailable SHANNON Adrian LPN Unavailable Unavailable Joyce Olvera MD Unavailable Manchak AMMUNITION SPECIALIST, Nadira Unavailable Unavailable Unavailable Unavailable Unavailable Unavailable Rosamaria Benton Unavailable Fast DO, Apirl A Unavailable Friend, Dr. Padgett Unavailable Joyce Olvera MD Unavailable Ivelisse Alejo LPN Unavailable Unavailable Fast DO, April A Attending Unavailable Fast DO, April A Referring Unavailable Fast DO, April A Consulting Unavailable Preeti Amador Unavailable Shauna Rosenberg LPN Unavailable Unavailable Medications [...] Office outpatient new 45 minutes Radha Jerome [facility] Internal Medicine Procedures Date Procedure Procedure Detail Performing Clinician Start: 04-04-2022 End: 04-04-2022 Colonoscopy Report Procedure Note: See Note; NOTES: [facility] Medical Records Department [address] [place] [address] Colonoscopy Report MR#: [id number] Acct: [id number] Name: GEOVANNA LEWIS Rep #: [id number] : 1970 51 From: Ezra Victor MD [...] 1 week. Procedure Code(s): --- Professional --- 80317, Colonoscopy, flexible; with removal of tumor(s), polyp(s), or other lesion(s) by snare technique Diagnosis Code(s): --- Professional --- Z12.11, Encounter for screening for malignant neoplasm of colon K64.9, Unspecified hemorrhoids K62.1, Rectal polyp Z98.0, Intestinal bypass and anastomosis status K57.30, Diverticulosis of large intestine without perforation or abscess without bleeding CPT copyright 2017 [employer]. All rights reserved. The codes documented in this report are preliminary and upon noteman review may be revised to meet current compliance requirements. Ezra Victor MD 04/04/2022 8:52:21 AM This report has been signed electronically. Number of Addenda: 0 Note Initiated On: 04/04/2022 8:24 AM 04/04/22 0852 Date Ezra Victor MD Cosigner Signature: Date (if indicated) CC: Dr. April Davalos DO; Dr. Ezra Victor MD Date Dictated: 04/04/22823 Date Transcribed: Pvc Monitor: JOSE Signed April Davalos DO Work Phone: Start: 04-04-2022 End: 04-04-2022 History and Physical Exam Procedure Note: See Note; NOTES: [facility] Medical Records Department [address] [place] [address] History Physical Exam 04/04/22 0746 MR#: [id number] Acct: [id number] Name: GEOVANNA LEWIS Rep #: [id number] : 1970 51 From: Ezra Victor MD PCP: Dr. April Davalos DO Status:[facility] Location: [place] [address] HPI - General General Date of Service: [...] bright red blood per rectum or melena. 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 04/04/22 0748 <Electronically signed by Ezra Victor MD> Cosigner Signature (if applicable): CC: Dr. April Davalos DO; Dr. Ezra Victor MD Signed April Davalos DO Work Phone: Start: 07-20-2021 End: 07-21-2021 Chest PA and Lateral Comments: See Note; NOTES: [facility] Imaging Services [address] [place] [address] Chest PA and Lateral MR#: [id number] Acct: [id number] Name: GEOVANNA LEWIS Rep #: [id number] : 1970 F 51 From: Trent Tanner PCP: Dr. Fatoumata Galeas MD Status: REG CLI Study: Chest PA and Lateral Date of Exam: 07/20/21 Exam# [id number] Ordering Dr: April Davalos DO STUDY: X-RAY CHEST REASON FOR EXAM: [...] April Davalos DO; Dr. Fatoumata Galeas MD Pvc Monitor: Signed April Davalos DO Work Phone: BOWEL OBSTRUCTION/SC AR TISSUE BOWEL TWISTED- COLOSTOMY- 2019- cebul April Barry Fast DO Work Phone: BOWEL OBSTRUCTION/SC AR TISSUE BOWEL TWISTED- COLOSTOMY- 2019- cebul Nadira Manchak AMMUNITION SPECIALIST BOWEL OBSTRUCTION/SC AR TISSUE BOWEL TWISTED- COLOSTOMY- 2020- cebul Nadira Manchak AMMUNITION SPECIALIST BOWEL OBSTRUCTION/SC AR TISSUE BOWEL TWISTED- COLOSTOMY- 2020- cebul Joyce Olvera MD Work Phone: BOWEL OBSTRUCTION/SC AR TISSUE BOWEL TWISTED- COLOSTOMY- 2019- cebul Nadira Manchak AMMUNITION SPECIALIST BOWEL OBSTRUCTION/SC AR TISSUE BOWEL TWISTED- COLOSTOMY- 2019- cebul Ivelisse Alejo ROUGH ROUNDER MACHINE BOWEL OBSTRUCTION/SC AR TISSUE BOWEL TWISTED- COLOSTOMY- 2020- cebul Shauna Rosenberg ROUGH ROUNDER MACHINE Plan of Treatment Date Care Activity Detail [...] auto&auto difrntl wbc CBC W/AUTO DIFF WBC (97660) [facility]; [facility] Work Phone: Start: 01-05-2023 Comprehensive metabolic panel METABOLIC PANEL, COMPREHENSIVE (07234) [facility]; [facility] Work Phone: Start: 09-04-2022 Culture bct isol&prsmptv id isolate ea urine URINE RADHA CULTURE-IDENTIFICATN (37418) [facility]; [facility] Work Phone: Start: 04-17-2022 Procedure Education Eprescribed prescriptions (G8553) [facility]; [facility] Work Phone: Start: 02-27-2022 Culture bct isol&prsmptv id isolate ea urine URINE RADHA CULTURE-IDENTIFICATN (66720) [facility]; [facility] Work Phone: Start: 01-23-2022 Procedure Education Eprescribed prescriptions (G8553) [facility]; [facility] Work Phone: Start: 12-16-2021 Procedure Education Eprescribed prescriptions (G8553) [facility]; [facility] Work Phone: Start: 12-16-2021 Comprehensive metabolic panel METABOLIC PANEL, COMPREHENSIVE (49597) [facility]; [facility] Work Phone: Start: 12-16-2021 Lipid panel LIPID PANEL (94012) [facility]; [facility] Work Phone: Start: 09-19-2021 Culture bacterial quanttative colony count urine URINE RADHA CULTURE (BEAR COL COUNT) (74041) [facility]; [facility] Work Phone: Start: 08-12-2021 Procedure Education Eprescribed prescriptions (G8553) [facility]; [facility] Work Phone: Start: 07-11-2021 Procedure Education Eprescribed prescriptions (G8553) [facility]; [facility] Work Phone: Start: 07-11-2021 COVID 19 (ONLY) RAPID (80788) COVID 19 (ONLY) RAPID (05152) [facility]; [facility] Work [...] Phone: Start: 09-11-2018 Lipid panel LIPID PANEL (37456) [facility] Work Phone: Start: 09-11-2018 25 hydroxy includes fractions if performed CALCIFIDIOL (59693) VIT D 25 [facility] Work Phone: Start: 09-11-2018 Assay of folic acid serum Folate (66563) [facility] Work Phone: Start: 09-11-2018 Cobalamin (Vitamin B12) [Mass/Vol] VITAMIN B-12 (CYANOCOBALAMIN) (70282) [facility] Work Phone: Start: 09-11-2018 Cyanocobalamin vitamin b-12 VITAMIN B-12 (CYANOCOBALAMIN) (64355) [facility]; [facility] Work Phone: Start: 09-11-2018 Assay of thyroid stimulating hormone tsh TSH (15862) [facility]; [facility] Work Phone: Start: 09-11-2018 TSH Qn TSH (21677) [facility] Work Phone: Start: 09-11-2018 Sedimentation rate rbc non-automated SED RATE ERYTHROCYTE (33253) [facility] Work Phone: Start: 09-11-2018 Comprehensive metabolic panel METABOLIC PANEL, COMPREHENSIVE (99086) [facility] Work Phone: Start: 09-11-2018 C-reactive protein C-REACTIVE PROTEIN (01172) [facility]; [facility] Work Phone: Start: 09-11-2018 CRP [Mass/Vol] C-REACTIVE PROTEIN (35558) [facility] Work Phone: Start: 09-11-2018 Blood count complete automated CBC (AUTO) (83857) [facility] Work Phone: Start: 09-11-2018 Antinuclear antibodies candace CANDACE (ANTINUCLEAR ANTIBODY) (82707) [facility]; [facility] Work Phone: Start: 09-11-2018 Nuclear Ab IF (S) [Titer] CANDACE (ANTINUCLEAR ANTIBODY) (85816) [facility] Work Phone: [facility] I [...] Category Payer Private Health Insurance [id number] 1970 Unknown [id number] Unknown [employer] Insurance Social History Date Type [...] tion Online using Patient Portal and 3rd [employer] Apps Indication:ADHD (attention deficit hyperactivity disorder) evaluation Start:18-Jul-2021 Instruction Type:Patient Education Patient Instructions Indication:Body aches Start:11-Jul-2021 Instruction Type:Provider Instructions for Treatment How to Access Health Informa tion Online using Patient Portal and 3rd [employer] Apps Indication:Body aches Start:11-Jul-2021 Instruction Type:Patient Education Patient Instructions Indication:Sleep disorder Start:05-Jul-2021 Instruction Type:Provider Instructions for Treatment Patient Instructions Indication:Sleep disorder Start:24-Jun-2021 Instruction Type:Provider Instructions for Treatment How to Access Health Informa tion Online using Patient Portal and 3rd [employer] Apps Indication:Sleep disorder Start:24-Jun-2021 Instruction Type:Patient [...] tion Online using Patient Portal and 3rd [employer] Apps Indication:ADHD (attention deficit hyperactivity disorder) evaluation Start:18-Jul-2021 Instruction Type:Patient Education Patient Instructions Indication:Body aches Start:11-Jul-2021 Instruction Type:Provider Instructions for Treatment How to Access Health Informa tion Online using Patient Portal and 3rd [employer] Apps Indication:Body aches Start:11-Jul-2021 Instruction Type:Patient Education Patient Instructions Indication:Sleep disorder Start:05-Jul-2021 Instruction Type:Provider Instructions for Treatment Patient Instructions Indication:Sleep disorder Start:24-Jun-2021 Instruction Type:Provider Instructions for Treatment How to Access Health Informa tion Online using Patient Portal and 3rd [employer] Apps Indication:Sleep disorder Start:24-Jun-2021 Instruction Type:Patient [...] tion Online using Patient Portal and 3rd [employer] Apps Indication:ADHD (attention deficit hyperactivity disorder) evaluation Start:01-Aug-2021 Instruction Type:Patient Education Patient Instructions Indication:ADHD (attention deficit hyperactivity disorder) evaluation Start:18-Jul-2021 Instruction Type:Provider Instructions for Treatment How to Access Health Informa tion Online using Patient Portal and 3rd [employer] Apps Indication:ADHD (attention deficit hyperactivity disorder) evaluation Start:18-Jul-2021 Instruction Type:Patient Education Patient Instructions Indication:Body aches Start:11-Jul-2021 Instruction Type:Provider Instructions for Treatment How to Access Health Informa tion Online using Patient Portal and 3rd [employer] Apps Indication:Body aches Start:11-Jul-2021 Instruction Type:Patient Education Patient Instructions Indication:Sleep disorder Start:05-Jul-2021 Instruction Type:Provider Instructions for Treatment Patient Instructions Indication:Sleep disorder Start:24-Jun-2021 Instruction Type:Provider Instructions for Treatment How to Access Health Informa tion Online using Patient Portal and [employer] Apps Indication:Sleep disorder Start:24-Jun-2021 Instruction Type:Patient [...] Informa tion Online using Patient Portal and [employer] Apps Indication:ADHD (attention deficit hyperactivity disorder) evaluation Start:12-Aug-2021 Instruction Type:Patient Education Patient Instructions Indication:ADHD (attention deficit hyperactivity disorder) evaluation Start:01-Aug-2021 Instruction Type:Provider Instructions for Treatment How to Access Health Informa tion Online using Patient Portal and 3rd [employer] Apps Indication:ADHD (attention deficit hyperactivity disorder) evaluation Start:01-Aug-2021 Instruction Type:Patient Education Patient Instructions Indication:ADHD (attention deficit hyperactivity disorder) evaluation Start:18-Jul-2021 Instruction Type:Provider Instructions for Treatment How to Access Health Informa tion Online using Patient Portal and 3rd [employer] Apps Indication:ADHD (attention deficit hyperactivity disorder) evaluation Start:18-Jul-2021 Instruction Type:Patient Education Patient Instructions Indication:Body aches Start:11-Jul-2021 Instruction Type:Provider Instructions for Treatment How to Access Health Informa tion Online using Patient Portal and 3rd [employer] Apps Indication:Body aches Start:11-Jul-2021 Instruction Type:Patient Education Patient Instructions Indication:Sleep disorder Start:05-Jul-2021 Instruction Type:Provider Instructions for Treatment Patient Instructions Indication:Sleep disorder Start:24-Jun-2021 Instruction Type:Provider Instructions for Treatment How to Access Health Informa tion Online using Patient Portal and 3rd [employer] Apps Indication:Sleep disorder Start:24-Jun-2021 Instruction Type:Patient [...] tion Online using Patient Portal and [employer]rd [employer] Apps Indication:ADHD (attention deficit hyperactivity disorder) evaluation Start:12-Aug-2021 Instruction Type:Patient Education Patient Instructions Indication:ADHD (attention deficit hyperactivity disorder) evaluation Start:01-Aug-2021 Instruction Type:Provider Instructions for Treatment How to Access Health Informa tion Online using Patient Portal and 3rd [employer] Apps Indication:ADHD (attention deficit hyperactivity disorder) evaluation Start:01-Aug-2021 Instruction Type:Patient Education Patient Instructions Indication:ADHD (attention deficit hyperactivity disorder) evaluation Start:18-Jul-2021 Instruction Type:Provider Instructions for Treatment How to Access Health Informa tion Online using Patient Portal and 3rd [employer] Apps Indication:ADHD (attention deficit hyperactivity disorder) evaluation Start:18-Jul-2021 Instruction Type:Patient Education Patient Instructions Indication:Body aches Start:11-Jul-2021 Instruction Type:Provider Instructions for Treatment How to Access Health Informa tion Online using Patient Portal and 3rd [employer] Apps Indication:Body aches Start:11-Jul-2021 Instruction Type:Patient Education Patient Instructions Indication:Sleep disorder Start:05-Jul-2021 Instruction Type:Provider Instructions for Treatment Patient Instructions Indication:Sleep disorder Start:24-Jun-2021 Instruction Type:Provider Instructions for Treatment How to Access Health Informa tion Online using Patient Portal and 3rd [employer] Apps Indication:Sleep disorder Start:24-Jun-2021 Instruction Type:Patient [...] tion Online using Patient Portal and 3rd [employer] Apps Indication:Attention deficit Start:12-Aug-2021 Instruction Type:Patient Education Patient Instructions Indication:Attention deficit Start:01-Aug-2021 Instruction Type:Provider Instructions for Treatment How to Access Health Informa tion Online using Patient Portal and 3rd [employer] Apps Indication:Attention deficit Start:01-Aug-2021 Instruction Type:Patient Education Patient Instructions Indication:Attention deficit Start:18-Jul-2021 Instruction Type:Provider Instructions for Treatment How to Access Health Informa tion Online using Patient Portal and 3rd [employer] Apps Indication:Attention deficit Start:18-Jul-2021 Instruction Type:Patient Education Patient Instructions Indication:Body aches Start:11-Jul-2021 Instruction Type:Provider Instructions for Treatment How to Access Health Informa tion Online using Patient Portal and 3rd [employer] Apps Indication:Body aches Start:11-Jul-2021 Instruction Type:Patient Education Patient Instructions Indication:Sleep disorder Start:05-Jul-2021 Instruction Type:Provider Instructions for Treatment Patient Instructions Indication:Sleep disorder Start:24-Jun-2021 Instruction Type:Provider Instructions for Treatment How to Access Health Informa tion Online using Patient Portal and 3rd [employer] Apps Indication:Sleep disorder Start:24-Jun-2021 Instruction Type:Patient [...] tion Online using Patient Portal and 3rd [employer] Apps Indication:Attention deficit Start:12-Aug-2021 Instruction Type:Patient Education Patient Instructions Indication:Attention deficit Start:01-Aug-2021 Instruction Type:Provider Instructions for Treatment How to Access Health Informa tion Online using Patient Portal and 3rd [employer] Apps Indication:Attention deficit Start:01-Aug-2021 Instruction Type:Patient Education Patient Instructions Indication:Attention deficit Start:18-Jul-2021 Instruction Type:Provider Instructions for Treatment How to Access Health Informa tion Online using Patient Portal and 3rd [employer] Apps Indication:Attention deficit Start:18-Jul-2021 Instruction Type:Patient Education Patient Instructions Indication:Body aches Start:11-Jul-2021 Instruction Type:Provider Instructions for Treatment How to Access Health Informa tion Online using Patient Portal and 3rd [employer] Apps Indication:Body aches Start:11-Jul-2021 Instruction Type:Patient Education Patient Instructions Indication:Sleep disorder Start:05-Jul-2021 Instruction Type:Provider Instructions for Treatment Patient Instructions Indication:Sleep disorder Start:24-Jun-2021 Instruction Type:Provider Instructions for Treatment How to Access Health Informa tion Online using Patient Portal and 3rd [employer] Apps Indication:Sleep disorder Start:24-Jun-2021 Instruction Type:Patient [...] tion Online using Patient Portal and 3rd [employer] Apps Indication:Attention deficit Start:12-Aug-2021 Instruction Type:Patient Education Patient Instructions Indication:Attention deficit Start:01-Aug-2021 Instruction Type:Provider Instructions for Treatment How to Access Health Informa tion Online using Patient Portal and 3rd [employer] Apps Indication:Attention deficit Start:01-Aug-2021 Instruction Type:Patient Education Patient Instructions Indication:Attention deficit Start:18-Jul-2021 Instruction Type:Provider Instructions for Treatment How to Access Health Informa tion Online using Patient Portal and 3rd [employer] Apps Indication:Attention deficit Start:18-Jul-2021 Instruction Type:Patient Education Patient Instructions Indication:Body aches Start:11-Jul-2021 Instruction Type:Provider Instructions for Treatment How to Access Health Informa tion Online using Patient Portal and 3rd [employer] Apps Indication:Body aches Start:11-Jul-2021 Instruction Type:Patient Education Patient Instructions Indication:Sleep disorder Start:05-Jul-2021 Instruction Type:Provider Instructions for Treatment Patient Instructions Indication:Sleep disorder Start:24-Jun-2021 Instruction Type:Provider Instructions for Treatment How to Access Health Informa tion Online using Patient Portal and 3rd [employer] Apps Indication:Sleep disorder Start:24-Jun-2021 Instruction Type:Patient [...] tion Online using Patient Portal and 3rd [employer] Apps Indication:[facility] WELLNESS EXAM Start:16-Dec-2021 Instruction Type:Patient Education Patient Instructions Indication:Attention deficit Start:12-Aug-2021 Instruction Type:Provider Instructions for Treatment How to Access Health Informa tion Online using Patient Portal and 3rd [employer] Apps Indication:Attention deficit Start:12-Aug-2021 Instruction Type:Patient Education Patient Instructions Indication:Attention deficit Start:01-Aug-2021 Instruction Type:Provider Instructions for Treatment How to Access Health Informa tion Online using Patient Portal and 3rd [employer] Apps Indication:Attention deficit Start:01-Aug-2021 Instruction Type:Patient Education Patient Instructions Indication:Attention deficit Start:18-Jul-2021 Instruction Type:Provider Instructions for Treatment How to Access Health Informa tion Online using Patient Portal and 3rd [employer] Apps Indication:Attention deficit Start:18-Jul-2021 Instruction Type:Patient Education Patient Instructions Indication:Body aches Start:11-Jul-2021 Instruction Type:Provider Instructions for Treatment How to Access Health Informa tion Online using Patient Portal and 3rd [employer] Apps Indication:Body aches Start:11-Jul-2021 Instruction Type:Patient Education Patient Instructions Indication:Sleep disorder Start:05-Jul-2021 Instruction Type:Provider Instructions for Treatment Patient Instructions Indication:Sleep disorder Start:24-Jun-2021 Instruction Type:Provider Instructions for Treatment How to Access Health Informa tion Online using Patient Portal and 3rd [employer] Apps Indication:Sleep disorder Start:24-Jun-2021 Instruction Type:Patient [...] tion Online using Patient Portal and [employer]rd [employer] Apps Indication:[facility] WELLNESS EXAM Start:16-Dec-2021 Instruction Type:Patient Education Patient Instructions Indication:Attention deficit Start:12-Aug-2021 Instruction Type:Provider Instructions for Treatment How to Access Health Informa tion Online using Patient Portal and 3rd [employer] Apps Indication:Attention deficit Start:12-Aug-2021 Instruction Type:Patient Education Patient Instructions Indication:Attention deficit Start:01-Aug-2021 Instruction Type:Provider Instructions for Treatment How to Access Health Informa tion Online using Patient Portal and 3rd [employer] Apps Indication:Attention deficit Start:01-Aug-2021 Instruction Type:Patient Education Patient Instructions Indication:Attention deficit Start:18-Jul-2021 Instruction Type:Provider Instructions for Treatment How to Access Health Informa tion Online using Patient Portal and [employer]rd [employer] Apps Indication:Attention deficit Start:18-Jul-2021 Instruction Type:Patient Education Patient Instructions Indication:Body aches Start:11-Jul-2021 Instruction Type:Provider Instructions for Treatment How to Access Health Informa tion Online using Patient Portal and 3rd [employer] Apps Indication:Body aches Start:11-Jul-2021 Instruction Type:Patient Education Patient Instructions Indication:Sleep disorder Start:05-Jul-2021 Instruction Type:Provider Instructions for Treatment Patient Instructions Indication:Sleep disorder Start:24-Jun-2021 Instruction Type:Provider Instructions for Treatment How to Access Health Informa tion Online using Patient Portal and 3rd [employer] Apps Indication:Sleep disorder Start:24-Jun-2021 Instruction Type:Patient [...] tion Online using Patient Portal and [employer]rd [employer] Apps Indication:ADD (attention deficit disorder) Start:23-Jan-2022 Instruction Type:Patient Education Patient Instructions Indication:[facility] WELLNESS EXAM Start:16-Dec-2021 Instruction Type:Provider Instructions for Treatment How to Access Health Informa tion Online using Patient Portal and [employer]rd [employer] Apps Indication:[facility] WELLNESS EXAM Start:16-Dec-2021 Instruction Type:Patient Education Patient Instructions Indication:ADD (attention deficit disorder) Start:12-Aug-2021 Instruction Type:Provider Instructions for Treatment How to Access Health Informa tion Online using Patient Portal and [employer]rd [employer] Apps Indication:ADD (attention deficit disorder) Start:12-Aug-2021 Instruction Type:Patient Education Patient Instructions Indication:ADD (attention deficit disorder) Start:01-Aug-2021 Instruction Type:Provider Instructions for Treatment How to Access Health Informa tion Online using Patient Portal and [employer]rd [employer] Apps Indication:ADD (attention deficit disorder) Start:01-Aug-2021 Instruction Type:Patient Education Patient Instructions Indication:ADD (attention deficit disorder) Start:18-Jul-2021 Instruction Type:Provider Instructions for Treatment How to Access Health Informa tion Online using Patient Portal and 3rd [employer] Indication:ADD (attention deficit disorder) Start:18-Jul-2021 Instruction Type:Patient Education Patient Instructions Indication:Body aches Start:11-Jul-2021 Instruction Type:Provider Instructions for Treatment How to Access Health Informa tion Online using Patient Portal and [employer]rd [employer] Indication:Body aches Start:11-Jul-2021 Instruction Type:Patient Education Patient Instructions Indication:Sleep disorder Start:05-Jul-2021 Instruction Type:Provider Instructions for Treatment Patient Instructions Indication:Sleep disorder Start:24-Jun-2021 Instruction Type:Provider Instructions for Treatment How to Access Health Informa tion Online using Patient Portal and [employer]rd [employer] Indication:Sleep disorder Start:24-Jun-2021 Instruction Type:Patient [...] tion Online using Patient Portal and [employer]rd [employer] Indication:ADD (attention deficit disorder) Start:23-Jan-2022 Instruction Type:Patient Education Patient Instructions Indication:[facility] Start:16-Dec-2021 Instruction Type:Provider Instructions for Treatment How to Access Health Informa tion Online using Patient Portal and [employer]rd [employer] Indication:[facility] Start:16-Dec-2021 Instruction Type:Patient Education Patient Instructions Indication:ADD (attention deficit disorder) Start:12-Aug-2021 Instruction Type:Provider Instructions for Treatment How to Access Health Informa tion Online using Patient Portal and [employer]rd [employer] Indication:ADD (attention deficit disorder) Start:12-Aug-2021 Instruction Type:Patient Education Patient Instructions Indication:ADD (attention deficit disorder) Start:01-Aug-2021 Instruction Type:Provider Instructions for Treatment How to Access Health Informa tion Online using Patient Portal and [employer]rd [employer] Indication:ADD (attention deficit disorder) Start:01-Aug-2021 Instruction Type:Patient Education Patient Instructions Indication:ADD (attention deficit disorder) Start:18-Jul-2021 Instruction Type:Provider Instructions for Treatment How to Access Health Informa tion Online using Patient Portal and [employer]rd [employer] Indication:ADD (attention deficit disorder) Start:18-Jul-2021 Instruction Type:Patient Education Patient Instructions Indication:Body aches Start:11-Jul-2021 Instruction Type:Provider Instructions for Treatment How to Access Health Informa tion Online using Patient Portal and [employer]rd [employer] Indication:Body aches Start:11-Jul-2021 Instruction Type:Patient Education Patient Instructions Indication:Sleep disorder Start:05-Jul-2021 Instruction Type:Provider Instructions for Treatment Patient Instructions Indication:Sleep disorder Start:24-Jun-2021 Instruction Type:Provider Instructions for Treatment How to Access Health Informa tion Online using Patient Portal and [employer]rd [employer] Indication:Sleep disorder Start:24-Jun-2021 Instruction Type:Patient [...] tion Online using Patient Portal and [employer]rd [employer] Indication:ADD (attention deficit disorder) Start:23-Jan-2022 Instruction Type:Patient Education Patient Instructions Indication:[facility] Start:16-Dec-2021 Instruction Type:Provider Instructions for Treatment How to Access Health Informa tion Online using Patient Portal and [employer]rd [employer] Indication:[facility] Start:16-Dec-2021 Instruction Type:Patient Education Patient Instructions Indication:ADD (attention deficit disorder) Start:12-Aug-2021 Instruction Type:Provider Instructions for Treatment How to Access Health Informa tion Online using Patient Portal and [employer]rd [employer] Indication:ADD (attention deficit disorder) Start:12-Aug-2021 Instruction Type:Patient Education Patient Instructions Indication:ADD (attention deficit disorder) Start:01-Aug-2021 Instruction Type:Provider Instructions for Treatment How to Access Health Informa tion Online using Patient Portal and [employer]rd [employer] Indication:ADD (attention deficit disorder) Start:01-Aug-2021 Instruction Type:Patient Education Patient Instructions Indication:ADD (attention deficit disorder) Start:18-Jul-2021 Instruction Type:Provider Instructions for Treatment How to Access Health Informa tion Online using Patient Portal and [employer]rd [employer] Indication:ADD (attention deficit disorder) Start:18-Jul-2021 Instruction Type:Patient Education Patient Instructions Indication:Body aches Start:11-Jul-2021 Instruction Type:Provider Instructions for Treatment How to Access Health Informa tion Online using Patient Portal and [employer]rd [employer] Indication:Body aches Start:11-Jul-2021 Instruction Type:Patient Education Patient Instructions Indication:Sleep disorder Start:05-Jul-2021 Instruction Type:Provider Instructions for Treatment Patient Instructions Indication:Sleep disorder Start:24-Jun-2021 Instruction Type:Provider Instructions for Treatment How to Access Health Informa tion Online using Patient Portal and [employer]rd [employer] Indication:Sleep disorder Start:24-Jun-2021 Instruction Type:Patient [...] tion Online using Patient Portal and [employer]rd [employer] Indication:ADD (attention deficit disorder) Start:23-Jan-2022 Instruction Type:Patient Education Patient Instructions Indication:[facility] Start:16-Dec-2021 Instruction Type:Provider Instructions for Treatment How to Access Health Informa tion Online using Patient Portal and [employer]rd [employer] Indication:[facility] Start:16-Dec-2021 Instruction Type:Patient Education Patient Instructions Indication:ADD (attention deficit disorder) Start:12-Aug-2021 Instruction Type:Provider Instructions for Treatment How to Access Health Informa tion Online using Patient Portal and [employer]rd [employer] Indication:ADD (attention deficit disorder) Start:12-Aug-2021 Instruction Type:Patient Education Patient Instructions Indication:ADD (attention deficit disorder) Start:01-Aug-2021 Instruction Type:Provider Instructions for Treatment How to Access Health Informa tion Online using Patient Portal and [employer]rd [employer] Indication:ADD (attention deficit disorder) Start:01-Aug-2021 Instruction Type:Patient Education Patient Instructions Indication:ADD (attention deficit disorder) Start:18-Jul-2021 Instruction Type:Provider Instructions for Treatment How to Access Health Informa tion Online using Patient Portal and [employer]rd [employer] Indication:ADD (attention deficit disorder) Start:18-Jul-2021 Instruction Type:Patient Education Patient Instructions Indication:Body aches Start:11-Jul-2021 Instruction Type:Provider Instructions for Treatment How to Access Health Informa tion Online using Patient Portal and [employer]rd [employer] Indication:Body aches Start:11-Jul-2021 Instruction Type:Patient Education Patient Instructions Indication:Sleep disorder Start:05-Jul-2021 Instruction Type:Provider Instructions for Treatment Patient Instructions Indication:Sleep disorder Start:24-Jun-2021 Instruction Type:Provider Instructions for Treatment How to Access Health Informa tion Online using Patient Portal and [employer]rd [employer] Indication:Sleep disorder Start:24-Jun-2021 Instruction Type:Patient [...] tion Online using Patient Portal and [employer]rd [employer] Indication:ADD (attention deficit disorder) Start:23-Jan-2022 Instruction Type:Patient Education Patient Instructions Indication:[facility] Start:16-Dec-2021 Instruction Type:Provider Instructions for Treatment How to Access Health Informa tion Online using Patient Portal and [employer]rd [employer] Indication:[facility] Start:16-Dec-2021 Instruction Type:Patient Education Patient Instructions Indication:ADD (attention deficit disorder) Start:12-Aug-2021 Instruction Type:Provider Instructions for Treatment How to Access Health Informa tion Online using Patient Portal and [employer] Indication:ADD (attention deficit disorder) Start:12-Aug-2021 Instruction Type:Patient Education Patient Instructions Indication:ADD (attention deficit disorder) Start:01-Aug-2021 Instruction Type:Provider Instructions for Treatment How to Access Health Informa tion Online using Patient Portal and [employer] Indication:ADD (attention deficit disorder) Start:01-Aug-2021 Instruction Type:Patient Education Patient Instructions Indication:ADD (attention deficit disorder) Start:18-Jul-2021 Instruction Type:Provider Instructions for Treatment How to Access Health Informa tion Online using Patient Portal and [employer] Indication:ADD (attention deficit disorder) Start:18-Jul-2021 Instruction Type:Patient Education Patient Instructions Indication:Body aches Start:11-Jul-2021 Instruction Type:Provider Instructions for Treatment How to Access Health Informa tion Online using Patient Portal and [employer] Indication:Body aches Start:11-Jul-2021 Instruction Type:Patient Education Patient Instructions Indication:Sleep disorder Start:05-Jul-2021 Instruction Type:Provider Instructions for Treatment Patient Instructions Indication:Sleep disorder Start:24-Jun-2021 Instruction Type:Provider Instructions for Treatment How to Access Health Informa tion Online using Patient Portal and [employer] Indication:Sleep disorder Start:24-Jun-2021 Instruction Type:Patient [...] tion Online using Patient Portal and [employer] Indication:Epigastric pain Start:17-Apr-2022 Instruction Type:Patient Education Patient Instructions Indication:ADD (attention deficit disorder) Start:23-Jan-2022 Instruction Type:Provider Instructions for Treatment How to Access Health Informa tion Online using Patient Portal and [employer] Indication:ADD (attention deficit disorder) Start:23-Jan-2022 Instruction Type:Patient Education Patient Instructions Indication:[facility] Start:16-Dec-2021 Instruction Type:Provider Instructions for Treatment How to Access Health Informa tion Online using Patient Portal and [employer] Indication:[facility] Start:16-Dec-2021 Instruction Type:Patient Education Patient Instructions Indication:ADD (attention deficit disorder) Start:12-Aug-2021 Instruction Type:Provider Instructions for Treatment How to Access Health Informa tion Online using Patient Portal and [employer] Indication:ADD (attention deficit disorder) Start:12-Aug-2021 Instruction Type:Patient Education Patient Instructions Indication:ADD (attention deficit disorder) Start:01-Aug-2021 Instruction Type:Provider Instructions for Treatment How to Access Health Informa tion Online using Patient Portal and [employer]rd [employer] Indication:ADD (attention deficit disorder) Start:01-Aug-2021 Instruction Type:Patient Education Patient Instructions Indication:ADD (attention deficit disorder) Start:18-Jul-2021 Instruction Type:Provider Instructions for Treatment How to Access Health Informa tion Online using Patient Portal and [employer] Indication:ADD (attention deficit disorder) Start:18-Jul-2021 Instruction Type:Patient Education Patient Instructions Indication:Body aches Start:11-Jul-2021 Instruction Type:Provider Instructions for Treatment How to Access Health Informa tion Online using Patient Portal and [employer]rd [employer] Indication:Body aches Start:11-Jul-2021 Instruction Type:Patient Education Patient Instructions Indication:Sleep disorder Start:05-Jul-2021 Instruction Type:Provider Instructions for Treatment Patient Instructions Indication:Sleep disorder Start:24-Jun-2021 Instruction Type:Provider Instructions for Treatment How to Access Health Informa tion Online using Patient Portal and [employer]rd [employer] Indication:Sleep disorder Start:24-Jun-2021 Instruction Type:Patient [...] tion Online using Patient Portal and [employer]rd [employer] Indication:Epigastric pain Start:17-Apr-2022 Instruction Type:Patient Education Patient Instructions Indication:ADD (attention deficit disorder) Start:23-Jan-2022 Instruction Type:Provider Instructions for Treatment How to Access Health Informa tion Online using Patient Portal and [employer]rd [employer] Indication:ADD (attention deficit disorder) Start:23-Jan-2022 Instruction Type:Patient Education Patient Instructions Indication:[facility] Start:16-Dec-2021 Instruction Type:Provider Instructions for Treatment How to Access Health Informa tion Online using Patient Portal and [employer]rd [employer] Indication:[facility] Start:16-Dec-2021 Instruction Type:Patient Education Patient Instructions Indication:ADD (attention deficit disorder) Start:12-Aug-2021 Instruction Type:Provider Instructions for Treatment How to Access Health Informa tion Online using Patient Portal and [employer] Indication:ADD (attention deficit disorder) Start:12-Aug-2021 Instruction Type:Patient Education Patient Instructions Indication:ADD (attention deficit disorder) Start:01-Aug-2021 Instruction Type:Provider Instructions for Treatment How to Access Health Informa tion Online using Patient Portal and [employer]rd [employer] Indication:ADD (attention deficit disorder) Start:01-Aug-2021 Instruction Type:Patient Education Patient Instructions Indication:ADD (attention deficit disorder) Start:18-Jul-2021 Instruction Type:Provider Instructions for Treatment How to Access Health Informa tion Online using Patient Portal and [employer]rd [employer] Indication:ADD (attention deficit disorder) Start:18-Jul-2021 Instruction Type:Patient Education Patient Instructions Indication:Body aches Start:11-Jul-2021 Instruction Type:Provider Instructions for Treatment How to Access Health Informa tion Online using Patient Portal and [employer]rd [employer] Indication:Body aches Start:11-Jul-2021 Instruction Type:Patient Education Patient Instructions Indication:Sleep disorder Start:05-Jul-2021 Instruction Type:Provider Instructions for Treatment Patient Instructions Indication:Sleep disorder Start:24-Jun-2021 Instruction Type:Provider Instructions for Treatment How to Access Health Informa tion Online using Patient Portal and [employer]rd [employer] Indication:Sleep disorder Start:10-Dec-2021 Instruction Type:Patient [...] tion Online using Patient Portal and [employer]rd [employer] Indication:Epigastric pain Start:17-Apr-2022 Instruction Type:Patient Education Patient Instructions Indication:ADD (attention deficit disorder) Start:23-Jan-2022 Instruction Type:Provider Instructions for Treatment How to Access Health Informa tion Online using Patient Portal and [employer]rd [employer] Indication:ADD (attention deficit disorder) Start:23-Jan-2022 Instruction Type:Patient Education Patient Instructions Indication:[facility] Start:16-Dec-2021 Instruction Type:Provider Instructions for Treatment How to Access Health Informa tion Online using Patient Portal and [employer] Indication:[facility] Start:16-Dec-2021 Instruction Type:Patient Education Patient Instructions Indication:ADD (attention deficit disorder) Start:12-Aug-2021 Instruction Type:Provider Instructions for Treatment How to Access Health Informa tion Online using Patient Portal and [employer]rd [employer] Indication:ADD (attention deficit disorder) Start:12-Aug-2021 Instruction Type:Patient Education Patient Instructions Indication:ADD (attention deficit disorder) Start:01-Aug-2021 Instruction Type:Provider Instructions for Treatment How to Access Health Informa tion Online using Patient Portal and [employer]rd [employer] Indication:ADD (attention deficit disorder) Start:01-Aug-2021 Instruction Type:Patient Education Patient Instructions Indication:ADD (attention deficit disorder) Start:18-Jul-2021 Instruction Type:Provider Instructions for Treatment How to Access Health Informa tion Online using Patient Portal and [employer]rd [employer] Indication:ADD (attention deficit disorder) Start:18-Jul-2021 Instruction Type:Patient Education Patient Instructions Indication:Body aches Start:11-Jul-2021 Instruction Type:Provider Instructions for Treatment How to Access Health Informa tion Online using Patient Portal and [employer]rd [employer] Indication:Body aches Start:11-Jul-2021 Instruction Type:Patient Education Patient Instructions Indication:Sleep disorder Start:05-Jul-2021 Instruction Type:Provider Instructions for Treatment Patient Instructions Indication:Sleep disorder Start:24-Jun-2021 Instruction Type:Provider Instructions for Treatment How to Access Health Informa tion Online using Patient Portal and [employer]rd [employer] Indication:Sleep disorder Start:24-Jun-2021 Instruction Type:Patient [...] tion Online using Patient Portal and [employer]rd [employer] Indication:Epigastric pain Start:17-Apr-2022 Instruction Type:Patient Education Patient Instructions Indication:ADD (attention deficit disorder) Start:23-Jan-2022 Instruction Type:Provider Instructions for Treatment How to Access Health Informa tion Online using Patient Portal and [employer]rd [employer] Indication:ADD (attention deficit disorder) Start:23-Jan-2022 Instruction Type:Patient Education Patient Instructions Indication:[facility] Start:16-Dec-2021 Instruction Type:Provider Instructions for Treatment How to Access Health Informa tion Online using Patient Portal and [employer]rd [employer] Indication:[facility] Start:16-Dec-2021 Instruction Type:Patient Education Patient Instructions Indication:ADD (attention deficit disorder) Start:12-Aug-2021 Instruction Type:Provider Instructions for Treatment How to Access Health Informa tion Online using Patient Portal and [employer] Indication:ADD (attention deficit disorder) Start:12-Aug-2021 Instruction Type:Patient Education Patient Instructions Indication:ADD (attention deficit disorder) Start:01-Aug-2021 Instruction Type:Provider Instructions for Treatment How to Access Health Informa tion Online using Patient Portal and [employer]rd [employer] Indication:ADD (attention deficit disorder) Start:01-Aug-2021 Instruction Type:Patient Education Patient Instructions Indication:ADD (attention deficit disorder) Start:18-Jul-2021 Instruction Type:Provider Instructions for Treatment How to Access Health Informa tion Online using Patient Portal and [employer] Indication:ADD (attention deficit disorder) Start:18-Jul-2021 Instruction Type:Patient Education Patient Instructions Indication:Body aches Start:11-Jul-2021 Instruction Type:Provider Instructions for Treatment How to Access Health Informa tion Online using Patient Portal and [employer]rd [employer] Indication:Body aches Start:11-Jul-2021 Instruction Type:Patient Education Patient Instructions Indication:Sleep disorder Start:05-Jul-2021 Instruction Type:Provider Instructions for Treatment Patient Instructions Indication:Sleep disorder Start:24-Jun-2021 Instruction Type:Provider Instructions for Treatment How to Access Health Informa tion Online using Patient Portal and [employer] Indication:Sleep disorder Start:24-Jun-2021 Instruction Type:Patient [...] tion Online using Patient Portal and [employer]rd [employer] Indication:Epigastric pain Start:17-Apr-2022 Instruction Type:Patient Education Patient Instructions Indication:ADD (attention deficit disorder) Start:23-Jan-2022 Instruction Type:Provider Instructions for Treatment How to Access Health Informa tion Online using Patient Portal and [employer]rd [employer] Indication:ADD (attention deficit disorder) Start:23-Jan-2022 Instruction Type:Patient Education Patient Instructions Indication:[facility] Start:16-Dec-2021 Instruction Type:Provider Instructions for Treatment How to Access Health Informa tion Online using Patient Portal and [employer]rd [employer] Indication:[facility] Start:16-Dec-2021 Instruction Type:Patient Education Patient Instructions Indication:ADD (attention deficit disorder) Start:12-Aug-2021 Instruction Type:Provider Instructions for Treatment How to Access Health Informa tion Online using Patient Portal and [employer] Indication:ADD (attention deficit disorder) Start:12-Aug-2021 Instruction Type:Patient Education Patient Instructions Indication:ADD (attention deficit disorder) Start:01-Aug-2021 Instruction Type:Provider Instructions for Treatment How to Access Health Informa tion Online using Patient Portal and [employer] Indication:ADD (attention deficit disorder) Start:01-Aug-2021 Instruction Type:Patient Education Patient Instructions Indication:ADD (attention deficit disorder) Start:18-Jul-2021 Instruction Type:Provider Instructions for Treatment How to Access Health Informa tion Online using Patient Portal and [employer] Indication:ADD (attention deficit disorder) Start:18-Jul-2021 Instruction Type:Patient Education Patient Instructions Indication:Body aches Start:11-Jul-2021 Instruction Type:Provider Instructions for Treatment How to Access Health Informa tion Online using Patient Portal and [employer]rd [employer] Indication:Body aches Start:11-Jul-2021 Instruction Type:Patient Education Patient Instructions Indication:Sleep disorder Start:05-Jul-2021 Instruction Type:Provider Instructions for Treatment Patient Instructions Indication:Sleep disorder Start:24-Jun-2021 Instruction Type:Provider Instructions for Treatment How to Access Health Informa tion Online using Patient Portal and [employer]rd [employer] Indication:Sleep disorder Start:24-Jun-2021 Instruction Type:Patient [...] tion Online using Patient Portal and [employer] Indication:Epigastric pain Start:17-Apr-2022 Instruction Type:Patient Education Patient Instructions Indication:ADD (attention deficit disorder) Start:23-Jan-2022 Instruction Type:Provider Instructions for Treatment How to Access Health Informa tion Online using Patient Portal and [employer] Indication:ADD (attention deficit disorder) Start:23-Jan-2022 Instruction Type:Patient Education Patient Instructions Indication:[facility] Start:16-Dec-2021 Instruction Type:Provider Instructions for Treatment How to Access Health Informa tion Online using Patient Portal and [employer]rd [employer] Indication:[facility] Start:16-Dec-2021 Instruction Type:Patient Education Patient Instructions Indication:ADD (attention deficit disorder) Start:12-Aug-2021 Instruction Type:Provider Instructions for Treatment How to Access Health Informa tion Online using Patient Portal and [employer] Indication:ADD (attention deficit disorder) Start:12-Aug-2021 Instruction Type:Patient Education Patient Instructions Indication:ADD (attention deficit disorder) Start:01-Aug-2021 Instruction Type:Provider Instructions for Treatment How to Access Health Informa tion Online using Patient Portal and [employer] Indication:ADD (attention deficit disorder) Start:01-Aug-2021 Instruction Type:Patient Education Patient Instructions Indication:ADD (attention deficit disorder) Start:18-Jul-2021 Instruction Type:Provider Instructions for Treatment How to Access Health Informa tion Online using Patient Portal and [employer] Indication:ADD (attention deficit disorder) Start:18-Jul-2021 Instruction Type:Patient Education Patient Instructions Indication:Body aches Start:11-Jul-2021 Instruction Type:Provider Instructions for Treatment How to Access Health Informa tion Online using Patient Portal and [employer] Indication:Body aches Start:11-Jul-2021 Instruction Type:Patient Education Patient Instructions Indication:Sleep disorder Start:05-Jul-2021 Instruction Type:Provider Instructions for Treatment Patient Instructions Indication:Sleep disorder Start:24-Jun-2021 Instruction Type:Provider Instructions for Treatment How to Access Health Informa tion Online using Patient Portal and [employer] Indication:Sleep disorder Start:24-Jun-2021 Instruction Type:Patient [...] tion Online using Patient Portal and [employer] Apps Indication:Epigastric pain Start:17-Apr-2022 Instruction Type:Patient Education Patient Instructions Indication:ADD (attention deficit disorder) Start:23-Jan-2022 Instruction Type:Provider Instructions for Treatment How to Access Health Informa tion Online using Patient Portal and [employer] Apps Indication:ADD (attention deficit disorder) Start:23-Jan-2022 Instruction Type:Patient Education Patient Instructions Indication:[facility] EX[facility] Start:16-Dec-2021 Instruction Type:Provider Instructions for Treatment How to Access Health Informa tion Online using Patient Portal and [employer] Apps Indication:[facility] EX[facility] Start:16-Dec-2021 Instruction Type:Patient Education Patient Instructions Indication:ADD (attention deficit disorder) Start:12-Aug-2021 Instruction Type:Provider Instructions for Treatment How to Access Health Informa tion Online using Patient Portal and [employer] Apps Indication:ADD (attention deficit disorder) Start:12-Aug-2021 Instruction Type:Patient Education Patient Instructions Indication:ADD (attention deficit disorder) Start:01-Aug-2021 Instruction Type:Provider Instructions for Treatment How to Access Health Informa tion Online using Patient Portal and [employer] Apps Indication:ADD (attention deficit disorder) Start:01-Aug-2021 Instruction Type:Patient Education Patient Instructions Indication:ADD (attention deficit disorder) Start:18-Jul-2021 Instruction Type:Provider Instructions for Treatment How to Access Health Informa tion Online using Patient Portal and [employer] Apps Indication:ADD (attention deficit disorder) Start:18-Jul-2021 Instruction Type:Patient Education Patient Instructions Indication:Body aches Start:11-Jul-2021 Instruction Type:Provider Instructions for Treatment How to Access Health Informa tion Online using Patient Portal and [employer] Apps Indication:Body aches Start:11-Jul-2021 Instruction Type:Patient Education Patient Instructions Indication:Sleep disorder Start:05-Jul-2021 Instruction Type:Provider Instructions for Treatment Patient Instructions Indication:Sleep disorder Start:10-Dec-2021 Instruction Type:Provider Instructions for Treatment How to Access Health Informa tion Online using Patient Portal and [employer] Apps Indication:Sleep disorder Start:24-Jun-2021 Instruction Type:Patient [...] tion Online using Patient Portal and [employer] Apps Indication:Epigastric pain Start:17-Apr-2022 Instruction Type:Patient Education Patient Instructions Indication:ADD (attention deficit disorder) Start:23-Jan-2022 Instruction Type:Provider Instructions for Treatment How to Access Health Informa tion Online using Patient Portal and [employer] Apps Indication:ADD (attention deficit disorder) Start:23-Jan-2022 Instruction Type:Patient Education Patient Instructions Indication:[facility] Start:16-Dec-2021 Instruction Type:Provider Instructions for Treatment How to Access Health Informa tion Online using Patient Portal and [employer] Apps Indication:[facility] Start:16-Dec-2021 Instruction Type:Patient Education Patient Instructions Indication:ADD (attention deficit disorder) Start:12-Aug-2021 Instruction Type:Provider Instructions for Treatment How to Access Health Informa tion Online using Patient Portal and [employer] Apps Indication:ADD (attention deficit disorder) Start:12-Aug-2021 Instruction Type:Patient Education Patient Instructions Indication:ADD (attention deficit disorder) Start:01-Aug-2021 Instruction Type:Provider Instructions for Treatment How to Access Health Informa tion Online using Patient Portal and [employer] Apps Indication:ADD (attention deficit disorder) Start:01-Aug-2021 Instruction Type:Patient Education Patient Instructions Indication:ADD (attention deficit disorder) Start:18-Jul-2021 Instruction Type:Provider Instructions for Treatment How to Access Health Informa tion Online using Patient Portal and [employer] Apps Indication:ADD (attention deficit disorder) Start:18-Jul-2021 Instruction Type:Patient Education Patient Instructions Indication:Body aches Start:11-Jul-2021 Instruction Type:Provider Instructions for Treatment How to Access Health Informa tion Online using Patient Portal and [employer] Apps Indication:Body aches Start:11-Jul-2021 Instruction Type:Patient Education Patient Instructions Indication:Sleep disorder Start:05-Jul-2021 Instruction Type:Provider Instructions for Treatment Patient Instructions Indication:Sleep disorder Start:24-Jun-2021 Instruction Type:Provider Instructions for Treatment How to Access Health Informa tion Online using Patient Portal and [employer] Apps Indication:Sleep disorder Start:24-Jun-2021 Instruction Type:Patient [...] tion Online using Patient Portal and [employer] Apps Indication:Epigastric pain Start:17-Apr-2022 Instruction Type:Patient Education Patient Instructions Indication:ADD (attention deficit disorder) Start:23-Jan-2022 Instruction Type:Provider Instructions for Treatment How to Access Health Informa tion Online using Patient Portal and [employer] Apps Indication:ADD (attention deficit disorder) Start:23-Jan-2022 Instruction Type:Patient Education Patient Instructions Indication:[facility] Start:16-Dec-2021 Instruction Type:Provider Instructions for Treatment How to Access Health Informa tion Online using Patient Portal and [employer] Apps Indication:[facility] Start:16-Dec-2021 Instruction Type:Patient Education Patient Instructions Indication:ADD (attention deficit disorder) Start:12-Aug-2021 Instruction Type:Provider Instructions for Treatment How to Access Health Informa tion Online using Patient Portal and [employer] Apps Indication:ADD (attention deficit disorder) Start:12-Aug-2021 Instruction Type:Patient Education Patient Instructions Indication:ADD (attention deficit disorder) Start:01-Aug-2021 Instruction Type:Provider Instructions for Treatment How to Access Health Informa tion Online using Patient Portal and [employer] Apps Indication:ADD (attention deficit disorder) Start:01-Aug-2021 Instruction Type:Patient Education Patient Instructions Indication:ADD (attention deficit disorder) Start:18-Jul-2021 Instruction Type:Provider Instructions for Treatment How to Access Health Informa tion Online using Patient Portal and [employer] Apps Indication:ADD (attention deficit disorder) Start:18-Jul-2021 Instruction Type:Patient Education Patient Instructions Indication:Body aches Start:11-Jul-2021 Instruction Type:Provider Instructions for Treatment How to Access Health Informa tion Online using Patient Portal and [employer] Apps Indication:Body aches Start:11-Jul-2021 Instruction Type:Patient Education Patient Instructions Indication:Sleep disorder Start:05-Jul-2021 Instruction Type:Provider Instructions for Treatment Patient Instructions Indication:Sleep disorder Start:24-Jun-2021 Instruction Type:Provider Instructions for Treatment How to Access Health Informa tion Online using Patient Portal and [employer] Apps Indication:Sleep disorder Start:24-Jun-2021 Instruction Type:Patient [...] tion Online using Patient Portal and [employer] Apps Indication:Epigastric pain Start:17-Apr-2022 Instruction Type:Patient Education Patient Instructions Indication:ADD (attention deficit disorder) Start:23-Jan-2022 Instruction Type:Provider Instructions for Treatment How to Access Health Informa tion Online using Patient Portal and [employer] Apps Indication:ADD (attention deficit disorder) Start:23-Jan-2022 Instruction Type:Patient Education Patient Instructions Indication:[facility] Start:16-Dec-2021 Instruction Type:Provider Instructions for Treatment How to Access Health Informa tion Online using Patient Portal and [employer] Apps Indication:[facility] Start:16-Dec-2021 Instruction Type:Patient Education Patient Instructions Indication:ADD (attention deficit disorder) Start:12-Aug-2021 Instruction Type:Provider Instructions for Treatment How to Access Health Informa tion Online using Patient Portal and [employer] Apps Indication:ADD (attention deficit disorder) Start:12-Aug-2021 Instruction Type:Patient Education Patient Instructions Indication:ADD (attention deficit disorder) Start:01-Aug-2021 Instruction Type:Provider Instructions for Treatment How to Access Health Informa tion Online using Patient Portal and [employer] Apps Indication:ADD (attention deficit disorder) Start:01-Aug-2021 Instruction Type:Patient Education Patient Instructions Indication:ADD (attention deficit disorder) Start:18-Jul-2021 Instruction Type:Provider Instructions for Treatment How to Access Health Informa tion Online using Patient Portal and [employer] Apps Indication:ADD (attention deficit disorder) Start:18-Jul-2021 Instruction Type:Patient Education Patient Instructions Indication:Body aches Start:11-Jul-2021 Instruction Type:Provider Instructions for Treatment How to Access Health Informa tion Online using Patient Portal and [employer] Apps Indication:Body aches Start:11-Jul-2021 Instruction Type:Patient Education Patient Instructions Indication:Sleep disorder Start:05-Jul-2021 Instruction Type:Provider Instructions for Treatment Patient Instructions Indication:Sleep disorder Start:24-Jun-2021 Instruction Type:Provider Instructions for Treatment How to Access Health Informa tion Online using Patient Portal and [employer] Apps Indication:Sleep disorder Start:24-Jun-2021 Instruction Type:Patient [...] tion Online using Patient Portal and [employer] Apps Indication:Epigastric pain Start:17-Apr-2022 Instruction Type:Patient Education Patient Instructions Indication:ADD (attention deficit disorder) Start:23-Jan-2022 Instruction Type:Provider Instructions for Treatment How to Access Health Informa tion Online using Patient Portal and [employer] Apps Indication:ADD (attention deficit disorder) Start:23-Jan-2022 Instruction Type:Patient Education Patient Instructions Indication:[facility] Start:16-Dec-2021 Instruction Type:Provider Instructions for Treatment How to Access Health Informa tion Online using Patient Portal and [employer] Apps Indication:[facility] Start:16-Dec-2021 Instruction Type:Patient Education Patient Instructions Indication:ADD (attention deficit disorder) Start:12-Aug-2021 Instruction Type:Provider Instructions for Treatment How to Access Health Informa tion Online using Patient Portal and [employer] Apps Indication:ADD (attention deficit disorder) Start:12-Aug-2021 Instruction Type:Patient Education Patient Instructions Indication:ADD (attention deficit disorder) Start:01-Aug-2021 Instruction Type:Provider Instructions for Treatment How to Access Health Informa tion Online using Patient Portal and [employer] Apps Indication:ADD (attention deficit disorder) Start:01-Aug-2021 Instruction Type:Patient Education Patient Instructions Indication:ADD (attention deficit disorder) Start:18-Jul-2021 Instruction Type:Provider Instructions for Treatment How to Access Health Informa tion Online using Patient Portal and [employer] Apps Indication:ADD (attention deficit disorder) Start:18-Jul-2021 Instruction Type:Patient Education Patient Instructions Indication:Body aches Start:11-Jul-2021 Instruction Type:Provider Instructions for Treatment How to Access Health Informa tion Online using Patient Portal and [employer] Apps Indication:Body aches Start:11-Jul-2021 Instruction Type:Patient Education Patient Instructions Indication:Sleep disorder Start:05-Jul-2021 Instruction Type:Provider Instructions for Treatment Patient Instructions Indication:Sleep disorder Start:24-Jun-2021 Instruction Type:Provider Instructions for Treatment How to Access Health Informa tion Online using Patient Portal and [employer] Apps Indication:Sleep disorder Start:24-Jun-2021 Instruction Type:Patient [...] tion Online using Patient Portal and [employer] Apps Indication:Unspecified Diagnosis Start:05-Jan-2023 Instruction Type:Patient Education Patient Instructions Indication:ADD (attention deficit disorder) Start:24-Jul-2022 Instruction Type:Provider Instructions for Treatment Patient Instructions Indication:Epigastric pain Start:17-Apr-2022 Instruction Type:Provider Instructions for Treatment How to Access Health Informa tion Online using Patient Portal and [employer] Apps Indication:Epigastric pain Start:17-Apr-2022 Instruction Type:Patient Education Patient Instructions Indication:ADD (attention deficit disorder) Start:23-Jan-2022 Instruction Type:Provider Instructions for Treatment How to Access Health Informa tion Online using Patient Portal and [employer] Apps Indication:ADD (attention deficit disorder) Start:23-Jan-2022 Instruction Type:Patient Education Patient Instructions Indication:[facility] Start:16-Dec-2021 Instruction Type:Provider Instructions for Treatment How to Access Health Informa tion Online using Patient Portal and [employer] Apps Indication:[facility] EX[facility] Start:16-Dec-2021 Instruction Type:Patient Education Patient Instructions Indication:ADD (attention deficit disorder) Start:12-Aug-2021 Instruction Type:Provider Instructions for Treatment How to Access Health Informa tion Online using Patient Portal and [employer] Apps Indication:ADD (attention deficit disorder) Start:12-Aug-2021 Instruction Type:Patient Education Patient Instructions Indication:ADD (attention deficit disorder) Start:01-Aug-2021 Instruction Type:Provider Instructions for Treatment How to Access Health Informa tion Online using Patient Portal and [employer] Apps Indication:ADD (attention deficit disorder) Start:01-Aug-2021 Instruction Type:Patient Education Patient Instructions Indication:ADD (attention deficit disorder) Start:18-Jul-2021 Instruction Type:Provider Instructions for Treatment How to Access Health Informa tion Online using Patient Portal and [employer] Apps Indication:ADD (attention deficit disorder) Start:18-Jul-2021 Instruction Type:Patient Education Patient Instructions Indication:Body aches Start:11-Jul-2021 Instruction Type:Provider Instructions for Treatment How to Access Health Informa tion Online using Patient Portal and [employer] Apps Indication:Body aches Start:11-Jul-2021 Instruction Type:Patient Education Patient Instructions Indication:Sleep disorder Start:05-Jul-2021 Instruction Type:Provider Instructions for Treatment Patient Instructions Indication:Sleep disorder Start:24-Jun-2021 Instruction Type:Provider Instructions for Treatment How to Access Health Informa tion Online using Patient Portal and [employer] Apps Indication:Sleep disorder Start:24-Jun-2021 Instruction Type:Patient [...] tion Online using Patient Portal and [employer] Apps Indication:Constipation Start:05-Jan-2023 Instruction Type:Patient Education Patient Instructions Indication:ADD (attention deficit disorder) Start:24-Jul-2022 Instruction Type:Provider Instructions for Treatment Patient Instructions Indication:Epigastric pain Start:17-Apr-2022 Instruction Type:Provider Instructions for Treatment How to Access Health Informa tion Online using Patient Portal and [employer] Apps Indication:Epigastric pain Start:17-Apr-2022 Instruction Type:Patient Education Patient Instructions Indication:ADD (attention deficit disorder) Start:23-Jan-2022 Instruction Type:Provider Instructions for Treatment How to Access Health Informa tion Online using Patient Portal and [employer] Apps Indication:ADD (attention deficit disorder) Start:23-Jan-2022 Instruction Type:Patient Education Patient Instructions Indication:[facility] Start:16-Dec-2021 Instruction Type:Provider Instructions for Treatment How to Access Health Informa tion Online using Patient Portal and [employer] Apps Indication:[facility] EX[facility] Start:16-Dec-2021 Instruction Type:Patient Education Patient Instructions Indication:ADD (attention deficit disorder) Start:12-Aug-2021 Instruction Type:Provider Instructions for Treatment How to Access Health Informa tion Online using Patient Portal and [employer] Apps Indication:ADD (attention deficit disorder) Start:12-Aug-2021 Instruction Type:Patient Education Patient Instructions Indication:ADD (attention deficit disorder) Start:01-Aug-2021 Instruction Type:Provider Instructions for Treatment How to Access Health Informa tion Online using Patient Portal and [employer] Apps Indication:ADD (attention deficit disorder) Start:01-Aug-2021 Instruction Type:Patient Education Patient Instructions Indication:ADD (attention deficit disorder) Start:18-Jul-2021 Instruction Type:Provider Instructions for Treatment How to Access Health Informa tion Online using Patient Portal and [employer] Apps Indication:ADD (attention deficit disorder) Start:18-Jul-2021 Instruction Type:Patient Education Patient Instructions Indication:Body aches Start:11-Jul-2021 Instruction Type:Provider Instructions for Treatment How to Access Health Informa tion Online using Patient Portal and [employer] Apps Indication:Body aches Start:11-Jul-2021 Instruction Type:Patient Education Patient Instructions Indication:Sleep disorder Start:05-Jul-2021 Instruction Type:Provider Instructions for Treatment Patient Instructions Indication:Sleep disorder Start:24-Jun-2021 Instruction Type:Provider Instructions for Treatment How to Access Health Informa tion Online using Patient Portal and [employer] Apps Indication:Sleep disorder Start:24-Jun-2021 Instruction Type:Patient [...] tion Online using Patient Portal and [employer] Apps Indication:ADD (attention deficit disorder) Start:22-Jan-2023 Instruction Type:Patient Education Patient Instructions Indication:ADD (attention deficit disorder) Start:22-Jan-2023 Instruction Type:Provider Instructions for Treatment Patient Instructions Indication:Constipation Start:05-Jan-2023 Instruction Type:Provider Instructions for Treatment How to Access Health Informa tion Online using Patient Portal and [employer] Apps Indication:Constipation Start:05-Jan-2023 Instruction Type:Patient Education Patient Instructions Indication:ADD (attention deficit disorder) Start:24-Jul-2022 Instruction Type:Provider Instructions for Treatment Patient Instructions Indication:Epigastric pain Start:17-Apr-2022 Instruction Type:Provider Instructions for Treatment How to Access Health Informa tion Online using Patient Portal and [employer] Apps Indication:Epigastric pain Start:17-Apr-2022 Instruction Type:Patient Education Patient Instructions Indication:ADD (attention deficit disorder) Start:23-Jan-2022 Instruction Type:Provider Instructions for Treatment How to Access Health Informa tion Online using Patient Portal and [employer] Apps Indication:ADD (attention deficit disorder) Start:23-Jan-2022 Instruction Type:Patient Education Patient Instructions Indication:[facility] EX[facility] Start:16-Dec-2021 Instruction Type:Provider Instructions for Treatment How to Access Health Informa tion Online using Patient Portal and [employer] Apps Indication:[facility] EX[facility] Start:16-Dec-2021 Instruction Type:Patient Education Patient Instructions Indication:ADD (attention deficit disorder) Start:12-Aug-2021 Instruction Type:Provider Instructions for Treatment How to Access Health Informa tion Online using Patient Portal and [employer] Indication:ADD (attention deficit disorder) Start:12-Aug-2021 Instruction Type:Patient Education Patient Instructions Indication:ADD (attention deficit disorder) Start:01-Aug-2021 Instruction Type:Provider Instructions for Treatment How to Access Health Informa tion Online using Patient Portal and [employer] Apps Indication:ADD (attention deficit disorder) Start:01-Aug-2021 Instruction Type:Patient Education Patient Instructions Indication:ADD (attention deficit disorder) Start:18-Jul-2021 Instruction Type:Provider Instructions for Treatment How to Access Health Informa tion Online using Patient Portal and [employer] Apps Indication:ADD (attention deficit disorder) Start:18-Jul-2021 Instruction Type:Patient Education Patient Instructions Indication:Body aches Start:11-Jul-2021 Instruction Type:Provider Instructions for Treatment How to Access Health Informa tion Online using Patient Portal and [employer] Apps Indication:Body aches Start:11-Jul-2021 Instruction Type:Patient Education Patient Instructions Indication:Sleep disorder Start:05-Jul-2021 Instruction Type:Provider Instructions for Treatment Patient Instructions Indication:Sleep disorder Start:24-Jun-2021 Instruction Type:Provider Instructions for Treatment How to Access Health Informa tion Online using Patient Portal and [employer] Apps Indication:Sleep disorder Start:24-Jun-2021 Instruction Type:Patient [...] tion Online using Patient Portal and [employer] Apps Indication:ADD (attention deficit disorder) Start:22-Jan-2023 Instruction Type:Patient Education Patient Instructions Indication:ADD (attention deficit disorder) Start:22-Jan-2023 Instruction Type:Provider Instructions for Treatment Patient Instructions Indication:Constipation Start:05-Jan-2023 Instruction Type:Provider Instructions for Treatment How to Access Health Informa tion Online using Patient Portal and [employer] Apps Indication:Constipation Start:05-Jan-2023 Instruction Type:Patient Education Patient Instructions Indication:ADD (attention deficit disorder) Start:24-Jul-2022 Instruction Type:Provider Instructions for Treatment Patient Instructions Indication:Epigastric pain Start:17-Apr-2022 Instruction Type:Provider Instructions for Treatment How to Access Health Informa tion Online using Patient Portal and [employer] Apps Indication:Epigastric pain Start:17-Apr-2022 Instruction Type:Patient Education Patient Instructions Indication:ADD (attention deficit disorder) Start:23-Jan-2022 Instruction Type:Provider Instructions for Treatment How to Access Health Informa tion Online using Patient Portal and [employer] Apps Indication:ADD (attention deficit disorder) Start:23-Jan-2022 Instruction Type:Patient Education Patient Instructions Indication:[facility] EX[facility] Start:16-Dec-2021 Instruction Type:Provider Instructions for Treatment How to Access Health Informa tion Online using Patient Portal and [employer] Apps Indication:[facility] EX[facility] Start:16-Dec-2021 Instruction Type:Patient Education Patient Instructions Indication:ADD (attention deficit disorder) Start:12-Aug-2021 Instruction Type:Provider Instructions for Treatment How to Access Health Informa tion Online using Patient Portal and [employer] Apps Indication:ADD (attention deficit disorder) Start:12-Aug-2021 Instruction Type:Patient Education Patient Instructions Indication:ADD (attention deficit disorder) Start:01-Aug-2021 Instruction Type:Provider Instructions for Treatment How to Access Health Informa tion Online using Patient Portal and [employer] Apps Indication:ADD (attention deficit disorder) Start:01-Aug-2021 Instruction Type:Patient Education Patient Instructions Indication:ADD (attention deficit disorder) Start:18-Jul-2021 Instruction Type:Provider Instructions for Treatment How to Access Health Informa tion Online using Patient Portal and [employer] Apps Indication:ADD (attention deficit disorder) Start:18-Jul-2021 Instruction Type:Patient Education Patient Instructions Indication:Body aches Start:11-Jul-2021 Instruction Type:Provider Instructions for Treatment How to Access Health Informa tion Online using Patient Portal and [employer]rd [employer] Apps Indication:Body aches Start:11-Jul-2021 Instruction Type:Patient Education Patient Instructions Indication:Sleep disorder Start:05-Jul-2021 Instruction Type:Provider Instructions for Treatment Patient Instructions Indication:Sleep disorder Start:24-Jun-2021 Instruction Type:Provider Instructions for Treatment How to Access Health Informa tion Online using Patient Portal and [employer]rd [employer] Apps Indication:Sleep disorder Start:24-Jun-2021 Instruction Type:Patient [...] tion Online using Patient Portal and [employer]rd [employer] Apps Indication:ADD (attention deficit disorder) Start:22-Jan-2023 Instruction Type:Patient Education Patient Instructions Indication:ADD (attention deficit disorder) Start:22-Jan-2023 Instruction Type:Provider Instructions for Treatment Patient Instructions Indication:Constipation Start:05-Jan-2023 Instruction Type:Provider Instructions for Treatment How to Access Health Informa tion Online using Patient Portal and [employer]rd [employer] Apps Indication:Constipation Start:05-Jan-2023 Instruction Type:Patient Education Patient Instructions Indication:ADD (attention deficit disorder) Start:24-Jul-2022 Instruction Type:Provider Instructions for Treatment Patient Instructions Indication:Epigastric pain Start:17-Apr-2022 Instruction Type:Provider Instructions for Treatment How to Access Health Informa tion Online using Patient Portal and 3rd [employer] Apps Indication:Epigastric pain Start:17-Apr-2022 Instruction Type:Patient Education Patient Instructions Indication:ADD (attention deficit disorder) Start:23-Jan-2022 Instruction Type:Provider Instructions for Treatment How to Access Health Informa tion Online using Patient Portal and [employer]rd [employer] Apps Indication:ADD (attention deficit disorder) Start:23-Jan-2022 Instruction Type:Patient Education Patient Instructions Indication:[facility] EXAM Start:16-Dec-2021 Instruction Type:Provider Instructions for Treatment How to Access Health Informa tion Online using Patient Portal and 3rd [employer] Apps Indication:[facility] EX[facility] Start:16-Dec-2021 Instruction Type:Patient Education Patient Instructions Indication:ADD (attention deficit disorder) Start:12-Aug-2021 Instruction Type:Provider Instructions for Treatment How to Access Health Informa tion Online using Patient Portal and [employer] Apps Indication:ADD (attention deficit disorder) Start:12-Aug-2021 Instruction Type:Patient Education Patient Instructions Indication:ADD (attention deficit disorder) Start:01-Aug-2021 Instruction Type:Provider Instructions for Treatment How to Access Health Informa tion Online using Patient Portal and [employer]rd [employer] Apps Indication:ADD (attention deficit disorder) Start:01-Aug-2021 Instruction Type:Patient Education Patient Instructions Indication:ADD (attention deficit disorder) Start:18-Jul-2021 Instruction Type:Provider Instructions for Treatment How to Access Health Informa tion Online using Patient Portal and [employer]rd [employer] Apps Indication:ADD (attention deficit disorder) Start:18-Jul-2021 Instruction Type:Patient Education Patient Instructions Indication:Body aches Start:11-Jul-2021 Instruction Type:Provider Instructions for Treatment How to Access Health Informa tion Online using Patient Portal and [employer]rd [employer] Apps Indication:Body aches Start:11-Jul-2021 Instruction Type:Patient Education Patient Instructions Indication:Sleep disorder Start:05-Jul-2021 Instruction Type:Provider Instructions for Treatment Patient Instructions Indication:Sleep disorder Start:24-Jun-2021 Instruction Type:Provider Instructions for Treatment How to Access Health Informa tion Online using Patient Portal and [employer]rd [employer] Apps Indication:Sleep disorder Start:24-Jun-2021 Instruction Type:Patient [...] tion Online using Patient Portal and [employer]rd [employer] Apps Indication:Smoker Start:30-Apr-2023 Instruction Type:Patient Education How to Access Health Informa tion Online using Patient Portal and [employer]rd [employer] Apps Indication:ADD (attention deficit disorder) Start:22-Jan-2023 Instruction Type:Patient Education Patient Instructions Indication:ADD (attention deficit disorder) Start:22-Jan-2023 Instruction Type:Provider Instructions for Treatment Patient Instructions Indication:Constipation Start:05-Jan-2023 Instruction Type:Provider Instructions for Treatment How to Access Health Informa tion Online using Patient Portal and [employer]rd [employer] Apps Indication:Constipation Start:05-Jan-2023 Instruction Type:Patient Education Patient Instructions Indication:ADD (attention deficit disorder) Start:24-Jul-2022 Instruction Type:Provider Instructions for Treatment Patient Instructions Indication:Epigastric pain Start:17-Apr-2022 Instruction Type:Provider Instructions for Treatment How to Access Health Informa tion Online using Patient Portal and [employer]rd [employer] Apps Indication:Epigastric pain Start:17-Apr-2022 Instruction Type:Patient Education Patient Instructions Indication:ADD (attention deficit disorder) Start:23-Jan-2022 Instruction Type:Provider Instructions for Treatment How to Access Health Informa tion Online using Patient Portal and [employer]rd [employer] Apps Indication:ADD (attention deficit disorder) Start:23-Jan-2022 Instruction Type:Patient Education Patient Instructions Indication:[facility] Start:16-Dec-2021 Instruction Type:Provider Instructions for Treatment How to Access Health Informa tion Online using Patient Portal and [employer]rd [employer] Apps Indication:[facility] EX[facility] Start:16-Dec-2021 Instruction Type:Patient Education Patient Instructions Indication:ADD (attention deficit disorder) Start:12-Aug-2021 Instruction Type:Provider Instructions for Treatment How to Access Health Informa tion Online using Patient Portal and [employer]rd [employer] Apps Indication:ADD (attention deficit disorder) Start:12-Aug-2021 Instruction Type:Patient Education Patient Instructions Indication:ADD (attention deficit disorder) Start:01-Aug-2021 Instruction Type:Provider Instructions for Treatment How to Access Health Informa tion Online using Patient Portal and [employer]rd [employer] Apps Indication:ADD (attention deficit disorder) Start:01-Aug-2021 Instruction Type:Patient Education Patient Instructions Indication:ADD (attention deficit disorder) Start:18-Jul-2021 Instruction Type:Provider Instructions for Treatment How to Access Health Informa tion Online using Patient Portal and [employer]rd [employer] Apps Indication:ADD (attention deficit disorder) Start:18-Jul-2021 Instruction Type:Patient Education Patient Instructions Indication:Body aches Start:11-Jul-2021 Instruction Type:Provider Instructions for Treatment How to Access Health Informa tion Online using Patient Portal and [employer] Apps Indication:Body aches Start:11-Jul-2021 Instruction Type:Patient Education Patient Instructions Indication:Sleep disorder Start:05-Jul-2021 Instruction Type:Provider Instructions for Treatment Patient Instructions Indication:Sleep disorder Start:24-Jun-2021 Instruction Type:Provider Instructions for Treatment How to Access Health Informa tion Online using Patient Portal and [employer] Apps Indication:Sleep disorder Start:24-Jun-2021 Instruction Type:Patient [...] BE BASED ON THE PRIMARY CLINICAL RECORDS. [facility]. provides no warranty or guarantee of the accuracy or completeness of information in this document.
[2023-07-13] MEDS: LORazepam 2 MG/ML Syringe 0.5 MG IV (02:00)
[2023-07-13 02:06] VITALS: BP 139/90
[2023-07-13 02:12] VITALS: BP 139/90
[2023-07-13 02:27] VITALS: BMI 25.7
[2023-07-13 02:36] VITALS: BP 130/85; PULSE 80; RESP 18; TEMP 36.6; O2SAT 96
[2023-07-13] MEDS: Lactated Ringers 1,000 ML 75 ML IV (02:52)
[2023-07-13] MEDS: HYDROmorphone 0.5 MG/0.5 ML SYRINGE IV ×2 (03:30→07:54)
[2023-07-13 06:33] LABS: Hematocrit 40.1 % (37-47); Hemoglobin 13.2 g/dL (12.0-15.0); Mean Corp Hgb Conc 32.9 g/dL (32-36); Mean Corpuscular Hgb 31.5 pg (27.0-32.0); Mean Corpuscular Volume 95.7 fL (81-99); Mean Platelet Vol. 9.5 fl (6.2-12.0); Platelet Count 302 K/mm3 (150-450); RBC Distribution Width CV 13.3 % (11.6-14.6); RBC Distribution Width SD 47.1 fl (35.1-43.9); Red Blood Count 4.19 M/mm3 (4.2-5.4); White Blood Count 12.9 K/mm3 (4.4-11.0)
--- NOTE | 2023-07-13 06:48 | CON.PCM.SX_ITS ---
Assessment & Plan Assessment/Plan (1) Small bowel obstruction: PLAN: Plan Continue NG?okay for sips and chips with NG Will plan for small bowel follow-through with Gastrografin. If that goes through to colon-- we will remove NG and start clears. Patient and agree with plan. Adrienne Roblero M.D. Pager: [phone] [facility] [address] [place] [address], Outpatient [place], [address] [place] [address] Office: [phone] HPI Consult Data Date of Consult: 07/13/23 HPI Narrative HPI Narrative: NELIDA DELACRUZ, is a 53 F who presents due to abdominal pain nausea and vomiting. Patient has a complicated past surgical history in [address] abdomen pelvis showed high-grade small bowel obstruction. Patient had NG placed per patient put out quite a bit. Patient had relief of her abdominal pain nausea and vomiting with NG placement. Currently patient denies any abdominal pain but wants the NG out. Per dr. Freeman surgery visit note: She had a complicated postoperative course. She had a very difficult sigmoid colectomy because of a high-grade diverticular stricture stricture and high- grade colonic obstruction. On August 20, 2019 she underwent a laparoscopic lysis of adhesions for an hour then conversion to a hand-assisted low anterior resection of the sigmoid colon. There was a enterectomy with a primary anastomosis of the mid small bowel and then a loop ileostomy in the right lower quadrant with a bilateral tap block. Postoperatively she required a laparoscopy because of pain and suspected partial small bowel obstruction and lysis of adhesion was performed. Unfortunate did not resolve the issue so she had yet a third operation where her previous small bowel resection was re-done and re- stapled and this finally resolved her postoperative small bowel issues January 19, 2020 she had takedown of her diverting ileostomy. [facility] Medical History Alcohol use Anemia Anxiety Depressive disorder, not elsewhere classified Diverticulitis Former smoker History of diverticulitis History of small bowel obstruction (~08/2019) Hives Ileostomy present Leg cramps PONV (postoperative nausea and vomiting) Post-menopausal Screening for malignant neoplasm of intestine Home Medications epinephrine 0.3 mg/0.3 mL injection, auto-injector (EpiPen) 0.3 mg (0.3 mL) IM Q5-15M PRN hypersensitivity reaction #2 ea 07/21/20 [Rx Last Taken Unknown] multivitamin 1 tab PO DAILY vitamin 04/03/22 [History Last Taken Unknown] dextroamphetamine-amphetamine 20 mg tablet 20 mg PO 1200 adhd 07/13/23 [History Last Taken Unknown] dextroamphetamine-amphetamine ER 20 mg 24hr capsule,extend release 20 mg PO 0500 adhd 07/13/23 [History Last Taken Unknown] Allergy/AdvReac Type Severity Reaction Status Date / Time bee pollen Allergy Swelling Verified 07/12/23 21:14 promethazine [From Phenergan] Allergy Other Verified 07/12/23 21:14 Family History Unknown Asthma Mother Cancer Asthma Heart disease COPD (chronic obstructive pulmonary disease) Surgical History H/O section H/O colonoscopy History of colectomy (~08/2019) history of ostomy reversal (~01/2020) Social History household members: family number of children: 4 current occupational status: employed Smoking Status: Current every day smoker tobacco type: cigarettes second hand exposure: No alcohol intake: current details: Glass of wine 3x a weeks substance use type: does not use caffeine: Yes what type of physical activity do you participate in: none seatbelt use: always do you feel safe at home: Yes 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 Constitutional Constitutional: Reports anorexia; Denies fever(s) Eyes Eyes: Denies change in vision ENT HEENT: Denies dysphagia Cardiovascular Cardiovascular: Denies chest pain Respiratory/Chest Respiratory/Chest: Denies cough Gastrointestinal Gastrointestinal: Reports abdominal pain, nausea and vomiting; Denies diarrhea, hematemesis or melena Genitourinary Genitourinary: Denies dysuria Musculoskeletal Musculoskeletal: Denies joint swelling Integumentary Integumentary: Denies jaundice Neurologic Neurologic: Denies focal weakness Psychiatric Psychiatric: Reports depression Endocrine Endocrinology: Denies palpitations Hematologic/Lymphatic Hematologic/Lymphatic: Denies easy bleeding Physical Exam Narrative NG in place Const alert, oriented x3 and no apparent distress HEENT normocephalic and head/scalp atraumatic Resp normal respiratory effort Cardio regular rate GI soft to palpation; Negative for non-tender or non-distended Palpation: Negative for guarding Extremity no clubbing, cyanosis or edema Neuro CN's II-XII intact bilaterally Psych mental status grossly normal Lab / Micro Data 07/13/23 06:10 07/13/23 06:10 Labs: Laboratory Results - last 24 hr 07/12/23 22:25: WBC 14.6 H, RBC 5.56 H, Hgb 17.4 H, Hct 52.6 H, MCV 94.6, MCH 31.3, MCHC 33.1, RDW Std Deviation 45.2 H, RDW Coeff of Miguel 12.9, Plt Count 357, MPV 9.5, Immature Gran % (Auto) 0.300, Neut % (Auto) 88.2 H, Lymph % (Auto) 8.1 L, [place] % (Auto) 3.0, Eos % (Auto) 0.1, Baso % (Auto) 0.3, Absolute Neuts (auto) 12.9 H, Absolute Lymphs (auto) 1.19, Nucleated RBC % 0, Sodium 135 L, Potassium 4.2, Chloride 99, Carbon Dioxide 29.0, Anion Gap 7, BUN 12, Creatinine 0.90, Estim Creat Clear Calc 54.55, Est GFR (MDRD) Af Amer 85, Est GFR (MDRD) Non-Af 70, BUN/Creatinine Ratio 13.4, Glucose 119 H, Calcium 10.4 H, Total Bilirubin 0.40, AST 28, ALT 34, Alkaline Phosphatase 96, Total Protein 8.6 H, Albumin 4.6, Globulin 4.0, Albumin/Globulin Ratio 1.2, Lipase 15, Serum , Qual NEGATIVE 07/12/23 22:54: Lactic Acid 1.5 07/13/23 06:10: WBC 12.9 H, RBC 4.19 L, Hgb 13.2, Hct 40.1, MCV 95.7, MCH 31.5, MCHC 32.9, RDW Std Deviation 47.1 H, RDW Coeff of Miguel 13.3, Plt Count 302, MPV 9.5 Imagaing Radiology Impression Abdomen/Pelvis CT 07/12/23 23:06 IMPRESSION: Multiple loops of the small bowel at the mid abdomen level show dilatation compatible with moderate to high-grade small bowelri obstruction. This is potentially related to adhesions given evidence of prior bowel surgery. Electronically Signed: Gurjit Benavides MD at 0:17 EST , KUB X-Ray 07/13/23 01:00 IMPRESSION: Transesophageal catheter side port is located below the GE junction with tip projecting over the distal stomach. Electronically Signed: Gurjit Benavides MD at 2:11 EST , Charges/Coding Visit Charges Inpatient E&M: 10329 Init Hosp L3
--- NOTE | 2023-07-13 06:54 | RAD_ITS ---
Small bowel series Indication: Small bowel obstruction Initial publication specialist radiograph reveals nondilated bowel gas pattern without suspicious calcifications. Esophagogastric tube extends to the stomach. Small bowel serial films performed following ingestion of barium. The duodenum, jejunum and ileum are normal in appearance with normal mucosal fold pattern. Small bowel transit time, 60 minutes. RAD/Small Bowel Series Only IMPRESSION: Document passage of contrast into the colon at 1 hour. Nonobstructed bowel pattern. Electronically Signed: Timmy Lee MD (Brooks) at 17:08 EST ,
[2023-07-13 06:57] LABS: Anion Gap 3 (5-15); BUN 13 mg/dL (7-18); BUN/Creat Ratio 18.1 RATIO (10-20); Calcium,Total 8.8 mg/dL (8.5-10.1); Chloride 108 mmol/L (98-107); Creatinine, Serum 0.72 mg/dL (0.55-1.02); EST Glomerular Filtration Rate 90 mL/min (>60); Est Glom Filt Rate - Afr Amer 109 mL/min (>60); Estimated Creatinine Clearance 68.19 ml/min; Glucose 114 mg/dL (74-106); Potassium 3.8 mmol/L (3.5-5.1); Sodium Level 138 mmol/L (136-145)
[2023-07-13] MEDS: BENZOCAINE/MENTHOL 1 LOZENGE 2 LOZENGE MUCOUS MEM (07:02)
[2023-07-13] MEDS: 0.9% Normal Saline (1000mL) 1,000 ML 999 ML IV (07:37)
[2023-07-13 07:40] VITALS: BP 133/87; PULSE 79; RESP 16; TEMP 36.6; O2SAT 97
[2023-07-13] MEDS: proCHLORPERazine 10 MG/2 ML Vial 5 MG IV (07:54)
[2023-07-13] MEDS: 0.9% Saline Lock 10 ML Syringe IV (07:54)
[2023-07-13] MEDS: 0.9% Normal Saline (1000mL) 1,000 ML 130 ML IV (09:51)
--- NOTE | 2023-07-13 12:19 | DS.PCM_ITS ---
Providers Date of Admission: 07/13/23 Date of Discharge: 07/13/23 Primary Care Physician: Dr. April Davalos, Consultations 07/13/23 02:34 Consult: General Surgery Routine Consulting Provider: Adrienne Roblero Reason for Consult: Small bowel obstruction EMERGENT Consult: Yes MD Notified: Yes Date Notified: 07/13/23 Time Notified: 02:34 Method of Notification: ED Physician Initiated Reason For Visit: SBO Diagnosis Discharge Diagnosis (1) Small bowel obstruction: Status: Acute Code(s): K56.609 - Unspecified intestinal obstruction, unspecified as to partial versus complete obstruction Medications at Discharge Home Medications epinephrine 0.3 mg/0.3 mL injection, auto-injector (EpiPen) 0.3 mg (0.3 mL) IM Q5-15M PRN hypersensitivity reaction #2 ea 07/21/20 multivitamin 1 tab PO DAILY vitamin 04/03/22 dextroamphetamine-amphetamine 20 mg tablet 20 mg PO 1200 adhd 07/13/23 dextroamphetamine-amphetamine ER 20 mg 24hr capsule,extend release 20 mg PO 0500 adhd 07/13/23 Hospital Course Operations None Procedures - (CT abdomen and pelvis/KUB/small bowel follow-through) Summary of Care Provided Minutes Spent on Discharge: 30 Hospital Course: Mrs. Lewis is a 53-year-old white female who presented to the emergency department at [facility] on 07/12/2023 for worsening abdominal pain, nausea, and vomiting. Patient has a known history of sigmoid colectomy and end ileostomy [place] [address] Victor for a high-grade diverticular stricture with high-grade colonic obstruction. She evidently had a complicated postoperative course requiring 2 procedures including a small bowel resection redone and restapled with resolution of her symptoms. Her ileostomy was taken down in January 2020 and she had been doing well since that point in time. Evidently, on presentation she had been complaining of intermittent abdominal pain that has been ongoing for about a month which had worsened significantly in the last day or so prior to presentation. She suffered from worsening nausea with some intermittent vomiting but denied any flatus. CT of the abdomen and pelvis done in the emergency department showed multiple dilated loops of small bowel in the mid abdomen consistent with small bowel obstruction. The case was discussed with general surgery and they recommended placement of an NG tube and admission to the hospital. Her NG tube placement she did have quite a bit out via the NG and had relief of her abdominal symptoms with NG tube placement. On the morning following admission she was feeling much better and wanted the NG tube out. General surgery ordered a Gastrografin small bowel follow-through to be done that morning. Small bowel follow-through did show contrast into the colon at 3 hours and the patient was having multiple bowel movements prior to the 3-hour time period. She was anxious to go home now that her bowel function had improved and her symptoms had improved. Her NG was removed and she was started on clear liquid diet which she tolerated well. I discussed the case with Dr. Roblero given the fact that she was anxious to go home and she felt she could go home and slowly advance her diet and return if she had any return of symptoms. She was able to be discharged home in stable condition on 07/13/2023. Discharge diagnoses: High-grade small bowel obstruction-resolved Abdominal pain-resolved Nausea vomiting-resolved Leukocytosis-resolved History of colonic stricture status post sigmoid colectomy end ileostomy with ileostomy takedown History of diverticulitis Anxiety Depression ADHD History of tobacco abuse Physical Exam Const no apparent distress and average body habitus Constitutional Narrative: Patient was sleeping at the time of my eval however her was at the [facility], she appeared comfortable and nontoxic General Appearance: comfortable, well kempt and well developed HEENT normocephalic, head/scalp atraumatic and moist oral mucous membranes HEENT Narrative: NG tube in nares Resp normal respiratory effort, no retractions, no use of accessory muscles and clear to auscultation bilaterally Auscultation: Negative for rales, rhonchi or wheezes Cardio regular rate, regular rhythm, S1 normal heart sound, S2 normal heart sound, no murmurs, no rub, no gallops and no clicks GI normal to inspection, nondistended, normoactive bowel sounds and soft to pal pation GI Narrative: Bowel sounds were mildly hypoactive at the time of my evaluation Extremity no clubbing, cyanosis or edema Extremity Narrative: 2+ pedal pulses Neuro Neuro Narrative: Patient was sleeping soundly Weight / BMI Weight Weight: 61.7 kg Body Mass Index (BMI) 25.7 ABG / Lab / Microbiology Data 07/13/23 06:10 07/13/23 06:10 Laboratory: Laboratory Results - last 24 hr 07/12/23 22:25: WBC 14.6 H, RBC 5.56 H, Hgb 17.4 H, Hct 52.6 H, MCV 94.6, MCH 31.3, MCHC 33.1, RDW Std Deviation 45.2 H, RDW Coeff of Miguel 12.9, Plt Count 357, MPV 9.5, Immature Gran % (Auto) 0.300, Neut % (Auto) 88.2 H, Lymph % (Auto) 8.1 L, [place] % (Auto) 3.0, Eos % (Auto) 0.1, Baso % (Auto) 0.3, Absolute Neuts (auto) 12.9 H, Absolute Lymphs (auto) 1.19, Nucleated RBC % 0, Sodium 135 L, Potassium 4.2, Chloride 99, Carbon Dioxide 29.0, Anion Gap 7, BUN 12, Creatinine 0.90, Estim Creat Clear Calc 54.55, Est GFR (MDRD) Af Amer 85, Est GFR (MDRD) Non-Af 70, BUN/Creatinine Ratio 13.4, Glucose 119 H, Calcium 10.4 H, Total Bilirubin 0.40, AST 28, ALT 34, Alkaline Phosphatase 96, Total Protein 8.6 H, Albumin 4.6, Globulin 4.0, Albumin/Globulin Ratio 1.2, Lipase 15, Serum , Qual NEGATIVE 07/12/23 22:54: Lactic Acid 1.5 07/13/23 06:10: WBC 12.9 H, RBC 4.19 L, Hgb 13.2, Hct 40.1, MCV 95.7, MCH 31.5, MCHC 32.9, RDW Std Deviation 47.1 H, RDW Coeff of Miguel 13.3, Plt Count 302, MPV 9.5, Sodium 138, Potassium 3.8, Chloride 108 H, Carbon Dioxide 27.0, Anion Gap 3 L, BUN 13, Creatinine 0.72, Estim Creat Clear Calc 68.19, Est GFR (MDRD) Af Amer 109, Est GFR (MDRD) Non-Af 90, BUN/Creatinine Ratio 18.1, Glucose 114 H, Calcium 8.8 Radiography Diagnostic Testing: Radiology Impression Abdomen/Pelvis CT 07/12/23 23:06 IMPRESSION: Multiple loops of the small bowel at the mid abdomen level show dilatation compatible with moderate to high-grade small bowelri obstruction. This is potentially related to adhesions given evidence of prior bowel surgery. Electronically Signed: Gurjit Benavides MD at 0:17 EST , KUB X-Ray 07/13/23 01:00 IMPRESSION: Transesophageal catheter side port is located below the GE junction with tip projecting over the distal stomach. Electronically Signed: Gurjit Benavides MD at 2:11 EST , D/C Instructions Discharge Diet: Light diet - advance as tolerated (advance slowly) Discharge Activity: Return to Normal Activity Return to work on: 07/14/23 Meaningful Use Info Meaningful Use Diagnoses (Choose all that apply): None applicable Discharge Plan Admission Admit Date/Time: 07/13/23 00:41 Primary Reason for Your Visit: Abdominal pain/nausea/vomiting Attending Provider: Isabel Mccarthy Primary Care Provider: April Davalos Consulting Providers: Adrienne Roblero; Henri Andrews Instructions Additional Instructions / Restrictions: 1. Please advance diet slowly and return to the emergency department if you have any symptoms Discharge Orders/Prescriptions Prescriptions: Continued epinephrine [EpiPen] 0.3 mg/0.3 mL auto-injector 0.3 mg IM Q5-15M PRN (Reason: hypersensitivity reaction) Qty: 2 3RF Rx Instructions: do not exceed 3 doses per episode multivitamin Tablet 1 tab PO DAILY dextroamphetamine-amphetamine 20 mg capsule,extended release 24hr 20 mg PO 0500 Patient Comments: TAKE 1 CAPSULE BY MOUTH EVERY DAY AT 5AM dextroamphetamine-amphetamine 20 mg tablet 20 mg PO 1200 Patient Comments: TAKE 1 TABLET BY MOUTH EVERY DAY AT NOON Referrals / Follow Up: April Davalos DO [Primary Care Provider] - Within 2 Weeks Disposition Disposition (needs filled in before D/C Order can be placed): Home, Self Care Charges/Coding Visit Charges Inpatient E&M: 82890 Disch Hosp
--- NOTE | 2023-07-13 13:04 | CASEMGMT ---
KARLI GAYTAN DC Planning Assessment: Face to Face with patient for initial transition planning/care coordination assessment.?KARLI GAYTAN introduced self and role at [facility], pt alert, ambulating independently in room with spouse at bedside. Pt voices understanding of role and is agreeable to speaking with this KARLI GAYTAN.? Care providers, pharmacy,?and demographics verified. ? Admitting dx: SBO KING strata: 1 PCP: Anoop Victor Pharmacy: [facility] Retail Insurance: [employer] Prescription Benefit: yes? LNOK: spouse Ezra Living Arrangements: Pt resides with her spouse and states she is independent with all ADLs and IADLs. Transportation: drives and denies any issues with transportation DME/HHC/SNF: none ? Plan: Return home with spouse support. Denies any discharge needs at this time. Terrence Rodriguez RN CM
== END 2023-07-13 13:00 | disposition home or self-care (01) | DRG 390 ==
LOC: ED 22:55 → MS3 07-13 01:47
PROVIDERS: Admitting Provider Hospitalist; Emergency Provider Student in an Organized Health Care Education/Training Program; PCP Internal Medicine; Visit Provider Internal Medicine
DX: K56.51 Intestinal adhesions [bands], with partial obstruction (principal); F17.210 Nicotine dependence, cigarettes, uncomplicated; F32.A Depression, unspecified; F41.9 Anxiety disorder, unspecified; F90.9 Attention-deficit hyperactivity disorder, unspecified type; Z90.49 Acquired absence of other specified parts of digestive tract; Z79.899 Other long term (current) drug therapy; Z87.19 Personal history of other diseases of the digestive system
CPT/HCPCS: 36415; 74018; 74176; 74250; 80048; 80053; 83605; 83690; 84703; 85025; 85027; 99285; J7030; J7120; A4216; J2405

== ENCOUNTER 2023-08-13 07:23 | Inpatient (IN) | payer OTHER, SELFPAY ==
[2023-08-13 07:23] VITALS: BP 137/84; PULSE 86; RESP 16; TEMP 36.1; O2SAT 98; BMI 25.4
--- NOTE | 2023-08-13 07:51 | CT_ITS ---
STUDY: CT ABDOMEN AND PELVIS WITHOUT CONTRAST REASON FOR EXAM: Female, 53 years old. Pain -- vomiting, hx sbo, RADIATION DOSAGE (If Supplied By Facility): CTDIvol = ( 6.55 ) mGy, DLP = ( 320.64 ) mGycm TECHNIQUE: Transaxial images were obtained from the dome of the diaphragm to the symphysis pubis without oral contrast, and without intravenous contrast. Sagittal and coronal images were reconstructed. Individualized dose optimization techniques were used for this CT. COMPARISON: Comparison is made with prior study dated July 12, 2023. FINDINGS: Mild degree of bibasilar atelectasis. The visualized portions of the heart are within normal limits. Normal liver. Questionable sludge versus small gallstones are seen within the gallbladder lumen. Normal spleen. Normal pancreas. Normal bilateral adrenal glands. Normal right kidney. Normal left kidney. Normal visualized stomach. There are dilated small bowel loops in the distal small bowel involving the terminal ileum as well as the distal ileum and possible distal jejunal loops. There are at least 3 anastomotic sites within the distal small bowel. I density material is seen within the distal small bowel loops suggestive of a either ingested barium or oral medication moderate amount of fecal material is seen in the colon. The appendix is visualized and appears normal. There is scattered atherosclerotic calcification of the abdominal aorta, without a demonstrated aneurysm. Normal inferior vena cava. Normal retroperitoneum. Normal urinary bladder. Normal abdominal wall. Normal osseous structures. CT/Abdomen/Pelvis without Cont IMPRESSION: Fluid-filled, dilated distal small bowel loops as described. There are 3 sites of the small bowel anastomosis as compared to prior study. High density material is seen within the distal small bowel which may represent either ingested barium or antacids. Questionable sludge and/or small gallstones in the gallbladder lumen. Electronically Signed: Royal Ferrera MD at 8:37 EST ,
--- NOTE | 2023-08-13 07:52 | ED.VIS.GI ---
HPI HPI - GI History of Present Illness Chief Complaint: Abd Pain Informant: patient and spouse/S.O. Narrative Narrative: Increasing abdominal pain distention since yesterday. Vomiting bile since this morning multiple times. No bowel movement for the past week cannot recall when she stopped having flatus. History of constipation, unclear on her normal bowel movement stating he can go over a week or less. in the past, she states she had partial sigmoid colectomy in 2019 with ostomy that has been reversed. She states feels like her bowel obstruction when she was admitted last month. She is being seen by Dr. Roblero. She did not follow-up after she had discharge. Prior similar symptoms: Yes PFSH PFS Medical History Alcohol use Anemia Anxiety Depressive disorder, not elsewhere classified Diverticulitis Former smoker History of diverticulitis History of small bowel obstruction (~08/2019) Hives Ileostomy present Leg cramps PONV (postoperative nausea and vomiting) Post-menopausal Screening for malignant neoplasm of intestine Home Medications epinephrine 0.3 mg/0.3 mL injection, auto-injector (EpiPen) 0.3 mg (0.3 mL) IM Q5-15M PRN hypersensitivity reaction #2 ea 07/21/20 [Rx Last Taken Unknown] multivitamin 1 tab PO DAILY vitamin 04/03/22 [History Last Taken 08/10/23] dextroamphetamine-amphetamine 20 mg tablet 20 mg PO 1200 adhd 07/13/23 [History Last Taken 08/10/23] dextroamphetamine-amphetamine ER 20 mg 24hr capsule,extend release 20 mg PO 0500 adhd 07/13/23 [History Last Taken 08/10/23] amoxicillin 875 mg-potassium clavulanate 125 mg tablet 1 tab PO Q12H 08/13/23 [History Last Taken 08/12/23] ascorbic acid (vitamin C) 500 mg capsule 500 mg PO DAILY 08/13/23 [History Last Taken Unknown] polyethylene glycol 3350 17 gram/dose oral powder (Miralax) 17 g PO DAILY PRN constipation 08/13/23 [History Last Taken 08/12/23] progesterone micronized 100 mg capsule 100 mg PO DAILY 08/13/23 [History Last Taken 08/10/23] Allergy/AdvReac Type Severity Reaction Status Date / Time bee pollen Allergy Swelling Verified 08/13/23 07:26 promethazine [From Phenergan] Allergy Other Verified 08/13/23 07:26 Family History Unknown Asthma Mother Cancer Asthma Heart disease COPD (chronic obstructive pulmonary disease) Surgical History H/O section H/O colonoscopy History of colectomy (~08/2019) history of ostomy reversal (~01/2020) Social History household members: family number of children: 4 current occupational status: employed Smoking Status: Current every day smoker tobacco type: cigarettes second hand exposure: No alcohol intake: current details: Glass of wine 3x a weeks substance use type: does not use caffeine: Yes what type of physical activity do you participate in: none seatbelt use: always do you feel safe at home: Yes 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 ED Constitutional Constitutional ED: Denies chills, fever(s) or sweats Eyes Eyes: Denies change in vision ENT ENT ED: Denies dysphagia or sore throat Cardiovascular Cardiovascular: Denies chest pain, leg edema, palpitations or racing heartbeat Respiratory/Chest Respiratory/Chest: Denies cough, dyspnea or dyspnea on exertion Gastrointestinal Gastrointestinal: Reports abdominal pain, nausea and vomiting; Denies diarrhea Genitourinary Genitourinary ED: Denies dysuria, hematuria or urinary frequency Musculoskeletal Musculoskeletal: Denies back pain, extremity pain or neck pain Integumentary Denies rash or wounds Neurologic Neurologic: Denies headache(s), paresthesias or weakness EXAM Physical Exam Const Vital Signs: 08/13/23 07:23 08/13/23 10:19 Temperature 97.0 F L 98.1 F Temperature Source Temporal Pulse Rate 86 71 Respiratory Rate 16 14 Blood Pressure 137/84 H 156/88 H Blood Pressure Mean 101 110 Pulse Ox 98 98 Oxygen Delivery Method Room Air Positive well nourished and well developed Constitutional Narrative: Uncomfortable nontoxic. General Appearance ED: well developed HEENT Reports moist mucous membranes normocephalic and atraumatic Eyes PERRL, EOMs intact bilaterally and conjunctivae normal General Eye ED: Yes normal appearance of both eyes Neck no lymphadenopathy and supple General: Negative for tenderness Chest Wall Chest: Negative for tenderness Resp normal respiratory effort and normal air movement Effort and Inspection: symmetric chest movement; Negative for respiratory distress Cardio regular rate, regular rhythm and no murmurs Peripheral Pulses: pulses 2+ throughout GI GI Narrative: No bowel sounds present. Slight distention, tenderness left side abdomen. Back/Spine no CVA tenderness and no thoracic nor lumbar tenderness Extremity normal to inspection General Extremety ED: Negative for edema or tenderness General Extremity: Negative for edema Neuro oriented x3 and no sensory deficits noted Sensorium / Orientation: awake and alert Skin no rashes or lesions noted and no wounds MDM MDM MDM Narrative Medical decision making narrative: Interventions / MDM: Differential diagnosis: Small bowel obstruction, abdominal pain, Diagnosis considered but do not suspect: Pancreatitis however labs are normal. Colitis however negative CT scan. No clinical cholecystitis. My EKG interpretation: N/A Imaging independently reviewed and interpreted by myself: CT abdomen pelvis: Multiple air-fluid levels small bowels. Sludge in the gallbladder per radiology. KUB 1 view: NG tube coiled in the stomach. External documents reviewed: N/A Test considered but not ordered:N/A ED course: Patient reports abdominal pain distention there is no bowel sounds on exam. Abdominal labs, CT scan ordered IV established with fluids morphine Zofran for symptom control. 0900: Clinically feeling better no vomiting. Labs white count of 16, normal lactate and lipase. CT scan does note multiple air-fluid levels consistent with small bowel obstruction. Compared to her last CT this is similar. Per radiology noting sludge in the gallbladder, however no clinical cholecystitis. Will place a call to surgery for discussion and plan admission. Discussed with on-call surgeon Dr. Martins, NG tube placed. He evaluated the emergency department. Will admit to surgery service for further inpatient management.. Re-evaluation: stable Disposition discussed with patient/family/significant other: Patient significant other Case discussed with consulting clinician: N/A This note was generated with [employer] dictation software. It may contain incorrect words, spelling, and punctuation that were not noted in checking the note before signing. Lab Data Attestation: I reviewed the patient's lab results. Labs: Laboratory Results - last 24 hr 08/13/23 07:56 WBC 16.6 H RBC 5.03 Hgb 15.9 H Hct 47.0 MCV 93.4 MCH 31.6 MCHC 33.8 RDW Std Deviation 42.7 RDW Coeff of Miguel 12.4 Plt Count 390 MPV 9.3 Immature Gran % (Auto) 0.600 Neut % (Auto) 86.9 H Lymph % (Auto) 8.2 L [place] % (Auto) 3.6 Eos % (Auto) 0.2 Baso % (Auto) 0.5 Absolute Neuts (auto) 14.4 H Absolute Lymphs (auto) 1.36 Nucleated RBC % 0 Sodium 135 L Potassium 4.0 Chloride 101 Carbon Dioxide 28.0 Anion Gap 6 BUN 13 Creatinine 0.92 Estim Creat Clear Calc 56.81 Est GFR (MDRD) Af Amer 82 Est GFR (MDRD) Non-Af 68 BUN/Creatinine Ratio 14.2 Glucose 135 H Lactic Acid 0.9 Calcium 10.2 H Total Bilirubin 0.60 AST 24 ALT 35 Alkaline Phosphatase 105 Total Protein 8.3 H Albumin 4.2 Globulin 4.1 Albumin/Globulin Ratio 1.0 Lipase 20 Radiography Diagnostic Testing: Clinical Impression(s) from Imaging Studies Abdomen/Pelvis CT 08/13/23 07:51 IMPRESSION: Fluid-filled, dilated distal small bowel loops as described. There are 3 sites of the small bowel anastomosis as compared to prior study. High density material is seen within the distal small bowel which may represent either ingested barium or antacids. Questionable sludge and/or small gallstones in the gallbladder lumen. Electronically Signed: Royal Ferrera MD at 8:37 EST , KUB X-Ray 08/13/23 09:50 IMPRESSION: The tip of the nasogastric tube is coiled in the fundal portion of the stomach. Large amount of fecal material is seen in the visualized portion of the colon. Electronically Signed: Royal Ferrera MD at 10:03 EST , Discharge Plan Dx/Rx/DC Orders Clinical Impression: Small bowel obstruction, Nausea & vomiting, Abdominal pain Disposition Disposition: Acute Care Hospital [facility] Discharge Date/Time: 08/13/23 11:25
[2023-08-13 08:02] LABS: Absolute Lymphocyte Count 1.36 X10^3/uL (0.83-4.51); Absolute Neutrophil Count 14.4 X10^3/uL (2.0-7.7); Basophil# 0.09 X10^3/uL; Basophil% 0.5 % (0-1); Eosinophil# 0.04 X10^3/uL; Eosinophils% 0.2 % (0-5); Hemoglobin 15.9 g/dL (12.0-15.0); Lymphocyte # 1.36 X10^3/ul (0.83-4.51); Lymphocyte % 8.2 % (19-41); Mean Corp Hgb Conc 33.8 g/dL (32-36); Mean Corpuscular Hgb 31.6 pg (27.0-32.0); Mean Corpuscular Volume 93.4 fL (81-99); Mean Platelet Vol. 9.3 fl (6.2-12.0); Monocyte% 3.6 % (0-10); NRBC Flagged by Analyzer 0 % (0-5); Neutrophil # 14.37 X10^3/uL (2.7-7.7); Neutrophil % 86.9 % (47-70); Platelet Count 390 K/mm3 (150-450); RBC Distribution Width CV 12.4 % (11.6-14.6); RBC Distribution Width SD 42.7 fl (35.1-43.9); Red Blood Count 5.03 M/mm3 (4.2-5.4); White Blood Count 16.6 K/mm3 (4.4-11.0)
[2023-08-13] MEDS: 0.9% Normal Saline (1000mL) 1,000 ML 1000 ML IV (08:11)
[2023-08-13] MEDS: Morphine 4 MG/ML Syringe IV (08:12)
[2023-08-13] MEDS: Ondansetron 4 MG/2 ML Vial IV ×2 (08:12→15:48)
--- OUTSIDE RECORDS SUMMARY | 2023-08-13 08:12 | XMS RPT_ITS | CCD ---
Author Name Unknown Address [address] [place] [address] Organization [facility] Care Team Providers Care Collision Worker Name Role Phone Radha Jerome Unavailable Ike Hyatt Unavailable Unavailable Theresa Das Unavailable Unavailable Fast DO, April A Unavailable SHANNON Adrian LPN Unavailable Unavailable Joyce Olvera MD Unavailable Manchak HEEL TURNER, Nadira Unavailable Unavailable Unavailable Unavailable Unavailable Unavailable [...] Office outpatient new 45 minutes Radha Jerome [facility] Internal Medicine Procedures Date Procedure Procedure Detail Performing Clinician Start: 04-04-2022 End: 04-04-2022 Colonoscopy Report Procedure Note: See Note; NOTES: [facility] Medical Records Department [address] [place] [address] Colonoscopy Report MR#: [id number] Acct: [id number] Name: GEOVANNA LEWIS Rep #: [id number] : 1970 51 From: Ezra Victor MD [...] 1 week. Procedure Code(s): --- Professional --- 31598, Colonoscopy, flexible; with removal of tumor(s), polyp(s), or other lesion(s) by snare technique Diagnosis Code(s): --- Professional --- Z12.11, Encounter for screening for malignant neoplasm of colon K64.9, Unspecified hemorrhoids K62.1, Rectal polyp Z98.0, Intestinal bypass and anastomosis status K57.30, Diverticulosis of large intestine without perforation or abscess without bleeding CPT copyright 2017 [employer]. All rights reserved. The codes documented in this report are preliminary and upon rubber stamps and dies supervisor review may be revised to meet current compliance requirements. Ezra Victor MD 04/04/2022 8:52:21 AM This report has been signed electronically. Number of Addenda: 0 Note Initiated On: 04/04/2022 8:24 AM 04/04/22 0852 Date Ezra Victor MD Cosigner Signature: Date (if indicated) CC: Dr. April Davalos DO; Dr. Ezra Victor MD Date Dictated: 04/04/22823 Date Transcribed: Duck Bill Operator: JOSE Signed April Davalos DO Work Phone: Start: 04-04-2022 End: 04-04-2022 History and Physical Exam Procedure Note: See Note; NOTES: [facility] Medical Records Department [address] [place] [address] History Physical Exam 04/04/22 0746 MR#: [id number] Acct: [id number] Name: GEOVANNA LEWIS Rep #: [id number] : 1970 51 From: Ezra Victor MD PCP: Dr. April Davalos DO Status:[facility] Location: [place] [address] HPI - General General Date of Service: [...] bright red blood per rectum or melena. 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 Fatoumata Galeas MD Status: REG CLI Study: Chest PA and Lateral Date of Exam: 07/20/21 Exam# [id number] Ordering Dr: April Davalos DO STUDY: X-RAY [...] April Davalos DO; Dr. Fatoumata Galeas MD Duck Bill Operator: Signed April Davalos DO Work Phone: BOWEL OBSTRUCTION/SC AR TISSUE BOWEL TWISTED- COLOSTOMY- 2019- cebul April Barry Fast DO Work Phone: BOWEL OBSTRUCTION/SC AR TISSUE BOWEL TWISTED- COLOSTOMY- 2019- cebul Nadira Manchak HEEL TURNER BOWEL OBSTRUCTION/SC AR TISSUE BOWEL TWISTED- COLOSTOMY- 2020- cebul Nadira Manchak HEEL TURNER BOWEL OBSTRUCTION/SC AR TISSUE BOWEL TWISTED- COLOSTOMY- 2020- cebul Joyce Olvera MD Work Phone: BOWEL OBSTRUCTION/SC AR TISSUE BOWEL TWISTED- COLOSTOMY- 2019- cebul Nadira Manchak HEEL TURNER BOWEL OBSTRUCTION/SC AR TISSUE BOWEL TWISTED- COLOSTOMY- 2019- cebul Ivelisse Alejo CORE FILER BOWEL OBSTRUCTION/SC AR TISSUE BOWEL TWISTED- COLOSTOMY- 2020- cebul Shauna Rosenberg CORE FILER Plan of Treatment Date Care Activity Detail [...] auto&auto difrntl wbc CBC W/AUTO DIFF WBC (18758) [facility] Work Phone: Start: 01-05-2023 Comprehensive metabolic panel METABOLIC PANEL, COMPREHENSIVE (63364) [facility]; [facility] Work Phone: Start: 09-04-2022 Culture bct isol&prsmptv id isolate ea urine URINE RADHA CULTURE-IDENTIFICATN (66781) [facility]; [facility] Work Phone: Start: 04-17-2022 Procedure Education Eprescribed prescriptions (G8553) [facility]; [facility] Work Phone: Start: 02-27-2022 Culture bct isol&prsmptv id isolate ea urine URINE RADHA CULTURE-IDENTIFICATN (57604) [facility]; [facility] Work Phone: Start: 01-23-2022 Procedure Education Eprescribed prescriptions (G8553) [facility]; [facility] Work Phone: Start: 12-16-2021 Procedure Education Eprescribed prescriptions (G8553) [facility]; [facility] Work Phone: Start: 12-16-2021 Comprehensive metabolic panel METABOLIC PANEL, COMPREHENSIVE (51719) [facility]; [facility] Work Phone: Start: 12-16-2021 Lipid panel LIPID PANEL (82406) [facility]; [facility] Work Phone: Start: 09-19-2021 Culture bacterial quanttative colony count urine URINE RADHA CULTURE (BEAR COL COUNT) (10030) [facility]; [facility] Work Phone: Start: 08-12-2021 Procedure Education Eprescribed prescriptions (G8553) [facility]; [facility] Work Phone: Start: 07-11-2021 Procedure Education Eprescribed prescriptions (G8553) [facility]; [facility] Work Phone: Start: 07-11-2021 COVID 19 (ONLY) RAPID (09595) COVID 19 (ONLY) RAPID (03525) [facility]; [facility] Work [...] Phone: Start: 09-11-2018 Lipid panel LIPID PANEL (48392) [facility] Work Phone: Start: 09-11-2018 25 hydroxy includes fractions if performed CALCIFIDIOL (81720) VIT D 25 [facility] Work Phone: Start: 09-11-2018 Assay of folic acid serum Folate (73438) [facility] Work Phone: Start: 09-11-2018 Cobalamin (Vitamin B12) [Mass/Vol] VITAMIN B-12 (CYANOCOBALAMIN) (79533) [facility] Work Phone: Start: 09-11-2018 Cyanocobalamin vitamin b-12 VITAMIN B-12 (CYANOCOBALAMIN) (90766) [facility]; [facility] Work Phone: Start: 09-11-2018 Assay of thyroid stimulating hormone tsh TSH (52175) [facility]; [facility] Work Phone: Start: 09-11-2018 TSH Qn TSH (20951) [facility] Work Phone: Start: 09-11-2018 Sedimentation rate rbc non-automated SED RATE ERYTHROCYTE (84539) [facility] Work Phone: Start: 09-11-2018 Comprehensive metabolic panel METABOLIC PANEL, COMPREHENSIVE (72464) [facility] Work Phone: Start: 09-11-2018 C-reactive protein C-REACTIVE PROTEIN (82056) [facility]; [facility] Work Phone: Start: 09-11-2018 CRP [Mass/Vol] C-REACTIVE PROTEIN (63748) [facility] Work Phone: Start: 09-11-2018 Blood count complete automated CBC (AUTO) (82630) [facility] Work Phone: Start: 09-11-2018 Antinuclear antibodies candace CANDACE (ANTINUCLEAR ANTIBODY) (47916) [facility]; [facility] Work Phone: Start: 09-11-2018 Nuclear Ab IF (S) [Titer] CANDACE (ANTINUCLEAR ANTIBODY) (29572) [facility] Work Phone: [facility] I [...] Category Payer Private Health Insurance [id number] 1970 Unknown [id number] Unknown [employer] Insurance Social History Date Type [...] Informa tion Online using Patient Portal and [employer] Apps Indication:Sleep disorder Start:24-Jun-2021 Instruction [...] Informa tion Online using Patient Portal and [employer] Apps Indication:ADHD (attention deficit hyperactivity [...] Informa tion Online using Patient Portal and [employer] Apps Indication:ADD (attention deficit disorder) [...] Informa tion Online using Patient Portal and [employer] Apps Indication:[facility] EXAM Start:16-Dec-2021 [...] Informa tion Online using Patient Portal and [employer] Indication:Body aches Start:11-Jul-2021 Instruction Type:Patient Education Patient Instructions Indication:Sleep disorder Start:05-Jul-2021 Instruction Type:Provider Instructions for Treatment Patient Instructions Indication:Sleep disorder Start:24-Jun-2021 Instruction Type:Provider Instructions for Treatment How to Access Health Informa tion Online using Patient Portal and [employer] Apps Indication:Sleep disorder Start:24-Jun-2021 Instruction [...] Informa tion Online using Patient Portal and [employer] Apps Indication:ADD (attention deficit disorder) [...] Informa tion Online using Patient Portal and [employer] Apps Indication:ADD (attention deficit disorder) [...] Informa tion Online using Patient Portal and [employer] Apps Indication:ADD (attention deficit disorder) Start:12-Aug-2021 Instruction Type:Patient Education Patient Instructions Indication:ADD (attention deficit disorder) Start:01-Aug-2021 Instruction Type:Provider Instructions for Treatment How to Access Health Informa tion Online using Patient Portal and [employer] Apps Indication:ADD (attention deficit disorder) Start:01-Aug-2021 Instruction Type:Patient Education Patient Instructions Indication:ADD (attention deficit disorder) Start:18-Jul-2021 Instruction Type:Provider Instructions for Treatment How to Access Health Informa tion Online using Patient Portal and [employer] Apps Indication:ADD (attention deficit disorder) [...] Informa tion Online using Patient Portal and [employer] Apps Indication:Epigastric pain Start:17-Apr-2022 Instruction Type:Patient Education Patient Instructions Indication:ADD (attention deficit disorder) Start:23-Jan-2022 Instruction Type:Provider Instructions for Treatment How to Access Health Informa tion Online using Patient Portal and [employer] Apps Indication:ADD (attention deficit disorder) Start:23-Jan-2022 Instruction Type:Patient Education Patient Instructions Indication:[facility]LL[facility] EXAM Start:16-Dec-2021 Instruction Type:Provider Instructions for Treatment How to Access Health Informa tion Online using Patient Portal and [employer] Apps Indication:[facility] EXAM Start:16-Dec-2021 Instruction Type:Patient Education Patient Instructions Indication:ADD (attention deficit disorder) Start:12-Aug-2021 Instruction Type:Provider Instructions for Treatment How to Access Health Informa tion Online using Patient Portal and [employer] Apps Indication:ADD (attention deficit disorder) Start:12-Aug-2021 Instruction Type:Patient Education Patient Instructions Indication:ADD (attention deficit disorder) Start:01-Aug-2021 Instruction Type:Provider Instructions for Treatment How to Access Health Informa tion Online using Patient Portal and [employer] Apps Indication:ADD (attention deficit disorder) Start:01-Aug-2021 Instruction [...] Informa tion Online using Patient Portal and [employer] Apps Indication:ADD (attention deficit disorder) [...] Informa tion Online using Patient Portal and [employer] Apps Indication:Body aches Start:11-Jul-2021 Instruction Type:Patient Education Patient Instructions Indication:Sleep disorder Start:05-Jul-2021 Instruction Type:Provider Instructions for Treatment Patient Instructions Indication:Sleep disorder Start:24-Jun-2021 Instruction Type:Provider Instructions for Treatment How to Access Health Informa tion Online using Patient Portal and [employer] Apps Indication:Sleep disorder Start:24-Jun-2021 Instruction [...] BE BASED ON THE PRIMARY CLINICAL RECORDS. [facility]. provides no warranty or guarantee of the accuracy or completeness of information in this document.
[2023-08-13 08:38] LABS: AST(SGOT) 24 U/L (15-37); Alanine Aminotransfer ALT/SGPT 35 U/L (13-56); Albumin, Serum 4.2 g/dL (3.2-5.0); Alkaline Phosphatase 105 U/L (45-117); Anion Gap 6 (5-15); BUN 13 mg/dL (7-18); BUN/Creat Ratio 14.2 RATIO (10-20); Calcium,Total 10.2 mg/dL (8.5-10.1); Chloride 101 mmol/L (98-107); Creatinine, Serum 0.92 mg/dL (0.55-1.02); EST Glomerular Filtration Rate 68 mL/min (>60); Est Glom Filt Rate - Afr Amer 82 mL/min (>60); Estimated Creatinine Clearance 56.81 ml/min; Globulin 4.1 g/dL (2.2-4.2); Glucose 135 mg/dL (74-106); Lipase 20 U/L (13-75); Protein, Total 8.3 g/dL (6.4-8.2); Sodium Level 135 mmol/L (136-145)
[2023-08-13 08:44] LABS: Lactic Acid 0.9 mmol/L (0.4-1.9)
[2023-08-13] MEDS: LORazepam 2 MG/ML Syringe 1 MG IV (09:27)
--- NOTE | 2023-08-13 09:50 | RAD_ITS ---
STUDY: X-RAY - ABDOMEN/PELVIS REASON FOR EXAM: Female, 53 years old. NG Insertion TECHNIQUE: Single AP view of the abdomen / pelvis. COMPARISON: None. FINDINGS: The tip of the nasogastric tube is coiled within the fundal portion of the stomach. A large amount of fecal material is seen in the visualized portion of the colon. The visualized liver, spleen and kidneys are grossly normal in size and morphology. Normal soft tissue structures. Normal visualized osseous structures. RAD/Abdomen Single View (Portable) IMPRESSION: The tip of the nasogastric tube is coiled in the fundal portion of the stomach. Large amount of fecal material is seen in the visualized portion of the colon. Electronically Signed: Royal Ferrera MD at 10:03 [facility] ,
[2023-08-13] MEDS: Lactated Ringers 1,000 ML 150 ML IV (10:16)
[2023-08-13 10:19] VITALS: BP 156/88; PULSE 71; RESP 14; TEMP 36.7; O2SAT 98
--- NOTE | 2023-08-13 10:22 | PCM.HP.STD ---
[facility] - General General Date of Admission: 08/13/23 Chief Complaint: Abdominal pain, nausea, bilious vomiting, and abdominal distention HPI Narrative NELIDA DELACRUZ, is a 53 F who presents to [facility] with complaints of progressive abdominal pain, distention, nausea, bilious emesis, and obstipation for the last several days. Patient is a reluctant historian as she has irritation from her now?indwelling nasogastric tube. Her is present at bedside and tries to assist with answering questions. Unfortunately, he states that his does not share when she has troubles with bowel movements or when her diet is less than optimal. Mrs. Delacruz does not believe she has had a bowel movement in the last week. She is uncertain when she last passed flatus. She confesses that she needs to do a better job of drinking water as a general rule. Her last oral intake was yesterday, but this was minimal and consisted of some beef and salad. Patient's ER workup is notable for CBC that suggests hemoconcentration with a hemoglobin of 15.9 and white blood cell count of 16.6. CT imaging of the abdomen pelvis shows distention of the small bowel concerning for small bowel obstruction as well as radiodense material in the colon. 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 Ezra Victor. This case was complicated by an enterotomy that required a small bowel resection. Patient then confirms that she had a diagnostic laparoscopy that was largely negative but ultimately went on to require reresection of her small bowel anastomosis prior to ileostomy reversal in January 2020. She and her report that she had done well overall until her presentation last month on 07/12/2023. According to the EMR and their confirmation this was a very short visit and she was dismissed shortly after passing a small bowel follow-through. [facility] Medical History Alcohol use Anemia Anxiety Depressive disorder, not elsewhere classified Diverticulitis Former smoker History of diverticulitis History of small bowel obstruction (~08/2019) Hives Ileostomy present Leg cramps PONV (postoperative nausea and vomiting) Post-menopausal Screening for malignant neoplasm of intestine Home Medications epinephrine 0.3 mg/0.3 mL injection, auto-injector (EpiPen) 0.3 mg (0.3 mL) IM Q5-15M PRN hypersensitivity reaction #2 ea 07/21/20 [Rx Last Taken Unknown] multivitamin 1 tab PO DAILY vitamin 04/03/22 [History Last Taken 08/10/23] dextroamphetamine-amphetamine 20 mg tablet 20 mg PO 1200 adhd 07/13/23 [History Last Taken 08/10/23] dextroamphetamine-amphetamine ER 20 mg 24hr capsule,extend release 20 mg PO 0500 adhd 07/13/23 [History Last Taken 08/10/23] amoxicillin 875 mg-potassium clavulanate 125 mg tablet 1 tab PO Q12H 08/13/23 [History Last Taken 08/12/23] ascorbic acid (vitamin C) 500 mg capsule 500 mg PO DAILY 08/13/23 [History Last Taken Unknown] polyethylene glycol 3350 17 gram/dose oral powder (Miralax) 17 g PO DAILY PRN constipation 08/13/23 [History Last Taken 08/12/23] progesterone micronized 100 mg capsule 100 mg PO DAILY 08/13/23 [History Last Taken 08/10/23] Allergy/AdvReac Type Severity Reaction Status Date / Time bee pollen Allergy Swelling Verified 08/13/23 07:26 promethazine [From Phenergan] Allergy Other Verified 08/13/23 07:26 Family History Unknown Asthma Mother Cancer Asthma Heart disease COPD (chronic obstructive pulmonary disease) Surgical History H/O section H/O colonoscopy History of colectomy (~08/2019) history of ostomy reversal (~01/2020) Social History household members: family number of children: 4 current occupational status: employed Smoking Status: Current every day smoker tobacco type: cigarettes second hand exposure: No alcohol intake: current details: Glass of wine 3x a weeks substance use type: does not use caffeine: Yes what type of physical activity do you participate in: none seatbelt use: always do you feel safe at home: Yes 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 No guarding. Well-healed surgical incision of the lower abdomen. Results Lab / Micro Data 08/13/23 07:56 08/13/23 07:56 Labs: Laboratory Results - last 24 hr 08/13/23 07:56: WBC 16.6 H, RBC 5.03, Hgb 15.9 H, Hct 47.0, MCV 93.4, MCH 31.6, MCHC 33.8, RDW Std Deviation 42.7, RDW Coeff of Miguel 12.4, Plt Count 390, MPV 9.3, Immature Gran % (Auto) 0.600, Neut % (Auto) 86.9 H, Lymph % (Auto) 8.2 L, [place] % (Auto) 3.6, Eos % (Auto) 0.2, Baso % (Auto) 0.5, Absolute Neuts (auto) 14.4 H, Absolute Lymphs (auto) 1.36, Nucleated RBC % 0, Sodium 135 L, Potassium 4.0, Chloride 101, Carbon Dioxide 28.0, Anion Gap 6, BUN 13, Creatinine 0.92, Estim Creat Clear Calc 56.81, Est GFR (MDRD) Af Amer 82, Est GFR (MDRD) Non-Af 68, BUN/Creatinine Ratio 14.2, Glucose 135 H, Lactic Acid 0.9, Calcium 10.2 H, Total Bilirubin 0.60, AST 24, ALT 35, Alkaline Phosphatase 105, Total Protein 8.3 H, Albumin 4.2, Globulin 4.1, Albumin/Globulin Ratio 1.0, Lipase 20 Imaging Radiology Impression Abdomen/Pelvis CT 08/13/23 07:51 IMPRESSION: Fluid-filled, dilated distal small bowel loops as described. There are 3 sites of the small bowel anastomosis as compared to prior study. High density material is seen within the distal small bowel which may represent either ingested barium or antacids. Questionable sludge and/or small gallstones in the gallbladder lumen. Electronically Signed: Royal Ferrera MD at 8:37 EST , KUB X-Ray 08/13/23 09:50 IMPRESSION: The tip of the nasogastric tube is coiled in the fundal portion of the stomach. Large amount of fecal material is seen in the visualized portion of the colon. Electronically Signed: Royal Ferrera MD at 10:03 EST , Assessment & Plan Assessment/Plan (1) Small bowel obstruction: PLAN: Patient is a 53-year-old female who is admitted for signs and symptoms of obstipation with small bowel obstruction?likely due to adhesive disease from extensive past surgical history enumerated in detail in the HPI. Some historical details are difficult to elicit due to patient's discomfort from her nasogastric tube but is my understanding that she has been in a generally good state of health with adequate nutrition up until the last couple of days. It is also apparent that she does not experience regular bowel movements and does not regularly track these movements. Her CT is reviewed independently by me and I find it to be largely comparable to her CT imaging from 07/12/2023. It is unclear to me why she demonstrates radiodense material in her colon as it would not be considered standard practice to use barium with either small bowel follow-through or CT imaging. Unfortunately, Mrs. Delacruz is unable to provide any inside with this question. Given her nontoxic state and extensive prior surgical history, I have recommended that we proceed with a conservative course upfront. This includes aggressive IV fluid resuscitation as she demonstrates markers of dehydration. I will plan to follow a period of decompression with repeat small bowel follow-through via her nasogastric tube?tentatively this evening. KUB performed following nasogastric tube insertion shows appropriate positioning of this tube, however, in the emergency department patient's canister has not air leak through the lid resulting in continuous bubbling when suction is active. Charges/Coding Visit Charges Inpatient E&M: 56539 Init Hosp L2
--- OUTSIDE RECORDS SUMMARY | 2023-08-13 11:36 | XMS RPT_ITS | CCD ---
Author Name Unknown Address [address] [place] [address] Organization [facility] Care Team Providers Care Medical Charge Entry Specialist Name Role Phone Radha Jerome Unavailable Ike Hyatt Unavailable Unavailable Theresa Das Unavailable Unavailable Fast DO, April A Unavailable SHANNON Adrian LPN Unavailable Unavailable Joyce Olvera MD Unavailable Manchak CLINICAL GENETICIST, Nadira Unavailable Unavailable Unavailable Unavailable Unavailable Unavailable Rosamaria Benton Unavailable Fast DO, April A Unavailable Friend, Dr. Padgett Unavailable [phone] Joyce Olvera MD Unavailable [phone] Ivelisse Alejo LPN Unavailable Unavailable Fast DO, [...] outpatient new 45 minutes Radha Jerome [facility] Internal Medicine Procedures Date Procedure Procedure Detail Performing Clinician Start: 04-04-2022 End: 04-04-2022 Colonoscopy Report Procedure Note: See Note; NOTES: [facility] Medical Records Department [address] [place] [address] Colonoscopy Report MR#: [id number] Acct: [id number] Name: GEOVANNA LEWIS Rep #: [id number] : 1970 51 From: Ezra Victor MD [...] 1 week. Procedure Code(s): --- Professional --- 31748, Colonoscopy, flexible; with removal of tumor(s), polyp(s), or other lesion(s) by snare technique Diagnosis Code(s): --- Professional --- Z12.11, Encounter for screening for malignant neoplasm of colon K64.9, Unspecified hemorrhoids K62.1, Rectal polyp Z98.0, Intestinal bypass and anastomosis status K57.30, Diverticulosis of large intestine without perforation or abscess without bleeding CPT copyright 2017 [employer]. All rights reserved. The codes documented in this report are preliminary and upon hydraulic auto jack mechanic review may be revised to meet current compliance requirements. Ezra Victor MD 04/04/2022 8:52:21 AM This report has been signed electronically. Number of Addenda: 0 Note Initiated On: 04/04/2022 8:24 AM 04/04/22 0852 Date Ezra Victor MD Cosigner Signature: Date (if indicated) CC: Dr. April Davalos DO; Dr. Ezra Victor MD Date Dictated: 04/04/22823 Date Transcribed: Commercial Subcontractor: JOSE Signed April Davalos DO Work Phone: Start: 04-04-2022 End: 04-04-2022 History and Physical Exam Procedure Note: See Note; NOTES: [facility] Medical Records Department [address] [place] [address] History Physical Exam 04/04/22 0746 MR#: [id number] Acct: [id number] Name: GEOVANNA LEWIS Rep #: [id number] : 1970 51 From: Ezra Victor MD PCP: Dr. April Davalos DO Status:[facility] Location: [place] [address] HPI - General General Date of Service: [...] bright red blood per rectum or melena. 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 Fatoumata Galeas MD Status: REG CLI Study: Chest PA and Lateral Date of Exam: 07/20/21 Exam# [id number] Ordering Dr: April Davalos DO STUDY: X-RAY [...] April Davalos DO; Dr. Fatoumata Galeas MD Commercial Subcontractor: Signed April Davalos DO Work Phone: BOWEL OBSTRUCTION/SC AR TISSUE BOWEL TWISTED- COLOSTOMY- 2019- cebul April Barry Fast DO Work Phone: BOWEL OBSTRUCTION/SC AR TISSUE BOWEL TWISTED- COLOSTOMY- 2019- cebul Nadira Manchak CLINICAL GENETICIST BOWEL OBSTRUCTION/SC AR TISSUE BOWEL TWISTED- COLOSTOMY- 2020- cebul Nadira Manchak CLINICAL GENETICIST BOWEL OBSTRUCTION/SC AR TISSUE BOWEL TWISTED- COLOSTOMY- 2020- cebul Joyce Olvera MD Work Phone: BOWEL OBSTRUCTION/SC AR TISSUE BOWEL TWISTED- COLOSTOMY- 2019- cebul Nadira Manchak CLINICAL GENETICIST BOWEL OBSTRUCTION/SC AR TISSUE BOWEL TWISTED- COLOSTOMY- 2019- cebul Ivelisse Alejo SOLUTIONS MANAGER BOWEL OBSTRUCTION/SC AR TISSUE BOWEL TWISTED- COLOSTOMY- 2020- cebul Shauna Rosenberg SOLUTIONS MANAGER Plan of Treatment Date Care Activity Detail [...] auto&auto difrntl wbc CBC W/AUTO DIFF WBC (10552) [facility]; [facility] Work Phone: Start: 01-05-2023 Comprehensive metabolic panel METABOLIC PANEL, COMPREHENSIVE (33362) [facility]; [facility] Work Phone: Start: 09-04-2022 Culture bct isol&prsmptv id isolate ea urine URINE RADHA CULTURE-IDENTIFICATN (54919) [facility]; [facility] Work Phone: Start: 04-17-2022 Procedure Education Eprescribed prescriptions (G8553) [facility]; [facility] Work Phone: Start: 02-27-2022 Culture bct isol&prsmptv id isolate ea urine URINE RADHA CULTURE-IDENTIFICATN (04916) [facility]; [facility] Work Phone: Start: 01-23-2022 Procedure Education Eprescribed prescriptions (G8553) [facility]; [facility] Work Phone: Start: 12-16-2021 Procedure Education Eprescribed prescriptions (G8553) [facility]; [facility] Work Phone: Start: 12-16-2021 Comprehensive metabolic panel METABOLIC PANEL, COMPREHENSIVE (85233) [facility]; [facility] Work Phone: Start: 12-16-2021 Lipid panel LIPID PANEL (82280) [facility]; [facility] Work Phone: Start: 09-19-2021 Culture bacterial quanttative colony count urine URINE RADHA CULTURE (BEAR COL COUNT) (49512) [facility]; [facility] Work Phone: Start: 08-12-2021 Procedure Education Eprescribed prescriptions (G8553) [facility]; [facility] Work Phone: Start: 07-11-2021 Procedure Education Eprescribed prescriptions (G8553) [facility]; [facility] Work Phone: Start: 07-11-2021 COVID 19 (ONLY) RAPID (92389) COVID 19 (ONLY) RAPID (29811) [facility]; [facility] Work [...] Phone: Start: 09-11-2018 Lipid panel LIPID PANEL (80487) [facility] Work Phone: Start: 09-11-2018 25 hydroxy includes fractions if performed CALCIFIDIOL (97221) VIT D 25 [facility] Work Phone: Start: 09-11-2018 Assay of folic acid serum Folate (68844) [facility] Work Phone: Start: 09-11-2018 Cobalamin (Vitamin B12) [Mass/Vol] VITAMIN B-12 (CYANOCOBALAMIN) (94698) [facility] Work Phone: Start: 09-11-2018 Cyanocobalamin vitamin b-12 VITAMIN B-12 (CYANOCOBALAMIN) (54968) [facility]; [facility] Work Phone: Start: 09-11-2018 Assay of thyroid stimulating hormone tsh TSH (85043) [facility]; [facility] Work Phone: Start: 09-11-2018 TSH Qn TSH (75441) [facility] Work Phone: Start: 09-11-2018 Sedimentation rate rbc non-automated SED RATE ERYTHROCYTE (52583) [facility] Work Phone: Start: 09-11-2018 Comprehensive metabolic panel METABOLIC PANEL, COMPREHENSIVE (90602) [facility] Work Phone: Start: 09-11-2018 C-reactive protein C-REACTIVE PROTEIN (54286) [facility]; [facility] Work Phone: Start: 09-11-2018 CRP [Mass/Vol] C-REACTIVE PROTEIN (35130) [facility] Work Phone: Start: 09-11-2018 Blood count complete automated CBC (AUTO) (19450) [facility] Work Phone: Start: 09-11-2018 Antinuclear antibodies candace CANDACE (ANTINUCLEAR ANTIBODY) (11258) [facility]; [facility] Work Phone: Start: 09-11-2018 Nuclear Ab IF (S) [Titer] CANDACE (ANTINUCLEAR ANTIBODY) (72540) [facility] Work Phone: [facility] I [...] Category Payer Private Health Insurance [id number] 1970 Unknown [id number] Unknown [employer] Insurance Social History Date Type [...] tion Online using Patient Portal and 3rd [employer] Apps Indication:ADHD (attention deficit hyperactivity disorder) evaluation Start:18-Jul-2021 Instruction Type:Patient Education Patient Instructions Indication:Body aches Start:11-Jul-2021 Instruction Type:Provider Instructions for Treatment How to Access Health Informa tion Online using Patient Portal and 3rd [employer] Apps Indication:Body aches Start:11-Jul-2021 Instruction Type:Patient Education Patient Instructions Indication:Sleep disorder Start:05-Jul-2021 Instruction Type:Provider Instructions for Treatment Patient Instructions Indication:Sleep disorder Start:24-Jun-2021 Instruction Type:Provider Instructions for Treatment How to Access Health Informa tion Online using Patient Portal and 3rd [employer] Apps Indication:Sleep disorder Start:24-Jun-2021 Instruction Type:Patient [...] tion Online using Patient Portal and 3rd [employer] Apps Indication:ADHD (attention deficit hyperactivity disorder) evaluation Start:18-Jul-2021 Instruction Type:Patient Education Patient Instructions Indication:Body aches Start:11-Jul-2021 Instruction Type:Provider Instructions for Treatment How to Access Health Informa tion Online using Patient Portal and 3rd [employer] Apps Indication:Body aches Start:11-Jul-2021 Instruction Type:Patient Education Patient Instructions Indication:Sleep disorder Start:05-Jul-2021 Instruction Type:Provider Instructions for Treatment Patient Instructions Indication:Sleep disorder Start:24-Jun-2021 Instruction Type:Provider Instructions for Treatment How to Access Health Informa tion Online using Patient Portal and 3rd [employer] Apps Indication:Sleep disorder Start:24-Jun-2021 Instruction Type:Patient [...] tion Online using Patient Portal and 3rd [employer] Apps Indication:ADHD (attention deficit hyperactivity disorder) evaluation Start:01-Aug-2021 Instruction Type:Patient Education Patient Instructions Indication:ADHD (attention deficit hyperactivity disorder) evaluation Start:18-Jul-2021 Instruction Type:Provider Instructions for Treatment How to Access Health Informa tion Online using Patient Portal and 3rd [employer] Apps Indication:ADHD (attention deficit hyperactivity disorder) evaluation Start:18-Jul-2021 Instruction Type:Patient Education Patient Instructions Indication:Body aches Start:11-Jul-2021 Instruction Type:Provider Instructions for Treatment How to Access Health Informa tion Online using Patient Portal and 3rd [employer] Apps Indication:Body aches Start:11-Jul-2021 Instruction Type:Patient Education Patient Instructions Indication:Sleep disorder Start:05-Jul-2021 Instruction Type:Provider Instructions for Treatment Patient Instructions Indication:Sleep disorder Start:24-Jun-2021 Instruction Type:Provider Instructions for Treatment How to Access Health Informa tion Online using Patient Portal and [employer] Apps Indication:Sleep disorder Start:24-Jun-2021 Instruction Type:Patient [...] Informa tion Online using Patient Portal and [employer] Apps Indication:ADHD (attention deficit hyperactivity disorder) evaluation Start:12-Aug-2021 Instruction Type:Patient Education Patient Instructions Indication:ADHD (attention deficit hyperactivity disorder) evaluation Start:01-Aug-2021 Instruction Type:Provider Instructions for Treatment How to Access Health Informa tion Online using Patient Portal and 3rd [employer] Apps Indication:ADHD (attention deficit hyperactivity disorder) evaluation Start:01-Aug-2021 Instruction Type:Patient Education Patient Instructions Indication:ADHD (attention deficit hyperactivity disorder) evaluation Start:18-Jul-2021 Instruction Type:Provider Instructions for Treatment How to Access Health Informa tion Online using Patient Portal and 3rd [employer] Apps Indication:ADHD (attention deficit hyperactivity disorder) evaluation Start:18-Jul-2021 Instruction Type:Patient Education Patient Instructions Indication:Body aches Start:11-Jul-2021 Instruction Type:Provider Instructions for Treatment How to Access Health Informa tion Online using Patient Portal and 3rd [employer] Apps Indication:Body aches Start:11-Jul-2021 Instruction Type:Patient Education Patient Instructions Indication:Sleep disorder Start:05-Jul-2021 Instruction Type:Provider Instructions for Treatment Patient Instructions Indication:Sleep disorder Start:24-Jun-2021 Instruction Type:Provider Instructions for Treatment How to Access Health Informa tion Online using Patient Portal and 3rd [employer] Apps Indication:Sleep disorder Start:24-Jun-2021 Instruction Type:Patient [...] tion Online using Patient Portal and 3rd [employer] Apps Indication:ADHD (attention deficit hyperactivity disorder) evaluation Start:12-Aug-2021 Instruction Type:Patient Education Patient Instructions Indication:ADHD (attention deficit hyperactivity disorder) evaluation Start:01-Aug-2021 Instruction Type:Provider Instructions for Treatment How to Access Health Informa tion Online using Patient Portal and 3rd [employer] Apps Indication:ADHD (attention deficit hyperactivity disorder) evaluation Start:01-Aug-2021 Instruction Type:Patient Education Patient Instructions Indication:ADHD (attention deficit hyperactivity disorder) evaluation Start:18-Jul-2021 Instruction Type:Provider Instructions for Treatment How to Access Health Informa tion Online using Patient Portal and 3rd [employer] Apps Indication:ADHD (attention deficit hyperactivity disorder) evaluation Start:18-Jul-2021 Instruction Type:Patient Education Patient Instructions Indication:Body aches Start:11-Jul-2021 Instruction Type:Provider Instructions for Treatment How to Access Health Informa tion Online using Patient Portal and 3rd [employer] Apps Indication:Body aches Start:11-Jul-2021 Instruction Type:Patient Education Patient Instructions Indication:Sleep disorder Start:05-Jul-2021 Instruction Type:Provider Instructions for Treatment Patient Instructions Indication:Sleep disorder Start:24-Jun-2021 Instruction Type:Provider Instructions for Treatment How to Access Health Informa tion Online using Patient Portal and 3rd [employer] Apps Indication:Sleep disorder Start:24-Jun-2021 Instruction Type:Patient [...] tion Online using Patient Portal and 3rd [employer] Apps Indication:Attention deficit Start:12-Aug-2021 Instruction Type:Patient Education Patient Instructions Indication:Attention deficit Start:01-Aug-2021 Instruction Type:Provider Instructions for Treatment How to Access Health Informa tion Online using Patient Portal and 3rd [employer] Apps Indication:Attention deficit Start:01-Aug-2021 Instruction Type:Patient Education Patient Instructions Indication:Attention deficit Start:18-Jul-2021 Instruction Type:Provider Instructions for Treatment How to Access Health Informa tion Online using Patient Portal and 3rd [employer] Apps Indication:Attention deficit Start:18-Jul-2021 Instruction Type:Patient Education Patient Instructions Indication:Body aches Start:11-Jul-2021 Instruction Type:Provider Instructions for Treatment How to Access Health Informa tion Online using Patient Portal and 3rd [employer] Apps Indication:Body aches Start:11-Jul-2021 Instruction Type:Patient Education Patient Instructions Indication:Sleep disorder Start:05-Jul-2021 Instruction Type:Provider Instructions for Treatment Patient Instructions Indication:Sleep disorder Start:24-Jun-2021 Instruction Type:Provider Instructions for Treatment How to Access Health Informa tion Online using Patient Portal and 3rd [employer] Apps Indication:Sleep disorder Start:24-Jun-2021 Instruction Type:Patient [...] tion Online using Patient Portal and 3rd [employer] Apps Indication:Attention deficit Start:12-Aug-2021 Instruction Type:Patient Education Patient Instructions Indication:Attention deficit Start:01-Aug-2021 Instruction Type:Provider Instructions for Treatment How to Access Health Informa tion Online using Patient Portal and 3rd [employer] Apps Indication:Attention deficit Start:01-Aug-2021 Instruction Type:Patient Education Patient Instructions Indication:Attention deficit Start:18-Jul-2021 Instruction Type:Provider Instructions for Treatment How to Access Health Informa tion Online using Patient Portal and 3rd [employer] Apps Indication:Attention deficit Start:18-Jul-2021 Instruction Type:Patient Education Patient Instructions Indication:Body aches Start:11-Jul-2021 Instruction Type:Provider Instructions for Treatment How to Access Health Informa tion Online using Patient Portal and 3rd [employer] Apps Indication:Body aches Start:11-Jul-2021 Instruction Type:Patient Education Patient Instructions Indication:Sleep disorder Start:05-Jul-2021 Instruction Type:Provider Instructions for Treatment Patient Instructions Indication:Sleep disorder Start:24-Jun-2021 Instruction Type:Provider Instructions for Treatment How to Access Health Informa tion Online using Patient Portal and 3rd [employer] Apps Indication:Sleep disorder Start:24-Jun-2021 Instruction Type:Patient [...] tion Online using Patient Portal and [employer]rd [employer] Apps Indication:Attention deficit Start:12-Aug-2021 Instruction Type:Patient Education Patient Instructions Indication:Attention deficit Start:01-Aug-2021 Instruction Type:Provider Instructions for Treatment How to Access Health Informa tion Online using Patient Portal and 3rd [employer] Apps Indication:Attention deficit Start:01-Aug-2021 Instruction Type:Patient Education Patient Instructions Indication:Attention deficit Start:18-Jul-2021 Instruction Type:Provider Instructions for Treatment How to Access Health Informa tion Online using Patient Portal and 3rd [employer] Apps Indication:Attention deficit Start:18-Jul-2021 Instruction Type:Patient Education Patient Instructions Indication:Body aches Start:11-Jul-2021 Instruction Type:Provider Instructions for Treatment How to Access Health Informa tion Online using Patient Portal and 3rd [employer] Apps Indication:Body aches Start:11-Jul-2021 Instruction Type:Patient Education Patient Instructions Indication:Sleep disorder Start:05-Jul-2021 Instruction Type:Provider Instructions for Treatment Patient Instructions Indication:Sleep disorder Start:24-Jun-2021 Instruction Type:Provider Instructions for Treatment How to Access Health Informa tion Online using Patient Portal and 3rd [employer] Apps Indication:Sleep disorder Start:24-Jun-2021 Instruction Type:Patient [...] tion Online using Patient Portal and 3rd [employer] Apps Indication:[facility] WELLNESS EXAM Start:16-Dec-2021 Instruction Type:Patient Education Patient Instructions Indication:Attention deficit Start:12-Aug-2021 Instruction Type:Provider Instructions for Treatment How to Access Health Informa tion Online using Patient Portal and 3rd [employer] Apps Indication:Attention deficit Start:12-Aug-2021 Instruction Type:Patient Education Patient Instructions Indication:Attention deficit Start:01-Aug-2021 Instruction Type:Provider Instructions for Treatment How to Access Health Informa tion Online using Patient Portal and 3rd [employer] Apps Indication:Attention deficit Start:01-Aug-2021 Instruction Type:Patient Education Patient Instructions Indication:Attention deficit Start:18-Jul-2021 Instruction Type:Provider Instructions for Treatment How to Access Health Informa tion Online using Patient Portal and 3rd [employer] Apps Indication:Attention deficit Start:18-Jul-2021 Instruction Type:Patient Education Patient Instructions Indication:Body aches Start:11-Jul-2021 Instruction Type:Provider Instructions for Treatment How to Access Health Informa tion Online using Patient Portal and 3rd [employer] Apps Indication:Body aches Start:11-Jul-2021 Instruction Type:Patient Education Patient Instructions Indication:Sleep disorder Start:05-Jul-2021 Instruction Type:Provider Instructions for Treatment Patient Instructions Indication:Sleep disorder Start:24-Jun-2021 Instruction Type:Provider Instructions for Treatment How to Access Health Informa tion Online using Patient Portal and 3rd [employer] Apps Indication:Sleep disorder Start:24-Jun-2021 Instruction Type:Patient [...] tion Online using Patient Portal and 3rd [employer] Apps Indication:[facility] WELLNESS EXAM Start:16-Dec-2021 Instruction Type:Patient Education Patient Instructions Indication:Attention deficit Start:12-Aug-2021 Instruction Type:Provider Instructions for Treatment How to Access Health Informa tion Online using Patient Portal and 3rd [employer] Apps Indication:Attention deficit Start:12-Aug-2021 Instruction Type:Patient Education Patient Instructions Indication:Attention deficit Start:01-Aug-2021 Instruction Type:Provider Instructions for Treatment How to Access Health Informa tion Online using Patient Portal and 3rd [employer] Apps Indication:Attention deficit Start:01-Aug-2021 Instruction Type:Patient Education Patient Instructions Indication:Attention deficit Start:18-Jul-2021 Instruction Type:Provider Instructions for Treatment How to Access Health Informa tion Online using Patient Portal and 3rd [employer] Apps Indication:Attention deficit Start:18-Jul-2021 Instruction Type:Patient Education Patient Instructions Indication:Body aches Start:11-Jul-2021 Instruction Type:Provider Instructions for Treatment How to Access Health Informa tion Online using Patient Portal and 3rd [employer] Apps Indication:Body aches Start:11-Jul-2021 Instruction Type:Patient Education Patient Instructions Indication:Sleep disorder Start:05-Jul-2021 Instruction Type:Provider Instructions for Treatment Patient Instructions Indication:Sleep disorder Start:24-Jun-2021 Instruction Type:Provider Instructions for Treatment How to Access Health Informa tion Online using Patient Portal and [employer]rd [employer] Apps Indication:Sleep disorder Start:24-Jun-2021 Instruction Type:Patient [...] tion Online using Patient Portal and [employer] Apps Indication:ADD (attention deficit disorder) Start:23-Jan-2022 Instruction Type:Patient Education Patient Instructions Indication:[facility] WELLNESS EXAM Start:16-Dec-2021 Instruction Type:Provider Instructions for Treatment How to Access Health Informa tion Online using Patient Portal and [employer] Apps Indication:[facility] WELLNESS EXAM Start:16-Dec-2021 Instruction Type:Patient Education Patient Instructions Indication:ADD (attention deficit disorder) Start:12-Aug-2021 Instruction Type:Provider Instructions for Treatment How to Access Health Informa tion Online using Patient Portal and [employer] Apps Indication:ADD (attention deficit disorder) Start:12-Aug-2021 Instruction Type:Patient Education Patient Instructions Indication:ADD (attention deficit disorder) Start:01-Aug-2021 Instruction Type:Provider Instructions for Treatment How to Access Health Informa tion Online using Patient Portal and [employer] Apps Indication:ADD (attention deficit disorder) Start:01-Aug-2021 Instruction Type:Patient Education Patient Instructions Indication:ADD (attention deficit disorder) Start:18-Jul-2021 Instruction Type:Provider Instructions for Treatment How to Access Health Informa tion Online using Patient Portal and [employer] Apps Indication:ADD (attention deficit disorder) Start:18-Jul-2021 Instruction Type:Patient Education Patient Instructions Indication:Body aches Start:11-Jul-2021 Instruction Type:Provider Instructions for Treatment How to Access Health Informa tion Online using Patient Portal and [employer] Apps Indication:Body aches Start:11-Jul-2021 Instruction Type:Patient Education Patient Instructions Indication:Sleep disorder Start:05-Jul-2021 Instruction Type:Provider Instructions for Treatment Patient Instructions Indication:Sleep disorder Start:24-Jun-2021 Instruction Type:Provider Instructions for Treatment How to Access Health Informa tion Online using Patient Portal and [employer] Apps Indication:Sleep disorder Start:24-Jun-2021 Instruction Type:Patient [...] tion Online using Patient Portal and [employer] Indication:ADD (attention deficit disorder) Start:23-Jan-2022 Instruction Type:Patient Education Patient Instructions Indication:[facility] Start:16-Dec-2021 Instruction Type:Provider Instructions for Treatment How to Access Health Informa tion Online using Patient Portal and [employer] Apps Indication:[facility] Start:16-Dec-2021 Instruction Type:Patient Education Patient Instructions Indication:ADD (attention deficit disorder) Start:12-Aug-2021 Instruction Type:Provider Instructions for Treatment How to Access Health Informa tion Online using Patient Portal and [employer] Apps Indication:ADD (attention deficit disorder) Start:12-Aug-2021 Instruction Type:Patient Education Patient Instructions Indication:ADD (attention deficit disorder) Start:01-Aug-2021 Instruction Type:Provider Instructions for Treatment How to Access Health Informa tion Online using Patient Portal and [employer] Apps Indication:ADD (attention deficit disorder) Start:01-Aug-2021 Instruction Type:Patient Education Patient Instructions Indication:ADD (attention deficit disorder) Start:18-Jul-2021 Instruction Type:Provider Instructions for Treatment How to Access Health Informa tion Online using Patient Portal and [employer] Apps Indication:ADD (attention deficit disorder) Start:18-Jul-2021 Instruction Type:Patient Education Patient Instructions Indication:Body aches Start:11-Jul-2021 Instruction Type:Provider Instructions for Treatment How to Access Health Informa tion Online using Patient Portal and [employer] Apps Indication:Body aches Start:11-Jul-2021 Instruction Type:Patient Education Patient Instructions Indication:Sleep disorder Start:05-Jul-2021 Instruction Type:Provider Instructions for Treatment Patient Instructions Indication:Sleep disorder Start:24-Jun-2021 Instruction Type:Provider Instructions for Treatment How to Access Health Informa tion Online using Patient Portal and [employer] Apps Indication:Sleep disorder Start:24-Jun-2021 Instruction Type:Patient [...] tion Online using Patient Portal and [employer] Apps Indication:ADD (attention deficit disorder) Start:23-Jan-2022 Instruction Type:Patient Education Patient Instructions Indication:[facility] Start:16-Dec-2021 Instruction Type:Provider Instructions for Treatment How to Access Health Informa tion Online using Patient Portal and [employer] Apps Indication:[facility] Start:16-Dec-2021 Instruction Type:Patient Education Patient Instructions Indication:ADD (attention deficit disorder) Start:12-Aug-2021 Instruction Type:Provider Instructions for Treatment How to Access Health Informa tion Online using Patient Portal and [employer] Apps Indication:ADD (attention deficit disorder) Start:12-Aug-2021 Instruction Type:Patient Education Patient Instructions Indication:ADD (attention deficit disorder) Start:01-Aug-2021 Instruction Type:Provider Instructions for Treatment How to Access Health Informa tion Online using Patient Portal and [employer] Apps Indication:ADD (attention deficit disorder) Start:01-Aug-2021 Instruction Type:Patient Education Patient Instructions Indication:ADD (attention deficit disorder) Start:18-Jul-2021 Instruction Type:Provider Instructions for Treatment How to Access Health Informa tion Online using Patient Portal and [employer] Apps Indication:ADD (attention deficit disorder) Start:18-Jul-2021 Instruction Type:Patient Education Patient Instructions Indication:Body aches Start:11-Jul-2021 Instruction Type:Provider Instructions for Treatment How to Access Health Informa tion Online using Patient Portal and [employer] Apps Indication:Body aches Start:11-Jul-2021 Instruction Type:Patient Education Patient Instructions Indication:Sleep disorder Start:05-Jul-2021 Instruction Type:Provider Instructions for Treatment Patient Instructions Indication:Sleep disorder Start:24-Jun-2021 Instruction Type:Provider Instructions for Treatment How to Access Health Informa tion Online using Patient Portal and [employer] Apps Indication:Sleep disorder Start:24-Jun-2021 Instruction Type:Patient [...] tion Online using Patient Portal and [employer] Apps Indication:ADD (attention deficit disorder) Start:23-Jan-2022 Instruction Type:Patient Education Patient Instructions Indication:[facility] Start:16-Dec-2021 Instruction Type:Provider Instructions for Treatment How to Access Health Informa tion Online using Patient Portal and [employer] Apps Indication:[facility] Start:16-Dec-2021 Instruction Type:Patient Education Patient Instructions Indication:ADD (attention deficit disorder) Start:12-Aug-2021 Instruction Type:Provider Instructions for Treatment How to Access Health Informa tion Online using Patient Portal and [employer] Apps Indication:ADD (attention deficit disorder) Start:12-Aug-2021 Instruction Type:Patient Education Patient Instructions Indication:ADD (attention deficit disorder) Start:01-Aug-2021 Instruction Type:Provider Instructions for Treatment How to Access Health Informa tion Online using Patient Portal and [employer] Apps Indication:ADD (attention deficit disorder) Start:01-Aug-2021 Instruction Type:Patient Education Patient Instructions Indication:ADD (attention deficit disorder) Start:18-Jul-2021 Instruction Type:Provider Instructions for Treatment How to Access Health Informa tion Online using Patient Portal and [employer] Apps Indication:ADD (attention deficit disorder) Start:18-Jul-2021 Instruction Type:Patient Education Patient Instructions Indication:Body aches Start:11-Jul-2021 Instruction Type:Provider Instructions for Treatment How to Access Health Informa tion Online using Patient Portal and [employer] Apps Indication:Body aches Start:11-Jul-2021 Instruction Type:Patient Education Patient Instructions Indication:Sleep disorder Start:05-Jul-2021 Instruction Type:Provider Instructions for Treatment Patient Instructions Indication:Sleep disorder Start:24-Jun-2021 Instruction Type:Provider Instructions for Treatment How to Access Health Informa tion Online using Patient Portal and [employer] Apps Indication:Sleep disorder Start:24-Jun-2021 Instruction Type:Patient [...] tion Online using Patient Portal and [employer] Apps Indication:ADD (attention deficit disorder) Start:23-Jan-2022 Instruction Type:Patient Education Patient Instructions Indication:[facility] Start:16-Dec-2021 Instruction Type:Provider Instructions for Treatment How to Access Health Informa tion Online using Patient Portal and [employer] Apps Indication:[facility] Start:16-Dec-2021 Instruction Type:Patient Education Patient Instructions Indication:ADD (attention deficit disorder) Start:12-Aug-2021 Instruction Type:Provider Instructions for Treatment How to Access Health Informa tion Online using Patient Portal and [employer] Apps Indication:ADD (attention deficit disorder) Start:12-Aug-2021 Instruction Type:Patient Education Patient Instructions Indication:ADD (attention deficit disorder) Start:01-Aug-2021 Instruction Type:Provider Instructions for Treatment How to Access Health Informa tion Online using Patient Portal and [employer] Apps Indication:ADD (attention deficit disorder) Start:01-Aug-2021 Instruction Type:Patient Education Patient Instructions Indication:ADD (attention deficit disorder) Start:18-Jul-2021 Instruction Type:Provider Instructions for Treatment How to Access Health Informa tion Online using Patient Portal and [employer] Apps Indication:ADD (attention deficit disorder) Start:18-Jul-2021 Instruction Type:Patient Education Patient Instructions Indication:Body aches Start:11-Jul-2021 Instruction Type:Provider Instructions for Treatment How to Access Health Informa tion Online using Patient Portal and [employer] Apps Indication:Body aches Start:11-Jul-2021 Instruction Type:Patient Education Patient Instructions Indication:Sleep disorder Start:05-Jul-2021 Instruction Type:Provider Instructions for Treatment Patient Instructions Indication:Sleep disorder Start:24-Jun-2021 Instruction Type:Provider Instructions for Treatment How to Access Health Informa tion Online using Patient Portal and [employer] Apps Indication:Sleep disorder Start:24-Jun-2021 Instruction Type:Patient [...] tion Online using Patient Portal and [employer] Apps Indication:Epigastric pain Start:17-Apr-2022 Instruction Type:Patient Education Patient Instructions Indication:ADD (attention deficit disorder) Start:23-Jan-2022 Instruction Type:Provider Instructions for Treatment How to Access Health Informa tion Online using Patient Portal and [employer] Apps Indication:ADD (attention deficit disorder) Start:23-Jan-2022 Instruction Type:Patient Education Patient Instructions Indication:[facility] Start:16-Dec-2021 Instruction Type:Provider Instructions for Treatment How to Access Health Informa tion Online using Patient Portal and [employer] Apps Indication:[facility] Start:16-Dec-2021 Instruction Type:Patient Education Patient Instructions Indication:ADD (attention deficit disorder) Start:12-Aug-2021 Instruction Type:Provider Instructions for Treatment How to Access Health Informa tion Online using Patient Portal and [employer] Apps Indication:ADD (attention deficit disorder) Start:12-Aug-2021 Instruction Type:Patient Education Patient Instructions Indication:ADD (attention deficit disorder) Start:01-Aug-2021 Instruction Type:Provider Instructions for Treatment How to Access Health Informa tion Online using Patient Portal and [employer] Apps Indication:ADD (attention deficit disorder) Start:01-Aug-2021 Instruction Type:Patient Education Patient Instructions Indication:ADD (attention deficit disorder) Start:18-Jul-2021 Instruction Type:Provider Instructions for Treatment How to Access Health Informa tion Online using Patient Portal and [employer] Apps Indication:ADD (attention deficit disorder) Start:18-Jul-2021 Instruction Type:Patient Education Patient Instructions Indication:Body aches Start:11-Jul-2021 Instruction Type:Provider Instructions for Treatment How to Access Health Informa tion Online using Patient Portal and [employer] Apps Indication:Body aches Start:11-Jul-2021 Instruction Type:Patient Education Patient Instructions Indication:Sleep disorder Start:05-Jul-2021 Instruction Type:Provider Instructions for Treatment Patient Instructions Indication:Sleep disorder Start:24-Jun-2021 Instruction Type:Provider Instructions for Treatment How to Access Health Informa tion Online using Patient Portal and [employer] Apps Indication:Sleep disorder Start:24-Jun-2021 Instruction Type:Patient [...] tion Online using Patient Portal and [employer] Apps Indication:Epigastric pain Start:17-Apr-2022 Instruction Type:Patient Education Patient Instructions Indication:ADD (attention deficit disorder) Start:23-Jan-2022 Instruction Type:Provider Instructions for Treatment How to Access Health Informa tion Online using Patient Portal and [employer] Apps Indication:ADD (attention deficit disorder) Start:23-Jan-2022 Instruction Type:Patient Education Patient Instructions Indication:[facility] Start:16-Dec-2021 Instruction Type:Provider Instructions for Treatment How to Access Health Informa tion Online using Patient Portal and [employer] Apps Indication:[facility] Start:16-Dec-2021 Instruction Type:Patient Education Patient Instructions Indication:ADD (attention deficit disorder) Start:12-Aug-2021 Instruction Type:Provider Instructions for Treatment How to Access Health Informa tion Online using Patient Portal and [employer] Apps Indication:ADD (attention deficit disorder) Start:12-Aug-2021 Instruction Type:Patient Education Patient Instructions Indication:ADD (attention deficit disorder) Start:01-Aug-2021 Instruction Type:Provider Instructions for Treatment How to Access Health Informa tion Online using Patient Portal and [employer] Apps Indication:ADD (attention deficit disorder) Start:01-Aug-2021 Instruction Type:Patient Education Patient Instructions Indication:ADD (attention deficit disorder) Start:18-Jul-2021 Instruction Type:Provider Instructions for Treatment How to Access Health Informa tion Online using Patient Portal and [employer] Apps Indication:ADD (attention deficit disorder) Start:18-Jul-2021 Instruction Type:Patient Education Patient Instructions Indication:Body aches Start:11-Jul-2021 Instruction Type:Provider Instructions for Treatment How to Access Health Informa tion Online using Patient Portal and [employer] Apps Indication:Body aches Start:11-Jul-2021 Instruction Type:Patient Education Patient Instructions Indication:Sleep disorder Start:05-Jul-2021 Instruction Type:Provider Instructions for Treatment Patient Instructions Indication:Sleep disorder Start:24-Jun-2021 Instruction Type:Provider Instructions for Treatment How to Access Health Informa tion Online using Patient Portal and [employer] Apps Indication:Sleep disorder Start:10-Dec-2021 Instruction Type:Patient [...] tion Online using Patient Portal and [employer] Apps Indication:Epigastric pain Start:17-Apr-2022 Instruction Type:Patient Education Patient Instructions Indication:ADD (attention deficit disorder) Start:23-Jan-2022 Instruction Type:Provider Instructions for Treatment How to Access Health Informa tion Online using Patient Portal and [employer] Apps Indication:ADD (attention deficit disorder) Start:23-Jan-2022 Instruction Type:Patient Education Patient Instructions Indication:[facility] Start:16-Dec-2021 Instruction Type:Provider Instructions for Treatment How to Access Health Informa tion Online using Patient Portal and [employer] Apps Indication:[facility] Start:16-Dec-2021 Instruction Type:Patient Education Patient Instructions Indication:ADD (attention deficit disorder) Start:12-Aug-2021 Instruction Type:Provider Instructions for Treatment How to Access Health Informa tion Online using Patient Portal and [employer] Apps Indication:ADD (attention deficit disorder) Start:12-Aug-2021 Instruction Type:Patient Education Patient Instructions Indication:ADD (attention deficit disorder) Start:01-Aug-2021 Instruction Type:Provider Instructions for Treatment How to Access Health Informa tion Online using Patient Portal and [employer] Apps Indication:ADD (attention deficit disorder) Start:01-Aug-2021 Instruction Type:Patient Education Patient Instructions Indication:ADD (attention deficit disorder) Start:18-Jul-2021 Instruction Type:Provider Instructions for Treatment How to Access Health Informa tion Online using Patient Portal and [employer] Apps Indication:ADD (attention deficit disorder) Start:18-Jul-2021 Instruction Type:Patient Education Patient Instructions Indication:Body aches Start:11-Jul-2021 Instruction Type:Provider Instructions for Treatment How to Access Health Informa tion Online using Patient Portal and [employer] Apps Indication:Body aches Start:11-Jul-2021 Instruction Type:Patient Education Patient Instructions Indication:Sleep disorder Start:05-Jul-2021 Instruction Type:Provider Instructions for Treatment Patient Instructions Indication:Sleep disorder Start:24-Jun-2021 Instruction Type:Provider Instructions for Treatment How to Access Health Informa tion Online using Patient Portal and [employer] Apps Indication:Sleep disorder Start:24-Jun-2021 Instruction Type:Patient [...] tion Online using Patient Portal and [employer] Apps Indication:Epigastric pain Start:17-Apr-2022 Instruction Type:Patient Education Patient Instructions Indication:ADD (attention deficit disorder) Start:23-Jan-2022 Instruction Type:Provider Instructions for Treatment How to Access Health Informa tion Online using Patient Portal and [employer] Apps Indication:ADD (attention deficit disorder) Start:23-Jan-2022 Instruction Type:Patient Education Patient Instructions Indication:[facility] Start:16-Dec-2021 Instruction Type:Provider Instructions for Treatment How to Access Health Informa tion Online using Patient Portal and [employer] Apps Indication:[facility] Start:16-Dec-2021 Instruction Type:Patient Education Patient Instructions Indication:ADD (attention deficit disorder) Start:12-Aug-2021 Instruction Type:Provider Instructions for Treatment How to Access Health Informa tion Online using Patient Portal and [employer] Apps Indication:ADD (attention deficit disorder) Start:12-Aug-2021 Instruction Type:Patient Education Patient Instructions Indication:ADD (attention deficit disorder) Start:01-Aug-2021 Instruction Type:Provider Instructions for Treatment How to Access Health Informa tion Online using Patient Portal and [employer] Apps Indication:ADD (attention deficit disorder) Start:01-Aug-2021 Instruction Type:Patient Education Patient Instructions Indication:ADD (attention deficit disorder) Start:18-Jul-2021 Instruction Type:Provider Instructions for Treatment How to Access Health Informa tion Online using Patient Portal and [employer] Apps Indication:ADD (attention deficit disorder) Start:18-Jul-2021 Instruction Type:Patient Education Patient Instructions Indication:Body aches Start:11-Jul-2021 Instruction Type:Provider Instructions for Treatment How to Access Health Informa tion Online using Patient Portal and [employer] Apps Indication:Body aches Start:11-Jul-2021 Instruction Type:Patient Education Patient Instructions Indication:Sleep disorder Start:05-Jul-2021 Instruction Type:Provider Instructions for Treatment Patient Instructions Indication:Sleep disorder Start:24-Jun-2021 Instruction Type:Provider Instructions for Treatment How to Access Health Informa tion Online using Patient Portal and [employer] Apps Indication:Sleep disorder Start:24-Jun-2021 Instruction Type:Patient [...] tion Online using Patient Portal and [employer] Apps Indication:Epigastric pain Start:17-Apr-2022 Instruction Type:Patient Education Patient Instructions Indication:ADD (attention deficit disorder) Start:23-Jan-2022 Instruction Type:Provider Instructions for Treatment How to Access Health Informa tion Online using Patient Portal and [employer] Apps Indication:ADD (attention deficit disorder) Start:23-Jan-2022 Instruction Type:Patient Education Patient Instructions Indication:[facility] Start:16-Dec-2021 Instruction Type:Provider Instructions for Treatment How to Access Health Informa tion Online using Patient Portal and [employer] Apps Indication:[facility] Start:16-Dec-2021 Instruction Type:Patient Education Patient Instructions Indication:ADD (attention deficit disorder) Start:12-Aug-2021 Instruction Type:Provider Instructions for Treatment How to Access Health Informa tion Online using Patient Portal and [employer] Apps Indication:ADD (attention deficit disorder) Start:12-Aug-2021 Instruction Type:Patient Education Patient Instructions Indication:ADD (attention deficit disorder) Start:01-Aug-2021 Instruction Type:Provider Instructions for Treatment How to Access Health Informa tion Online using Patient Portal and [employer] Apps Indication:ADD (attention deficit disorder) Start:01-Aug-2021 Instruction Type:Patient Education Patient Instructions Indication:ADD (attention deficit disorder) Start:18-Jul-2021 Instruction Type:Provider Instructions for Treatment How to Access Health Informa tion Online using Patient Portal and [employer] Apps Indication:ADD (attention deficit disorder) Start:18-Jul-2021 Instruction Type:Patient Education Patient Instructions Indication:Body aches Start:11-Jul-2021 Instruction Type:Provider Instructions for Treatment How to Access Health Informa tion Online using Patient Portal and [employer] Apps Indication:Body aches Start:11-Jul-2021 Instruction Type:Patient Education Patient Instructions Indication:Sleep disorder Start:05-Jul-2021 Instruction Type:Provider Instructions for Treatment Patient Instructions Indication:Sleep disorder Start:24-Jun-2021 Instruction Type:Provider Instructions for Treatment How to Access Health Informa tion Online using Patient Portal and [employer] Apps Indication:Sleep disorder Start:24-Jun-2021 Instruction Type:Patient [...] tion Online using Patient Portal and [employer] Apps Indication:Epigastric pain Start:17-Apr-2022 Instruction Type:Patient Education Patient Instructions Indication:ADD (attention deficit disorder) Start:23-Jan-2022 Instruction Type:Provider Instructions for Treatment How to Access Health Informa tion Online using Patient Portal and [employer] Apps Indication:ADD (attention deficit disorder) Start:23-Jan-2022 Instruction Type:Patient Education Patient Instructions Indication:[facility] Start:16-Dec-2021 Instruction Type:Provider Instructions for Treatment How to Access Health Informa tion Online using Patient Portal and [employer] Apps Indication:[facility] Start:16-Dec-2021 Instruction Type:Patient Education Patient Instructions Indication:ADD (attention deficit disorder) Start:12-Aug-2021 Instruction Type:Provider Instructions for Treatment How to Access Health Informa tion Online using Patient Portal and [employer] Apps Indication:ADD (attention deficit disorder) Start:12-Aug-2021 Instruction Type:Patient Education Patient Instructions Indication:ADD (attention deficit disorder) Start:01-Aug-2021 Instruction Type:Provider Instructions for Treatment How to Access Health Informa tion Online using Patient Portal and [employer] Apps Indication:ADD (attention deficit disorder) Start:01-Aug-2021 Instruction Type:Patient Education Patient Instructions Indication:ADD (attention deficit disorder) Start:18-Jul-2021 Instruction Type:Provider Instructions for Treatment How to Access Health Informa tion Online using Patient Portal and [employer] Apps Indication:ADD (attention deficit disorder) Start:18-Jul-2021 Instruction Type:Patient Education Patient Instructions Indication:Body aches Start:11-Jul-2021 Instruction Type:Provider Instructions for Treatment How to Access Health Informa tion Online using Patient Portal and [employer] Apps Indication:Body aches Start:11-Jul-2021 Instruction Type:Patient Education Patient Instructions Indication:Sleep disorder Start:05-Jul-2021 Instruction Type:Provider Instructions for Treatment Patient Instructions Indication:Sleep disorder Start:24-Jun-2021 Instruction Type:Provider Instructions for Treatment How to Access Health Informa tion Online using Patient Portal and [employer] Indication:Sleep disorder Start:24-Jun-2021 Instruction Type:Patient [...] tion Online using Patient Portal and [employer] Indication:Epigastric pain Start:17-Apr-2022 Instruction Type:Patient Education Patient Instructions Indication:ADD (attention deficit disorder) Start:23-Jan-2022 Instruction Type:Provider Instructions for Treatment How to Access Health Informa tion Online using Patient Portal and [employer] Apps Indication:ADD (attention deficit disorder) Start:23-Jan-2022 Instruction Type:Patient Education Patient Instructions Indication:[facility] Start:16-Dec-2021 Instruction Type:Provider Instructions for Treatment How to Access Health Informa tion Online using Patient Portal and [employer] Indication:[facility] EX[facility] Start:16-Dec-2021 Instruction Type:Patient Education Patient Instructions Indication:ADD (attention deficit disorder) Start:12-Aug-2021 Instruction Type:Provider Instructions for Treatment How to Access Health Informa tion Online using Patient Portal and [employer] Indication:ADD (attention deficit disorder) Start:12-Aug-2021 Instruction Type:Patient Education Patient Instructions Indication:ADD (attention deficit disorder) Start:01-Aug-2021 Instruction Type:Provider Instructions for Treatment How to Access Health Informa tion Online using Patient Portal and [employer] Indication:ADD (attention deficit disorder) Start:01-Aug-2021 Instruction Type:Patient Education Patient Instructions Indication:ADD (attention deficit disorder) Start:18-Jul-2021 Instruction Type:Provider Instructions for Treatment How to Access Health Informa tion Online using Patient Portal and [employer] Apps Indication:ADD (attention deficit disorder) Start:18-Jul-2021 Instruction Type:Patient Education Patient Instructions Indication:Body aches Start:11-Jul-2021 Instruction Type:Provider Instructions for Treatment How to Access Health Informa tion Online using Patient Portal and [employer] Apps Indication:Body aches Start:11-Jul-2021 Instruction Type:Patient Education Patient Instructions Indication:Sleep disorder Start:05-Jul-2021 Instruction Type:Provider Instructions for Treatment Patient Instructions Indication:Sleep disorder Start:10-Dec-2021 Instruction Type:Provider Instructions for Treatment How to Access Health Informa tion Online using Patient Portal and [employer] Apps Indication:Sleep disorder Start:24-Jun-2021 Instruction Type:Patient [...] tion Online using Patient Portal and [employer] Apps Indication:Epigastric pain Start:17-Apr-2022 Instruction Type:Patient Education Patient Instructions Indication:ADD (attention deficit disorder) Start:23-Jan-2022 Instruction Type:Provider Instructions for Treatment How to Access Health Informa tion Online using Patient Portal and [employer] Apps Indication:ADD (attention deficit disorder) Start:23-Jan-2022 Instruction Type:Patient Education Patient Instructions Indication:[facility] Start:16-Dec-2021 Instruction Type:Provider Instructions for Treatment How to Access Health Informa tion Online using Patient Portal and [employer] Apps Indication:[facility] Start:16-Dec-2021 Instruction Type:Patient Education Patient Instructions Indication:ADD (attention deficit disorder) Start:12-Aug-2021 Instruction Type:Provider Instructions for Treatment How to Access Health Informa tion Online using Patient Portal and [employer] Apps Indication:ADD (attention deficit disorder) Start:12-Aug-2021 Instruction Type:Patient Education Patient Instructions Indication:ADD (attention deficit disorder) Start:01-Aug-2021 Instruction Type:Provider Instructions for Treatment How to Access Health Informa tion Online using Patient Portal and [employer] Apps Indication:ADD (attention deficit disorder) Start:01-Aug-2021 Instruction Type:Patient Education Patient Instructions Indication:ADD (attention deficit disorder) Start:18-Jul-2021 Instruction Type:Provider Instructions for Treatment How to Access Health Informa tion Online using Patient Portal and [employer] Apps Indication:ADD (attention deficit disorder) Start:18-Jul-2021 Instruction Type:Patient Education Patient Instructions Indication:Body aches Start:11-Jul-2021 Instruction Type:Provider Instructions for Treatment How to Access Health Informa tion Online using Patient Portal and [employer] Apps Indication:Body aches Start:11-Jul-2021 Instruction Type:Patient Education Patient Instructions Indication:Sleep disorder Start:05-Jul-2021 Instruction Type:Provider Instructions for Treatment Patient Instructions Indication:Sleep disorder Start:24-Jun-2021 Instruction Type:Provider Instructions for Treatment How to Access Health Informa tion Online using Patient Portal and [employer] Apps Indication:Sleep disorder Start:24-Jun-2021 Instruction Type:Patient [...] tion Online using Patient Portal and [employer] Apps Indication:Epigastric pain Start:17-Apr-2022 Instruction Type:Patient Education Patient Instructions Indication:ADD (attention deficit disorder) Start:23-Jan-2022 Instruction Type:Provider Instructions for Treatment How to Access Health Informa tion Online using Patient Portal and [employer] Apps Indication:ADD (attention deficit disorder) Start:23-Jan-2022 Instruction Type:Patient Education Patient Instructions Indication:[facility] Start:16-Dec-2021 Instruction Type:Provider Instructions for Treatment How to Access Health Informa tion Online using Patient Portal and [employer] Apps Indication:[facility] Start:16-Dec-2021 Instruction Type:Patient Education Patient Instructions Indication:ADD (attention deficit disorder) Start:12-Aug-2021 Instruction Type:Provider Instructions for Treatment How to Access Health Informa tion Online using Patient Portal and [employer] Apps Indication:ADD (attention deficit disorder) Start:12-Aug-2021 Instruction Type:Patient Education Patient Instructions Indication:ADD (attention deficit disorder) Start:01-Aug-2021 Instruction Type:Provider Instructions for Treatment How to Access Health Informa tion Online using Patient Portal and [employer] Apps Indication:ADD (attention deficit disorder) Start:01-Aug-2021 Instruction Type:Patient Education Patient Instructions Indication:ADD (attention deficit disorder) Start:18-Jul-2021 Instruction Type:Provider Instructions for Treatment How to Access Health Informa tion Online using Patient Portal and [employer] Apps Indication:ADD (attention deficit disorder) Start:18-Jul-2021 Instruction Type:Patient Education Patient Instructions Indication:Body aches Start:11-Jul-2021 Instruction Type:Provider Instructions for Treatment How to Access Health Informa tion Online using Patient Portal and [employer] Apps Indication:Body aches Start:11-Jul-2021 Instruction Type:Patient Education Patient Instructions Indication:Sleep disorder Start:05-Jul-2021 Instruction Type:Provider Instructions for Treatment Patient Instructions Indication:Sleep disorder Start:24-Jun-2021 Instruction Type:Provider Instructions for Treatment How to Access Health Informa tion Online using Patient Portal and [employer] Apps Indication:Sleep disorder Start:24-Jun-2021 Instruction Type:Patient [...] tion Online using Patient Portal and [employer] Apps Indication:Epigastric pain Start:17-Apr-2022 Instruction Type:Patient Education Patient Instructions Indication:ADD (attention deficit disorder) Start:23-Jan-2022 Instruction Type:Provider Instructions for Treatment How to Access Health Informa tion Online using Patient Portal and [employer] Apps Indication:ADD (attention deficit disorder) Start:23-Jan-2022 Instruction Type:Patient Education Patient Instructions Indication:[facility] Start:16-Dec-2021 Instruction Type:Provider Instructions for Treatment How to Access Health Informa tion Online using Patient Portal and [employer] Apps Indication:[facility] Start:16-Dec-2021 Instruction Type:Patient Education Patient Instructions Indication:ADD (attention deficit disorder) Start:12-Aug-2021 Instruction Type:Provider Instructions for Treatment How to Access Health Informa tion Online using Patient Portal and [employer] Apps Indication:ADD (attention deficit disorder) Start:12-Aug-2021 Instruction Type:Patient Education Patient Instructions Indication:ADD (attention deficit disorder) Start:01-Aug-2021 Instruction Type:Provider Instructions for Treatment How to Access Health Informa tion Online using Patient Portal and [employer] Apps Indication:ADD (attention deficit disorder) Start:01-Aug-2021 Instruction Type:Patient Education Patient Instructions Indication:ADD (attention deficit disorder) Start:18-Jul-2021 Instruction Type:Provider Instructions for Treatment How to Access Health Informa tion Online using Patient Portal and [employer] Apps Indication:ADD (attention deficit disorder) Start:18-Jul-2021 Instruction Type:Patient Education Patient Instructions Indication:Body aches Start:11-Jul-2021 Instruction Type:Provider Instructions for Treatment How to Access Health Informa tion Online using Patient Portal and [employer] Apps Indication:Body aches Start:11-Jul-2021 Instruction Type:Patient Education Patient Instructions Indication:Sleep disorder Start:05-Jul-2021 Instruction Type:Provider Instructions for Treatment Patient Instructions Indication:Sleep disorder Start:24-Jun-2021 Instruction Type:Provider Instructions for Treatment How to Access Health Informa tion Online using Patient Portal and [employer] Apps Indication:Sleep disorder Start:24-Jun-2021 Instruction Type:Patient [...] tion Online using Patient Portal and [employer] Apps Indication:Epigastric pain Start:17-Apr-2022 Instruction Type:Patient Education Patient Instructions Indication:ADD (attention deficit disorder) Start:23-Jan-2022 Instruction Type:Provider Instructions for Treatment How to Access Health Informa tion Online using Patient Portal and [employer] Apps Indication:ADD (attention deficit disorder) Start:23-Jan-2022 Instruction Type:Patient Education Patient Instructions Indication:[facility] Start:16-Dec-2021 Instruction Type:Provider Instructions for Treatment How to Access Health Informa tion Online using Patient Portal and [employer] Apps Indication:[facility] Start:16-Dec-2021 Instruction Type:Patient Education Patient Instructions Indication:ADD (attention deficit disorder) Start:12-Aug-2021 Instruction Type:Provider Instructions for Treatment How to Access Health Informa tion Online using Patient Portal and [employer] Apps Indication:ADD (attention deficit disorder) Start:12-Aug-2021 Instruction Type:Patient Education Patient Instructions Indication:ADD (attention deficit disorder) Start:01-Aug-2021 Instruction Type:Provider Instructions for Treatment How to Access Health Informa tion Online using Patient Portal and [employer] Apps Indication:ADD (attention deficit disorder) Start:01-Aug-2021 Instruction Type:Patient Education Patient Instructions Indication:ADD (attention deficit disorder) Start:18-Jul-2021 Instruction Type:Provider Instructions for Treatment How to Access Health Informa tion Online using Patient Portal and [employer] Apps Indication:ADD (attention deficit disorder) Start:18-Jul-2021 Instruction Type:Patient Education Patient Instructions Indication:Body aches Start:11-Jul-2021 Instruction Type:Provider Instructions for Treatment How to Access Health Informa tion Online using Patient Portal and [employer] Apps Indication:Body aches Start:11-Jul-2021 Instruction Type:Patient Education Patient Instructions Indication:Sleep disorder Start:05-Jul-2021 Instruction Type:Provider Instructions for Treatment Patient Instructions Indication:Sleep disorder Start:24-Jun-2021 Instruction Type:Provider Instructions for Treatment How to Access Health Informa tion Online using Patient Portal and [employer] Apps Indication:Sleep disorder Start:24-Jun-2021 Instruction Type:Patient [...] tion Online using Patient Portal and [employer] Apps Indication:Unspecified Diagnosis Start:05-Jan-2023 Instruction Type:Patient Education Patient Instructions Indication:ADD (attention deficit disorder) Start:24-Jul-2022 Instruction Type:Provider Instructions for Treatment Patient Instructions Indication:Epigastric pain Start:17-Apr-2022 Instruction Type:Provider Instructions for Treatment How to Access Health Informa tion Online using Patient Portal and [employer] Apps Indication:Epigastric pain Start:17-Apr-2022 Instruction Type:Patient Education Patient Instructions Indication:ADD (attention deficit disorder) Start:23-Jan-2022 Instruction Type:Provider Instructions for Treatment How to Access Health Informa tion Online using Patient Portal and [employer] Apps Indication:ADD (attention deficit disorder) Start:23-Jan-2022 Instruction Type:Patient Education Patient Instructions Indication:[facility] Start:16-Dec-2021 Instruction Type:Provider Instructions for Treatment How to Access Health Informa tion Online using Patient Portal and [employer] Apps Indication:[facility] Start:16-Dec-2021 Instruction Type:Patient Education Patient Instructions Indication:ADD (attention deficit disorder) Start:12-Aug-2021 Instruction Type:Provider Instructions for Treatment How to Access Health Informa tion Online using Patient Portal and [employer] Apps Indication:ADD (attention deficit disorder) Start:12-Aug-2021 Instruction Type:Patient Education Patient Instructions Indication:ADD (attention deficit disorder) Start:01-Aug-2021 Instruction Type:Provider Instructions for Treatment How to Access Health Informa tion Online using Patient Portal and [employer] Apps Indication:ADD (attention deficit disorder) Start:01-Aug-2021 Instruction Type:Patient Education Patient Instructions Indication:ADD (attention deficit disorder) Start:18-Jul-2021 Instruction Type:Provider Instructions for Treatment How to Access Health Informa tion Online using Patient Portal and [employer] Apps Indication:ADD (attention deficit disorder) Start:18-Jul-2021 Instruction Type:Patient Education Patient Instructions Indication:Body aches Start:11-Jul-2021 Instruction Type:Provider Instructions for Treatment How to Access Health Informa tion Online using Patient Portal and [employer] Apps Indication:Body aches Start:11-Jul-2021 Instruction Type:Patient Education Patient Instructions Indication:Sleep disorder Start:05-Jul-2021 Instruction Type:Provider Instructions for Treatment Patient Instructions Indication:Sleep disorder Start:24-Jun-2021 Instruction Type:Provider Instructions for Treatment How to Access Health Informa tion Online using Patient Portal and [employer] Apps Indication:Sleep disorder Start:24-Jun-2021 Instruction Type:Patient [...] tion Online using Patient Portal and [employer] Apps Indication:Constipation Start:05-Jan-2023 Instruction Type:Patient Education Patient Instructions Indication:ADD (attention deficit disorder) Start:24-Jul-2022 Instruction Type:Provider Instructions for Treatment Patient Instructions Indication:Epigastric pain Start:17-Apr-2022 Instruction Type:Provider Instructions for Treatment How to Access Health Informa tion Online using Patient Portal and [employer] Apps Indication:Epigastric pain Start:17-Apr-2022 Instruction Type:Patient Education Patient Instructions Indication:ADD (attention deficit disorder) Start:23-Jan-2022 Instruction Type:Provider Instructions for Treatment How to Access Health Informa tion Online using Patient Portal and [employer] Apps Indication:ADD (attention deficit disorder) Start:23-Jan-2022 Instruction Type:Patient Education Patient Instructions Indication:[facility] Start:16-Dec-2021 Instruction Type:Provider Instructions for Treatment How to Access Health Informa tion Online using Patient Portal and [employer] Apps Indication:[facility] Start:16-Dec-2021 Instruction Type:Patient Education Patient Instructions Indication:ADD (attention deficit disorder) Start:12-Aug-2021 Instruction Type:Provider Instructions for Treatment How to Access Health Informa tion Online using Patient Portal and [employer] Apps Indication:ADD (attention deficit disorder) Start:12-Aug-2021 Instruction Type:Patient Education Patient Instructions Indication:ADD (attention deficit disorder) Start:01-Aug-2021 Instruction Type:Provider Instructions for Treatment How to Access Health Informa tion Online using Patient Portal and [employer] Apps Indication:ADD (attention deficit disorder) Start:01-Aug-2021 Instruction Type:Patient Education Patient Instructions Indication:ADD (attention deficit disorder) Start:18-Jul-2021 Instruction Type:Provider Instructions for Treatment How to Access Health Informa tion Online using Patient Portal and [employer] Apps Indication:ADD (attention deficit disorder) Start:18-Jul-2021 Instruction Type:Patient Education Patient Instructions Indication:Body aches Start:11-Jul-2021 Instruction Type:Provider Instructions for Treatment How to Access Health Informa tion Online using Patient Portal and [employer] Apps Indication:Body aches Start:11-Jul-2021 Instruction Type:Patient Education Patient Instructions Indication:Sleep disorder Start:05-Jul-2021 Instruction Type:Provider Instructions for Treatment Patient Instructions Indication:Sleep disorder Start:24-Jun-2021 Instruction Type:Provider Instructions for Treatment How to Access Health Informa tion Online using Patient Portal and [employer] Apps Indication:Sleep disorder Start:24-Jun-2021 Instruction Type:Patient [...] tion Online using Patient Portal and [employer] Apps Indication:ADD (attention deficit disorder) Start:22-Jan-2023 Instruction Type:Patient Education Patient Instructions Indication:ADD (attention deficit disorder) Start:22-Jan-2023 Instruction Type:Provider Instructions for Treatment Patient Instructions Indication:Constipation Start:05-Jan-2023 Instruction Type:Provider Instructions for Treatment How to Access Health Informa tion Online using Patient Portal and [employer] Apps Indication:Constipation Start:05-Jan-2023 Instruction Type:Patient Education Patient Instructions Indication:ADD (attention deficit disorder) Start:24-Jul-2022 Instruction Type:Provider Instructions for Treatment Patient Instructions Indication:Epigastric pain Start:17-Apr-2022 Instruction Type:Provider Instructions for Treatment How to Access Health Informa tion Online using Patient Portal and [employer] Apps Indication:Epigastric pain Start:17-Apr-2022 Instruction Type:Patient Education Patient Instructions Indication:ADD (attention deficit disorder) Start:23-Jan-2022 Instruction Type:Provider Instructions for Treatment How to Access Health Informa tion Online using Patient Portal and [employer] Apps Indication:ADD (attention deficit disorder) Start:23-Jan-2022 Instruction Type:Patient Education Patient Instructions Indication:[facility] Start:16-Dec-2021 Instruction Type:Provider Instructions for Treatment How to Access Health Informa tion Online using Patient Portal and [employer] Apps Indication:[facility] Start:16-Dec-2021 Instruction Type:Patient Education Patient Instructions Indication:ADD (attention deficit disorder) Start:12-Aug-2021 Instruction Type:Provider Instructions for Treatment How to Access Health Informa tion Online using Patient Portal and [employer] Apps Indication:ADD (attention deficit disorder) Start:12-Aug-2021 Instruction Type:Patient Education Patient Instructions Indication:ADD (attention deficit disorder) Start:01-Aug-2021 Instruction Type:Provider Instructions for Treatment How to Access Health Informa tion Online using Patient Portal and [employer] Apps Indication:ADD (attention deficit disorder) Start:01-Aug-2021 Instruction Type:Patient Education Patient Instructions Indication:ADD (attention deficit disorder) Start:18-Jul-2021 Instruction Type:Provider Instructions for Treatment How to Access Health Informa tion Online using Patient Portal and [employer] Apps Indication:ADD (attention deficit disorder) Start:18-Jul-2021 Instruction Type:Patient Education Patient Instructions Indication:Body aches Start:11-Jul-2021 Instruction Type:Provider Instructions for Treatment How to Access Health Informa tion Online using Patient Portal and [employer] Apps Indication:Body aches Start:11-Jul-2021 Instruction Type:Patient Education Patient Instructions Indication:Sleep disorder Start:05-Jul-2021 Instruction Type:Provider Instructions for Treatment Patient Instructions Indication:Sleep disorder Start:24-Jun-2021 Instruction Type:Provider Instructions for Treatment How to Access Health Informa tion Online using Patient Portal and [employer] Apps Indication:Sleep disorder Start:24-Jun-2021 Instruction Type:Patient [...] tion Online using Patient Portal and [employer] Apps Indication:ADD (attention deficit disorder) Start:22-Jan-2023 Instruction Type:Patient Education Patient Instructions Indication:ADD (attention deficit disorder) Start:22-Jan-2023 Instruction Type:Provider Instructions for Treatment Patient Instructions Indication:Constipation Start:05-Jan-2023 Instruction Type:Provider Instructions for Treatment How to Access Health Informa tion Online using Patient Portal and [employer] Apps Indication:Constipation Start:05-Jan-2023 Instruction Type:Patient Education Patient Instructions Indication:ADD (attention deficit disorder) Start:24-Jul-2022 Instruction Type:Provider Instructions for Treatment Patient Instructions Indication:Epigastric pain Start:17-Apr-2022 Instruction Type:Provider Instructions for Treatment How to Access Health Informa tion Online using Patient Portal and [employer] Apps Indication:Epigastric pain Start:17-Apr-2022 Instruction Type:Patient Education Patient Instructions Indication:ADD (attention deficit disorder) Start:23-Jan-2022 Instruction Type:Provider Instructions for Treatment How to Access Health Informa tion Online using Patient Portal and [employer] Apps Indication:ADD (attention deficit disorder) Start:23-Jan-2022 Instruction Type:Patient Education Patient Instructions Indication:[facility] Start:16-Dec-2021 Instruction Type:Provider Instructions for Treatment How to Access Health Informa tion Online using Patient Portal and [employer] Apps Indication:[facility] Start:16-Dec-2021 Instruction Type:Patient Education Patient Instructions Indication:ADD (attention deficit disorder) Start:12-Aug-2021 Instruction Type:Provider Instructions for Treatment How to Access Health Informa tion Online using Patient Portal and [employer] Apps Indication:ADD (attention deficit disorder) Start:12-Aug-2021 Instruction Type:Patient Education Patient Instructions Indication:ADD (attention deficit disorder) Start:01-Aug-2021 Instruction Type:Provider Instructions for Treatment How to Access Health Informa tion Online using Patient Portal and [employer] Apps Indication:ADD (attention deficit disorder) Start:01-Aug-2021 Instruction Type:Patient Education Patient Instructions Indication:ADD (attention deficit disorder) Start:18-Jul-2021 Instruction Type:Provider Instructions for Treatment How to Access Health Informa tion Online using Patient Portal and [employer] Apps Indication:ADD (attention deficit disorder) Start:18-Jul-2021 Instruction Type:Patient Education Patient Instructions Indication:Body aches Start:11-Jul-2021 Instruction Type:Provider Instructions for Treatment How to Access Health Informa tion Online using Patient Portal and [employer] Apps Indication:Body aches Start:11-Jul-2021 Instruction Type:Patient Education Patient Instructions Indication:Sleep disorder Start:05-Jul-2021 Instruction Type:Provider Instructions for Treatment Patient Instructions Indication:Sleep disorder Start:24-Jun-2021 Instruction Type:Provider Instructions for Treatment How to Access Health Informa tion Online using Patient Portal and [employer] Indication:Sleep disorder Start:24-Jun-2021 Instruction Type:Patient [...] tion Online using Patient Portal and [employer] Indication:ADD (attention deficit disorder) Start:22-Jan-2023 Instruction Type:Patient Education Patient Instructions Indication:ADD (attention deficit disorder) Start:22-Jan-2023 Instruction Type:Provider Instructions for Treatment Patient Instructions Indication:Constipation Start:05-Jan-2023 Instruction Type:Provider Instructions for Treatment How to Access Health Informa tion Online using Patient Portal and [employer] Indication:Constipation Start:05-Jan-2023 Instruction Type:Patient Education Patient Instructions Indication:ADD (attention deficit disorder) Start:24-Jul-2022 Instruction Type:Provider Instructions for Treatment Patient Instructions Indication:Epigastric pain Start:17-Apr-2022 Instruction Type:Provider Instructions for Treatment How to Access Health Informa tion Online using Patient Portal and [employer] Indication:Epigastric pain Start:17-Apr-2022 Instruction Type:Patient Education Patient Instructions Indication:ADD (attention deficit disorder) Start:23-Jan-2022 Instruction Type:Provider Instructions for Treatment How to Access Health Informa tion Online using Patient Portal and [employer] Indication:ADD (attention deficit disorder) Start:23-Jan-2022 Instruction Type:Patient Education Patient Instructions Indication:[facility] Start:16-Dec-2021 Instruction Type:Provider Instructions for Treatment How to Access Health Informa tion Online using Patient Portal and [employer]rd [employer] Apps Indication:[facility] Start:16-Dec-2021 Instruction Type:Patient Education Patient Instructions Indication:ADD (attention deficit disorder) Start:12-Aug-2021 Instruction Type:Provider Instructions for Treatment How to Access Health Informa tion Online using Patient Portal and [employer] Apps Indication:ADD (attention deficit disorder) Start:12-Aug-2021 Instruction Type:Patient Education Patient Instructions Indication:ADD (attention deficit disorder) Start:01-Aug-2021 Instruction Type:Provider Instructions for Treatment How to Access Health Informa tion Online using Patient Portal and [employer]rd [employer] Apps Indication:ADD (attention deficit disorder) Start:01-Aug-2021 Instruction Type:Patient Education Patient Instructions Indication:ADD (attention deficit disorder) Start:18-Jul-2021 Instruction Type:Provider Instructions for Treatment How to Access Health Informa tion Online using Patient Portal and [employer]rd [employer] Apps Indication:ADD (attention deficit disorder) Start:18-Jul-2021 Instruction Type:Patient Education Patient Instructions Indication:Body aches Start:11-Jul-2021 Instruction Type:Provider Instructions for Treatment How to Access Health Informa tion Online using Patient Portal and [employer]rd [employer] Apps Indication:Body aches Start:11-Jul-2021 Instruction Type:Patient Education Patient Instructions Indication:Sleep disorder Start:05-Jul-2021 Instruction Type:Provider Instructions for Treatment Patient Instructions Indication:Sleep disorder Start:24-Jun-2021 Instruction Type:Provider Instructions for Treatment How to Access Health Informa tion Online using Patient Portal and [employer]rd [employer] Apps Indication:Sleep disorder Start:24-Jun-2021 Instruction Type:Patient [...] tion Online using Patient Portal and [employer]rd [employer] Apps Indication:Smoker Start:30-Apr-2023 Instruction Type:Patient Education How to Access Health Informa tion Online using Patient Portal and [employer]rd [employer] Apps Indication:ADD (attention deficit disorder) Start:22-Jan-2023 Instruction Type:Patient Education Patient Instructions Indication:ADD (attention deficit disorder) Start:22-Jan-2023 Instruction Type:Provider Instructions for Treatment Patient Instructions Indication:Constipation Start:05-Jan-2023 Instruction Type:Provider Instructions for Treatment How to Access Health Informa tion Online using Patient Portal and 3rd [employer] Apps Indication:Constipation Start:05-Jan-2023 Instruction Type:Patient Education Patient Instructions Indication:ADD (attention deficit disorder) Start:24-Jul-2022 Instruction Type:Provider Instructions for Treatment Patient Instructions Indication:Epigastric pain Start:17-Apr-2022 Instruction Type:Provider Instructions for Treatment How to Access Health Informa tion Online using Patient Portal and [employer]rd [employer] Apps Indication:Epigastric pain Start:17-Apr-2022 Instruction Type:Patient Education Patient Instructions Indication:ADD (attention deficit disorder) Start:23-Jan-2022 Instruction Type:Provider Instructions for Treatment How to Access Health Informa tion Online using Patient Portal and 3rd [employer] Apps Indication:ADD (attention deficit disorder) Start:23-Jan-2022 Instruction Type:Patient Education Patient Instructions Indication:[facility] Start:16-Dec-2021 Instruction Type:Provider Instructions for Treatment How to Access Health Informa tion Online using Patient Portal and 3rd [employer] Apps Indication:[facility] Start:16-Dec-2021 Instruction Type:Patient Education Patient Instructions Indication:ADD (attention deficit disorder) Start:12-Aug-2021 Instruction Type:Provider Instructions for Treatment How to Access Health Informa tion Online using Patient Portal and [employer]rd [employer] Apps Indication:ADD (attention deficit disorder) Start:12-Aug-2021 Instruction Type:Patient Education Patient Instructions Indication:ADD (attention deficit disorder) Start:01-Aug-2021 Instruction Type:Provider Instructions for Treatment How to Access Health Informa tion Online using Patient Portal and [employer]rd [employer] Apps Indication:ADD (attention deficit disorder) Start:01-Aug-2021 Instruction Type:Patient Education Patient Instructions Indication:ADD (attention deficit disorder) Start:18-Jul-2021 Instruction Type:Provider Instructions for Treatment How to Access Health Informa tion Online using Patient Portal and [employer]rd [employer] Apps Indication:ADD (attention deficit disorder) Start:18-Jul-2021 Instruction Type:Patient Education Patient Instructions Indication:Body aches Start:11-Jul-2021 Instruction Type:Provider Instructions for Treatment How to Access Health Informa tion Online using Patient Portal and [employer] Apps Indication:Body aches Start:11-Jul-2021 Instruction Type:Patient Education Patient Instructions Indication:Sleep disorder Start:05-Jul-2021 Instruction Type:Provider Instructions for Treatment Patient Instructions Indication:Sleep disorder Start:24-Jun-2021 Instruction Type:Provider Instructions for Treatment How to Access Health Informa tion Online using Patient Portal and [employer] Apps Indication:Sleep disorder Start:24-Jun-2021 Instruction Type:Patient [...] BE BASED ON THE PRIMARY CLINICAL RECORDS. [facility] [employer] [facility]. provides no warranty or guarantee of the accuracy or completeness of information in this document.
[2023-08-13 11:40] VITALS: BP 148/83; PULSE 78; RESP 18; TEMP 36.8; O2SAT 100
[2023-08-13] MEDS: Lactated Ringers 1,000 ML 125 ML IV ×2 (12:03→21:14)
[2023-08-13 15:32] VITALS: BP 139/84; PULSE 89; RESP 18; TEMP 36.6; O2SAT 98
[2023-08-13] MEDS: 0.9% Saline Lock 10 ML Syringe IV ×3 (15:42→20:06)
[2023-08-13] MEDS: HYDROmorphone 0.5 MG/0.5 ML SYRINGE IV ×2 (15:43→20:06)
[2023-08-13] MEDS: 0.9% Normal Saline (500mL Bag) 500 ML IV (18:06)
[2023-08-13 20:01] VITALS: BP 140/82; PULSE 81; RESP 16; TEMP 36.6; O2SAT 96
[2023-08-14] VITALS (7 sets, daily range): BP systolic 140–172; BP diastolic 76–99; PULSE 76–88; RESP 16–18; TEMP 36.5–36.8; O2SAT 95–96
[2023-08-14] MEDS: Ondansetron 4 MG/2 ML Vial IV ×4 (00:08→23:09)
[2023-08-14] MEDS: HYDROmorphone 0.5 MG/0.5 ML SYRINGE IV ×4 (00:08→19:53)
[2023-08-14] MEDS: 0.9% Saline Lock 10 ML Syringe IV ×5 (00:09→16:43)
[2023-08-14] MEDS: Lactated Ringers 1,000 ML 125 ML IV ×3 (04:33→21:32)
--- NOTE | 2023-08-14 08:25 | RAD_ITS ---
STUDY: MODIFIED GASTROGRAFIN SMALL BOWEL FOLLOW-THROUGH EXAMINATION. REASON FOR EXAM: Female, 53 years old. f/u SBO -- Films: Immediately post GG, 6 h, 12 h, and 24h TECHNIQUE: Gastrografin was introduced through the indwelling nasogastric tube. COMPARISON: None. FINDINGS: On the subscription clerk images, the tip of the nasogastric tube is coiled within the fundal portion of the stomach. Large amount of fecal material is seen in the right hemicolon. Gastrografin was introduced into the indwelling nasogastric tube. Imaging was obtained immediately following the placement of the Gastrografin as well as at 12 hours and 24 hours following. No contrast is seen within the small bowel loops. The patient vomited and was hooked to suction prior to the 6 hour image. RAD/Small Bowel Series Only IMPRESSION: Nondiagnostic study. Electronically Signed: Royal Ferrera MD at 10:24 EST ,
[2023-08-14 08:41] LABS: Absolute Lymphocyte Count 0.86 X10^3/uL (0.83-4.51); Absolute Neutrophil Count 2.7 X10^3/uL (2.0-7.7); Basophil# 0.02 X10^3/uL; Basophil% 0.5 % (0-1); Eosinophil# 0.02 X10^3/uL; Eosinophils% 0.5 % (0-5); Hemoglobin 12.7 g/dL (12.0-15.0); Lymphocyte # 0.86 X10^3/ul (0.83-4.51); Lymphocyte % 21.2 % (19-41); Mean Corp Hgb Conc 32.6 g/dL (32-36); Mean Corpuscular Hgb 31.2 pg (27.0-32.0); Mean Corpuscular Volume 95.8 fL (81-99); Mean Platelet Vol. 9.7 fl (6.2-12.0); Monocyte# 0.43 X10^3/uL; Monocyte% 10.6 % (0-10); NRBC Flagged by Analyzer 0 % (0-5); Neutrophil # 2.71 X10^3/uL (2.7-7.7); Platelet Count 294 K/mm3 (150-450); RBC Distribution Width CV 12.7 % (11.6-14.6); RBC Distribution Width SD 45.3 fl (35.1-43.9); Red Blood Count 4.07 M/mm3 (4.2-5.4); White Blood Count 4.1 K/mm3 (4.4-11.0)
[2023-08-14] MEDS: Pantoprazole Sodium 40 MG in 0.9% Normal Saline (100mL MB+) 100 ML 330 MG IV (08:57)
[2023-08-14 09:14] LABS: Anion Gap 5 (5-15); BUN 13 mg/dL (7-18); BUN/Creat Ratio 21.5 RATIO (10-20); Calcium,Total 8.8 mg/dL (8.5-10.1); Chloride 107 mmol/L (98-107); EST Glomerular Filtration Rate 110 mL/min (>60); Est Glom Filt Rate - Afr Amer 133 mL/min (>60); Estimated Creatinine Clearance 87.11 ml/min; Glucose 101 mg/dL (74-106); Magnesium 2.1 mg/dL (1.6-2.6); Phosphorus 2.5 mg/dL (2.5-4.9); Potassium 3.8 mmol/L (3.5-5.1); Sodium Level 137 mmol/L (136-145)
--- NOTE | 2023-08-14 11:08 | PCM.PN.SRG ---
Subjective Subjective Patient evaluated resting in bed. Her main compliant this morning is sore throat. She denies any nausea or vomiting. Her notes that the NG tube has slowed down in drainage. Patient denies any flatus or bowel movements over night. She notes her abdominal pain is a 4 out of 10 and comes in waves. Objective Data Objective Data Vital Signs: Vital Signs Temp Pulse Resp BP Pulse Ox O2 Del Method 98.3 F 76 18 156/88 H 96 Room Air 08/14/23 08:56 08/14/23 08:56 08/14/23 08:56 08/14/23 08:56 08/14/23 08:56 08/14/23 08:56 Oxygen Delivery Method Room Air Weight: 130 lb Body Mass Index (BMI) 25.4 Intake & Output: Intake and Output for Last 24 Hours 08/12/23 08/13/23 08/14/23 23:59 23:59 23:59 Intake Total 2770.0 / 2770.0 1024.58 / 1024.58 Output Total 500 / 500 Balance 2270.0 / 2270.0 1024.58 / 1024.58 Lab / Micro Data 08/14/23 07:42 08/14/23 07:42 Labs: Laboratory Results - last 24 hr 08/14/23 07:42: WBC 4.1 L, RBC 4.07 L, Hgb 12.7, Hct 39.0, MCV 95.8, MCH 31.2, MCHC 32.6, RDW Std Deviation 45.3 H, RDW Coeff of Miguel 12.7, Plt Count 294, MPV 9.7, Immature Gran % (Auto) 0.200, Neut % (Auto) 67.0, Lymph % (Auto) 21.2, [place] % (Auto) 10.6 H, Eos % (Auto) 0.5, Baso % (Auto) 0.5, Absolute Neuts (auto) 2.7, Absolute Lymphs (auto) 0.86, Nucleated RBC % 0, Sodium 137, Potassium 3.8, Chloride 107, Carbon Dioxide 25.0, Anion Gap 5, BUN 13, Creatinine 0.60, Estim Creat Clear Calc 87.11, Est GFR (MDRD) Af Amer 133, Est GFR (MDRD) Non-Af 110, BUN/Creatinine Ratio 21.5 H, Glucose 101, Calcium 8.8, Phosphorus 2.5, Magnesium 2.1 Physical Exam GI GI Narrative: Abdomen- soft, generalized tenderness. Hypoactive bowel sounds. Assessment & Plan Assessment/Plan (1) Abdominal pain: (2) Nausea & vomiting: (3) Small bowel obstruction: PLAN: Plan I have evaluated this patient in conjunction with Dr. Martins. Plan for small bowel follow-through today Review labs We will continue to monitor this patient closely. Charges/Coding Visit Charges Inpatient E&M: 91995 [facility] [[email or web address]] Hosp L1
[2023-08-14] MEDS: Ketorolac 15 MG/ML Vial IV (12:30)
[2023-08-14] MEDS: Metoclopramide 10 MG/2 ML Vial 5 MG IV (21:38)
[2023-08-14] MEDS: hydrALAZINE 20 MG/ML Vial 10 MG IV (23:56)
[2023-08-15] VITALS (18 sets, daily range): BP systolic 120–164; BP diastolic 58–94; PULSE 66–92; RESP 16–18; TEMP 36.4–37.1; O2SAT 94–98; BMI 25.4
[2023-08-15] MEDS: HYDROmorphone 0.5 MG/0.5 ML SYRINGE IV ×2 (00:54→20:47)
[2023-08-15] MEDS: Lactated Ringers 1,000 ML 125 ML IV (05:48)
[2023-08-15 08:59] LABS: Absolute Lymphocyte Count 0.72 X10^3/uL (0.83-4.51); Basophil# 0.05 X10^3/uL; Eosinophil# 0.01 X10^3/uL; Eosinophils% 0.2 % (0-5); Hematocrit 41.9 % (37-47); Hemoglobin 13.5 g/dL (12.0-15.0); Lymphocyte # 0.72 X10^3/ul (0.83-4.51); Lymphocyte % 13.9 % (19-41); Mean Corp Hgb Conc 32.2 g/dL (32-36); Mean Corpuscular Hgb 30.8 pg (27.0-32.0); Mean Corpuscular Volume 95.4 fL (81-99); Mean Platelet Vol. 10.2 fl (6.2-12.0); Monocyte# 0.42 X10^3/uL; Monocyte% 8.1 % (0-10); NRBC Flagged by Analyzer 0 % (0-5); Neutrophil # 3.96 X10^3/uL (2.7-7.7); Neutrophil % 76.4 % (47-70); Platelet Count 323 K/mm3 (150-450); RBC Distribution Width CV 12.5 % (11.6-14.6); RBC Distribution Width SD 44.6 fl (35.1-43.9); Red Blood Count 4.39 M/mm3 (4.2-5.4); White Blood Count 5.2 K/mm3 (4.4-11.0)
[2023-08-15] MEDS: Ondansetron 4 MG/2 ML Vial IV (09:26)
[2023-08-15] MEDS: Pantoprazole Sodium 40 MG in 0.9% Normal Saline (100mL MB+) 100 ML 330 MG IV (09:26)
[2023-08-15 09:48] LABS: Anion Gap 9 (5-15); BUN 11 mg/dL (7-18); BUN/Creat Ratio 21.9 RATIO (10-20); Calcium,Total 9.1 mg/dL (8.5-10.1); Chloride 103 mmol/L (98-107); EST Glomerular Filtration Rate 136 mL/min (>60); Est Glom Filt Rate - Afr Amer 165 mL/min (>60); Estimated Creatinine Clearance 104.53 ml/min; Glucose 111 mg/dL (74-106); Potassium 3.5 mmol/L (3.5-5.1); Sodium Level 135 mmol/L (136-145)
--- NOTE | 2023-08-15 10:50 | CASEMGMT ---
RN CM Face to Face with patient for initial transition planning/care coordination assessment. RN CM introduced self and role at [facility]. Patient lying in bed, alert and oriented, at bedside. Patient willing to participate in assessment and is able to answer all questions appropriately. Care providers, pharmacy, and demographics verified. Patient wishes to discharge home, denies need for home health at this time. Patient states she has no further needs or concerns at this time. CM to follow for discharge planning needs that may arise. PCP: Anoop Specialists: [facility] Preferred Pharmacy: [facility] Insurance: [employer] Prescription Benefit: yes Living Will/HPOA: none LNOK: , daughter Living Arrangements: Patient lives with in a single story home with 2 steps to enter. Patient is independent at home. Transportation: self, DME/HHC: Patient has shower chair and nelbuizer at home. No previous HHC or SNF. Daughter is RN and assisted with ostomy care previously. Disposition Plan: Patient to discharge home with family support and follow-up plans in place. Ale NELSON, RN, CM
--- NOTE | 2023-08-15 10:58 | PCM.PN.SRG ---
Subjective Subjective Patient evaluated resting in bed this morning. Patient notes hiccuping and stated she vomited last night while using the restroom. She notes her abdominal pain is the same. She did pass some flatus last night. Negative bowel movement. She over all does not feel well. Objective Data Objective Data Vital Signs: Vital Signs Temp Pulse Resp BP Pulse Ox O2 Del Method 98.2 F 88 18 159/90 H 96 Room Air 08/15/23 09:49 08/15/23 09:49 08/15/23 10:00 08/15/23 09:49 08/15/23 09:49 08/15/23 10:00 Oxygen Delivery Method Room Air Weight: 130 lb Body Mass Index (BMI) 25.4 Intake & Output: Intake and Output for Last 24 Hours 08/13/23 08/14/23 08/15/23 23:59 23:59 23:59 Intake Total 2770.0 / 2770.0 3024.58 / 3044.58 1170 / 1170 Output Total 500 / 500 1300 / 1300 350 / 350 Balance 2270.0 / 2270.0 1724.58 / 1744.58 820 / 820 Lab / Micro Data 08/15/23 07:51 08/15/23 07:51 Labs: Laboratory Results - last 24 hr 08/15/23 07:51: WBC 5.2, RBC 4.39, Hgb 13.5, Hct 41.9, MCV 95.4, MCH 30.8, MCHC 32.2, RDW Std Deviation 44.6 H, RDW Coeff of Miguel 12.5, Plt Count 323, MPV 10.2, Immature Gran % (Auto) 0.400, Neut % (Auto) 76.4 H, Lymph % (Auto) 13.9 L, [place] % (Auto) 8.1, Eos % (Auto) 0.2, Baso % (Auto) 1.0, Absolute Neuts (auto) 4.0, Absolute Lymphs (auto) 0.72 L, Nucleated RBC % 0, Sodium 135 L, Potassium 3.5, Chloride 103, Carbon Dioxide 23.0, Anion Gap 9, BUN 11, Creatinine 0.50 L, Estim Creat Clear Calc 104.53, Est GFR (MDRD) Af Amer 165, Est GFR (MDRD) Non-Af 136, BUN/Creatinine Ratio 21.9 H, Glucose 111 H, Calcium 9.1 Radiography Diagnostic Testing: Radiology Impression Small Bowel X-Ray 08/14/23 08:25 IMPRESSION: Nondiagnostic study. Electronically Signed: Royal Ferrera MD at 10:24 EST , Physical Exam Const alert and oriented x3 GI GI Narrative: Abdomen- distended, soft. Tenderness generalized however more severe inferior to the umbilicus. Hypoactive bowel sounds. Assessment & Plan Assessment/Plan (1) Small bowel obstruction: (2) Nausea & vomiting: (3) Abdominal pain: PLAN: Plan I am seeing this patient in conjunction with Dr. Martins. Patient is scheduled to have an additional KUB this morning. Patient overall appears minimally improved. She however feels about the same as when she came in. She is accepting if surgery needs to occur. Labs are pending. We will continue to monitor this patient closely. Charges/Coding Visit Charges Inpatient E&M: 94956 Subs Hosp L1
[2023-08-15] MEDS: Cefotetan 2 GM in 0.9% Normal Saline (100mL MB+) 100 ML IV (16:31)
[2023-08-15] MEDS: Bupivacaine 0.25% 30 ML Vial (17:56)
--- NOTE | 2023-08-15 18:00 | PCM.OPRPT ---
Report of Operation Date of Procedure: 08/15/23 Pre-Operative Diagnosis: Small bowel obstruction Post-Operative Diagnosis: Same Surgery/Procedure Performed:: Diagnostic laparoscopy with lysis of adhesions Surgeon: Xavi Martins fiction and nonfiction author: Inderjit Boston Type of Anesthesia: General/Supplemental Anesthesiologist: Lucio Castañeda Specimen's removed: None Estimated Blood Loss (mL): 5 Description of Procedure: Patient arrived to the OR from the preoperative holding area. She was positioned supine on the operating room table. She underwent induction with general endotracheal anesthetic and her nasogastric tube was connected to suction. She was administered preoperative antibiotics with 2 g of cefotetan for surgical prophylaxis. Patient's abdomen was prepped and draped in usual sterile fashion. A formal timeout followed to confirm patient and the procedure. The procedure was begun with an infraumbilical incision in the region of patient's prior scar and was carried down to the fascia which was elevated between clamps and sharply incised. I was very careful to only incise the fascia and then the peritoneal layer was likewise elevated and sharply incised. Finger sweep confirmed peritoneal entry and a 12 mm Newman balloon trocar was placed. The abdomen was inspected and revealed no inadvertent injury from our port placement but there was a moderate degree of thin simple ascites fluid and very distended small bowel. Abdomen was insufflated to a set pressure of 15 mmHg. Further inspection of the peritoneum revealed multiple adhesions between the small bowel and the anterior abdominal wall bilaterally. There was a area of free of adhesions in the left upper quadrant. Therefore, I made the decision to place an additional trocar through this site on laparoscopic visualization. I then carefully began taking down several adhesions using the laparoscopic LigaSure device and frequently employed the cold cut function so as not to incur the risk of thermal injury. I also readily identified that the patient's prior ileostomy remained tacked to the underside of the fascia and the adhesions here were rather dense. I placed a third 5 mm port in the left lower quadrant under direct laparoscopic visualization and proceeded to take down a number of additional adhesions around this ileostomy site until I could then reliably bring our camera in through the infraumbilical port site and began running the bowel. The patient was then positioned Trendelenburg with the left side down and I began to inspect the bowel. I encountered some decompressed small bowel in the right lower quadrant and ran it in both directions until I could identify a widely patent ileocolic anastomosis. I then worked proximally from this point and identified a dense adhesion tethering the ileum down to the base of the mesentery. This adhesion extended from the antimesenteric border of the ileum and I placed this bowel under traction so as to pull up on the adhesion as much as possible and avoid an enterotomy. The adhesion was then lysed with the cold cut function on the Ligasure resulting in an audible pop . The bowel was then inspected and I found decompressed bowel on either side of the adhesions so I proceeded further proximally with my investigation. Moving into the pelvis an additional thin adhesion was found just posterior and lateral to the body of the uterus and the adhesion was placed on tension and lysed sharply as well. I then was able to run the small bowel more effectively and identified a loop of small bowel extending into the pelvis that appeared largely nondilated but crossing this area was a loop of massively dilated small intestine that was twisted in its midsection and appeared pinned down by a overlapping band of adhesive tissue. This band?like that described earlier?extended from the antimesenteric portion of a loop of jejunum and crossed the bowel causing a focal twisting of the bowel. I gently placed traction on the bowel and was able to sharply divide this adhesion well away from the bowel. The bowel was then reinspected and I found a clear transition to decompressed bowel distally from this point?confirming that we had identified the point of obstruction. I then returned to the right lower quadrant to reinspected bowel for any unnoticed injury with the first inspection. I identified the 2 areas of now?lysed adhesions and elected to place medium?size Weck Hem-o-julieta clips across these adhesions in a parallel fashion so as to avoid any proximity to the serosa but also seal against any potential leak risk. The pneumoperitoneum was thus released and the fascia of the 12 mm port site was closed in a [id number] fashion using 0 Vicryl suture. Additional local anesthetic was infiltrated above the fascia. Lastly the skin was closed with a subcuticular technique using 4-0 Monocryl. The two 5 mm port sites in the left lower quadrant were, likewise, closed with the same 4-0 Monocryl suture in a subcuticular technique. OpSite dressings were applied and the patient was extubated and taken to PACU for ongoing recovery. Patient's nasogastric tube remained in place following extubation. Complications None Admit VTE Documentation VTE Mechan Device Prophylaxis: SCD's Procedures Digestive [id number]-49xxx: Other Procedure See Notes (CPT 78897 diagnostic laparoscopy with)
[2023-08-15] MEDS: Lactated Ringers 1,000 ML 15 ML IV (18:38)
[2023-08-16] MEDS: HYDROmorphone 0.5 MG/0.5 ML SYRINGE IV ×5 (02:43→22:25)
[2023-08-16 03:00] VITALS: BP 130/73; PULSE 71; RESP 18; TEMP 36.4; O2SAT 95
[2023-08-16 03:16] VITALS: BP 130/73; PULSE 71; RESP 18; TEMP 36.4; O2SAT 95
[2023-08-16] MEDS: Lactated Ringers 1,000 ML 125 ML IV ×3 (03:43→16:59)
[2023-08-16 06:41] VITALS: BP 128/72; PULSE 64; RESP 18; TEMP 36.6; O2SAT 94
[2023-08-16 07:55] LABS: Absolute Lymphocyte Count 0.98 X10^3/uL (0.83-4.51); Basophil# 0.02 X10^3/uL; Basophil% 0.4 % (0-1); Hematocrit 34.8 % (37-47); Hemoglobin 11.7 g/dL (12.0-15.0); Lymphocyte # 0.98 X10^3/ul (0.83-4.51); Lymphocyte % 21.6 % (19-41); Mean Corp Hgb Conc 33.6 g/dL (32-36); Mean Corpuscular Hgb 31.8 pg (27.0-32.0); Mean Corpuscular Volume 94.6 fL (81-99); Mean Platelet Vol. 9.8 fl (6.2-12.0); NRBC Flagged by Analyzer 0 % (0-5); Neutrophil # 3.01 X10^3/uL (2.7-7.7); Neutrophil % 66.6 % (47-70); Platelet Count 262 K/mm3 (150-450); RBC Distribution Width CV 12.5 % (11.6-14.6); RBC Distribution Width SD 43.9 fl (35.1-43.9); Red Blood Count 3.68 M/mm3 (4.2-5.4); White Blood Count 4.5 K/mm3 (4.4-11.0)
[2023-08-16 08:30] LABS: Anion Gap 7 (5-15); BUN 11 mg/dL (7-18); BUN/Creat Ratio 20.4 RATIO (10-20); Calcium,Total 8.2 mg/dL (8.5-10.1); Chloride 109 mmol/L (98-107); Creatinine, Serum 0.54 mg/dL (0.55-1.02); EST Glomerular Filtration Rate 125 mL/min (>60); Est Glom Filt Rate - Afr Amer 152 mL/min (>60); Estimated Creatinine Clearance 96.79 ml/min; Glucose 105 mg/dL (74-106); Potassium 3.9 mmol/L (3.5-5.1); Sodium Level 138 mmol/L (136-145)
[2023-08-16 08:38] VITALS: BP 124/69; PULSE 82; RESP 16; TEMP 36.9; O2SAT 97
[2023-08-16] MEDS: Pantoprazole Sodium 40 MG in 0.9% Normal Saline (100mL MB+) 100 ML 330 MG IV (08:43)
--- NOTE | 2023-08-16 10:56 | PCM.PN.SRG ---
Subjective Subjective Patient is a 53 y/o F I am following in conjunction with Dr. Martins. Patient notes feeling much improved this morning. She notes mild abdominal soreness. She has passed flatus and had multiple bowel movements over night. She denies any nausea or vomiting over night. Objective Data Objective Data Vital Signs: Vital Signs Temp Pulse Resp BP Pulse Ox O2 Del Method 98.5 F 82 16 124/69 H 97 Room Air 08/16/23 08:38 08/16/23 08:38 08/16/23 08:38 08/16/23 08:38 08/16/23 08:38 08/16/23 08:38 Oxygen Delivery Method Room Air Weight: 130 lb Body Mass Index (BMI) 25.4 Intake & Output: Intake and Output for Last 24 Hours 08/14/23 08/15/23 08/16/23 23:59 23:59 23:59 Intake Total 3024.58 / 3044.58 2324.75 / 2324.75 1739.58 / 1739.58 Output Total 1300 / 1300 750 / 750 340 / 340 Balance 1724.58 / 1744.58 1574.75 / 1574.75 1399.58 / 1399.58 Lab / Micro Data 08/16/23 07:35 08/16/23 07:35 Labs: Laboratory Results - last 24 hr 08/16/23 07:35: WBC 4.5, RBC 3.68 L, Hgb 11.7 L, Hct 34.8 L, MCV 94.6, MCH 31.8, MCHC 33.6, RDW Std Deviation 43.9, RDW Coeff of Miguel 12.5, Plt Count 262, MPV 9.8, Immature Gran % (Auto) 0.400, Neut % (Auto) 66.6, Lymph % (Auto) 21.6, [place] % (Auto) 11.0 H, Eos % (Auto) 0.0, Baso % (Auto) 0.4, Absolute Neuts (auto) 3.0, Absolute Lymphs (auto) 0.98, Nucleated RBC % 0, Sodium 138, Potassium 3.9, Chloride 109 H, Carbon Dioxide 22.0, Anion Gap 7, BUN 11, Creatinine 0.54 L, Estim Creat Clear Calc 96.79, Est GFR (MDRD) Af Amer 152, Est GFR (MDRD) Non-Af 125, BUN/Creatinine Ratio 20.4 H, Glucose 105, Calcium 8.2 L Physical Exam HEENT HEENT Narrative: NG tube intact GI GI Narrative: Abdomen- soft, minimal amount of soreness with palpation. Positive bowel sounds. Incisions c/d/i. No erythema or infection noted. Assessment & Plan Assessment/Plan (1) Abdominal pain: QUALIFIERS: Abdominal location: generalized Qualified Code(s): R10.84 - Generalized abdominal pain (2) Small bowel obstruction: PLAN: Plan I have evaluated this patient in conjunction with Dr. Martins. S/p day #1 Diagnostic laparoscopy with extensive lysis of adhesions. Plan to perform clamping trial this morning. Hopeful removal of NG tube later today pending results Patient to be up in the chair the entire 4 hours of the clamping trial. She may also ambulate in the hallway during the trial. I would encourage ambulation into the hallway multiple times today. encourage I.S. If NG tube is to be removed later, we will plan to start clear liquids Labs reviewed We will continue to closely monitor this patient Charges/Coding Visit Charges Inpatient E&M: 05492 Subs Hosp L1 (no charge; post-op)
[2023-08-16] MEDS: Phenol/Sodium Phenolate 180ML 3 SPRAY MUCOUS MEM (13:30)
[2023-08-16] MEDS: 0.9% Saline Lock 10 ML Syringe IV ×3 (13:30→22:28)
[2023-08-16 15:00] VITALS: BP 123/67; PULSE 76; RESP 16; TEMP 37.1; O2SAT 99
[2023-08-16 23:55] VITALS: BP 128/71; PULSE 76; RESP 18; TEMP 36.6; O2SAT 94
[2023-08-17 00:03] VITALS: BP 128/71; PULSE 76; RESP 18; TEMP 36.6; O2SAT 94
[2023-08-17] MEDS: Lactated Ringers 1,000 ML 125 ML IV ×3 (01:14→18:53)
[2023-08-17] MEDS: LORazepam 2 MG/ML Syringe 0.5 MG IV (02:27)
[2023-08-17] MEDS: HYDROmorphone 0.5 MG/0.5 ML SYRINGE IV ×2 (02:28→06:31)
[2023-08-17] MEDS: 0.9% Saline Lock 10 ML Syringe IV ×2 (02:30→06:32)
[2023-08-17 06:00] VITALS: BP 160/85; PULSE 69; RESP 16; TEMP 36.2; O2SAT 95
--- NOTE | 2023-08-17 07:00 | RAD_ITS ---
EXAM: XR ABDOMEN, 1 VIEW CLINICAL INDICATION: f/u SBO and position of NG tube TECHNIQUE: Frontal supine view of the abdomen/pelvis. COMPARISON: No relevant prior studies available. FINDINGS: GASTROINTESTINAL TRACT: Faint contrast throughout the large bowel and rectum. No evidence of bowel obstruction. ORGANS: No organomegaly. BONES/JOINTS: No acute abnormality. TUBES, LINES AND DEVICES: Tip of the endogastric tube is at the level of the second portion of the duodenum. RAD/Abdomen Single View (Portable) IMPRESSION: Endogastric tube tip at the second portion of the duodenum. Electronically Signed: Luis Nunez MD at 8:28 EST ,
--- NOTE | 2023-08-17 07:07 | PCM.PN.SRG ---
Subjective Subjective Patient seen and examined during AM rounds. I was actually notified by nursing overnight that patient had anxiety issues with her nasogastric tube and she reports that she nearly pulled the tube out herself before she was able to talk herself down. I observed that she had significantly more output overnight that appeared bilious in character. Unfortunately, Mrs. Lewis admits that she cheated and took additional ice chips and some Jell-O overnight. Her does confirm that she had another bowel movement overnight. Objective Data Objective Data Vital Signs: Vital Signs Temp Pulse Resp BP Pulse Ox O2 Del Method 97.2 F L 69 16 160/85 H 95 Room Air 08/17/23 06:00 08/17/23 06:00 08/17/23 06:00 08/17/23 06:00 08/17/23 06:00 08/17/23 06:00 Oxygen Delivery Method Room Air Weight: 130 lb Body Mass Index (BMI) 25.4 Intake & Output: Intake and Output for Last 24 Hours 08/15/23 08/16/23 08/17/23 23:59 23:59 23:59 Intake Total 2324.75 / 2324.75 2814.16 / 2814.16 1000 / 1000 Output Total 750 / 750 1020 / 1020 Balance 1574.75 / 1574.75 1794.16 / 1794.16 1000 / 1000 Lab / Micro Data 08/17/23 07:00 08/17/23 07:00 Labs: Laboratory Results - last 24 hr 08/16/23 07:35: WBC 4.5, RBC 3.68 L, Hgb 11.7 L, Hct 34.8 L, MCV 94.6, MCH 31.8, MCHC 33.6, RDW Std Deviation 43.9, RDW Coeff of Miguel 12.5, Plt Count 262, MPV 9.8, Immature Gran % (Auto) 0.400, Neut % (Auto) 66.6, Lymph % (Auto) 21.6, [place] % (Auto) 11.0 H, Eos % (Auto) 0.0, Baso % (Auto) 0.4, Absolute Neuts (auto) 3.0, Absolute Lymphs (auto) 0.98, Nucleated RBC % 0, Sodium 138, Potassium 3.9, Chloride 109 H, Carbon Dioxide 22.0, Anion Gap 7, BUN 11, Creatinine 0.54 L, Estim Creat Clear Calc 96.79, Est GFR (MDRD) Af Amer 152, Est GFR (MDRD) Non-Af 125, BUN/Creatinine Ratio 20.4 H, Glucose 105, Calcium 8.2 L Physical Exam Const Constitutional Narrative: Patient appears in distress with anxiety Resp normal respiratory effort GI GI Narrative: Decreased abdominal distention, the abdomen is minimally distended at this point and tender to palpation just about the incisions. Nasogastric tube output is thin but bilious in character Assessment & Plan Assessment/Plan (1) Abdominal pain: QUALIFIERS: Abdominal location: generalized Qualified Code(s): R10.84 - Generalized abdominal pain (2) Small bowel obstruction: PLAN: Plan Postoperative day 2 diagnostic laparoscopy with extensive lysis of adhesions. NG tube output volume and character of both unreliable today given that patient's NG tube tip has migrated into the duodenum and her volume calculations are impossible given the unknown volume of intake that she had overnight despite being instructed otherwise. Therefore, I reiterated the risk of potentially needing to replace her tube and abided by her wish to remove it at bedside. She is to be 4 hours without anything to eat or drink?including ice chips. If she does well without nausea through this time we will begin clear liquids. Plan to replace potassium based on hypokalemia from labs this a.m. Continue to encourage ambulation into the hallway multiple times today. encourage I.S. Charges/Coding Visit Charges Inpatient E&M: 64584 Subs Hosp L2
[2023-08-17 07:42] LABS: Absolute Lymphocyte Count 1.57 X10^3/uL (0.83-4.51); Absolute Neutrophil Count 4.5 X10^3/uL (2.0-7.7); Basophil# 0.03 X10^3/uL; Basophil% 0.4 % (0-1); Eosinophil# 0.07 X10^3/uL; Hematocrit 32.9 % (37-47); Hemoglobin 10.7 g/dL (12.0-15.0); Lymphocyte # 1.57 X10^3/ul (0.83-4.51); Lymphocyte % 22.6 % (19-41); Mean Corp Hgb Conc 32.5 g/dL (32-36); Mean Corpuscular Volume 95.4 fL (81-99); Mean Platelet Vol. 9.8 fl (6.2-12.0); Monocyte# 0.76 X10^3/uL; NRBC Flagged by Analyzer 0 % (0-5); Neutrophil # 4.46 X10^3/uL (2.7-7.7); Neutrophil % 64.3 % (47-70); Platelet Count 272 K/mm3 (150-450); RBC Distribution Width CV 12.6 % (11.6-14.6); RBC Distribution Width SD 43.7 fl (35.1-43.9); Red Blood Count 3.45 M/mm3 (4.2-5.4); White Blood Count 6.9 K/mm3 (4.4-11.0)
[2023-08-17 08:16] LABS: Anion Gap 5 (5-15); BUN 10 mg/dL (7-18); BUN/Creat Ratio 21.3 RATIO (10-20); Calcium,Total 8.2 mg/dL (8.5-10.1); Chloride 107 mmol/L (98-107); Creatinine, Serum 0.47 mg/dL (0.55-1.02); EST Glomerular Filtration Rate 148 mL/min (>60); Est Glom Filt Rate - Afr Amer 179 mL/min (>60); Glucose 84 mg/dL (74-106); Potassium 3.2 mmol/L (3.5-5.1); Sodium Level 137 mmol/L (136-145)
[2023-08-17] MEDS: Pantoprazole Sodium 40 MG in 0.9% Normal Saline (100mL MB+) 100 ML 330 MG IV (09:10)
[2023-08-17] MEDS: Potassium Chloride 10mEq/100mL 10 MEQ/100 ML IV.SOLN. 100 MEQ IV BOLUS ×4 (09:10→13:08)
[2023-08-17 10:31] VITALS: BP 160/93; PULSE 86; RESP 18; TEMP 36.9; O2SAT 97
[2023-08-17 16:12] VITALS: BP 135/92; PULSE 84; RESP 18; TEMP 36.8; O2SAT 96
[2023-08-17 21:30] VITALS: BP 133/79; PULSE 80; RESP 16; TEMP 36.5; O2SAT 98
[2023-08-18] MEDS: Lactated Ringers 1,000 ML 125 ML IV (03:00)
[2023-08-18 03:30] VITALS: BP 129/70; PULSE 80; RESP 17; TEMP 36.8; O2SAT 94
[2023-08-18 08:13] VITALS: BP 136/79; PULSE 82; RESP 16; TEMP 36.7; O2SAT 97
[2023-08-18] MEDS: Pantoprazole Sodium 40 MG in 0.9% Normal Saline (100mL MB+) 100 ML 330 MG IV (08:30)
--- NOTE | 2023-08-18 09:33 | PCM.DC.SUM ---
Providers Date of Admission: 08/14/23 Primary Care Physician: Dr. April Davalos DO Reason For Visit: SMALL BOWEL OBSTRUCTION Diagnosis Discharge Diagnosis (1) Abdominal pain: Status: Acute Code(s): R10.9 - Unspecified abdominal pain Qualifiers: Abdominal location: generalized Qualified Code(s): R10.84 - Generalized abdominal pain (2) Small bowel obstruction: Status: Acute Code(s): K56.609 - Unspecified intestinal obstruction, unspecified as to partial versus complete obstruction Medications at Discharge Home Medications epinephrine 0.3 mg/0.3 mL injection, auto-injector (EpiPen) 0.3 mg (0.3 mL) IM Q5-15M PRN hypersensitivity reaction #2 ea 07/21/20 multivitamin 1 tab PO DAILY vitamin 04/03/22 dextroamphetamine-amphetamine 20 mg tablet 20 mg PO 1200 adhd 07/13/23 dextroamphetamine-amphetamine ER 20 mg 24hr capsule,extend release 20 mg PO 0500 adhd 07/13/23 ascorbic acid (vitamin C) 500 mg capsule 500 mg PO DAILY 08/13/23 polyethylene glycol 3350 17 gram/dose oral powder (Miralax) 17 g PO DAILY PRN constipation 08/13/23 progesterone micronized 100 mg capsule 100 mg PO DAILY 08/13/23 oxycodone 5 mg tablet 5 - 10 mg (1 - 2 x 5 mg) PO Q6H PRN pain 5 days #15 tabs 08/18/23 Hospital Course Summary of Care Provided Hospital Course: Patient was admitted with recurrent small bowel obstruction. She had a small bowel follow-through which she was not able to tolerate and her NG had to be put back to suction. The following day she was still having copious bilious NG output. She was taken for surgery and had laparoscopy and laparoscopic adhesion takedown. The following day she was doing well and her NG was minimal. That evening her NG was removed. She started on clear liquids last night and she is tolerating clears. I will advance her to regular diet as long as she tolerates this I will discharge her home. Physical Exam Const oriented x3 and no apparent distress Resp normal respiratory effort GI soft to palpation and non-tender Weight / BMI Weight Weight: 130 lb Body Mass Index (BMI) 25.4 ABG / Lab / Microbiology Data 08/17/23 07:00 08/17/23 07:00 D/C Instructions Discharge Diet: Light diet - advance as tolerated Discharge Activity: May Drive (in 2-3 days) and May Shower Lifting Restrictions: 15 lbs for 2 weeks Call your doctor if your incision/area has: Continuous Slow Oozing, Sudden Increased Bleeding, Increased Pain/ Swelling, Increased Redness, Foul Smelling Discharge and Swelling at the incision site Call your doctor if you observe: Fever of 101 or Higher Remove Dressing in: 1 day (Remove clear bandage tomorrow, remove steri strips in 7-10 days) Please Follow Up With: Xavi Martins MD When: Please call to schedule 2 week follow up appointment. [phone] Meaningful Use Info Meaningful Use Diagnoses (Choose all that apply): None applicable Discharge Plan Admission Admit Date/Time: 08/14/23 13:35 Attending Provider: Xavi Martins Primary Care Provider: April Davalos Discharge Orders/Prescriptions Prescriptions: New oxycodone 5 mg tablet 5 - 10 mg PO Q6H PRN (Reason: pain) 5 Days Qty: 15 0RF Continued epinephrine [EpiPen] 0.3 mg/0.3 mL auto-injector 0.3 mg IM Q5-15M PRN (Reason: hypersensitivity reaction) Qty: 2 3RF Rx Instructions: do not exceed 3 doses per episode multivitamin Tablet 1 tab PO DAILY progesterone micronized 100 mg capsule 100 mg PO DAILY Patient Comments: TAKE 1 CAPSULE BY MOUTH AT BEDTIME EVERY DAY ascorbic acid (vitamin C) 500 mg capsule 500 mg PO DAILY polyethylene glycol 3350 [Miralax] 17 gram/dose powder 17 g PO DAILY PRN (Reason: constipation) dextroamphetamine-amphetamine 20 mg capsule,extended release 24hr 20 mg PO 0500 Patient Comments: TAKE 1 CAPSULE BY MOUTH EVERY DAY AT 5AM dextroamphetamine-amphetamine 20 mg tablet 20 mg PO 1200 Patient Comments: TAKE 1 TABLET BY MOUTH EVERY DAY AT NOON Discontinued amoxicillin-pot clavulanate 875-125 mg tablet 1 tab PO Q12H Referrals / Follow Up: April Davalos DO [Primary Care Provider] - Disposition Disposition (needs filled in before D/C Order can be placed): Home, Self Care
== END 2023-08-18 10:50 | disposition home or self-care (01) | DRG 337 ==
LOC: ED 07:56 → PCU 11:05
PROVIDERS: Physician Assistant; Admitting Provider Surgery; Emergency Provider Emergency Medicine; PCP Internal Medicine; Visit Provider Surgery
PROC: 0DNV4ZZ Release Mesentery, Percutaneous Endoscopic Approach (ICD-10-PCS; CPT 49320; principal; 2023-08-15 16:30)
DX: K56.50 Intestinal adhesions [bands], unspecified as to partial versus complete obstruction (principal); E87.6 Hypokalemia; F17.210 Nicotine dependence, cigarettes, uncomplicated; N73.6 Female pelvic peritoneal adhesions (postinfective); Z90.49 Acquired absence of other specified parts of digestive tract; Z87.19 Personal history of other diseases of the digestive system
CPT/HCPCS: 36415; 74018; 74176; 74250; 80048; 80053; 83605; 83690; 83735; 84100; 85025; 99285; J7030; J7040; J7120; A4216; J2405; J3490

== ENCOUNTER 2024-09-30 09:13 | Inpatient (IN) | payer OTHER, SELFPAY ==
[2024-09-30] VITALS (14 sets, daily range): BP systolic 96–163; BP diastolic 70–96; PULSE 70–112; RESP 13–18; TEMP 36.1–36.8; O2SAT 94–100; BMI 25.3; BMI 27.1
--- NOTE | 2024-09-30 09:19 | ED.VIS.GI ---
HPI HPI - GI History of Present Illness Chief Complaint: Abd Pain Informant: patient Abdominal Pain/Flank Pain Onset: Yesterday Context: Gradual Onset Timing: Continuous Quality: Aching, Cramping and Sharp Location: Diffuse Worsened by: Nothing Relieved by: Nothing Nausea/Vomiting/Emesis GI Symptom: Positive for Nausea and Vomiting Onset: Yesterday Quality: Negative for Blood streaks, Coffee ground or Hematemesis Diarrhea/Melena/Hematochezia GI Symptom: Negative for Diarrhea, Melena or Hematochezia Associated Symptoms Associated Symptoms: Positive for Frequency; Negative for Dysuria, Hematuria or Urgency Narrative Narrative: Patient presents with abdominal pain that began yesterday. Patient states it is gradually gotten worse. Patient states it has been constant. Patient describes the pain as cramping, aching, and sharp. Patient states her pain is diffuse across her abdomen. Patient states it feels similar to pain she had with prior adhesions causing bowel obstructions. Patient states nothing makes it better and nothing makes it worse. Patient admits to some nausea and vomiting. Patient denies any hematemesis or coffee-ground emesis. Patient denies any diarrhea, melena, or hematochezia. Patient admits to some urinary frequency but denies any dysuria or hematuria. Patient admits to some subjective chills and fevers. Patient states her pain radiates into her lower back. [facility] Medical History Post-menopausal Anxiety Alcohol use History of diverticulitis Former smoker Leg cramps PONV (postoperative nausea and vomiting) Screening for malignant neoplasm of intestine Depressive disorder, not elsewhere classified Hives Ileostomy present History of small bowel obstruction (~08/2019) Anemia Diverticulitis Home Medications ?Medication ?Instructions ?Recorded ?Last Taken ?Type epinephrine 0.3 mg/0.3 mL 0.3 mg (0.3 mL) IM Q5-15M PRN 07/21/20 Unknown Rx injection, auto-injector (EpiPen) hypersensitivity reaction #2 ea multivitamin 1 tab PO DAILY vitamin 04/03/22 09/29/24 History dextroamphetamine-amphetamine 20 20 mg PO 1200 adhd 07/13/23 09/29/24 History mg tablet dextroamphetamine-amphetamine ER 20 mg PO 0500 adhd 07/13/23 09/29/24 History 20 mg 24hr capsule,extend release polyethylene glycol 3350 17 17 g PO DAILY PRN constipation 08/13/23 08/12/23 History gram/dose oral powder (Miralax) cefdinir 300 mg capsule 300 mg PO BID 09/30/24 09/29/24 History fluconazole 100 mg tablet 100 mg PO DAILY 09/30/24 09/29/24 History progesterone micronized 200 mg 200 mg PO QHS 09/30/24 09/29/24 History capsule Allergy/AdvReac Type Severity Reaction Status Date / Time bee pollen Allergy Swelling Verified 09/30/24 09:13 promethazine (From Phenergan) Allergy Other Verified 09/30/24 09:13 Family History Unknown Asthma Mother Cancer Asthma Heart disease COPD (chronic obstructive pulmonary disease) Surgical History history of ostomy reversal (~01/2020) History of colectomy (~08/2019) H/O colonoscopy H/O section Social History household members: family number of children: 4 current occupational status: employed Smoking Status: Current every day smoker tobacco type: cigarettes second hand exposure: No alcohol intake: current details: Glass of wine 3x a weeks substance use type: does not use caffeine: Yes what type of physical activity do you participate in: none seatbelt use: always do you feel safe at home: Yes 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 ROS ROS ED Constitutional Constitutional ED: Reports chills and fever(s) Eyes Eyes: Denies blurry vision or change in vision ENT ENT ED: Denies rhinorrhea or sore throat Cardiovascular Cardiovascular: Denies chest pain or palpitations Respiratory/Chest Respiratory/Chest: Denies cough or dyspnea Gastrointestinal Gastrointestinal: Reports abdominal pain, nausea and vomiting Genitourinary Genitourinary ED: Denies dysuria or hematuria Musculoskeletal Musculoskeletal: Reports back pain; Denies neck pain Integumentary Denies abscess or rash Neurologic Neurologic: Reports headache(s); Denies weakness Allergic/Immunologic Allergic/Immunologic ED: Denies mouth swelling or urticaria EXAM Physical Exam Const Vital Signs: 09/30/24 09:14 09/30/24 10:47 09/30/24 11:29 Temperature 96.9 F L 97.5 F L Temperature Source Temporal Oral Pulse Rate 93 70 74 Respiratory Rate 14 16 18 Blood Pressure 117/82 H 163/96 H 126/85 H Blood Pressure Mean 93 118 98 Pulse Ox 98 97 96 Oxygen Delivery Method Room Air Room Air Room Air Positive well nourished and well developed General Appearance ED: well developed and NAD HEENT Reports moist mucous membranes Neck supple and no JVD Resp normal respiratory effort and clear to auscultation bilaterally Cardio regular rate and regular rhythm GI non-distended Palpation: soft and tender epigastric, LLQ, RLQ, LUQ, RUQ, periumbilical and suprapubic; Negative for guarding or rebound tenderness present Neuro CN's II-XII intact bilaterally, moves all extremities and no sensory deficits noted Sensorium / Orientation: alert Motor Exam: strength 5/5 throughout Psych mental status grossly normal MDM MDM MDM Narrative Medical decision making narrative: Differential diagnosis includes bowel obstruction, perforation, gastroenteritis, peptic ulcer disease, duodenal ulcer, cholecystitis, cholelithiasis, pancreatitis, urinary tract infection, and electrolyte abnormality. CBC will be obtained to assess for leukocytosis and anemia. Comprehensive metabolic profile will be obtained to assess for electrolyte abnormality and renal function. Lipase will be obtained to assess for pancreatitis. Urinalysis will be obtained to assess for urinary tract infection and hematuria. CT scan of the abdomen and pelvis will be obtained to assess for bowel obstruction and perforation. Lab Data Attestation: I reviewed the patient's lab results. Lab results narrative: CBC was reviewed. There is a leukocytosis of 16.5. The remainder was essentially within normal limits. Comprehensive metabolic profile was reviewed and showed a slightly elevated glucose of 123. The remainder was within normal limits. Lipase was reviewed and was slightly elevated at 80. Urinalysis was reviewed. There is no evidence of urinary tract infection or hematuria. Labs: Laboratory Results - last 24 hr 09/30/24 09/30/24 09:39 10:44 WBC 16.5 H RBC 4.98 Hgb 15.7 H Hct 46.4 MCV 93.2 MCH 31.5 MCHC 33.8 RDW Std Deviation 43.8 RDW Coeff of Miguel 12.7 Plt Count 359 MPV 9.5 Immature Gran % (Auto) 0.400 Neut % (Auto) 86.2 H Lymph % (Auto) 8.9 L [place] % (Auto) 4.1 Eos % (Auto) 0.2 Baso % (Auto) 0.2 Absolute Neuts (auto) 14.2 H Absolute Lymphs (auto) 1.47 Nucleated RBC % 0 Sodium 136 Potassium 4.7 Chloride 99 Carbon Dioxide 22.7 Anion Gap 14 BUN 10 Creatinine 0.86 Estim Creat Clear Calc 60.04 Est GFR (MDRD) Non-Af 80 BUN/Creatinine Ratio 11.8 Glucose 123 H Calcium 11.0 Total Bilirubin 0.39 AST 28 ALT 26 Alkaline Phosphatase 88 Total Protein 8.5 H Albumin 5.2 H Globulin 3.4 Albumin/Globulin Ratio 1.5 Lipase 80 H Urine Color Yellow Urine Clarity Sl. Cloudy Urine pH 7.0 Ur Specific [place] 1.010 Urine Protein 15 H Urine Glucose (UA) Normal Urine Ketones Negative Urine Occult Blood 150 H Urine Nitrite Negative Urine Bilirubin Negative Urine Urobilinogen Normal Ur Leukocyte Esterase 25 H Urine RBC 0-5 SEEN Urine WBC 0-5 SEEN Ur Squamous Epith Cells 5-10 SEEN Urine Bacteria 1+ Urine Mucus 0 SEEN Radiography Diagnostic Testing: Clinical Impression(s) from Imaging Studies Abdomen/Pelvis CT 09/30/24 10:35 IMPRESSION: 1. Findings compatible with a complex mid to distal small bowel obstruction, including evidence of a closed loop obstruction with upstream simple mechanical obstruction. Notably, there is no definite imaging evidence of current bowel inflammation/ischemia however the patient is at risk for this. Correlate with serum lactate and recommend close clinical follow-up including surgical consultation. Note additionally that the stomach and proximal small bowel are currently decompressed. 2. Recommend updated outpatient out mammograms for above breast findings. 3. Additional description as above. Reading Location: [facility] CT scan of the abdomen and pelvis was obtained. There is a complex mid to distal small bowel obstruction. There is no perforation. There is no free air or free fluid. This was interpreted by the radiologist and was also independently reviewed by myself. Management Discussion w/another healthcare provider: Measurement Specialist Treatment and Re-Evaluation :: Patient was given IV fluids, morphine, and Zofran. Patient was given a dose of Dilaudid. Patient is feeling better on reevaluation. Patient was advised of her findings. Patient was advised of the need for NG tube placement. Initially, patient declined however, patient was agreeable with this. Case was discussed with general surgery, Dr. Vidales. He will admit the patient to his service. Patient and family understood and were agreeable with the plan. All questions were answered. Discharge Plan Triage Chief Complaint: Abd Pain ED Provider: Flash Calderon Dx/Rx/DC Orders Clinical Impression: Small bowel obstruction due to adhesions, Leukocytosis Prescriptions: No Action epinephrine [EpiPen] 0.3 mg/0.3 mL auto-injector 0.3 mg IM Q5-15M PRN (Reason: hypersensitivity reaction) Qty: 2 3RF Rx Instructions: do not exceed 3 doses per episode multivitamin Tablet 1 tab PO DAILY progesterone micronized 100 mg capsule 100 mg PO DAILY Patient Comments: TAKE 1 CAPSULE BY MOUTH AT BEDTIME EVERY DAY ascorbic acid (vitamin C) 500 mg capsule 500 mg PO DAILY polyethylene glycol 3350 [Miralax] 17 gram/dose powder 17 g PO DAILY PRN (Reason: constipation) dextroamphetamine-amphetamine 20 mg capsule,extended release 24hr 20 mg PO 0500 Patient Comments: TAKE 1 CAPSULE BY MOUTH EVERY DAY AT 5AM dextroamphetamine-amphetamine 20 mg tablet 20 mg PO 1200 Patient Comments: TAKE 1 TABLET BY MOUTH EVERY DAY AT NOON norethindrone acetate 5 mg tablet 5 mg PO .COMPLEX Qty: 30 0RF Rx Instructions: 5 mg PO BID x 3 days and then once daily for remainder Primary Care Provider: April Davalos Referrals: April Davalos DO [Primary Care Provider] - Print Language: [place]i Disposition Disposition: Acute Care Hospital [facility]
[2024-09-30] MEDS: Morphine 4 MG/ML Syringe IV (09:38)
[2024-09-30] MEDS: 0.9% Normal Saline (1000mL) 1,000 ML 999 ML IV (09:38)
[2024-09-30] MEDS: Ondansetron 4 MG/2 ML Vial IV (09:38)
[2024-09-30 09:44] LABS: Absolute Lymphocyte Count 1.47 X10^3/uL (0.83-4.51); Absolute Neutrophil Count 14.2 X10^3/uL (2.0-7.7); Basophil# 0.04 X10^3/uL; Basophil% 0.2 % (0-1); Eosinophil# 0.04 X10^3/uL; Eosinophils% 0.2 % (0-5); Hematocrit 46.4 % (37-47); Hemoglobin 15.7 g/dL (12.0-15.0); Lymphocyte # 1.47 X10^3/ul (0.83-4.51); Lymphocyte % 8.9 % (19-41); Mean Corp Hgb Conc 33.8 g/dL (32-36); Mean Corpuscular Hgb 31.5 pg (27.0-32.0); Mean Corpuscular Volume 93.2 fL (81-99); Mean Platelet Vol. 9.5 fl (6.2-12.0); Monocyte# 0.67 X10^3/uL; Monocyte% 4.1 % (0-10); NRBC Flagged by Analyzer 0 % (0-5); Neutrophil # 14.21 X10^3/uL (2.7-7.7); Neutrophil % 86.2 % (47-70); Platelet Count 359 K/mm3 (150-450); RBC Distribution Width CV 12.7 % (11.6-14.6); RBC Distribution Width SD 43.8 fl (35.1-43.9); Red Blood Count 4.98 M/mm3 (4.2-5.4); White Blood Count 16.5 K/mm3 (4.4-11.0)
[2024-09-30 10:09] LABS: ALB/GLOB Ratio 1.5 RATIO (0.9-2.4); AST(SGOT) 28 U/L (<=31); Alanine Aminotransfer ALT/SGPT 26 U/L (<=34); Albumin, Serum 5.2 g/dL (3.5-5.0); Alkaline Phosphatase 88 U/L (35-104); Anion Gap 14 (5-15); BUN 10 mg/dL (4-19); BUN/Creat Ratio 11.8 RATIO (10-20); Carbon Dioxide 22.7 mmol/L (21.0-32.0); Chloride 99 mmol/L (98-108); Creatinine, Serum 0.86 mg/dL (0.70-1.20); EST Glomerular Filtration Rate 80 (>60); Estimated Creatinine Clearance 60.04 ml/min (50-250); Globulin 3.4 g/dL (2.2-4.2); Glucose 123 mg/dL (70-99); Lipase 80 U/L (13-75); Potassium 4.7 mmol/L (3.3-5.1); Protein, Total 8.5 g/dL (5.9-8.4); Sodium Level 136 mmol/L (133-145); Total Bilirubin 0.39 mg/dL (0.00-1.30)
--- NOTE | 2024-09-30 10:35 | CT_ITS ---
PROCEDURE: ABDOMEN/PELVIS W IV CONT ONLY 09/30/2024 REASON FOR EXAM: ABDOMINAL PAIN TECHNIQUE: CT abdomen and pelvis was performed with intravenous contrast. Coronal and sagittal reformats were generated. PATIENT PREPARATION: Per protocol ORAL CONTRAST TYPE: None. CONTRAST: Isovue-300 VOLUME: 95mL One or more dose reduction techniques were used (e.g., Automated exposure control, adjustment of the mA and/or kV according to patient size, use of iterative reconstruction technique. RADIATION DOSE SUMMARY: CTDlvol: 24.3 mGy DLP: 496.4 mGycm COMPARISON: 08/13/2023 FINDINGS: Lung bases: Minimal atelectasis/scarring. .Small nodular foci of the bilateral breasts up to 6 mm on the left are not well evaluated by CT. Granuloma in the right lung base. Liver: Few tiny hypodensities are too small to characterize, likely cysts or hemangiomas in the absence of known malignancy. Spleen: Unremarkable. Gallbladder: Unremarkable. Pancreas: Unremarkable. Adrenals: Unremarkable. Kidneys: Tiny hypodensity in the left too small to characterize, likely a cyst. Bowel: Previous small and large bowel resection. Stomach/proximal small bowel as well as the distal small bowel are decompressed. Prominent fluid dilatation of mid small bowel loops greatest at the level of the anastomosis, up to 6.6 cm, and 3.5 cm elsewhere. 2 discrete nearby transition points are identified within the left lower quadrant in an area of distorted bowel at operative changes (series 2, image 84 and images 86-87). Mild upstream dilatation from the dilated bowel segment, gradual tapering. No convincing inflammation or definite hypoenhancing loops. Mild diverticulosis. Normal caliber appendix. Lymph nodes: Unremarkable. Vasculature: Atherosclerosis. Mildly prominent [id number]-waud-right periuterine veins. Peritoneum: Unremarkable. Bladder: Underdistended and suboptimally evaluated, grossly unremarkable. Reproductive Organs: Likely cervical nabothian cysts. Body Wall: Operative changes. Tiny fat containing periumbilical hernia.. Bones: Mild spondylosis.. CT/Abdomen/Pelvis W IV Cont ONLY IMPRESSION: 1. Findings compatible with a complex mid to distal small bowel obstruction, in cluding evidence of a closed loop obstruction with upstream simple mechanical obstruction. Notably, there is no definite imaging evidence of current bowel inflammation/ischemia however the patient is at risk for this. Correlate with serum lactate and alonso mmend close clinical follow-up including surgical consultation. Note additionally that the stomach and proximal small bowel are currently decompressed. 2. Recommend updated outpatient out mammograms for above breast findings. 3. Additional description as above. Reading Location: [id number]
[2024-09-30] MEDS: HYDROmorphone 1 MG/ML Syringe 0.5 MG IV (10:44)
[2024-09-30 10:49] LABS: Mucous, Urine 0 SEEN /hpf (<or=2+)
[2024-09-30 10:58] LABS: Color, Urine Yellow (Yellow); Glucose, Dipstick Normal (Normal); Ketone-Dipstick Negative (Negative); Leukocyte Esterase-Dipstick 25 /ul (Negative); Nitrite-Dipstick Negative (Negative); Occult Blood-Urine 150 /ul (Negative); Protein-Dipstick 15 mg/dl (Negative); Urine Bilirubin Dipstick Negative (Negative); Urine Clarity Sl. Cloudy (Clear); Urine Urobilinogen Normal (Normal)
[2024-09-30 11:22] LABS: White Blood Cells 0-5 SEEN /hpf (0-5)
[2024-09-30 11:23] LABS: Red Blood Cells-Urine 0-5 SEEN /hpf (0-5); Squamous Epithelial Cells - UA 5-10 SEEN /hpf (5-10)
[2024-09-30 11:24] LABS: Bacteria 1+ /hpf (None Seen)
[2024-09-30] MEDS: Oxymetazoline 0.05% 1 SPRAY SPRAY.BTL 2 SPRAY NASAL (12:20)
[2024-09-30] MEDS: Lidocaine 2% Jelly 1 APPLIC Tube TOPICAL (12:20)
[2024-09-30] MEDS: HYDROmorphone 0.5 MG/0.5 ML SYRINGE IV (12:38)
--- NOTE | 2024-09-30 12:45 | RAD_ITS ---
PROCEDURE: ABDOMEN SINGLE VIEW (PORTABLE) 09/30/2024 REASON FOR EXAM: NG INSERTION TECHNIQUE: Single view abdomen. COMPARISON: None FINDINGS: Bowel gas: Bowel gas pattern is remarkable for mild constipation. No evidence of bowel obstruction. Calcifications: No suspicious calcifications. The tip of the nasogastric tube is in the body of the stomach. RAD/Abdomen Single View (Portable) IMPRESSION: The tip of the nasogastric tube is in the body of the stomach. Moderate amount of fecal material is seen in the colon. Reading Location: [place] [id number]
[2024-09-30] MEDS: 0.9% Normal Saline (1000mL) 1,000 ML 120 ML IV ×2 (14:27→22:23)
[2024-09-30] MEDS: 0.9% Saline Lock 10 ML Syringe IV (14:27)
--- NOTE | 2024-09-30 16:26 | PCM.PRE.AN2 ---
ASA Classification* ASA Classification ASA Classification: 3 and E Assessment & Plan Anesthesia* Anesthesia Assessment Anesthesia Assessment: Discussed sedation and/or anesthesia options, risks, benefits, and alternatives with patient/parents/legal guardian/POA. Questions invited. The patient/parents/legal guardian/POA seems to understand and agrees to proceed with anesthesia plan. Reviewed the physical assessment, medical history, allergy history and patient home medications list prior to surgery/procedure/anesthetic and documented any changes. Performed airway and anesthesia risk assessments. Anesthesia Type Anesthesia Type: General History Source History Obtained from:: Patient and Chart Anesthesia Focused Assessment* Temperature: 97.6 F Pulse Rate: 75 Blood Pressure: 162/88 Respiratory Rate: 18 Pulse Ox: 99 Airway Assessment Mouth opens: 2 cm Mallampati Score: III Teeth Condition: Intact Neck Range of motion (ROM): Full ROM Focused Labs Anesthesia Preop lab: CBC WBC 16.5 K/mm3 (4.4-11.0) H 09/30/24 09:39 09/30/24 RBC 4.98 M/mm3 (4.2-5.4) 09/30/24 09:39 09/30/24 Hgb 15.7 g/dL (12.0-15.0) H 09/30/24 09:39 09/30/24 Hct 46.4 % (37-47) 09/30/24 09:39 09/30/24 Plt Count 359 K/mm3 (150-450) 09/30/24 09:39 09/30/24 CHEMISTRY Potassium 4.7 mmol/L (3.3-5.1) 09/30/24 09:39 09/30/24 Sodium 136 mmol/L (133-145) 09/30/24 09:39 09/30/24 Magnesium 2.1 mg/dL (1.6-2.6) 08/14/23 07:42 08/14/23 Phosphorus 2.5 mg/dL (2.5-4.9) 08/14/23 07:42 08/14/23 BUN 10 mg/dL (4-19) 09/30/24 09:39 09/30/24 Creatinine 0.86 mg/dL (0.70-1.20) 09/30/24 09:39 09/30/24 Glucose 123 mg/dL (70-99) H 09/30/24 09:39 09/30/24 POC Glucose 108 mg/dL (70-110) 01/19/20 06:15 01/19/20 TSH 0.81 uIU/mL (0.358-3.74) 07/21/20 10:00 07/21/20 COAG Urine Test Negative Negative 01/19/20 05:35 01/19/20 Pre-Assessment Diagnosis/Proposed Procedure Planned Operative Procedure(s): Diagnostic lap, and other indicated procedures Anesthesia History 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 When Was Last Pacemaker Check QUESTION #4 FULL TEXT: You/Your Family Experience fever (hyperthermia) with Anesthesia Last Oral Intake Last Oral intake: Last Oral Intake NPO since Meds taken in AM with sips of water? Meds patient instructed to take am of surgery PONV PONV - guest laundry attendant: PONV - guest laundry attendant Female HX of Motion Sickness HX of N/V After Surgery Non-Smoker Duration of Surgery greater than 60 minutes Number of Risk Factors PONV Score Height & Weight Height & Weight: Anesthesia: Height & Weight Height 5 ft 09/30/24 13:43 Weight: 63.049 kg 09/30/24 13:43 Body Mass Index (BMI) 27.1 09/30/24 13:43 Respiratory Assessment Respiratory Assessment - guest laundry attendant: Respiratory Tract Infection Hx - guest laundry attendant Hx Respiratory Tract Infection No 07/13/23 02:31 STOP Sleep Apnea STOP Sleep Apnea - guest laundry attendant: STOP Sleep Apnea - guest laundry attendant Hx Hypertension No 09/30/24 13:43 Hx Sleep Apnea No 09/30/24 13:43 CPAP No 09/30/24 13:43 BIPAP No 09/30/24 13:43 Do you snore loudly (louder No 09/30/24 13:43 than talking or can be heard Do you often feel tired/ No 09/30/24 13:43 fatigued/ sleepy during daytime? Has anyone observed you stop No 09/30/24 13:43 breathing during sleep? STOP Results Negative 09/30/24 13:43 QUESTION #5 FULL TEXT : Do you snore loudly (louder than talking or can be heard through closed doors)? Tobacco Use History Tobacco Use History - guest laundry attendant: Tobacco Use History - guest laundry attendant Tobacco Use Smoking Status Current every day smoker 09/30/24 13:43 Hx Tobacco Use No 09/30/24 13:43 Years Smoking Packs Smoked per Day Smoking Cessation Date was within the last 15 years Hx Smoking Cessation Date Hx Smoking Cessation No 09/30/24 13:43 Counseling Hematologic Medial History Hematologic Hx - guest laundry attendant: Hematologic Medical Hx - mid level clinician Hx of Blood Transfusion No 09/30/24 13:43 Hx of Transfusion in last 3 No 09/30/24 13:43 Months Date of Last Transfusion (if within last 3 months) Ever experience any problems No 09/30/24 13:43 with transfusion(s)? Specify any problems Hx of Preganancy in last 3 N/A 09/30/24 13:43 Months Nurse Filling Out Transfusion [facility] [place] 09/30/24 13:43 & Questions: Date: 09/30/24 09/30/24 13:43 Time: 13:50 09/30/24 13:43 Patient unable to answer at Yes 09/30/24 13:43 this time (ie. confused, unrespo /Reproduction History /Reproductive History - guest laundry attendant: /Reproductive Hx- guest laundry attendant Hx Now Gestational Age (in weeks): EDC: Hx Hx Para Hx Section SAB No 07/13/23 02:31 Active Medications Active Medications: Current Medications Generic Name Dose Route Start Last Admin Trade Name Freq PRN Reason Stop Dose Admin Sodium Chloride 1,000 mls @ 120 mls/hr 09/30/24 13:42 09/30/24 15:05 IV 0 mls/hr .Q8H20M VICENTE Infusion Sodium Chloride 100 mls @ 15 mls/hr 09/30/24 13:43 IV .Q6H40M PRN Saline Flush Sodium Chloride 100 mls @ 15 mls/hr 09/30/24 13:43 IV .Q6H40M PRN Additional IVPB Infusion Morphine Sulfate 2 - 4 mg 09/30/24 13:42 Morphine 2 Mg/Ml Syringe IV Q3H PRN PRN Pain Score 6-10 Morphine Sulfate 2 - 4 mg 09/30/24 13:48 Morphine 4 Mg/Ml Syringe IV Q3H PRN PRN Pain Score 6-10 Ondansetron HCl 4 mg 09/30/24 13:42 Ondansetron 4 Mg/2 Ml Vial IV Q8H PRN PRN NAUSEA/VOMITING Sodium Chloride 10 - 40 ml 09/30/24 13:43 09/30/24 14:27 0.9% Saline Lock 10 Ml Syringe IV 10 ml UD PRN Administration SALINE FLUSH PFSH Medical History Post-menopausal Anxiety Alcohol use History of diverticulitis Former smoker Leg cramps PONV (postoperative nausea and vomiting) Screening for malignant neoplasm of intestine Depressive disorder, not elsewhere classified Hives Ileostomy present History of small bowel obstruction (~08/2019) Anemia Diverticulitis Home Medications ?Medication ?Instructions ?Recorded ?Last Taken ?Type epinephrine 0.3 mg/0.3 mL 0.3 mg (0.3 mL) IM Q5-15M PRN 07/21/20 Unknown Rx injection, auto-injector (EpiPen) hypersensitivity reaction #2 ea multivitamin 1 tab PO DAILY vitamin 04/03/22 09/29/24 History dextroamphetamine-amphetamine 20 20 mg PO 1200 adhd 07/13/23 09/29/24 History mg tablet dextroamphetamine-amphetamine ER 20 mg PO 0500 adhd 07/13/23 09/29/24 History 20 mg 24hr capsule,extend release polyethylene glycol 3350 17 17 g PO DAILY PRN constipation 08/13/23 08/12/23 History gram/dose oral powder (Miralax) cefdinir 300 mg capsule 300 mg PO BID 09/30/24 09/29/24 History fluconazole 100 mg tablet 100 mg PO DAILY 09/30/24 09/29/24 History progesterone micronized 200 mg 200 mg PO QHS 09/30/24 09/29/24 History capsule Allergy/AdvReac Type Severity Reaction Status Date / Time bee pollen Allergy Swelling Verified 09/30/24 09:13 promethazine (From Phenergan) Allergy Other Verified 09/30/24 09:13 Family History Unknown Asthma Mother Cancer Asthma Heart disease COPD (chronic obstructive pulmonary disease) Surgical History history of ostomy reversal (~01/2020) History of colectomy (~08/2019) H/O colonoscopy H/O section Social History household members: family number of children: 4 current occupational status: employed Smoking Status: Current every day smoker tobacco type: cigarettes second hand exposure: No alcohol intake: current details: Glass of wine 3x a weeks substance use type: does not use caffeine: Yes what type of physical activity do you participate in: none seatbelt use: always do you feel safe at home: Yes 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 Physical Exam Const alert, oriented x3 and average body habitus Resp normal respiratory effort, normal air movement and clear to auscultation bilaterally Cardio regular rate, regular rhythm, no murmurs and diaphoretic
--- NOTE | 2024-09-30 16:40 | PCM.HP.STD ---
HPI - General General Date of Admission: 09/30/24 Date of Service: 09/30/24 Chief Complaint: Abdominal pain/small bowel obstruction. HPI Narrative NELIDA DELACRUZ, is a 54 F who presented to the emergency department at [facility] earlier today with complaints of abdominal pain. She stated that her abdominal pain began yesterday and has steadily worsened. The pain is now constant. States the abdominal pain is all throughout the abdomen. She has a history of multiple surgeries and has had previous bowel obstructions. Her most recent surgery for bowel obstruction was just over a year ago. This was performed by Dr. Martins and was performed laparoscopically. Due to persistence of pain as well as nausea and vomiting, she presented to the emergency room where she was seen evaluate by the ER staff. Blood work revealed a leukocytosis of about 16,000. CT scan of the abdomen pelvis was performed and showed what appeared to be a closed-loop small bowel obstruction. There was a been made mention of a possible 2 transition points. Surgery was consulted. NG tube was placed however this really has not put out much output. Patient has been quite uncomfortable secondary to abdominal pain and now has discomfort secondary to NG tube. [facility] Medical History Post-menopausal Anxiety Alcohol use History of diverticulitis Former smoker Leg cramps PONV (postoperative nausea and vomiting) Screening for malignant neoplasm of intestine Depressive disorder, not elsewhere classified Hives Ileostomy present History of small bowel obstruction (~08/2019) Anemia Diverticulitis Home Medications ?Medication ?Instructions ?Recorded ?Last Taken ?Type epinephrine 0.3 mg/0.3 mL 0.3 mg (0.3 mL) IM Q5-15M PRN 07/21/20 Unknown Rx injection, auto-injector (EpiPen) hypersensitivity reaction #2 ea multivitamin 1 tab PO DAILY vitamin 04/03/22 09/29/24 History dextroamphetamine-amphetamine 20 20 mg PO 1200 adhd 07/13/23 09/29/24 History mg tablet dextroamphetamine-amphetamine ER 20 mg PO 0500 adhd 07/13/23 09/29/24 History 20 mg 24hr capsule,extend release polyethylene glycol 3350 17 17 g PO DAILY PRN constipation 08/13/23 08/12/23 History gram/dose oral powder (Miralax) cefdinir 300 mg capsule 300 mg PO BID 09/30/24 09/29/24 History fluconazole 100 mg tablet 100 mg PO DAILY 09/30/24 09/29/24 History progesterone micronized 200 mg 200 mg PO QHS 09/30/24 09/29/24 History capsule Allergy/AdvReac Type Severity Reaction Status Date / Time bee pollen Allergy Swelling Verified 09/30/24 09:13 promethazine (From Phenergan) Allergy Other Verified 09/30/24 09:13 Family History Unknown Asthma Mother Cancer Asthma Heart disease COPD (chronic obstructive pulmonary disease) Surgical History history of ostomy reversal (~01/2020) History of colectomy (~08/2019) H/O colonoscopy H/O section Social History household members: family number of children: 4 current occupational status: employed Smoking Status: Current every day smoker tobacco type: cigarettes second hand exposure: No alcohol intake: current details: Glass of wine 3x a weeks substance use type: does not use caffeine: Yes what type of physical activity do you participate in: none seatbelt use: always do you feel safe at home: Yes 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 Vital Signs Vital Signs Vital Signs: 09/30/24 09:14 09/30/24 10:47 09/30/24 11:29 Temperature 96.9 F L 97.5 F L Temperature Source Temporal Oral Pulse Rate 93 70 74 Respiratory Rate 14 16 18 Blood Pressure 117/82 H 163/96 H 126/85 H Blood Pressure Mean 93 118 98 Blood Pressure Source Blood Pressure Position Blood Pressure Location Pulse Ox 98 97 96 Oxygen Delivery Method Room Air Room Air Room Air 09/30/24 12:54 09/30/24 13:48 09/30/24 16:28 Temperature 97.5 F L 97.6 F L 97.6 F L Temperature Source Oral Pulse Rate 74 75 75 Respiratory Rate 16 18 18 Blood Pressure 125/89 H 162/88 H 162/88 H Blood Pressure Mean 101 112 Blood Pressure Source Monitor Blood Pressure Position Semi-Fowlers Blood Pressure Location Right Arm Pulse Ox 96 99 99 Oxygen Delivery Method Room Air Weight Weight: 139 lb Body Mass Index (BMI) 27.1 Physical Exam Narrative She is awake and alert. She appeared uncomfortable secondary to abdominal pain and NG tube placement discomfort. She did not appear to be toxic appearing Head is normocephalic and atraumatic. Pupils are equal round and reactive to light. Abdomen is distended. She does have moderate diffuse tenderness to palpation. No rebound or guarding. Results Medical Records Data Attestation: I reviewed the patient's medical records Lab / Micro Data Attestation: I reviewed the patient's lab results. 09/30/24 09:39 09/30/24 09:39 Labs: Laboratory Results - last 24 hr 09/30/24 09:39: WBC 16.5 H, RBC 4.98, Hgb 15.7 H, Hct 46.4, MCV 93.2, MCH 31.5, MCHC 33.8, RDW Std Deviation 43.8, RDW Coeff of Miguel 12.7, Plt Count 359, MPV 9.5, Immature Gran % (Auto) 0.400, Neut % (Auto) 86.2 H, Lymph % (Auto) 8.9 L, [place] % (Auto) 4.1, Eos % (Auto) 0.2, Baso % (Auto) 0.2, Absolute Neuts (auto) 14.2 H, Absolute Lymphs (auto) 1.47, Nucleated RBC % 0, Sodium 136, Potassium 4.7, Chloride 99, Carbon Dioxide 22.7, Anion Gap 14, BUN 10, Creatinine 0.86, Estim Creat Clear Calc 60.04, Est GFR (MDRD) Non-Af 80, BUN/Creatinine Ratio 11.8, Glucose 123 H, Calcium 11.0, Total Bilirubin 0.39, AST 28, ALT 26, Alkaline Phosphatase 88, Total Protein 8.5 H, Albumin 5.2 H, Globulin 3.4, Albumin/Globulin Ratio 1.5, Lipase 80 H 09/30/24 10:44: Urine Color Yellow, Urine Clarity Sl. Cloudy, Urine pH 7.0, Ur Specific [place] 1.010, Urine Protein 15 H, Urine Glucose (UA) Normal, Urine Ketones Negative, Urine Occult Blood 150 H, Urine Nitrite Negative, Urine Bilirubin Negative, Urine Urobilinogen Normal, Ur Leukocyte Esterase 25 H, Urine RBC 0-5 SEEN, Urine WBC 0-5 SEEN, Ur Squamous Epith Cells 5-10 SEEN, Urine Bacteria 1+, Urine Mucus 0 SEEN Imaging Radiology Impression Abdomen/Pelvis CT 09/30/24 10:35 IMPRESSION: 1. Findings compatible with a complex mid to distal small bowel obstruction, including evidence of a closed loop obstruction with upstream simple mechanical obstruction. Notably, there is no definite imaging evidence of current bowel inflammation/ischemia however the patient is at risk for this. Correlate with serum lactate and recommend close clinical follow-up including surgical consultation. Note additionally that the stomach and proximal small bowel are currently decompressed. 2. Recommend updated outpatient out mammograms for above breast findings. 3. Additional description as above. Reading Location: [id number] 09/30/24 12:45 IMPRESSION: The tip of the nasogastric tube is in the body of the stomach. Moderate amount of fecal material is seen in the colon. Reading Location: [id number] Assessment & Plan Assessment/Plan (1) Small bowel obstruction due to adhesions: PLAN: Plan The patient is a 54-year-old female with a history of multiple abdominal surgeries all stemming from perforated diverticulitis. She had a colostomy/Deidre procedure for for surgery. She also had a colostomy takedown and ileostomy takedown. She also had at least 1 surgery for adhesions about a year ago. She presents with another small bowel obstruction. This was noted on CT to be possibly a closed-loop obstruction. There was a quite dilated loop of small bowel. Mention was also made of possibly to transition points. This would go along with the closed-loop obstruction. Due to patient pain and discomfort even despite NG tube decompression, I have recommended that we proceed with operative exploration. She is very much in agreement with this plan. She states that she is having quite a bit of pain and wants to feel better again. Due to the closed-loop possibility, I have a lower threshold to proceed with surgery. We will begin with a diagnostic laparoscopy and possibly convert to a laparotomy if necessary. There is also possibility of bowel resection. We discussed the details of the planned procedure including risks benefits and alternatives. She wishes to proceed. This will take place once in operative room becomes available Charges/Coding Visit Charges Inpatient E&M: 99280 Init Hosp L3
[2024-09-30] MEDS: Albumin Human 25% (100 mL) 25 GM/100 ML BAG IV (20:42)
[2024-09-30] MEDS: Bupiv/Epi 0.25% 30 ML Vial (21:16)
--- NOTE | 2024-09-30 21:21 | OP.PCM_ITS ---
Problems Associated Problem List Diagnoses (1) Small bowel obstruction due to adhesions: Multi Select Codes Digestive Digestive CPT Codes: 85382 Freeing of bowel adhesion and 65960 Exploration of abdomen Operative Report (Standard) Operative Information Date of Procedure: 09/30/24 Pre-Operative Diagnosis: Small bowel obstruction Post-Operative Diagnosis: Small bowel obstruction Surgery/Procedure Performed: 1. Diagnostic laparoscopy 2. Lysis of adhesions/release of small bowel obstruction pain management physician: Yes Linseed Oil Order Filler: Azucena Mejia Tasks completed by first aid attendant: Closing and Trocar Additional assistant community manager?: No Type of Anesthesia: General and Local RN Documented Start/Stop Times: Operation Date: 09/30/24 16:15 Case Time Into Pre-Op 09/30/24 15:10 Out of Pre-Op 09/30/24 20:00 Anesthesia Start 09/30/24 20:01 Into Room 09/30/24 20:01 Procedure Start 09/30/24 20:23 Procedure End 09/30/24 21:20 Procedure Start Time: 20:23 Procedure Stop Time: 21:20 Select all DRAINS/GRAFTS/IMPLANTS that apply: None Special Medications: Ancef IV Estimated Blood Loss: 10 mL Specimen collected: No Description of surgery: The patient is a 54-year-old female who has a history of multiple previous abdominal surgeries as well as multiple small bowel obstructions. She presented to the emergency room earlier today with about 1 day history of abdominal pain. Workup revealed a small bowel obstruction with 2 transition points and there was concern for closed-loop obstruction. She was quite uncomfortable when she first presented. As a result I recommended and offered a diagnostic laparoscopy and release of small bowel obstruction with the possibility of a laparotomy. She wished to proceed. We discussed the details of the planned procedure as well as risks benefits and alternatives. She wished to proceed. She was brought to the operating room today following informed consent preoperative antibiotics were given and a timeout was performed. She was placed supine on the operative table with arms outstretched on arm boards and general endotracheal anesthesia was induced. Once adequately sedated the abdomen is then prepped and draped in the usual sterile manner a 5 mm incision was made just above the umbilicus which a 5 mm trocar was placed optically. This was placed without incident. Once in place the abdomen is then fully insufflated with CO2 gas a 5 mm 0 degree scope was inserted. There were no signs of bowel or vascular injury it was noted that she had a dilated loop of small bowel adherent to the anterior abdominal wall. The CAT scan seem to indicate that the small bowel obstruction seems to be coming from the left lower quadrant region. As a result I placed two 5 mm trocars under direct visualization on the right side of the abdomen. In order to improve visualization I needed to take down the inherent small bowel to the anterior abdominal wall with this was taken down carefully using curved scissors this came down nicely without any evidence to suggest enterotomy. Once this was performed I was then able to begin running the small bowel I started in the left lower quadrant and it was noted that there was a very dense adhesive band in the left lower quadrant although this was fairly small this was very dense and appeared to be most likely the main cause for the bowel obstruction. This was easily lysed using scissors. The bowel was run to a region region of small bowel that was decompressed. Eventually we were able to get to the ileum and I could visualize the ileostomy takedown anastomosis. The bowel was then run proximally towards the ligament of Treitz. It was also noted that there is a adhesion between the loop of small bowel that I had originally taken down and another loop of bowel. This was also pretty dense. This too was taken down using scissors. The bowel was then run proximally and distally again and no additional obvious transition points were noted. It was however noted that there was an adhesion down near the cul-de-sac behind the uterus. I did take these down quite a bit this straighten the bowel in this region now though I do not feel that this was a cause for the bowel obstruction. At this point it was felt that no additional surgery was warranted and we elected to remove the trocars and allow insufflation to escape. Local anesthetic was injected in each of the incisions. The incision was then closed with 4-0 Vicryl. Skin glue was applied as dressing. She was awakened anesthesia and taken to PACU in good condition. An APARTMENT MAINTENANCE WORKER was utilized as a surgical first assistant. His role included holding the camera, assistance with patient positioning and incision closure Surgical Findings: Small bowel obstruction secondary to adhesions. Complications Complications: No Admit VTE Documentation VTE Present on Admission: No VTE Mechan Device Prophylaxis: SCD's VTE Pharm Prophylaxis ordered?: Yes
--- NOTE | 2024-09-30 21:36 | PCM.POST.ANE ---
Anesthesia: Postop Eval I Current Vital Signs Temperature: 97.8 F Pulse Rate: 109 Blood Pressure: 98/84 Respiratory Rate: 18 Pulse Ox: 98 Oxygen Delivery Method: Room Air Assessment Airway patent: Yes Spontaneous unlabored respirations: Yes Mental status: Awake nausea: No Vomiting: No Anesthesia Complication: No Fluid Hydration Crystalloid volume administer (ml): 1,000 Total IV fluid infused: 1,000 Progress Note Anesthesia document: Postop Eval 1 completed: Yes
--- NOTE | 2024-09-30 21:38 | PCM.POSTANE2 ---
Anesthesia Postop Eval I Sum Postop Eval Completion status Anesthesia document: Postop Eval 1 completed: Yes Anesthesia Postop Eval I Summary Anesthesia Postop Eval I Summary: Anesthesia Postop Eval I: Assessment Summary Airway patent Yes 09/30/24 21:38 Spontaneous unlabored Yes 09/30/24 21:38 respirations Mental status Awake 09/30/24 21:38 nausea No 09/30/24 21:38 Vomiting No 09/30/24 21:38 Anesthesia Postop Eval I: Fluid Summary Crystalloid volume administer 1,000 09/30/24 21:38 (ml) Colloids volume administered ( ml) Blood Product volume administered (ml) Total IV fluid infused 1,000 09/30/24 21:38 Anesthesia Postop Eval I: Summary Notes Anesthesia Complication No 09/30/24 21:38 Anesthesia Complication Comment: Post-operative progress note Anesthesia: Postop Eval II Evaluation Mental status: Awake Pain Level: 2 nausea: No Vomiting: No Complications Anesthesia Complication: No
[2024-09-30] MEDS: Piperacil/Tazobactam 3.375 GM in 0.9% Normal Saline (50mL MB+) 50 ML IV (22:30)
[2024-10-01] VITALS (7 sets, daily range): BP systolic 110–138; BP diastolic 70–89; PULSE 76–101; RESP 15–17; TEMP 36.5–37.1; O2SAT 96–100
[2024-10-01] MEDS: Piperacil/Tazobactam 3.375 GM in 0.9% Normal Saline (50mL MB+) 50 ML IV ×3 (05:25→21:05)
[2024-10-01 05:42] LABS: Absolute Lymphocyte Count 0.78 X10^3/uL (0.83-4.51); Absolute Neutrophil Count 9.1 X10^3/uL (2.0-7.7); Basophil# 0.01 X10^3/uL; Basophil% 0.1 % (0-1); Hematocrit 36.8 % (37-47); Hemoglobin 12.3 g/dL (12.0-15.0); Lymphocyte # 0.78 X10^3/ul (0.83-4.51); Lymphocyte % 7.8 % (19-41); Mean Corp Hgb Conc 33.4 g/dL (32-36); Mean Corpuscular Hgb 31.3 pg (27.0-32.0); Mean Corpuscular Volume 93.6 fL (81-99); Mean Platelet Vol. 10.1 fl (6.2-12.0); Monocyte# 0.08 X10^3/uL; Monocyte% 0.8 % (0-10); NRBC Flagged by Analyzer 0 % (0-5); Neutrophil % 90.9 % (47-70); Platelet Count 305 K/mm3 (150-450); RBC Distribution Width CV 12.9 % (11.6-14.6); RBC Distribution Width SD 44.7 fl (35.1-43.9); Red Blood Count 3.93 M/mm3 (4.2-5.4)
[2024-10-01 06:12] LABS: Anion Gap 12 (5-15); BUN 12 mg/dL (4-19); BUN/Creat Ratio 15.7 RATIO (10-20); Calcium,Total 8.2 mg/dL (7.6-11.0); Carbon Dioxide 18.9 mmol/L (21.0-32.0); Chloride 106 mmol/L (98-108); Creatinine, Serum 0.78 mg/dL (0.70-1.20); EST Glomerular Filtration Rate 91 (>60); Estimated Creatinine Clearance 68.36 ml/min (50-250); Glucose 136 mg/dL (70-99); Potassium 3.8 mmol/L (3.3-5.1); Sodium Level 137 mmol/L (133-145)
--- NOTE | 2024-10-01 09:55 | PCM.PN.SRG ---
Subjective Subjective Patient is evaluated resting comfortably in bed. She denies any pain unless her abdomen is palpated. She denies feeling nauseated. She notes passing flatus and having a bowel movement last night. Urinating well. Objective Data Objective Data Vital Signs: Vital Signs Temp Pulse Resp BP Pulse Ox O2 Del Method 98.8 F 89 16 126/74 H 100 Room Air 10/01/24 09:15 10/01/24 09:15 10/01/24 09:15 10/01/24 09:15 10/01/24 09:15 10/01/24 09:27 Oxygen Delivery Method Room Air Weight: 139 lb Body Mass Index (BMI) 27.1 Intake & Output: Intake and Output for Last 24 Hours 09/29/24 09/30/24 10/01/24 23:59 23:59 23:59 Intake Total 1176 / 1176 1100.00 / 1100.00 Output Total 200 / 200 450 / 450 Balance 976 / 976 650.00 / 650.00 Lab / Micro Data 10/01/24 04:23 10/01/24 04:23 Labs: Laboratory Results - last 24 hr 09/30/24 09:39: Sodium 136, Potassium 4.7, Chloride 99, Carbon Dioxide 22.7, Anion Gap 14, BUN 10, Creatinine 0.86, Estim Creat Clear Calc 60.04, Est GFR (MDRD) Non-Af 80, BUN/Creatinine Ratio 11.8, Glucose 123 H, Calcium 11.0, Total Bilirubin 0.39, AST 28, ALT 26, Alkaline Phosphatase 88, Total Protein 8.5 H, Albumin 5.2 H, Globulin 3.4, Albumin/Globulin Ratio 1.5, Lipase 80 H 09/30/24 10:44: Urine Color Yellow, Urine Clarity Sl. Cloudy, Urine pH 7.0, Ur Specific Putnam 1.010, Urine Protein 15 H, Urine Glucose (UA) Normal, Urine Ketones Negative, Urine Occult Blood 150 H, Urine Nitrite Negative, Urine Bilirubin Negative, Urine Urobilinogen Normal, Ur Leukocyte Esterase 25 H, Urine RBC 0-5 SEEN, Urine WBC 0-5 SEEN, Ur Squamous Epith Cells 5-10 SEEN, Urine Bacteria 1+, Urine Mucus 0 SEEN 10/01/24 04:23: WBC 10.0, RBC 3.93 L, Hgb 12.3, Hct 36.8 L, MCV 93.6, MCH 31.3, MCHC 33.4, RDW Std Deviation 44.7 H, RDW Coeff of Miguel 12.9, Plt Count 305, MPV 10.1, Immature Gran % (Auto) 0.400, Neut % (Auto) 90.9 H, Lymph % (Auto) 7.8 L, Lassen % (Auto) 0.8, Eos % (Auto) 0.0, Baso % (Auto) 0.1, Absolute Neuts (auto) 9.1 H, Absolute Lymphs (auto) 0.78 L, Nucleated RBC % 0, Sodium 137, Potassium 3.8, Chloride 106, Carbon Dioxide 18.9 L, Anion Gap 12, BUN 12, Creatinine 0.78, Estim Creat Clear Calc 68.36, Est GFR (MDRD) Non-Af 91, BUN/Creatinine Ratio 15.7, Glucose 136 H, Calcium 8.2 Radiography Diagnostic Testing: Radiology Impression Abdomen/Pelvis CT 09/30/24 10:35 IMPRESSION: 1. Findings compatible with a complex mid to distal small bowel obstruction, including evidence of a closed loop obstruction with upstream simple mechanical obstruction. Notably, there is no definite imaging evidence of current bowel inflammation/ischemia however the patient is at risk for this. Correlate with serum lactate and recommend close clinical follow-up including surgical consultation. Note additionally that the stomach and proximal small bowel are currently decompressed. 2. Recommend updated outpatient out mammograms for above breast findings. 3. Additional description as above. Reading Location: [id number] 09/30/24 12:45 IMPRESSION: The tip of the nasogastric tube is in the body of the stomach. Moderate amount of fecal material is seen in the colon. Reading Location: [facility] Physical Exam GI GI Narrative: Abdomen- soft, tenderness below the umbilicus. Incisions c/d/i. No erythema or infection noted. Assessment & Plan Assessment/Plan (1) Small bowel obstruction due to adhesions: PLAN: I am following this patient in conjunction with Dr. Vidales. He will independently evaluate this patient. Labs reviewed. WBC is normal. Continue IV antibiotics today Clamping trial for NG tube for 4 hours. After hooked back up for 30 minutes and if less than 100 cc output, remove NG tube and start clear liquids Encourage ambulation and I.S We will continue to monitor this patient Charges/Coding Visit Charges Inpatient E&M: 87141 Subs Hosp L1 (post-op; no charge)
--- NOTE | 2024-10-01 10:10 | CASEMGMT ---
RN CM W[employer]COVERING HANGER CM?to room to meet with patient for initial transition planning/care coordination assessment. RN CM?introduced self and role at [facility]. Pt voices understanding and consents to assessment?at this time. Pt resting in bed in no distress at this time. @ bedside. Pt is A/O at this time and answers all questions appropriately. Care providers, pharmacy, and demographics verified/updated at this time. Strata:?1 PCP: Dr Davalos Specialists: none Preferred Pharmacy: [facility] Insurance: [employer] Prescription Benefit: yes LNOK: Ezra. 4 children Living Arrangements: Lives w/ in one-story home w/2 steps to enter. Independent. Transportation:?Pt states drives self and states no transportation concerns at this time. also drives. DME: Denies using any DME and denies needs. HHC/SNF: No hx Pt wishes to return home and states has no concerns with going home at time of discharge. CM?to follow for any discharge planning/needs. Pt and voice no concerns/needs at this time. PLAN: Home David NELSON RN, CM
[2024-10-01] MEDS: 0.9% Saline Lock 10 ML Syringe IV ×2 (14:11→21:06)
--- NOTE | 2024-10-01 16:52 | NURSING ---
Report called to MS3 KARLI Cullen.
[2024-10-01] MEDS: traZODone 50 MG Tablet PO (21:04)
[2024-10-02] MEDS: 0.9% Saline Lock 10 ML Syringe IV ×2 (01:42→06:05)
[2024-10-02 01:45] VITALS: BP 102/50; PULSE 70; RESP 16; TEMP 36.5; O2SAT 94
[2024-10-02] MEDS: Piperacil/Tazobactam 3.375 GM in 0.9% Normal Saline (50mL MB+) 50 ML IV (05:51)
[2024-10-02 06:00] VITALS: BP 107/56; PULSE 76; RESP 16; TEMP 36.5; O2SAT 96
[2024-10-02 06:26] LABS: Absolute Lymphocyte Count 2.78 X10^3/uL (0.83-4.51); Basophil# 0.02 X10^3/uL; Basophil% 0.2 % (0-1); Eosinophil# 0.06 X10^3/uL; Eosinophils% 0.6 % (0-5); Hemoglobin 10.5 g/dL (12.0-15.0); Lymphocyte # 2.78 X10^3/ul (0.83-4.51); Lymphocyte % 29.2 % (19-41); Mean Corp Hgb Conc 32.8 g/dL (32-36); Mean Corpuscular Hgb 31.2 pg (27.0-32.0); Mean Platelet Vol. 10.2 fl (6.2-12.0); Monocyte# 0.59 X10^3/uL; Monocyte% 6.2 % (0-10); NRBC Flagged by Analyzer 0 % (0-5); Neutrophil # 6.01 X10^3/uL (2.7-7.7); Neutrophil % 63.3 % (47-70); Platelet Count 257 K/mm3 (150-450); RBC Distribution Width SD 45.1 fl (35.1-43.9); Red Blood Count 3.37 M/mm3 (4.2-5.4); White Blood Count 9.5 K/mm3 (4.4-11.0)
[2024-10-02 06:40] LABS: Anion Gap 10 (5-15); BUN 12 mg/dL (4-19); BUN/Creat Ratio 17.7 RATIO (10-20); Calcium,Total 8.3 mg/dL (7.6-11.0); Carbon Dioxide 22.6 mmol/L (21.0-32.0); Chloride 106 mmol/L (98-108); Creatinine, Serum 0.68 mg/dL (0.70-1.20); EST Glomerular Filtration Rate 103 (>60); Estimated Creatinine Clearance 78.41 ml/min (50-250); Glucose 87 mg/dL (70-99); Potassium 3.6 mmol/L (3.3-5.1); Sodium Level 138 mmol/L (133-145)
--- NOTE | 2024-10-02 06:51 | PCM.PN.SRG ---
Subjective Subjective Patient evaluated resting comfortably in bed. She pulled out her NG tube yesterday. Clear liquids went well yesterday. She notes passing flatus. She denies any further bowel movements. She notes minimal amount of tenderness at the midline incision. She voices readiness to go home and sleep. Objective Data Objective Data Vital Signs: Vital Signs Temp Pulse Resp BP Pulse Ox O2 Del Method 97.7 F L 76 16 107/56 L 96 Room Air 10/02/24 06:00 10/02/24 06:00 10/02/24 06:00 10/02/24 06:00 10/02/24 06:00 10/02/24 06:00 Oxygen Delivery Method Room Air Weight: 139 lb Body Mass Index (BMI) 27.1 Intake & Output: Intake and Output for Last 24 Hours 09/30/24 10/01/24 10/02/24 23:59 23:59 23:59 Intake Total 1176 / 1176 2450.00 / 2450.00 350 / 350 Output Total 200 / 200 750 / 750 Balance 976 / 976 1700.00 / 1700.00 350 / 350 Lab / Micro Data 10/02/24 04:26 10/02/24 04:26 Labs: Laboratory Results - last 24 hr 10/02/24 04:26: WBC 9.5, RBC 3.37 L, Hgb 10.5 L, Hct 32.0 L, MCV 95.0, MCH 31.2, MCHC 32.8, RDW Std Deviation 45.1 H, RDW Coeff of Miguel 13.0, Plt Count 257, MPV 10.2, Immature Gran % (Auto) 0.500, Neut % (Auto) 63.3, Lymph % (Auto) 29.2, Mccracken % (Auto) 6.2, Eos % (Auto) 0.6, Baso % (Auto) 0.2, Absolute Neuts (auto) 6.0, Absolute Lymphs (auto) 2.78, Nucleated RBC % 0, Sodium 138, Potassium 3.6, Chloride 106, Carbon Dioxide 22.6, Anion Gap 10, BUN 12, Creatinine 0.68 L, Estim Creat Clear Calc 78.41, Est GFR (MDRD) Non-Af 103, BUN/Creatinine Ratio 17.7, Glucose 87, Calcium 8.3 Physical Exam GI GI Narrative: Abdomen- soft, tenderness at the midline incision site. Incisions c/d/i. No erythema or infection noted. Assessment & Plan Assessment/Plan (1) Small bowel obstruction due to adhesions: PLAN: I am following this patient in conjunction with Dr. Vidales. He will independently evaluate this patient Labs reviewed. Unremarkable Increase diet to full liquids for breakfast Continue to encourage ambulation and I.S. Probable discharge later this afternoon We will continue to monitor this patient Charges/Coding Visit Charges Inpatient E&M: 74121 Subs Hosp L1 (no charge; post-op)
[2024-10-02 08:42] VITALS: BP 113/70; PULSE 75; RESP 19; TEMP 36.5; O2SAT 97
--- NOTE | 2024-10-02 09:01 | NURSING ---
Pt called out saying she thought she was having an allergic reaction. This RN in room within a few minutes and noticed Rt eye, Rt cheek, and lips are very swollen. Pt Was sitting up in bed and requested to have her antibiotic turned off. I know its that antibiotic because its the only thing I've had. This RN took Iv and Saline locked at this time, also flushed with NS 10cc. Assessed pt. Pt does not have a rash anywhere on her body, there is no itching, no nausea/vomitting, Throat, tongue, and tonsils are wnl. Denies trouble breathing/swallowing. No distress. Shabana ERIC texted and made aware. No new orders. Will continue to monitor pt.
--- NOTE | 2024-10-02 10:22 | NURSING ---
Pt walking around in room. Her swelling in her eyes, cheek and lips are looking better. This RN is aware of Transitional diet order by Shabana ERIC. Paper with Transitional diet given and education provided to pt.
--- NOTE | 2024-10-02 13:26 | NURSING ---
Pt asking to go home. Anxious. I feel good, I really do. Pt tolerated Transitional diet for lunch. This Rn texted Shabana ERIC to let her know.
[2024-10-02 13:44] VITALS: BP 143/82; PULSE 73; RESP 18; TEMP 36.4; O2SAT 100
--- NOTE | 2024-10-02 13:44 | PCM.DC.SUM ---
Providers Date of Admission: 09/30/24 Primary Care Physician: Dr. April Davalos DO Reason For Visit: SMALL BOWEL OBSTRUCTION, LEUKOCYTOSIS Diagnosis Discharge Diagnosis (1) Small bowel obstruction due to adhesions: Status: Acute Code(s): K56.50 - Intestinal adhesions [bands], unspecified as to partial versus complete obstruction Plan: I am following this patient in conjunction with Dr. Vidales. He will independently evaluate this patient Labs reviewed. Unremarkable Increase diet to full liquids for breakfast Continue to encourage ambulation and I.S. Probable discharge later this afternoon We will continue to monitor this patient Medications at Discharge Home Medications epinephrine 0.3 mg/0.3 mL injection, auto-injector (EpiPen) 0.3 mg (0.3 mL) IM Q5-15M PRN hypersensitivity reaction #2 ea 07/21/20 multivitamin 1 tab PO DAILY vitamin 04/03/22 dextroamphetamine-amphetamine 20 mg tablet 20 mg PO 1200 adhd 07/13/23 dextroamphetamine-amphetamine ER 20 mg 24hr capsule,extend release 20 mg PO 0500 adhd 07/13/23 polyethylene glycol 3350 17 gram/dose oral powder (Miralax) 17 g PO DAILY PRN constipation 08/13/23 cefdinir 300 mg capsule 300 mg PO BID 09/30/24 fluconazole 100 mg tablet 100 mg PO DAILY 09/30/24 progesterone micronized 200 mg capsule 200 mg PO QHS 09/30/24 Hospital Course Operations - (1. Diagnostic laparoscopy 2. Lysis of adhesions/release of small bowel obstruction) Summary of Care Provided Minutes Spent on Discharge: 25 Hospital Course: Patient is a 54 y/o F who presented with 1 days history of worsening abdominal pain, nausea, vomiting. Patient has a history of small bowel obstructions. CT scan of the ab/pel obtained and demonstrated a closed loop small bowel obstruction. Dr. Vidales emergently performed a Diagnostic laparoscopy, Lysis of adhesions/release of small bowel obstruction. Patient tolerated the procedure well. She had flatus and bowel movement on POD #0. Patient had an uneventful hospitalization. Upon discharge, patient tolerated a transitional diet. She denies nausea, vomiting. She is passing flatus. She will be sent home on a low fiber diet for 2 weeks. Patient's pain was well controlled. Weight / BMI Weight Weight: 139 lb Body Mass Index (BMI) 27.1 ABG / Lab / Microbiology Data 10/02/24 04:26 10/02/24 04:26 Laboratory: Laboratory Results - last 24 hr 10/02/24 04:26: WBC 9.5, RBC 3.37 L, Hgb 10.5 L, Hct 32.0 L, MCV 95.0, MCH 31.2, MCHC 32.8, RDW Std Deviation 45.1 H, RDW Coeff of Miguel 13.0, Plt Count 257, MPV 10.2, Immature Gran % (Auto) 0.500, Neut % (Auto) 63.3, Lymph % (Auto) 29.2, [place]ard % (Auto) 6.2, Eos % (Auto) 0.6, Baso % (Auto) 0.2, Absolute Neuts (auto) 6.0, Absolute Lymphs (auto) 2.78, Nucleated RBC % 0, Sodium 138, Potassium 3.6, Chloride 106, Carbon Dioxide 22.6, Anion Gap 10, BUN 12, Creatinine 0.68 L, Estim Creat Clear Calc 78.41, Est GFR (MDRD) Non-Af 103, BUN/Creatinine Ratio 17.7, Glucose 87, Calcium 8.3 D/C Instructions Discharge Diet: - (Low fiber diet for 2 weeks) Lifting Restrictions: No lifting greater than 10 pounds for 2 weeks Call your doctor if your incision/area has: Continuous Slow Oozing, Sudden Increased Bleeding, Increased Pain/ Swelling, Increased Redness, Foul Smelling Discharge and Swelling at the incision site Call your doctor if you observe: Fever of 101 or Higher Suture Line Care: Avoid Pulling/Pushing and Avoid Pinching/Bending Remove Dressing in: 2 days Cleanse incision/area with: Soap & Water Additional Dressing/Incision Instructions: Remove steri-strips in 1 week DC O2, CPAP, BIPAP Needs Home O2 Discharge instructions: No Please Follow Up With: Shabana Acosta PA-C When: Contact our office to schedule a follow-up appointment for 2 weeks post-op at [phone], option #2 Meaningful Use Info Meaningful Use Meaningful Use Diagnoses (Choose all that apply): None applicable Ischemic Stroke Statin Dosing Therapy Reference: STATIN DOSE THERAPY REFERENCE: * Patients > 75 years receive moderate or high dose statin therapy. * Patients 75 years or YOUNGER should receive HIGH intensity statin dose unless contraindicated. You will be required to document reason for non-treatment if statin daily dose does not meet guidelines. HIGH DOSE STATIN THERAPY DAILY Atorvastatin > than or = to 40 mg Rosuvastatin > than or = to 20 mg Amlodipine + Atorvastatin > than or = to 2.5/40 mg Ezetimibe + Simvastatin 10/80 mg Simvastatin 80mg Discharge Plan Admission Admit Date/Time: 09/30/24 12:36 Primary Reason for Your Visit: Closed loop small bowel obstruction Attending Provider: Luís Vidales Primary Care Provider: April Davalos Instructions Additional Instructions / Restrictions: What are low-fiber foods? If your doctor tells you to follow a low-fiber diet, here are low-fiber foods you can eat and higher-fiber foods you should avoid. Remember to always choose foods that you would normally eat. Do not try any foods that caused you discomfort or allergic reactions in the past. If you are on a ?low-residue diet,? your food choices are even more restricted than those listed below. Talk with your cancer care team or dietitian if you have questions about certain foods or amounts. Meat, fish, poultry, and protein Eat: Tender cuts of meat Ground meat Tofu Fish and shellfish Smooth peanut butter Eggs Bake, broil, or poach meats, and use mild seasonings. Try preparing meats as stews, roasts, meatloaves, casseroles, sandwiches, and soups using ingredients on the approved lists. Scramble, poach, or boil eggs; or make omelets, souffl?s, custard, puddings, and casseroles, using ingredients noted below. You might want to ask your doctor, nurse, or dietitian about other foods may be OK for you to eat, and find out when you can go back to your normal diet. Avoid: All beans, nuts, peas, lentils, and legumes Processed meats, hot dogs, sausage, and cold cuts Tough meats with gristle Dairy: Milk and cheese Eat: Only in small to medium amounts and only if they don?t cause problems for you Milk, chocolate milk, buttermilk, and milk drinks Yogurt without seeds or granola Sour cream Cheese Cottage cheese Custard or pudding Ice cream or frozen desserts (without nuts) Cream sauces, soups, and casseroles You can use these items in desserts, snacks, or breads. Bread, cereals, and grains Eat: White breads, waffles, Kinyarwanda toast, plain white rolls, or white bread toast Pretzels Plain pasta or noodles White rice Crackers, zwieback, harry, and matzoh (no cracked wheat or whole grains) Cereals without whole grains, added fiber, seeds, raisins, or other dried fruit Use white flour for baking and making sauces. Grains, such as white rice, Cream of Wheat, or grits, should be well-cooked. Include the above grains in casseroles, dumplings, souffl?s, cheese strata, kugels, and pudding. Avoid any food that contains: Brown or wild rice Whole grains, cracked grains, or whole wheat products Kasha (buckwheat) Cornbread or cornmeal Ramiro crackers Bran Wheat germ Nuts Granola Coconut Dried fruit Seeds Vegetables and potatoes Eat: Tender, well-cooked fresh or canned vegetables without seeds, stems, or skins Cooked sweet or white potatoes without skins Strained vegetable juices without pulp or spices You can also eat these with cream sauces, or in soups, souffl?s, kugels, and casseroles. Avoid: All raw or steamed vegetables All types of beans Potatoes with skin Peas [place] Cabbage, broccoli, cauliflower, [place] sprouts, and greens Sauerkraut Onions Fruits and desserts Eat: Soft canned or cooked fruit without seeds or skins (small amounts) Small amounts of well-ripened banana Strained or clear juices Small amounts of soft cantaloupe or honeydew melon Cookies and other desserts without whole grains, dried fruit, berries, nuts, or coconut Sherbet and popsicles Serving suggestions include gelatins, milk shakes, frozen desserts, puddings, tapioca, cakes, and sauces. Avoid: All raw or dried fruits Berries Prune juice, prunes, and raisins Other foods Eat: Mayonnaise and mild salad dressings Margarine, butter, cream, and oils in small amounts Plain gravies Plain bouillon and broth Ketchup and mild mustard Spices, cooked herbs, and salt Sugar, honey, and syrup Clear jellies Hard candy and marshmallows Plain chocolate Avoid: Marmalade Pickles, olives, relish, and horseradish Popcorn Potato chips Liquids Keep in mind that low-fiber foods cause fewer bowel movements and smaller stools. You may need to drink extra fluids to help prevent constipation while you are on a low-fiber diet. Drink plenty of water unless your doctor tells you otherwise, and use juices and milk as noted above. You may take Tylenol or Ibuprofen as needed for pain Discharge Orders/Prescriptions Prescriptions: Continued epinephrine [EpiPen] 0.3 mg/0.3 mL auto-injector 0.3 mg IM Q5-15M PRN (Reason: hypersensitivity reaction) Qty: 2 3RF Rx Instructions: do not exceed 3 doses per episode multivitamin Tablet 1 tab PO DAILY polyethylene glycol 3350 [Miralax] 17 gram/dose powder 17 g PO DAILY PRN (Reason: constipation) dextroamphetamine-amphetamine 20 mg capsule,extended release 24hr 20 mg PO 0500 dextroamphetamine-amphetamine 20 mg tablet 20 mg PO 1200 cefdinir 300 mg capsule 300 mg PO BID Patient Comments: START DATE 09/29/24 fluconazole 100 mg tablet 100 mg PO DAILY Rx Instructions: START DATE 09/29/24 progesterone micronized 200 mg capsule 200 mg PO QHS Referrals / Follow Up: Fast,April, DO [Primary Care Provider] - Disposition Disposition (needs filled in before D/C Order can be placed): Home, Self Care Charges/Coding Visit Charges Inpatient E&M: 41429 Disch Hosp (no charge; post-op)
== END 2024-10-02 14:23 | disposition home or self-care (01) | DRG 337 ==
LOC: ED 12:11 → PCU 13:29 → MS3 10-01 17:12
PROVIDERS: Physician Assistant; Admitting Provider Surgery; Emergency Provider Emergency Medicine; PCP Internal Medicine; Visit Provider Surgery
PROC: 0DN84ZZ Release Small Intestine, Percutaneous Endoscopic Approach (ICD-10-PCS; CPT 49320; principal; 2024-09-30 16:00)
DX: K56.50 Intestinal adhesions [bands], unspecified as to partial versus complete obstruction (principal); F17.210 Nicotine dependence, cigarettes, uncomplicated; N73.6 Female pelvic peritoneal adhesions (postinfective); Z79.899 Other long term (current) drug therapy; Z87.19 Personal history of other diseases of the digestive system; Z90.49 Acquired absence of other specified parts of digestive tract
CPT/HCPCS: 36415; 74018; 74177; 80048; 80053; 81001; 83690; 85025; 99285; P9047; Q9967; A4216; J2405